=== PATIENT | male | born 1955 | race Hispanic/Latino ===

== ENCOUNTER 2016-10-14 23:32 | Inpatient (IN) | payer MEDICARE ==
[2016-10-15 00:11] LABS: Basophils % (Auto) 0.6 % (0.0-1.8); Eosinophils % (Auto) 2.8 % (0.0-4.3); Hematocrit 40.8 % (35.5-45.6); Hemoglobin 13.8 gm/dl (11.8-15.2); Mean Corpuscular HGB Conc 34 % (32-34); Mean Corpuscular Hemoglobin 29 pg (28-32); Mean Corpuscular Volume 87 fl (84-94); Platelet Count 173 K/mm3 (140-440); Red Cell Distribution Width 13.7 % (13.2-15.2); White Blood Count 6.8 K/mm3 (4.5-11.0)
[2016-10-15 00:23] LABS: Partial Thromboplastin Time 40.2 Sec. (24.2-36.6)
[2016-10-15 00:31] LABS: Anion Gap 19 mmol/L; Blood Urea Nitrogen 9 mg/dL (9-20); Calcium 8.4 mg/dL (8.4-10.2); Carbon Dioxide 22 mmol/L (22-30); Chloride 98.6 mmol/L (98-107); Glucose 308 mg/dL (75-100); Potassium 3.5 mmol/L (3.6-5.0); Sodium 136 mmol/L (137-145)
[2016-10-15] MEDS ORDERED: DILAUDID IV ONE (08:22)
[2016-10-15] MEDS ORDERED: ZOFRAN IV ONE (08:22)
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
[2016-10-15] MEDS ORDERED: NACL 0.9% 500 ML 500 ML IV ONE (08:38)
--- NOTE | 2016-10-15 08:50 | Admit Criteria Form ---
Admission Criteria Documentation: CARDIOLOGY GRG Clinical Indications for Admission to Inpatient Care ( Place 'X' for any and all applicable criteria): Hospital admission is needed for appropriate care of the patient because of ANY ONE of the following (1): [ ] I. Hemodynamic instability as indicated by ALL of the following (1)(2)(3) (4)(5) [ ]a) Vital signs or other findings not as expected for chronic patient condition or baseline [ ]b) Instability indicated by ANY ONE of the following: [ ]i) Hypotension [ ]ii) Symptomatic Tachycardia unresponsive to treatment ( e.g., analgesia, fluids, sedation as indicated) [ ]iii) Inadequate perfusion indicated by ANY ONE of the following: [ ] 1) Lactic acidosis (> 2 mmol/L) [ ] 2) New abnormal capillary refill (> 3 seconds) [ ] 3) Reduced urine output [ ] 4) New altered mental status [ ]iv) Orthostatic vital sign changes unresponsive to treatment (e.g., fluids) [ ]v) IV inotropic or vasopressor medication required to maintain adequate blood pressure or perfusion [ ] II. Severe heart failure as indicated by ANY ONE of the following(17)(18) [ ]a) Respiratory distress [ ]b) Hypotension [ ]c) Anasarca (refractory to outpatient therapy) [ ]d) Cardiac arrhythmias of immediate concern [ ]e) Myocardial ischemia [ ] III. Cardiac arrhythmias or findings of immediate concern indicated by ANY ONE of the following (19)(20): [ ] a) Heart rhythms that are inherently dangerous or unstable indicated by ANY ONE of the following (21)(22)(23): [ ] i) Resuscitated ventricular fibrillation or cardiac arrest [ ] ii) Ventricular escape rhythm [ ] iii) Sustained ventricular tachycardia (30 seconds or more of ventricular rhythm at greater than 100 beats per minute) [ ] iv) Nonsustained ventricular tachycardia and ANY ONE of the following: [ ] 1) Suspected cardiac ischemia as cause or consequence of ventricular tachycardia [ ] 2) In setting of acute myocarditis [ ] b) Unstable cardiac conduction defects indicated by ANY ONE of the following(23)(24)(25) [ ] i) Type II second-degree atrioventricular block [ ]ii) Third-degree atrioventricular block [ ]iii) New-onset left bundle branch block with suspected myocardial ischemia [ ]c) Any heart rhythm and ANY ONE of the following (21)(22)(26)(27) (28) [ ] i) Continuous long-term ECG monitoring needed (e.g., initiation of drug requiring monitoring for more than 24 hours) [ ] ii) Patient has automatic implanted cardioverter defibrillator that is repeatedly firing, malfunctioning, or in need of immediate adjustment of settings beyond the scope of ambulatory or observation care [ ]d) Heart rhythms of concern due to ANY ONE of the following: [ ] i) Hypotension [ ] ii) Respiratory distress [ ] iii) Association with other significant symptoms (e.g., bradycardia with syncope or ongoing dizziness, supraventricular tachycardia with chest pain (14)(15)(17) [ ] IV. Monitoring for cardiac contusion beyond the scope of observation care needed [A](30)(31)(32) [ ] V. Surgical or device complication (e.g., valve replacement complication , pacemaker dysfunction) (35)(41)(44)(45)(46) [ ] . Inpatient palliative care needed. [B](49) Also use Inpatient Palliative Care Criteria [ ] VII. Nonbacterial thrombotic (marantic) endocarditis (36)(43)(47)(48) [X ] VIII. Cardiology condition, symptom, or finding for which emergency and observation care has failed or are not considered appropriate. [ ] IX. Acute valvular disease requiring inpatient as indicated by ANY ONE of the following (41) [ ]a) Acute valvular regurgitation (42) [ ]b) Noninfectious valvulitis (43) [ ]c) Obstructive valve thrombosis [ ]d) Paravalvular leak [ ]e) Other significant valvular disorder remaining after emergency or observation level of care (as appropriate) [ ]X. Pericardial disease requiring inpatient treatment as indicated by ANY ONE of the following (33)(34)(35)(36)(37) [ ]a) Suspected tamponade (38)(39)(40) [ ]b) Hemopericardium [ ]c) Other significant pericardial disorder remaining after emergency or observation level of care (as appropriate) [ ] XI. Cardiac ischemia beyond scope of emergency and observation care. [ ] XII. Hypertension requiring inpatient treatment as indicated by ANY ONE of the following (6)(7)(8) [ ]a) SBP greater than 220 mm Hg or DBP greater than 120 mmHg despite treatment [ ]b) SBP greater than 140 mm Hg or DBP greater than 100 mm Hg with evidence of acute end organ damage as indicated by ANY ONE of the following [ ] i) Altered mental status [ ] ii) Acute renal failure as indicated by new onset of ANY ONE of the following (9)(10)(11)(12)(13) [ ]1) 3-fold rise in serum creatinine from baseline [ ]2) Serum creatinine greater than 4 mg/dL ( 354 micromoles/L) with acute rise greater than 0.5 mg/dL (44.2 micromoles/L) [ ]3) Reduction of more than 75% in estimated glomerular filtration rate from baseline [ ]4) Estimated glomerular filtration rate less than 35 mL/min/1.73m2 (0.59 mL/sec/1.73m2) in child up to 18 years of age [ ]5) Cessation of urine output indicated by ALL of the following [ ]A. Adequate volume status [ ]B. Inadequate urine output as indicated by ANY ONE of the following [ ]a. Urine output less than 0.3 mL/kg/hr for 24 hours [ ]b. Anuria (urine output less than 0.1 mL/kg/hr) for 12 hours [ ] iii) Aortic dissection [ ] iv) Myocardial Ischemia [ ] v) Left ventricular heart failure [ ]vi) Retinal Hemorrhage [ ]vii) Other significant finding [ ]c) Hypertension in child requiring inpatient treatment as indicated by ALL of the following(14)(15)(16) [ ] i) Outpatient treatment not effective, not available, or not appropriate [ ]ii) SBP or DBP greater than 95th percentile for age [ ]iii) Evidence of acute end organ damage as indicated by ANY ONE of the following [ ]1) Altered mental status [ ]2) Acute renal failure as indicated by new onset of ANY ONE of the following(9)(10)(11)(12)(13) [ ]A. 3-fold rise in serum creatinine from baseline [ ]B. Serum creatinine greater than 4 mg/dL (354 micromoles/L) with acute rise greater than 0.5 mg/dL (44.2 micromoles/L) [ ]C. Reduction of more than 75% in estimated glomerular filtration rate from baseline [ ]D. Estimated glomerular filtration rate less than 35 mL/min/1.73m2 (0.59 mL/sec/1.73m2) in child up to 18 years of age [ ]E. Cessation of urine output indicated by ALL of the following [ ]a. Adequate volume status [ ]b. Inadequate urine output as indicated by ANY ONE of the following [ ]i) Urine output less than 0.3 mL/kg/hr for 24 hours [ ]ii) Anuria ( urine output less than 0.1 mL/kg/hr) for 12 hours [ ]3) Severe headache [ ]4) Visual disturbance [ ]5) Retinal hemorrhage [ ]6) Other significant finding [ ]XIII. Complications of transplanted heart indicated by ANY ONE of the following(61): [ ]a) Acute graft rejection requiring inpatient management (eg, intravenous immunosuppression)(62)(63) [ ]b) Acute graft heart failure indicated by ANY ONE of the following(64): [ ]i) Hemodynamic instability [ ]ii) Cardiac arrhythmias of immediate concern [ ]iii) Pulmonary edema that is very severe (eg, mechanical ventilation needed, imminent or likely, need for 100% oxygen to keep oxygen saturation above 90%) [ ]iv) Pulmonary edema that is persistent as indicated by ALL of the following: [ ]1) New need for oxygen therapy to keep oxygen saturation above 90% (or increased FiO2 need from baseline) [ ]2) Has not improved sufficiently with emergency department or observation care IV diuretics or other heart failure treatments[E] [ ]v) Altered mental status that is severe or persistent [ ]vi) Increased creatinine (new on laboratory test) with reduction of more than 50% in estimated glomerular filtration rate from baseline [ ]vii) Progressively (ongoing) rising creatinine (known from past laboratory test) with reduction of more than 25% in estimated glomerular filtration rate from baseline [ ]viii) Acute renal failure [ ]ix) Acute peripheral ischemia (eg, examination shows pulseless, cool, mottled, or cyanotic extremity) [ ]x) Pulmonary artery catheter monitoring needed [ ]xi) Other sign or symptom of heart failure requiring inpatient treatment (ie, too severe or not responsive to outpatient and observation care treatment) [ ]c) Infection requiring inpatient management (eg, Hemodynamic instability, need for intravenous antimicrobial treatment)(66)(67)(68)(69)(70) [ ]d) Cardiac allograft vasculopathy requiring inpatient management ( eg evidence of cardiac ischemia)(71) [ ]e) Other complication of transplanted heart (eg, stroke, severe pulmonary hypertension, severe valvular dysfunction) requiring inpatient management(72) The original [facility] [employer] content created by [facility] [employer] has been revised. The portions of the content which have been revised are identified through the use of italic text or in bold, and [facility] has neither reviewed nor approved the modified material. All other unmodified content is copyright [facility] [employer]. Please see references footnoted in the original [facility] [employer] edition 2016
[2016-10-15] MEDS ORDERED: PROVENTIL IH PRN (09:02)
--- NOTE | 2016-10-15 09:06 | History and Physical Report ---
History of Present Illness Date of examination: 10/15/16 Date of admission: 10/15/16 Chief complaint: Chest pain Syncope History of present illness: 61-year-old male patient with significant past medical history of coronary artery disease status post CABG status post PCI congestive heart failure status post ICD was admitted through emergency room with chest pain and worsening shortness of breath and syncopal episode Patient also had left-sided chest pain associated with nausea vomiting and shortness of breath No improvement with sublingual nitroglycerin vomited 2-3 times and no diaphoresis Patient had negative In 2016 as well as fixed defects on stress test Patient calm compliance with medications and diet, follows with [facility] 2 sets of cardiac enzymes are negative Past History Past Medical History: CAD, diabetes, heart failure, hypertension Past Surgical History: CABG, PTCA, Other (ICD) Social history: lives with family, smoking, full code. denies: alcohol abuse, prescription drug abuse Family history: hypertension Medications and Allergies Allergies Allergy/AdvReac Type Severity Reaction Status Date / Time gabapentin [From Neurontin] Allergy Rash Verified 08/15/13 13:23 Home Medications Medication Instructions Recorded Confirmed Last Taken Type Atorvastatin [Lipitor] 80 mg PO QHS 11/17/15 10/15/16 10/14/16 History Carvedilol [Coreg] 6.25 mg PO DAILY 11/17/15 10/15/16 10/14/16 History Furosemide [Lasix TAB] 20 mg PO QDAY 11/17/15 10/15/16 10/14/16 History oxyCODONE /ACETAMINOPHEN [Percocet 1 tab PO BID PRN #10 tablet 04/06/1610/14/16 Rx 5/325 mg] ALBUTEROL NEB's [Proventil 0.083% 2.5 mg IH Q4HRT PRN #30 nebu 07/06/1610/14/16 Rx NEBS] ALPRAZolam [Xanax TAB] 0.5 mg PO BID #30 tablet 07/06/16 10/15/16 10/14/16 Rx Amiodarone [Cordarone 200 MG TAB] 200 mg PO BID #60 tablet 07/06/16 10/15/1610/26 Rx Aspirin [Aspirin BABY CHEW TAB] 81 mg PO QDAY #30 tab.chew 01/10/15/1610/26 Rx Dabigatran [Pradaxa] 150 mg PO DAILY #30 capsule 07/06/16 10/15/16 10/14/16 Rx ISOSORBIDE MONOnitrate [Imdur ER] 60 mg PO QHS #30 tablet 07/06/16 10/15/1610/26 Rx Insulin Aspart [NovoLOG Flexpen] 20 units SQ AC #7 insuln.pen 07/06/16 10/15/16 10/14/16 Rx Insulin Glargine,Hum.rec.anlog 20 units SQ QHS #30 insuln.pen 07/06/16 10/15/16 10/14/16 Rx [Lantus Solostar] Oxycodone HCl/Acetaminophen 1 each PO BID PRN #10 tablet 07/06/16 10/15/1610/14 Rx [Percocet 10/325 mg] Pantoprazole [Protonix TAB] 40 mg PO DAILY #30 tablet 07/06/16 10/15/16 Rx Active Meds: Active Medications Albuterol (Proventil) 2.5 mg IH Q4HRT PRN PRN Reason: Shortness Of Breath Alprazolam (Xanax) 0.5 mg PO BID MARY Amiodarone HCl (Cordarone) 200 mg PO BID [facility] Aspirin (Baby Aspirin) 81 mg PO QDAY MARY Carvedilol (Coreg) 6.25 mg PO DAILY [facility] Sodium Chloride (Nacl 0.9% 500 Ml) 500 mls @ 100 mls/hr IV ONCE ONE Stop: 10/15/16 13:37 Isosorbide Mononitrate (Imdur) 60 mg PO QHS [facility] Miscellaneous Medication (Atorvastatin [Lipitor]) 80 mg PO QHS [facility] Miscellaneous Medication (Insulin Glargine,Hum.Rec.Anlog [Lantus Solostar]) 20 units SQ QHS [facility] Oxycodone/Acetaminophen (Percocet 5/325) 1 tab PO BID PRN PRN Reason: Pain, Moderate (4-6) Pantoprazole Sodium (Protonix) 40 mg PO DAILY [facility] Review of Systems Constitutional: no weight loss, no weight gain, no fever, no chills Ears, nose, mouth and throat: no nasal congestion, no nasal discharge Cardiovascular: chest pain, lightheadedness, shortness of breath, no orthopnea, no palpitations Respiratory: shortness of breath, no cough with sputum Gastrointestinal: nausea, vomiting, no abdominal pain Genitourinary Male: no dysuria, no hematuria Musculoskeletal: no myalgias, no arthritis Integumentary: no rash, no lesions Neurological: syncope, no weakness, no parathesias, no seizures Psychiatric: no anxiety, no depression Endocrine: no cold intolerance, no heat intolerance, no polydipsia, no polyuria Hematologic/Lymphatic: no easy bruising, no easy bleeding Allergic/Immunologic: no urticaria, no allergic rhinitis Exam - Constitutional Vitals: Temp Pulse Resp BP Pulse Ox 97.8 F 60 11 L 143/88 97 10/15/16 03:13 10/15/16 08:00 10/15/16 08:00 10/15/16 08:30 10/15/16 08:30 General appearance: Present: no acute distress, well-nourished - EENT Eyes: Present: PERRL, EOM intact - Neck Neck: Present: supple, normal ROM - Respiratory Respiratory effort: normal Respiratory: bilateral: diminished, rales, negative: rhonchi, wheezing - Cardiovascular Rhythm: regular Heart Sounds: Present: S1 & S2 - Extremities Extremities: no ischemia, pulses intact, pulses symmetrical Peripheral Pulses: within normal limits - Abdominal General gastrointestinal: Present: soft, non-tender, non-distended, normal bowel sounds - Integumentary Integumentary: Present: clear, warm - Musculoskeletal Musculoskeletal: strength equal bilaterally - Psychiatric Psychiatric: appropriate mood/affect, cooperative - Neurologic Neurologic: CNII-XII intact, moves all extremities Results - Labs CBC & Chem 7: 10/14/16 23:57 10/14/16 23:57 Labs: Abnormal lab results 10/14/16 10/14/16 10/15/16 Range/Units 23:57 23:57 07:48 APTT 40.2 H (24.2-36.6) Sec. Sodium 136 L (137-145) mmol/L Potassium 3.5 L (3.6-5.0) mmol/L Glucose 308 H (75-100) mg/dL POC Glucose 252 H (70-105) Assessment and Plan --Angina Rule out acute coronary syndrome, serial cardiac enzymes EKG, resume home cardiac medications In view of extensive cardiac history, syncope, cardiology evaluation --Coronary artery disease status post CABG status post procedure Recent negative heart And negative stress test Optimize medications --Hypertension moderate control Resume home antihypertensives and when necessary medications --Ischemic cardiomyopathy with ejection fraction of 20-25% Continue anti-failure medications, low sodium diet, restricted fluid intake Daily weights --Type 2 diabetes mellitus; Moderate control, Accu-Chek sliding scale coverage and ADA diet and insulin Check hemoglobin A1c needed --Dyslipidemia Stable on lipid-lowering medications --History of atrial fibrillation, rate controlled Continue beta blockers and amiodarone Chronic anticoagulation Pradaxa --DVT prophylaxis, patient is already on paradox --Ongoing tobacco use; Patient strongly advised to quit tobacco use advised nicotine patch Counseling done DC planning to case management Follow cardiology evaluation, patient may not need any further cardiac workup We'll optimize medications Possible discharge in 1-2 days if stable Patient's condition treatment plan discussed in detail with the patient, ER physician and his nurse
[2016-10-15] MEDS ORDERED: K-DUR PO ONE ×2 (09:12→09:40)
[2016-10-15] MEDS: XANAX PO SCH ×2 (12:19→21:56)
[2016-10-15] MEDS: PRADAXA PO SCH (12:19)
[2016-10-15] MEDS: PROTONIX PO SCH (12:19)
[2016-10-15] MEDS: PERCOCET 5/325 PO PRN ×2 (12:19→21:56)
[2016-10-15] MEDS: BABY ASPIRIN PO SCH (12:19)
[2016-10-15] MEDS: COREG PO SCH (12:19)
--- NOTE | 2016-10-15 12:19 | XRay Report ---
AP CHEST : 10/15/16 CLINICAL: Chest pain. COMPARISON:07/03/16 FINDINGS: Stable cardiomegaly with pacer leads in heart. Normal pulmonary vessels. The lungs are normally expanded and clear. The bones and soft tissues are unremarkable. IMPRESSION: Cardiomegaly but no CHF. No change.
[2016-10-15] MEDS: RANEXA ER PO SCH ×2 (12:20→21:55)
[2016-10-15] MEDS: CORDARONE PO SCH ×2 (12:20→21:55)
[2016-10-15] MEDS: NOVOLOG SUB-Q SCH ×2 (12:20→16:05)
--- NOTE | 2016-10-15 12:24 | Consultation ---
History of Present Illness Consult date: 10/15/16 Consult reason: chest pain History of present illness: Patient is a 61-year-old man with a history of coronary artery disease, status post previous 4 way coronary artery bypass. A year and a half ago, cardiac catheterization revealed all 4 bypass grafts to be patent, but he has diffuse small branch vessel disease and chronic stable angina on medical therapy. In addition, he has a severe ischemic cardiomyopathy, ejection fraction 20-25%, with an indwelling cardiac defibrillator for primary prevention. He also has paroxysmal atrial fibrillation, on Pradaxa for oral anticoagulation. His last thallium stress test was 3 months ago, showed a fixed lateral wall defect of prior infarct with no significant ischemia. He is admitted to the hospital at this time with atypical nonexertional chest pain. Initial ECG and cardiac enzymes are unremarkable. Past History Past Medical History: acute NH, atrial fib, CAD Past Surgical History: CABG Medications and Allergies Allergies Allergy/AdvReac Type Severity Reaction Status Date / Time gabapentin [From Neurontin] Allergy Rash Verified 08/15/13 13:23 Home Medications Medication Instructions Recorded Confirmed Last Taken Type Atorvastatin [Lipitor] 80 mg PO QHS 11/17/15 10/15/16 10/14/16 History Carvedilol [Coreg] 6.25 mg PO DAILY 11/17/15 10/15/16 10/14/16 History Furosemide [Lasix TAB] 20 mg PO QDAY 11/17/15 10/15/16 10/14/16 History oxyCODONE /ACETAMINOPHEN [Percocet 1 tab PO BID PRN #10 tablet 04/06/1610/14/16 Rx 5/325 mg] ALBUTEROL NEB's [Proventil 0.083% 2.5 mg IH Q4HRT PRN #30 nebu 07/06/1610/14/16 Rx NEBS] ALPRAZolam [Xanax TAB] 0.5 mg PO BID #30 tablet 07/06/16 10/15/16 10/14/16 Rx Amiodarone [Cordarone 200 MG TAB] 200 mg PO BID #60 tablet 07/06/16 10/15/1610/26 Rx Aspirin [Aspirin BABY CHEW TAB] 81 mg PO QDAY #30 tab.chew 07/06/16 10/15/1610/26 Rx Dabigatran [Pradaxa] 150 mg PO DAILY #30 capsule 07/06/16 10/15/16 10/14/16 Rx ISOSORBIDE MONOnitrate [Imdur ER] 60 mg PO QHS #30 tablet 07/06/16 10/15/1610/26 Rx Insulin Aspart [NovoLOG Flexpen] 20 units SQ AC #7 insuln.pen 07/06/16 10/15/16 10/14/16 Rx Insulin Glargine,Hum.rec.anlog 20 units SQ QHS #30 insuln.pen 07/06/16 10/15/16 10/14/16 Rx [Lantus Solostar] Oxycodone HCl/Acetaminophen 1 each PO BID PRN #10 tablet 07/06/16 10/15/1610/14 Rx [Percocet 10/325 mg] Pantoprazole [Protonix TAB] 40 mg PO DAILY #30 tablet 07/06/16 10/15/16 Rx Active Meds: Active Medications Albuterol (Proventil) 2.5 mg IH Q4HRT PRN PRN Reason: Shortness Of Breath Alprazolam (Xanax) 0.5 mg PO BID MARY Amiodarone HCl (Cordarone) 200 mg PO BID [facility] Aspirin (Baby Aspirin) 81 mg PO QDAY [facility] Atorvastatin Calcium (Lipitor) 40 mg PO QHS [facility] Carvedilol (Coreg) 6.25 mg PO DAILY [facility] Dabigatran (Pradaxa) 150 mg PO DAILY MARY PRN Reason: Protocol Furosemide (Lasix) 40 mg IV 0600,1800 [facility] Sodium Chloride (Nacl 0.9% 500 Ml) 500 mls @ 100 mls/hr IV ONCE ONE Stop: 10/15/16 13:37 Last Admin: 10/15/16 09:08 Dose: 100 mls/hr Insulin Aspart (Novolog) 15 units SUB-Q AC [facility] Insulin Detemir (Levemir) 20 units SUB-Q QHS [facility] Isosorbide Mononitrate (Imdur) 60 mg PO QHS [facility] Oxycodone/Acetaminophen (Percocet 5/325) 1 tab PO BID PRN PRN Reason: Pain, Moderate (4-6) Pantoprazole Sodium (Protonix) 40 mg PO DAILY [facility] Ranolazine (Ranexa Er) 500 mg PO BID [facility] Review of Systems Cardiovascular: chest pain, shortness of breath, no orthopnea, no palpitations, no rapid/irregular heart beat, no edema, no syncope, no lightheadedness Physical Examination Vital Signs Temp Pulse Resp BP Pulse Ox 98.4 F 70 18 148/83 99 10/14/16 23:46 10/14/16 23:46 10/14/16 23:46 10/14/16 23:46 10/14/16 23:46 General appearance: no acute distress HEENT: Positive: PERRL Neck: Positive: neck supple Cardiac: Positive: Reg Rate and Rhythm Lungs: Positive: Decreased Breath Sounds Neuro: Positive: Grossly Intact Abdomen: Positive: Soft Male genitourinary: Positive: deferred Skin: Positive: Clear Extremities: Absent: edema Results 10/14/16 23:57 10/14/16 23:57 EKG interpretations - Telemetry EKG Rhythm: Sinus Rhythm Assessment and Plan - Patient Problems (1) Chest pain Current Visit: Yes Status: Acute Qualifiers: Chest pain type: C Ischemic chest pain type: I Plan to address problem: Chest pain is atypical, we will continue medical therapy for his coronary artery disease, ischemic cardiomyopathy, chronic systolic heart failure and chronic stable angina of small vessel disease. No further ischemic cardiac workup is indicated at the current time.
--- NOTE | 2016-10-15 12:41 | Admit Criteria Form ---
Admission Criteria Documentation: TELEMETRY CARE Telemetry Admission Guidelines (Place 'X' for any and all applicable criteria): Admission to telemetry [A] may be indicated for ANY ONE of the following(1)(2)(3 )(4)(5): [X ]I. Cardiac disease, including ANY ONE of the following (9)(10)(11)(12)( 13): [ ]a) Postacute ME [ ]b) Low-risk patients with ST-segment elevation ME who have undergone successful percutaneous coronary intervention [X ]c) Unstable angina [ ]d) Suspected ME (until it is ruled out) [ ]e) Post cardiac surgery (first 48 to 72 hours unless complications occur) [ ]f) Acute arrhythmias (including significant tachycardia or bradycardia) [B] [ ]g) Firing of an implantable cardioverter defibrillator [C] [ ]h) Suspected pacemaker or implantable cardioverter defibrillator malfunction (10) [ ]i) New administration or adjustment of an antiarrhythmic drug [D ] [ ]j) Child admitted for acute congestive heart failure [ ]j) Long QT syndrome [ ]k) Advanced heart block (eg, second-degree Mobitz type II, third- degree heart block) [ ]l) Acute myocarditis or pericarditis [ ]m) Short-term (ambulatory or inpatient) monitoring after a cardiac procedure as indicated by ANY ONE of the following [E]: [ ]i) Electrophysiologic studies [ ]ii) Percutaneous coronary intervention with stent placement [ ]iii) Pacemaker placement with cardiac conduction defect [ ]iv) Implantable cardiac defibrillator placement [ ]II. Drug overdose or poisoning with substance that causes arrhythmias or QT prolongation (eg, phenothiazines, sympathomimetic agents, cyclic antidepressants, digitalis, antiarrhythmic drugs)(15) [ ]III. Short-term (ambulatory or inpatient) monitoring after therapeutic or diagnostic procedure requiring conscious sedation or anesthesia (eg, endoscopy, elective cardioversion) [ ]IV. Acute cerebrovascular even[F](18) [ ]V. Massive blood transfusion (eg, at least 10 units of packed red blood cells in 24 hours) [ ]. Variceal bleeding after endoscopy, sclerotherapy, or IV vasopressin [ ]VII. Uncorrected electrolyte abnormalities associated with an increased risk of dangerous arrhythmia [G]; examples include [ ]a) Hyperkalemia with attributable ECG changes [ ]b) Potassium greater than 6.5 mmol/L (mEq/L) in a patient without history of chronic renal disease [ ]c) Prolonged QT attributed to hypokalemia, hypomagnesemia, or hypocalcemia [ ]VIII.Unexplained syncope or other neurologic event suspected of being due to arrhythmia due to a finding that increases risk; examples include(19)(20)(21): [ ]a) High-risk ECG findings (eg, bifascicular block, bradycardia, abnormal QT interval, ventricular pre- excitation) [ ]b) History of previous syncope due to arrhythmia [ ]c) Abnormal ventricular function (eg, reduced ejection fraction ) [ ]d) Exertional or supine syncope [ ]e) Concerning syncope characteristics (eg, sudden loss of consciousness without prodrome) [ ]f) Family history of sudden [ ]g) Use of arrhythmogenic medication [ ]h) Suspected cardiac ischemia [ ]i) Known channelopathy (eg, long QT syndrome, Brugada syndrome, or catecholaminergic paroxysmal ventricular tachycardia) [ ]j) Known structural heart disease (eg, hypertrophic cardiomyopathy , severe valvular disease) [ ]k) Palpitations preceding syncope The original [employer] content created by [employer] has been revised. The portions of the content which have been revised are identified through the use of italic text or in bold, and [employer] [facility] [facility] has neither reviewed nor approved the modified material. All other unmodified content is copyright [employer]. Please see references footnoted in the original [employer] edition 2016 Admission Criteria Met: Yes
[2016-10-15] MEDS: DILAUDID IV PRN ×2 (15:57→23:38)
[2016-10-15] MEDS: LASIX IV SCH (17:50)
[2016-10-15] MEDS ORDERED: IMDUR PO SCH (22:00)
[2016-10-15] MEDS ORDERED: NON-FORMULARY (Insulin Glargine,Hum.Rec.Anlog [Lantus Solostar] 20 UNITS) SQ SCH (22:00)
[2016-10-15] MEDS ORDERED: LEVEMIR SUB-Q SCH (22:00)
[2016-10-15] MEDS ORDERED: NON-FORMULARY (Atorvastatin [Lipitor] 80 MG) PO SCH (22:00)
[2016-10-16] MEDS: LASIX IV SCH (06:35)
[2016-10-16 06:36] LABS: Basophils % (Auto) 0.5 % (0.0-1.8); Eosinophils % (Auto) 3.6 % (0.0-4.3); Hematocrit 36.4 % (35.5-45.6); Hemoglobin 12.1 gm/dl (11.8-15.2); Mean Corpuscular HGB Conc 33 % (32-34); Mean Corpuscular Hemoglobin 29 pg (28-32); Mean Corpuscular Volume 87 fl (84-94); Platelet Count 136 K/mm3 (140-440); Red Blood Count 4.18 M/mm3 (3.65-5.03); Red Cell Distribution Width 13.6 % (13.2-15.2); White Blood Count 4.6 K/mm3 (4.5-11.0)
[2016-10-16] MEDS: DILAUDID IV PRN ×2 (06:36→13:40)
[2016-10-16 06:44] LABS: BUN/Creatinine Ratio 14.44; Blood Urea Nitrogen 13 mg/dL (9-20); Calcium 8.7 mg/dL (8.4-10.2); Carbon Dioxide 20 mmol/L (22-30); Chloride 102.6 mmol/L (98-107); Glucose 395 mg/dL (75-100); Sodium 139 mmol/L (137-145)
[2016-10-16 08:07] LABS: Anion Gap 22 mmol/L; Potassium 5.2 mmol/L (3.6-5.0)
[2016-10-16] MEDS: NOVOLOG SUB-Q SCH ×2 (11:14→13:39)
[2016-10-16] MEDS: CORDARONE PO SCH (11:16)
[2016-10-16] MEDS: COREG PO SCH (11:17)
[2016-10-16] MEDS: PRADAXA PO SCH (11:17)
[2016-10-16] MEDS: XANAX PO SCH (11:18)
[2016-10-16] MEDS: RANEXA ER PO SCH (11:18)
[2016-10-16] MEDS: PERCOCET 5/325 PO PRN (11:19)
[2016-10-16] MEDS: PROTONIX PO SCH (11:19)
[2016-10-16] MEDS: BABY ASPIRIN PO SCH (11:19)
--- NOTE | 2016-10-16 11:34 | Progress Note ---
Hospitalist Physical - Constitutional Vitals: Temp Pulse Resp BP Pulse Ox 97.3 F L 72 18 149/66 98 10/16/16 09:37 10/16/16 11:17 10/16/16 09:37 10/16/16 11:17 10/16/16 09:37 General appearance: Present: no acute distress, well-nourished Results - Labs CBC & Chem 7: 10/16/16 05:56 10/16/16 05:07 Labs: Laboratory Last Values WBC 4.6 K/mm3 (4.5-11.0) 10/16/16 05:56 RBC 4.18 M/mm3 (3.65-5.03) 10/16/16 05:56 Hgb 12.1 gm/dl (11.8-15.2) 10/16/16 05:56 Hct 36.4 % (35.5-45.6) 10/16/16 05:56 MCV 87 fl (84-94) 10/16/16 05:56 MCH 29 pg (28-32) 10/16/16 05:56 MCHC 33 % (32-34) 10/16/16 05:56 RDW 13.6 % (13.2-15.2) 10/16/16 05:56 Plt Count 136 K/mm3 (140-440) L 10/16/16 05:56 Lymph % (Auto) 31.7 % (13.4-35.0) 10/16/16 05:56 [place] % (Auto) 8.0 % (0.0-7.3) H 10/16/16 05:56 Eos % (Auto) 3.6 % (0.0-4.3) 10/16/16 05:56 Baso % (Auto) 0.5 % (0.0-1.8) 10/16/16 05:56 Lymph # 1.4 K/mm3 (1.2-5.4) 10/16/16 05:56 [place] # 0.4 K/mm3 (0.0-0.8) 10/16/16 05:56 Eos # 0.2 K/mm3 (0.0-0.4) 10/16/16 05:56 Baso # 0.0 K/mm3 (0.0-0.1) 10/16/16 05:56 Seg Neutrophils % 56.2 % (40.0-70.0) 10/16/16 05:56 Seg Neutrophils # 2.6 K/mm3 (1.8-7.7) 10/16/16 05:56 PT 13.1 Sec. (12.2-14.9) 10/14/16 23:57 INR 1.00 (0.87-1.13) 10/14/16 23:57 APTT 40.2 Sec. (24.2-36.6) H 10/14/16 23:57 Sodium 139 mmol/L (137-145) 10/16/16 05:07 Potassium 5.2 mmol/L (3.6-5.0) H D 10/16/16 05:07 Chloride 102.6 mmol/L (98-107) 10/16/16 05:07 Carbon Dioxide 20 mmol/L (22-30) L 10/16/16 05:07 Anion Gap 22 mmol/L 10/16/16 05:07 BUN 13 mg/dL (9-20) 10/16/16 05:07 Creatinine 0.9 mg/dL (0.8-1.5) 10/16/16 05:07 Estimated GFR > 60 ml/min 10/16/16 05:07 BUN/Creatinine Ratio 14.44 % 10/16/16 05:07 Glucose 395 mg/dL (75-100) H 10/16/16 05:07 POC Glucose 307 (70-105) H 10/15/16 21:48 Calcium 8.7 mg/dL (8.4-10.2) 10/16/16 05:07 Troponin T < 0.010 ng/mL (0.00-0.029) 10/15/16 06:12
--- NOTE | 2016-10-16 13:17 | Progress Note ---
Assessment and Plan - Patient Problems (1) Chest pain Current Visit: Yes Status: Acute Qualifiers: Chest pain type: C Ischemic chest pain type: I Plan to address problem: Chest pain is atypical, we will continue medical therapy for his coronary artery disease, ischemic cardiomyopathy, chronic systolic heart failure and chronic stable angina of small vessel disease. No further ischemic cardiac workup is indicated at the current time. Subjective Date of service: 10/16/16 Interval history: Patient is comfortable, no chest pain and no shortness of breath. He is ambulating in his room looks and feels well. Objective Vital Signs Temp Pulse Pulse Resp BP BP Pulse Ox 10/16/16 11:17 72 149/66 10/16/16 10:00 98 10/16/16 09:37 97.3 F L 72 18 146/80 98 10/16/16 06:36 20 10/16/16 04:05 97.6 F 65 20 149/66 95 10/16/16 01:09 97.9 F 64 20 111/62 95 10/15/16 21:56 20 10/15/16 21:55 66 138/77 10/15/16 21:52 69 10/15/16 20:48 98.0 F 66 20 138/77 96 10/15/16 20:33 99 10/15/16 16:25 97.3 F L 59 L 18 125/67 97 - Physical Examination General: Appears Well, No Apparent Distress HEENT: Positive: PERRL Neck: Positive: neck supple Cardiac: Positive: Reg Rate and Rhythm Lungs: Positive: Decreased Breath Sounds Neuro: Positive: Grossly Intact Abdomen: Positive: Soft Skin: Positive: Clear Extremities: Absent: edema - Labs and Meds CBC 10/16/16 Range/Units 05:56 WBC 4.6 (4.5-11.0) K/mm3 RBC 4.18 (3.65-5.03) M/mm3 Hgb 12.1 (11.8-15.2) gm/dl Hct 36.4 (35.5-45.6) % Plt Count 136 L (140-440) K/mm3 Lymph # 1.4 (1.2-5.4) K/mm3 [place] # 0.4 (0.0-0.8) K/mm3 Eos # 0.2 (0.0-0.4) K/mm3 Baso # 0.0 (0.0-0.1) K/mm3 Comprehensive Metabolic Panel 10/16/16 Range/Units 05:07 Sodium 139 (137-145) mmol/L Potassium 5.2 H D (3.6-5.0) mmol/L Chloride 102.6 (98-107) mmol/L Carbon Dioxide 20 L (22-30) mmol/L BUN 13 (9-20) mg/dL Creatinine 0.9 (0.8-1.5) mg/dL Glucose 395 H (75-100) mg/dL Calcium 8.7 (8.4-10.2) mg/dL
--- NOTE | 2016-10-16 14:03 | Discharge Summary ---
Providers - Providers Date of Admission: 10/15/16 09:01 Date of discharge: 10/16/16 Attending physician: MADHAVI PERALTA 10/15/16 09:06 Consult to Physician [CONS] Routine Consulting Provider: RENÉ RIVERA Reason For Exam: chest pain/syncope/coronary artery disease Place consult to:: environmental remediation specialist Notified:: Y Was contact made?: Yes If yes, spoke with:: Dr Long Time called:: 09:11 Comment:: Dr Long returned call at this time, will consult. (Alan Licea) Primary care physician: PRECIOUS LOCKHART Hospitalization Reason for admission: left sided chest pain, syncope Condition: Fair Pertinent studies: Chest x-ray; cardiomegaly but no congestive heart failure Hospital course: A pleasant 61-year-old male patient with significant past medical history of coronary artery disease status post CABG status post PCI congestive heart failure systolic dysfunction status post ICD placement follows with cardiology was admitted through emergency room to chest pain and syncopal episode Patient was initially evaluated and admitted to the hospital medications were optimized, evaluation by machine sole leveler, patient did not need any further workup, advised continue current management, Ranexa was added Insulin dose was adjusted Patient's symptoms significantly improved Threes comfortably in bed denies any chest pain shortness of breath, likely signs are stable [id number] evaluation and physical examination done by me prior to discharge is unremarkable Patient is hemodynamically and clinically stable for discharge and follow up with primary care physician and machine sole leveler per schedule Smoking cessation counseling done patient advised that his syncopal consequences of long-term tobacco use advised nicotine patch as spent 10 minutes counseling the patient Final diagnosis; Angina/coronary artery disease Syncope Coronary artery disease status post CABG status post PCI Ischemic cardiomyopathy status post ICD Hypertension Type 2 diabetes mellitus Dyslipidemia Ongoing tobacco use Disposition: DISCHARGED TO HOME OR SELFCARE Time spent for discharge: 33 min Core Measure Documentation - Palliative Care Palliative Care/ Comfort Measures: Not Applicable - Core Measures Any of the following diagnoses?: heart failure - Heart Failure Discharge Requirements WYATT/ARB for LVSD if EF <40%: Yes Beta thomas at discharge: Yes Exam - Constitutional Vitals: Temp Pulse Resp BP Pulse Ox 97.3 F L 72 18 149/66 98 10/16/16 09:37 10/16/16 11:17 10/16/16 09:37 10/16/16 11:17 10/16/16 10:00 General appearance: Present: no acute distress, well-nourished - EENT Eyes: Present: PERRL, EOM intact - Neck Neck: Present: supple, normal ROM - Respiratory Respiratory effort: normal Respiratory: bilateral: diminished, negative: rales, rhonchi, wheezing - Cardiovascular Rhythm: regular Heart Sounds: Present: S1 & S2 - Extremities Extremities: no ischemia, pulses intact, pulses symmetrical Peripheral Pulses: within normal limits - Abdominal General gastrointestinal: Present: soft, non-tender, non-distended, normal bowel sounds - Integumentary Integumentary: Present: clear, warm - Musculoskeletal Musculoskeletal: strength equal bilaterally - Psychiatric Psychiatric: appropriate mood/affect, cooperative - Neurologic Neurologic: CNII-XII intact, moves all extremities Plan Activity: no restrictions Diet: diabetic, other (cardiac diet) Special Instructions: smoking cessation Additional Instructions: Strongly advised to comply with medications and diet doctor's visits. If you have chest pain or shortness of breath go to emergency room or contact M.D. Follow up with: PRECIOUS LOCKHART MD [Primary Care Provider] - 3-5 Days SALMA AWAD MD [Staff Physician] - 7 Days Prescriptions: Lisinopril [Zestril TAB] 5 mg PO QDAY #30 tablet Oxycodone HCl/Acetaminophen [Percocet 10/325 mg] 1 each PO BID PRN #10 tablet PRN Reason: Pain Ranolazine ER [Ranexa ER] 500 mg PO BID #60 tablet
[2016-10-16 14:24] VITALS: BP 160/81
[2016-10-16] MEDS ORDERED: LEVEMIR SUB-Q SCH (22:00)
[2016-10-17] MEDS ORDERED: ZESTRIL PO SCH (10:00)
== END 2016-10-16 15:01 | disposition home or self-care (01) | DRG 303 ==
LOC: ED 23:32 → 4A 10-15 09:01
PROVIDERS: ADMIT Internal Medicine; ATTEND Internal Medicine
DX: I25.110 Atherosclerotic heart disease of native coronary artery with unstable angina pectoris (principal); I50.22 Chronic systolic (congestive) heart failure; R55 Syncope and collapse; I25.5 Ischemic cardiomyopathy; I11.0 Hypertensive heart disease with heart failure; E11.9 Type 2 diabetes mellitus without complications; E78.5 Hyperlipidemia, unspecified; J44.9 Chronic obstructive pulmonary disease, unspecified; G43.909 Migraine, unspecified, not intractable, without status migrainosus; E87.6 Hypokalemia; Z95.1 Presence of aortocoronary bypass graft; Z71.6 Tobacco abuse counseling; Z72.0 Tobacco use; Z86.718 Personal history of other venous thrombosis and embolism; Z95.0 Presence of cardiac pacemaker; Z87.442 Personal history of urinary calculi; Z90.49 Acquired absence of other specified parts of digestive tract; Z89.022 Acquired absence of left finger(s)
CPT/HCPCS: 36415; 71010; 80048; 82962; 84484; 85025; 85610; 85730; 93005; 93010; 96361; 96374; 96375; A9270-GY; J1170; J1815; J1818; J1940; J2405; J7040

== ENCOUNTER 2016-11-16 13:45 | Emergency (ER) | payer MEDICARE ==
--- NOTE | 2016-11-16 14:41 | Emergency Department Report ---
Chief Complaint: Dyspnea/Respdistress Stated Complaint: CHF Time Seen by Provider: 11/16/16 14:36 - HPI History of Present Illness: PT c/o cp x 4 hours. PT also reports feeling like something is hitting him in his left chest. PT states it does not feel like his defibrillator. Pt states he has a hx of CHF. 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 PT is hard of hearing. lung sounds diminished chayo + wheezing ant MSE screening note: Focused history and physical exam performed. Due to findings the following was ordered: labs, xr, ekg ED Disposition for MSE Condition: Stable
[2016-11-16 15:13] LABS: Basophils % (Auto) 0.7 % (0.0-1.8); Eosinophils % (Auto) 2.8 % (0.0-4.3); Hematocrit 40.2 % (35.5-45.6); Hemoglobin 13.4 gm/dl (11.8-15.2); Mean Corpuscular HGB Conc 33 % (32-34); Mean Corpuscular Hemoglobin 29 pg (28-32); Mean Corpuscular Volume 87 fl (84-94); Platelet Count 163 K/mm3 (140-440); Red Blood Count 4.65 M/mm3 (3.65-5.03); Red Cell Distribution Width 14.1 % (13.2-15.2); White Blood Count 6.3 K/mm3 (4.5-11.0)
[2016-11-16 15:25] LABS: INR 1.06 (0.87-1.13)
[2016-11-16 15:26] LABS: Partial Thromboplastin Time 32.9 Sec. (24.2-36.6)
[2016-11-16 15:38] LABS: Alanine Aminotransferase 21 units/L (7-56); Albumin/Globulin Ratio 1.3 %; Alkaline Phosphatase 78 units/L (35-129); Anion Gap 19 mmol/L; BUN/Creatinine Ratio 12.85; Blood Urea Nitrogen 9 mg/dL (9-20); Calcium 8.9 mg/dL (8.4-10.2); Carbon Dioxide 25 mmol/L (22-30); Glucose 231 mg/dL (75-100); Lipase 25 units/L (13-60); Potassium 3.9 mmol/L (3.6-5.0); Sodium 142 mmol/L (137-145)
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
[2016-11-16] MEDS ORDERED: DILAUDID IV ONE (21:17)
[2016-11-16] MEDS ORDERED: BENADRYL PO ONE (21:17)
[2016-11-16] MEDS ORDERED: ZOFRAN IV ONE (21:17)
[2016-11-16 23:45] VITALS: BP 131/67
--- NOTE | 2016-11-17 07:24 | XRay Report ---
CHEST XRAY, 2 VIEWS: History: Chest pain. Findings: There is mild cardiomegaly. A 2-lead pacemaker devices unchanged since 10/15. Pulmonary vessels are within normal limits. The lungs are clear and fully expanded. No infiltrate, pleural effusion or pneumothorax. Normal thoracic cage. IMPRESSION: Cardiomegaly. Lungs clear.
== END 2016-11-16 23:55 | disposition admitted as inpatient to this hospital (09) ==
LOC: ED 13:45
DX: R07.2 Precordial pain (principal); I10 Essential (primary) hypertension; E11.9 Type 2 diabetes mellitus without complications; I50.9 Heart failure, unspecified; J44.9 Chronic obstructive pulmonary disease, unspecified; Z95.1 Presence of aortocoronary bypass graft; Z95.818 Presence of other cardiac implants and grafts; Z79.82 Long term (current) use of aspirin; Z88.8 Allergy status to other drugs, medicaments and biological substances
CPT/HCPCS: 36415; 71020; 80053; 83690; 83880; 84484; 85025; 85610; 85730; 93005; 93010; 96374; 96375; 99285; J1170; J2405

== ENCOUNTER 2017-02-25 14:37 | Inpatient (IN) | payer MEDICARE ==
[2017-02-25] MEDS ORDERED: CALCIUM GLUCONATE 1,000 MG in NACL 0.9% 100 ML IV ONE (14:55)
[2017-02-25] MEDS ORDERED: NACL 0.9% 500 ML 500 ML ONE (14:57)
[2017-02-25] MEDS ORDERED: SUBLIMAZE ONE (14:57)
[2017-02-25] MEDS ORDERED: NACL 0.9% 500 ML 500 ML IV ONE ×2 (14:57→15:52)
[2017-02-25] MEDS ORDERED: CARDIZEM/D5W 100MG/100ML 100 MG/100 ML BAG IV ONE ×2 (14:58→14:59)
[2017-02-25] MEDS ORDERED: SUBLIMAZE IV ONE (14:59)
[2017-02-25] MEDS: SUBLIMAZE IV ONE ×2 (15:00→17:15)
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
[2017-02-25 15:17] LABS: Basophils % (Auto) 0.6 % (0.0-1.8); Eosinophils % (Auto) 3.7 % (0.0-4.3); Hematocrit 36.3 % (35.5-45.6); Hemoglobin 11.9 gm/dl (11.8-15.2); Mean Corpuscular HGB Conc 33 % (32-34); Mean Corpuscular Hemoglobin 29 pg (28-32); Mean Corpuscular Volume 87 fl (84-94); Platelet Count 147 K/mm3 (140-440); Red Blood Count 4.17 M/mm3 (3.65-5.03); Red Cell Distribution Width 14.5 % (13.2-15.2); White Blood Count 5.2 K/mm3 (4.5-11.0)
[2017-02-25 15:30] LABS: INR 1.08 (0.87-1.13)
[2017-02-25 15:32] LABS: Partial Thromboplastin Time 42.3 Sec. (24.2-36.6)
[2017-02-25 15:41] LABS: Alanine Aminotransferase 32 units/L (7-56); Albumin 3.5 g/dL (3.9-5); Albumin/Globulin Ratio 1.3 %; Alkaline Phosphatase 84 units/L (35-129); Anion Gap 16 mmol/L; BUN/Creatinine Ratio 16.25; Blood Urea Nitrogen 13 mg/dL (9-20); Calcium 8.4 mg/dL (8.4-10.2); Carbon Dioxide 24 mmol/L (22-30); Glucose 324 mg/dL (75-100); Potassium 3.6 mmol/L (3.6-5.0); Sodium 138 mmol/L (137-145); Total Protein 6.2 g/dL (6.3-8.2)
[2017-02-25 16:03] LABS: Lipase 18 units/L (13-60)
[2017-02-25] MEDS ORDERED: SODIUM CHLORIDE FLUSH SYRINGE 10 ML IV PRN (16:48)
[2017-02-25] MEDS ORDERED: PROVENTIL IH PRN (16:48)
[2017-02-25] MEDS ORDERED: TYLENOL PO PRN (16:48)
[2017-02-25] MEDS ORDERED: DULCOLAX PR PRN (16:48)
[2017-02-25] MEDS ORDERED: MILK OF MAGNESIA PO PRN (16:48)
[2017-02-25] MEDS ORDERED: ZOFRAN IV PRN (16:48)
[2017-02-25 16:55] LABS: Bilirubin,Urine NEG (Negative); Blood,Urine NEG (Negative); Ketones,Urine NEG (Negative); Leukocyte Esterase,Urine NEG (Negative); Nitrite,Urine NEG (Negative); Protein,Urine <15 mg/dL mg/dL (Negative); RBC,Urine < 1.0 /HPF (0.0-6.0); Urobilinogen,Urine < 2.0 mg/dL (<2.0)
[2017-02-25] MEDS ORDERED: PERCOCET 5/325 PO ONE ×2 (17:39→21:21)
[2017-02-25] MEDS: CARDIZEM PO SCH ×2 (18:11→23:52)
[2017-02-25 19:34] LABS: Hematocrit 36.6 % (35.5-45.6); Hemoglobin 12.1 gm/dl (11.8-15.2); Mean Corpuscular HGB Conc 33 % (32-34); Mean Corpuscular Hemoglobin 29 pg (28-32); Mean Corpuscular Volume 87 fl (84-94); Platelet Count 142 K/mm3 (140-440); Red Cell Distribution Width 14.6 % (13.2-15.2); White Blood Count 4.1 K/mm3 (4.5-11.0)
[2017-02-25 19:35] LABS: Anion Gap 21 mmol/L; BUN/Creatinine Ratio 16.25; Blood Urea Nitrogen 13 mg/dL (9-20); Calcium 8.1 mg/dL (8.4-10.2); Carbon Dioxide 20 mmol/L (22-30); Chloride 99.5 mmol/L (98-107); Glucose 301 mg/dL (75-100); Potassium 3.6 mmol/L (3.6-5.0); Sodium 137 mmol/L (137-145)
[2017-02-25 19:52] LABS: Basophils % (Auto) 1.1 % (0.0-1.8); Eosinophils % (Auto) 3.6 % (0.0-4.3)
--- NOTE | 2017-02-25 20:15 | History and Physical Report ---
History of Present Illness History of present illness: ^) YO male with A fib, CAD S/P CABG and Stent placement, Systolic CHF EF 25%, COPD, HTN, HLD, PTSD, Noncompliance, DM, COPD, DVT, Migraine presents to ED for evaluation. Pt states that he experienced an episode of chest pain just prior to arrival. Pain is 6/10, substernal, feels like pressure and heaviness in his chest wall, pain radiates to his back and left shoulder, not worsened with exertion, or relieved with rest. Pain is associated with shortness of breath and diaphoresis . Pt denies fever, chills, palpitations, leg swelling, prolonged car/air travel, prolonged immobility, productive cough, unintentional weight loss, night sweats, or productive cough. Past History Past Medical History: atrial fib, CAD, COPD, diabetes, heart failure, hypertension Past Surgical History: cholecystectomy, CABG, Other (AICD, Stent) Social history: single. denies: smoking, alcohol abuse, prescription drug abuse , IV drug use Family history: CAD, hypertension Medications and Allergies Allergies Allergy/AdvReac Type Severity Reaction Status Date / Time gabapentin [From Neurontin] Allergy Rash Verified 11/16/16 14:41 morphine Allergy Swelling Verified 11/16/16 14:41 Home Medications Medication Instructions Recorded Confirmed Last Taken Type Carvedilol [Coreg] 6.25 mg PO BID 01/17/17 01/17/17 01/17/17 History Dabigatran [Pradaxa] 75 mg PO BID 01/17/17 01/17/17 01/17/17 History ISOSORBIDE MONOnitrate [Imdur ER] 60 mg PO QDAY 01/17/17 01/17/17 01/17/17 History Pantoprazole Sodium 20 mg PO QDAY 01/17/17 01/17/17 01/17/17 History Pravastatin Sodium [Pravastatin] 40 mg PO QDAY 01/17/17 01/17/17 01/17/17 History oxyCODONE /ACETAMINOPHEN [Percocet 1 tab PO Q4HR #10 tab 01/20/17 Unknown Rx 5/325] Active Meds: Active Medications Acetaminophen (Tylenol) 650 mg PO Q4H PRN PRN Reason: Pain MILD(1-3)/Fever >100.5/ARNETT Albuterol (Proventil) 2.5 mg IH Q4HRT PRN PRN Reason: Shortness Of Breath Bisacodyl (Dulcolax) 10 mg [place] QDAY PRN PRN Reason: Constipation unrelieved by MOM Diltiazem HCl (Cardizem) 30 mg PO Q6HR [facility] Last Admin: 02/25/17 18:11 Dose: 30 mg Magnesium Hydroxide (Milk Of Magnesia) 30 ml PO Q4H PRN PRN Reason: Constipation Ondansetron HCl (Zofran) 4 mg IV Q8H PRN PRN Reason: N/V unrelieved by Reglan Sodium Chloride (Sodium Chloride Flush Syringe 10 Ml) 10 ml IV PRN PRN PRN Reason: LINE FLUSH Review of Systems Constitutional: no weight loss, no weight gain, no fever, no chills Ears, nose, mouth and throat: no ear pain, no ear discharge, no tinnitis, no decreased hearing Cardiovascular: chest pain, shortness of breath Respiratory: shortness of breath, no cough, no cough with sputum, no excessive sputum, no hemoptysis Gastrointestinal: no abdominal pain, no nausea, no vomiting, no diarrhea Genitourinary Male: no dysuria, no hematuria, no flank pain, no discharge, no urinary frequency Rectal: no pain, no incontinence, no bleeding Musculoskeletal: no neck stiffness, no neck pain, no shooting arm pain Integumentary: no rash, no pruritis, no redness, no sores Neurological: no head injury, no transient paralysis, no paralysis, no weakness , no parathesias Psychiatric: no anxiety, no memory loss, no change in sleep habits, no sleep disturbances, no insomnia Endocrine: no cold intolerance, no heat intolerance, no polyphagia, no excessive thirst, no polydipsia Hematologic/Lymphatic: no easy bruising, no easy bleeding Allergic/Immunologic: no urticaria, no allergic rhinitis, no wheezing Exam - Constitutional Vitals: Temp Pulse Resp BP Pulse Ox 98.6 F 101 H 13 129/64 99 02/25/17 14:42 02/25/17 20:00 02/25/17 20:00 02/25/17 20:00 02/25/17 20:00 General appearance: Present: mild distress - EENT Eyes: Present: PERRL ENT: hearing intact, clear oral mucosa - Neck Neck: Present: supple, normal ROM - Respiratory Respiratory effort: normal Respiratory: bilateral: CTA - Cardiovascular Heart Sounds: Present: S1 & S2. Absent: rub, click - Extremities Extremities: pulses symmetrical, No edema Peripheral Pulses: within normal limits - Abdominal General gastrointestinal: Present: soft, non-tender, non-distended, normal bowel sounds Male genitourinary: Present: normal - Integumentary Integumentary: Present: clear, warm, dry - Musculoskeletal Musculoskeletal: gait normal, strength equal bilaterally - Psychiatric Psychiatric: appropriate mood/affect, intact judgment & insight - Neurologic Neurologic: CNII-XII intact, moves all extremities Results - Labs CBC & Chem 7: 02/25/17 19:08 02/25/17 19:08 Labs: Abnormal lab results 02/25/17 02/25/17 02/25/17 Range/Units 15:07 15:07 15:07 WBC (4.5-11.0) K/mm3 Lymph % (Auto) (13.4-35.0) % [place] % (Auto) 7.6 H (0.0-7.3) % APTT 42.3 H (24.2-36.6) Sec. Carbon Dioxide (22-30) mmol/L Glucose 324 H (75-100) mg/dL POC Glucose (70-105) Calcium (8.4-10.2) mg/dL NT-Pro-B Natriuret Pep (0-900) pg/mL Total Protein 6.2 L (6.3-8.2) g/dL Albumin 3.5 L (3.9-5) g/dL 02/25/17 02/25/17 02/25/17 Range/Units 15:07 17:15 19:08 WBC 4.1 L (4.5-11.0) K/mm3 Lymph % (Auto) 39.6 H (13.4-35.0) % [place] % (Auto) (0.0-7.3) % APTT (24.2-36.6) Sec. Carbon Dioxide (22-30) mmol/L Glucose (75-100) mg/dL POC Glucose 277 H (70-105) Calcium (8.4-10.2) mg/dL NT-Pro-B Natriuret Pep 1449 H (0-900) pg/mL Total Protein (6.3-8.2) g/dL Albumin (3.9-5) g/dL 02/25/17 Range/Units 19:08 WBC (4.5-11.0) K/mm3 Lymph % (Auto) (13.4-35.0) % [place] % (Auto) (0.0-7.3) % APTT (24.2-36.6) Sec. Carbon Dioxide 20 L (22-30) mmol/L Glucose 301 H (75-100) mg/dL POC Glucose (70-105) Calcium 8.1 L (8.4-10.2) mg/dL NT-Pro-B Natriuret Pep (0-900) pg/mL Total Protein (6.3-8.2) g/dL Albumin (3.9-5) g/dL Assessment and Plan - Patient Problems (1) ACS (acute coronary syndrome) Current Visit: Yes Status: Acute Plan to address problem: Cardiology consulted, serial cardiac enzymes, ekg, telemetry, supportive care, cardiology consulted. resume home medication (2) CHF (congestive heart failure) Current Visit: Yes Status: Acute Qualifiers: Congestive heart failure type: systolic Congestive heart failure chronicity : acute on chronic Qualified Code(s): I50.23 - Acute on chronic systolic ( congestive) heart failure Plan to address problem: Admit to telemetry, fluid restriction, monitor uop q shift to ensure negative fluid balance, afterload reduction, cardiology consulted, resume home medication. (3) Diabetes Current Visit: Yes Status: Acute Qualifiers: Diabetes mellitus type: D Diabetes mellitus complication status: D Diabetes mellitus complication detail: D Diabetic retinopathy severity: D Proliferative retinopathy type: P Diabetes mellitus macular edema: D Diabetes mellitus halfway insulin use: D Laterality: L Chronic kidney disease stage: C Plan to address problem: ADA diet, insulin, accu check (4) DVT (deep venous thrombosis) Current Visit: Yes Status: Chronic Qualifiers: DVT location: D Affected thrombotic vein of extremity: A Chronicity: C Laterality: L Plan to address problem: resume therapeutic anticoagulation, (5) CAD (coronary artery disease) Current Visit: Yes Status: Acute Qualifiers: Coronary Disease-Associated Artery/Lesion type: C [place] vs. transplanted heart: N Associated angina: A Plan to address problem: Risk factor reduction, continue medical management, low cholesterol diet (6) Atrial fibrillation with rapid ventricular response Onset Date: 07/03/16 Current Visit: Yes Status: Acute Plan to address problem: Telemetry monitoring, Cardizem for rate control, resume therapeutic anticoagulation (7) DVT prophylaxis Current Visit: Yes Status: Acute
[2017-02-25] MEDS ORDERED: PERCOCET 5/325 ONE (21:26)
[2017-02-25] MEDS ORDERED: ZOFRAN ONE (21:28)
[2017-02-25] MEDS: NOVOLOG SUB-Q SCH (23:16)
[2017-02-26] MEDS: NOVOLOG SUB-Q SCH ×3 (05:50→17:47)
[2017-02-26] MEDS: CARDIZEM PO SCH (05:50)
--- NOTE | 2017-02-26 09:52 | XRay Report ---
AP CHEST: HISTORY: chest pain There is poor inspiration. Mild cardiomegaly and pulmonary venous congestion appear stable since 01/17/17. The lungs are generally clear. No evidence for pneumonia, CHF or pneumothorax. Pacemaker device and CABG changes are unchanged. IMPRESSION: No change in mild cardiomegaly and central pulmonary venous congestion since 01/17/17.
[2017-02-26] MEDS ORDERED: PRADAXA PO SCH (10:00)
[2017-02-26] MEDS ORDERED: PERCOCET 5/325 PO SCH (10:00)
[2017-02-26] MEDS ORDERED: NON-FORMULARY (Pravastatin Sodium [Pravastatin] 40 MG) PO SCH (10:00)
[2017-02-26] MEDS ORDERED: COREG PO SCH (10:00)
--- NOTE | 2017-02-26 10:27 | Consultation ---
History of Present Illness Consult date: 02/26/17 Consult reason: chest pain History of present illness: 61-year-old man with a history of coronary artery disease s/p 4 way coronary artery bypass. A year and a half ago, cardiac catheterization revealed all 4 bypass grafts to be patent, but he has diffuse small branch vessel disease and chronic stable angina on medical therapy. In addition, he has a severe ischemic cardiomyopathy, ejection fraction 20-25%, with an indwelling cardiac defibrillator for primary prevention. He also has paroxysmal atrial fibrillation , on Pradaxa for oral anticoagulation. His last thallium stress test, 6 months ago, showed a fixed lateral wall defect of prior infarct with no significant ischemia. He is admitted to the hospital at this time with intermittent dull mid chest pain similar to previous episodes of angina. He has also noted intermittent palpitations. He has not had any recent ICD therapies, syncope or pre-syncope. He reports he has been fully compliant with all medications. Initial troponin level was unremarkable. ECG reveals atrial fibrillation with ventricular rate of 117 bpm, nonspecific T wave abnormality. Past History Past Medical History: atrial fib, CAD, COPD, diabetes, heart failure, hypertension Past Surgical History: cholecystectomy, CABG, Other (AICD, Stent) Social history: single. denies: smoking, alcohol abuse, prescription drug abuse , IV drug use Family history: CAD, hypertension Medications and Allergies Allergies Allergy/AdvReac Type Severity Reaction Status Date / Time gabapentin [From Neurontin] Allergy Rash Verified 11/16/16 14:41 morphine Allergy Swelling Verified 11/16/16 14:41 Home Medications Medication Instructions Recorded Confirmed Last Taken Type Carvedilol [Coreg] 6.25 mg PO BID 01/17/17 01/17/17 01/17/17 History Dabigatran [Pradaxa] 75 mg PO BID 01/17/17 01/17/17 01/17/17 History ISOSORBIDE MONOnitrate [Imdur ER] 60 mg PO QDAY 01/17/17 01/17/17 01/17/17 History Pantoprazole Sodium 20 mg PO QDAY 01/17/17 01/17/17 01/17/17 History Pravastatin Sodium [Pravastatin] 40 mg PO QDAY 01/17/17 01/17/17 01/17/17 History oxyCODONE /ACETAMINOPHEN [Percocet 1 tab PO Q4HR #10 tab 01/20/17 Unknown Rx 5/325] Active Meds: Active Medications Acetaminophen (Tylenol) 650 mg PO Q4H PRN PRN Reason: Pain MILD(1-3)/Fever >100.5/ARNETT Albuterol (Proventil) 2.5 mg IH Q4HRT PRN PRN Reason: Shortness Of Breath Bisacodyl (Dulcolax) 10 mg [place] QDAY PRN PRN Reason: Constipation unrelieved by MOM Carvedilol (Coreg) 6.25 mg PO BID MARY Dabigatran (Pradaxa) 75 mg PO BID MARY PRN Reason: Protocol Diltiazem HCl (Cardizem) 30 mg PO Q6HR [facility] Last Admin: 02/26/17 05:50 Dose: Not Given Insulin Aspart (Novolog) 0 units SUB-Q Q6HR MARY PRN Reason: Protocol Last Admin: 02/26/17 05:50 Dose: Not Given Isosorbide Mononitrate (Imdur) 60 mg PO QDAY MARY Magnesium Hydroxide (Milk Of Magnesia) 30 ml PO Q4H PRN PRN Reason: Constipation Ondansetron HCl (Zofran) 4 mg IV Q8H PRN PRN Reason: N/V unrelieved by Reglan Last Admin: 02/25/17 21:27 Dose: 4 mg Oxycodone/Acetaminophen (Percocet 5/325) 1 tab PO Q4HR MARY Pantoprazole Sodium (Protonix) 20 mg PO QDAY MARY Simvastatin (Zocor) 20 mg PO QHS [facility] Sodium Chloride (Sodium Chloride Flush Syringe 10 Ml) 10 ml IV PRN PRN PRN Reason: LINE FLUSH Review of Systems All systems: negative (per hpi) Physical Examination Vital Signs Pulse Resp 120 H 15 02/25/17 14:38 02/25/17 14:38 General appearance: no acute distress HEENT: Positive: PERRL, EOMI Neck: Positive: neck supple. Negative: JVD/HJR Cardiac: Positive: irregularly irregular, Systolic Murmur (II/ HSM ) Lungs: Positive: clear to auscultation Abdomen: Positive: Soft, Active Bowel Sounds Extremities: Absent: edema Results 02/25/17 19:08 02/25/17 19:08 CBC 02/25/17 Range/Units 19:08 WBC 4.1 L (4.5-11.0) K/mm3 RBC 4.20 (3.65-5.03) M/mm3 Hgb 12.1 (11.8-15.2) gm/dl Hct 36.6 (35.5-45.6) % Plt Count 142 (140-440) K/mm3 Lymph # 1.6 (1.2-5.4) K/mm3 [place] # 0.2 (0.0-0.8) K/mm3 Eos # 0.1 (0.0-0.4) K/mm3 Baso # 0.0 (0.0-0.1) K/mm3 Comprehensive Metabolic Panel 02/25/17 Range/Units 19:08 Sodium 137 (137-145) mmol/L Potassium 3.6 (3.6-5.0) mmol/L Chloride 99.5 (98-107) mmol/L Carbon Dioxide 20 L (22-30) mmol/L BUN 13 (9-20) mg/dL Creatinine 0.8 (0.8-1.5) mg/dL Glucose 301 H (75-100) mg/dL Calcium 8.1 L (8.4-10.2) mg/dL Assessment and Plan Recurrent chest pain suggestive of angina in patient with known CAD CAD s/p CABG and residual small vessel disease Ischemic cardiomyopathy s/p ICD Paroxysmal atrial fibrillation: Currently back in atrial fibrillation. Anticoagulated with pradaxa. Htn HL Recommend: Repeat cardiac enzymes to rule out MT Add Ranexa Stop Cardizem and change coreg to metoprolol. Will add additional AAD if AF does not self-terminate. Leland Loaiza MD
[2017-02-26] MEDS: IMDUR PO SCH (10:52)
[2017-02-26] MEDS: PROTONIX PO SCH (10:52)
[2017-02-26] MEDS: RANEXA ER PO SCH ×2 (11:03→22:03)
--- NOTE | 2017-02-26 13:36 | Progress Note ---
Assessment and Plan Assessment and plan: Chest pain CAD Atrial fibrillation Cardiomyopathy with ejection fraction of 20-25% HLD DM with hyperglycemia - Continue conservative medical management, Ranexa, repeat troponin - IV Lasix, metoprolol - Sliding scale insulin and basal insulin - Pain control - Continue pradaxa - Cardiology consult appreciated Disposition - Continue patient History Interval history: Patient was seen and evaluated this morning, he is complaining chest pain and dyspnea on exertion. Hospitalist Physical - Physical exam Narrative exam: Not in cardiopulmonary distress. The patient appeared well nourished and normally developed. Vital signs as documented. Head exam is unremarkable. No scleral icterus . Neck is without jugular venous distension, thyromegaly, or carotid bruits. Lungs are clear to auscultation. Cardiac exam reveals regular rate and Rhythm. First and second heart sounds normal. No murmurs, rubs or gallops. Abdominal exam reveals normal bowel sounds, no masses, no organomegaly and no aortic enlargement. Extremities trace pedal and pretibial edema. 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 No focal weakness. - Constitutional Vitals: Temp Pulse Resp BP Pulse Ox 98.1 F 75 18 134/84 98 02/25/17 21:28 02/26/17 10:52 02/26/17 00:49 02/25/17 21:30 02/26/17 11:06 General appearance: Present: no acute distress Results - Labs CBC & Chem 7: 02/25/17 19:08 02/25/17 19:08 Labs: Laboratory Last Values WBC 4.1 K/mm3 (4.5-11.0) L 02/25/17 19:08 RBC 4.20 M/mm3 (3.65-5.03) 02/25/17 19:08 Hgb 12.1 gm/dl (11.8-15.2) 02/25/17 19:08 Hct 36.6 % (35.5-45.6) 02/25/17 19:08 MCV 87 fl (84-94) 02/25/17 19:08 MCH 29 pg (28-32) 02/25/17 19:08 MCHC 33 % (32-34) 02/25/17 19:08 RDW 14.6 % (13.2-15.2) 02/25/17 19:08 Plt Count 142 K/mm3 (140-440) 02/25/17 19:08 Lymph % (Auto) 39.6 % (13.4-35.0) H 02/25/17 19:08 [place] % (Auto) 5.0 % (0.0-7.3) 02/25/17 19:08 Eos % (Auto) 3.6 % (0.0-4.3) 02/25/17 19:08 Baso % (Auto) 1.1 % (0.0-1.8) 02/25/17 19:08 Lymph # 1.6 K/mm3 (1.2-5.4) 02/25/17 19:08 [place] # 0.2 K/mm3 (0.0-0.8) 02/25/17 19:08 Eos # 0.1 K/mm3 (0.0-0.4) 02/25/17 19:08 Baso # 0.0 K/mm3 (0.0-0.1) 02/25/17 19:08 Seg Neutrophils % 50.7 % (40.0-70.0) 02/25/17 19:08 Seg Neutrophils # 2.1 K/mm3 (1.8-7.7) 02/25/17 19:08 PT 14.6 Sec. (12.2-14.9) 02/25/17 15:07 INR 1.08 (0.87-1.13) 02/25/17 15:07 APTT 42.3 Sec. (24.2-36.6) H 02/25/17 15:07 Sodium 137 mmol/L (137-145) 02/25/17 19:08 Potassium 3.6 mmol/L (3.6-5.0) 02/25/17 19:08 Chloride 99.5 mmol/L (98-107) 02/25/17 19:08 Carbon Dioxide 20 mmol/L (22-30) L 02/25/17 19:08 Anion Gap 21 mmol/L 02/25/17 19:08 BUN 13 mg/dL (9-20) 02/25/17 19:08 Creatinine 0.8 mg/dL (0.8-1.5) 02/25/17 19:08 Estimated GFR > 60 ml/min 02/25/17 19:08 BUN/Creatinine Ratio 16.25 % 02/25/17 19:08 Glucose 301 mg/dL (75-100) H 02/25/17 19:08 POC Glucose 277 (70-105) H 02/26/17 11:47 Calcium 8.1 mg/dL (8.4-10.2) L 02/25/17 19:08 Total Bilirubin 0.50 mg/dL (0.1-1.2) 02/25/17 15:07 AST 25 units/L (5-40) 02/25/17 15:07 ALT 32 units/L (7-56) 02/25/17 15:07 Alkaline Phosphatase 84 units/L (35-129) 02/25/17 15:07 Troponin T < 0.010 ng/mL (0.00-0.029) 02/25/17 15:07 NT-Pro-B Natriuret Pep 1449 pg/mL (0-900) H 02/25/17 15:07 Total Protein 6.2 g/dL (6.3-8.2) L 02/25/17 15:07 Albumin 3.5 g/dL (3.9-5) L 02/25/17 15:07 Albumin/Globulin Ratio 1.3 % 02/25/17 15:07 Lipase 18 units/L (13-60) 02/25/17 15:07 Urine Color Straw (Yellow) 02/25/17 16:40 Urine Turbidity Clear (Clear) 02/25/17 16:40 Urine pH 5.0 (5.0-7.0) 02/25/17 16:40 Ur Specific [place] 1.006 (1.003-1.030) 02/25/17 16:40 Urine Protein <15 mg/dl mg/dL (Negative) 02/25/17 16:40 Urine Glucose (UA) 150 mg/dL (Negative) 02/25/17 16:40 Urine Ketones Neg mg/dL (Negative) 02/25/17 16:40 Urine Blood Neg (Negative) 02/25/17 16:40 Urine Nitrite Neg (Negative) 02/25/17 16:40 Urine Bilirubin Neg (Negative) 02/25/17 16:40 Urine Urobilinogen < 2.0 mg/dL (<2.0) 02/25/17 16:40 Ur Leukocyte Esterase Neg (Negative) 02/25/17 16:40 Urine WBC (Auto) 1.0 /HPF (0.0-6.0) 02/25/17 16:40 Urine RBC (Auto) < 1.0 /HPF (0.0-6.0) 02/25/17 16:40
[2017-02-26] MEDS: MORPHINE IV PRN ×2 (15:05→20:11)
[2017-02-26] MEDS: LASIX IV SCH (15:05)
[2017-02-26] MEDS: LOPRESSOR PO SCH ×2 (15:19→20:50)
[2017-02-26 19:04] LABS: Creatine Kinase MB 1.9 ng/mL (0.0-4.0)
[2017-02-26] MEDS ORDERED: ZOCOR PO SCH (22:00)
[2017-02-26] MEDS ORDERED: LEVEMIR SUB-Q SCH (22:00)
[2017-02-26] MEDS: PRADAXA PO SCH (22:03)
[2017-02-27] MEDS: NOVOLOG SUB-Q SCH ×2 (00:38→06:30)
[2017-02-27] MEDS: MORPHINE IV PRN ×3 (00:39→09:02)
[2017-02-27 06:41] LABS: Anion Gap 19 mmol/L; Blood Urea Nitrogen 14 mg/dL (9-20); Carbon Dioxide 25 mmol/L (22-30); Chloride 99.2 mmol/L (98-107); Glucose 286 mg/dL (75-100); Potassium 3.8 mmol/L (3.6-5.0); Sodium 139 mmol/L (137-145)
[2017-02-27 07:58] VITALS: BP 94/64
[2017-02-27] MEDS: LOPRESSOR PO SCH (07:58)
--- NOTE | 2017-02-27 10:40 | Admit Criteria Form ---
Admission Criteria Documentation: ATRIAL FIBRILLATION Clinical Indications for Admission to Inpatient Care (jamul/check or initial the applicable condition/criteria) Admission is indicated for ANY ONE of the following(1)(2)(3)(4)(5)(6)(7)(8): [ ]I. Myocardial ischemia that persists despite outpatient and observation care treatment (13) [ ]II. Myocardial infarction [ ]III. Hemodynamic instability [ ]IV. Heart failure (e.g., pulmonary edema) (14) [ ]V. Altered mental status that is severe or persistent complications secondary to comorbidities (eg, symptomatic heart failure) [ ]. Syncope [ ]VII. Patient has implantable cardioverter defibrillator that has fired more than once within past 24hror needs immediate adjustment of settings that cannot be done other than in inpatient setting. (15) [ ]VIII. Suspected accessory pathway (e.g., [id number]-[id number] syndrome) on ECG [ ]IX. Medication toxicity (e.g., digitalis) causing arrhythmia(16) [ ]X. Underlying medical condition that necessitates inpatient care(e.g., thyrotoxicosis, pneumonia)(17) [ ]XI. Continuous ECG monitoring is required for condition causing arrhythmia (e.g., severe hyperkalemia, hypokalemia, acid-base disturbance)(18)(19)(20) [ ]XII. Initiation of antiarrhythmic drug therapy is needed in patient at high risk of adverse effects as indicated by ANY ONE of the following: [ ]a) Significant structural heart disease (e.g., reduced ejection fraction, congenital heart disease, valvular heart disease) [ ]b) Prolonged QT interval [ ]c) Underlying sinus node or atrioventricular conduction disturbances [ ]d) Need for treatment with antiarrhythmic drugs that have significant proarrhythmic potential (e.g., dofetilide, sotalol, procainamide) [ ]e) Patient whose sinus rhythm has never been observed on ECG [X ]XIII. Persistent symptomatic tachycardia (rate > 100 bpm) despite outpatient and observation level of care (eg, rate cannot be sufficiently controlled [ ]XIV. Elective or urgent cardioversion that cannot be performed on outpatient basis or during observation care. [A] (Use also A Fib: Observation Care ) as appropriate.(21)(22)(23) Extended stay beyond goal length of stay may be needed for (1)(43)(44): [ ]a) Unstable comorbidities (eg, heart failure, COPD, renal insuffciency) [ ]b) Persistently uncontrolled atrial fibrillation or other arrhythmias (45) [ ]c) Acute thromboembolic event (e.g., stroke, limb ischemia) [ ]d) Need for inpatient attainment of full anticoagulation(28)(46)(47) The original [employer] content created by [employer] has been revised. The portions of the content which have been revised are identified through the use of italic text or in bold, and [facility] has neither reviewed nor approved the modified material. All other unmodified content is copyright [email or web address]. Please see references footnoted in the original [email or web address] edition 2017 Admission Criteria Met: Yes
[2017-02-27] MEDS: PRADAXA PO SCH (11:10)
[2017-02-27] MEDS: LASIX IV SCH (11:11)
[2017-02-27] MEDS: PROTONIX PO SCH (11:11)
[2017-02-27] MEDS: RANEXA ER PO SCH (11:11)
[2017-02-27] MEDS: IMDUR PO SCH (11:11)
--- NOTE | 2017-02-27 11:35 | Discharge Summary ---
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 Pt states that he experienced an episode of chest pain just prior to arrival. Pain is 6/10, substernal, feels like pressure and heaviness in his chest wall, pain radiates to his back and left shoulder, not worsened with exertion, or relieved with rest. Pain is associated with shortness of breath and diaphoresis . Pt denies fever, chills, palpitations, leg swelling, prolonged car/air travel, prolonged immobility, productive cough, unintentional weight loss, night sweats, or productive cough. Patient was admitted to the floor and was managed for cheat pain and other comorbid conditions. Cardiology was consulted, patient has recent extensive cardiac work up as stated in cardiology note and doesn't need further cardica work up at this admission. He was advised to continue his current medications with the addition of renexa. Patient was scheduled to see his windshield repair technician in 1 week. patient's pain was controlled at the time of discharge. Patient was hemodynamically stable at the time of dicharge. His medications were updated at the time of discharge. Disposition: TO HOME OR SELFCARE Time spent for discharge: 31 minutes - Discharge Diagnoses (1) Atrial fibrillation with rapid ventricular response Status: Acute Comment: Rate controlled and anticoagulated. (2) CAD (coronary artery disease) Status: Acute Qualifiers: Coronary Disease-Associated Artery/Lesion type: C [place] vs. transplanted heart: N Associated angina: A (3) CHF (congestive heart failure) Status: Acute Qualifiers: Congestive heart failure type: systolic Congestive heart failure chronicity : acute on chronic Qualified Code(s): I50.23 - Acute on chronic systolic ( congestive) heart failure (4) Acute chest pain Status: Acute Core Measure Documentation - Palliative Care Palliative Care/ Comfort Measures: Not Applicable - Core Measures Any of the following diagnoses?: none Exam - Physical Exam Narrative exam: Not in cardiopulmonary distress. The patient appeared well nourished and normally developed. Vital signs as documented. Head exam is unremarkable. No scleral icterus . Neck is without jugular venous distension, thyromegaly, or carotid bruits. Lungs are clear to auscultation. Cardiac exam reveals regular rate and Rhythm. First and second heart sounds normal. No murmurs, rubs or gallops. Abdominal exam reveals normal bowel sounds, no masses, no organomegaly and no aortic enlargement. Extremities trace pedal and pretibial edema. HIDE GRADER: Alert and oriented 3. No focal weakness. - Constitutional Vitals: Temp Pulse Resp BP Pulse Ox 98.3 F 108 H 20 94/64 94 02/27/17 04:20 02/27/17 04:20 02/27/17 09:02 02/27/17 07:58 02/27/17 04:20 Plan Activity: no restrictions Weight Bearing Status: Full Weight Bearing Diet: low cholesterol, low salt, diabetic Follow up with: PRIMARY CARE, [Primary Care Provider] - 3-5 Days Prescriptions: Metoprolol [Lopressor TAB] 50 mg PO TID #90 tablet Ranolazine ER [Ranexa ER] 500 mg PO BID #60 tablet
--- NOTE | 2017-02-27 13:08 | Progress Note ---
Assessment and Plan Chronic stable angina likely from small vessel disease MPI 06/2016: No ischemia, large fixed inferior and inferolateral wall defect consistent with old [place]. [facility] 07/2015: 4 patent bypass grafts. Small vessel disease recommended for medical therapy. CAD s/p CABG and residual small vessel disease Ischemic cardiomyopathy s/p ICD ([employer]) Paroxysmal atrial fibrillation: Currently back in atrial fibrillation. Anticoagulated with pradaxa. HTN HLP Recommend: Continue medical therapy for CAD including the addition of ranexa. Stable, cardiac gilbert. F/U with Dr Garcia in our office within 1wk of discharge. Subjective Date of service: 02/27/17 Interval history: Patient reports he is feeling better. Not currently, on telemetry monitoring. Objective Vital Signs Temp Pulse Pulse Resp Resp BP BP 02/27/17 10:00 02/27/17 09:02 20 02/27/17 07:58 94/64 02/27/17 05:15 19 02/27/17 04:45 19 02/27/17 04:20 98.3 F 108 H 20 119/54 02/27/17 01:09 19 02/27/17 00:55 98.8 F 118 H 20 123/89 02/27/17 00:53 98.9 F 114 H 20 123/89 02/27/17 00:39 18 02/26/17 22:00 100 H 19 02/26/17 20:50 101 H 98/71 02/26/17 20:44 105 H 02/26/17 20:41 19 02/26/17 20:36 19 02/26/17 20:26 98.6 F 107 H 22 98/71 02/26/17 20:24 98.6 F 101 H 22 98/71 02/26/17 20:11 19 02/26/17 15:19 79 100/62 Pulse Ox 02/27/17 10:00 98 02/27/17 09:02 02/27/17 07:58 02/27/17 05:15 02/27/17 04:45 02/27/17 04:20 94 02/27/17 01:09 02/27/17 00:55 98 02/27/17 00:53 98 02/27/17 00:39 02/26/17 22:00 02/26/17 20:50 02/26/17 20:44 02/26/17 20:41 02/26/17 20:36 02/26/17 20:26 93 02/26/17 20:24 93 02/26/17 20:11 02/26/17 15:19 - Physical Examination General: No Apparent Distress HEENT: Positive: PERRL Lungs: Positive: Decreased Breath Sounds Neuro: Positive: Grossly Intact Extremities: Absent: edema - Labs and Meds Cardiac Enzymes 02/26/17 Range/Units 10:03 CK-MB (CK-2) 1.9 (0.0-4.0) ng/mL Comprehensive Metabolic Panel 02/27/17 Range/Units 05:10 Sodium 139 (137-145) mmol/L Potassium 3.8 (3.6-5.0) mmol/L Chloride 99.2 (98-107) mmol/L Carbon Dioxide 25 (22-30) mmol/L BUN 14 (9-20) mg/dL Creatinine 0.8 (0.8-1.5) mg/dL Glucose 286 H (75-100) mg/dL Calcium 9.0 (8.4-10.2) mg/dL
== END 2017-02-27 12:16 | disposition home or self-care (01) | DRG 308 ==
LOC: ED 14:37 → 4A 16:48
PROVIDERS: ADMIT Internal Medicine; ATTEND Internal Medicine
DX: I48.91 Unspecified atrial fibrillation (principal); I50.23 Acute on chronic systolic (congestive) heart failure; I24.9 Acute ischemic heart disease, unspecified; I11.0 Hypertensive heart disease with heart failure; I25.5 Ischemic cardiomyopathy; E78.5 Hyperlipidemia, unspecified; E11.65 Type 2 diabetes mellitus with hyperglycemia; I25.118 Atherosclerotic heart disease of native coronary artery with other forms of angina pectoris; J44.9 Chronic obstructive pulmonary disease, unspecified; G43.909 Migraine, unspecified, not intractable, without status migrainosus; Z79.899 Other long term (current) drug therapy; Z91.19 Patient's noncompliance with other medical treatment and regimen; Z88.5 Allergy status to narcotic agent; Z95.1 Presence of aortocoronary bypass graft; Z95.810 Presence of automatic (implantable) cardiac defibrillator; Z86.718 Personal history of other venous thrombosis and embolism; Z87.442 Personal history of urinary calculi; Z95.5 Presence of coronary angioplasty implant and graft; Z89.022 Acquired absence of left finger(s); Z90.49 Acquired absence of other specified parts of digestive tract; Z82.49 Family history of ischemic heart disease and other diseases of the circulatory system
CPT/HCPCS: 36415; 71010; 80048; 80053; 81001; 82550; 82553; 82962; 83690; 83880; 84484; 85025; 85610; 85730; 93005; 93010; 96365; 96367; 96372; 96375; 96376; J0610; J1815; J1818; J1940; J2270; J2405; J3010; J7040

== ENCOUNTER 2017-10-22 16:20 | Emergency (ER) | payer MEDICARE ==
[2017-10-22] MEDS ORDERED: ASPIRIN PO ONE (16:59)
[2017-10-22 19:03] LABS: Hematocrit 39.1 % (35.5-45.6); Hemoglobin 12.7 gm/dl (11.8-15.2); Lymphocytes % (Auto) 17.8 % (13.4-35.0); Mean Corpuscular HGB Conc 32 % (32-34); Mean Corpuscular Hemoglobin 28 pg (28-32); Mean Corpuscular Volume 86 fl (84-94); Monocytes % (Auto) 8.4 % (0.0-7.3); Platelet Count 148 K/mm3 (140-440); Red Blood Count 4.57 M/mm3 (3.65-5.03); Red Cell Distribution Width 16.6 % (13.2-15.2)
[2017-10-22 19:04] LABS: Basophils % (Auto) 0.4 % (0.0-1.8); Eosinophils # (Auto) 0.1 K/mm3 (0.0-0.4); Eosinophils % (Auto) 1.2 % (0.0-4.3); Lymphocytes # (Auto) 1.4 K/mm3 (1.2-5.4); Monocytes # (Auto) 0.6 K/mm3 (0.0-0.8)
[2017-10-22 19:08] LABS: Partial Thromboplastin Time 44.5 Sec. (24.2-36.6)
[2017-10-22 19:11] LABS: BUN/Creatinine Ratio 14; Blood Urea Nitrogen 10 mg/dL (9-20); Calcium 8.9 mg/dL (8.4-10.2); Hemolysis Index 6
[2017-10-22 19:28] LABS: Chol/HDL Ratio 3.18 %; HDL Cholesterol 44 mg/dL (40-59); LDL Cholesterol,Direct 69 mg/dL (50-130)
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
[2017-10-22] MEDS ORDERED: ASPIRIN ONE (20:15)
[2017-10-22] MEDS ORDERED: PERCOCET 5/325 PO ONE (20:49)
[2017-10-22 21:16] VITALS: BP 109/67
== END 2017-10-22 21:45 | disposition home or self-care (01) ==
LOC: ED 16:20
DX: R60.0 Localized edema (principal); R07.89 Other chest pain; E11.9 Type 2 diabetes mellitus without complications; I11.0 Hypertensive heart disease with heart failure; I50.9 Heart failure, unspecified; I25.2 Old myocardial infarction; G43.909 Migraine, unspecified, not intractable, without status migrainosus; J44.9 Chronic obstructive pulmonary disease, unspecified; Z79.899 Other long term (current) drug therapy; Z86.718 Personal history of other venous thrombosis and embolism; Z90.49 Acquired absence of other specified parts of digestive tract; Z95.1 Presence of aortocoronary bypass graft; Z95.810 Presence of automatic (implantable) cardiac defibrillator; Z89.022 Acquired absence of left finger(s)
CPT/HCPCS: 36415; 80048; 80061; 84484; 85025; 85610; 85730; 93005; 93010; 99284

== ENCOUNTER 2017-12-03 14:05 | Emergency (ER) | payer MEDICARE ==
[2017-12-03 14:33] VITALS: BP 110/68
[2017-12-03] MEDS ORDERED: NORCO 5/325 PO ONE (15:50)
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
[2017-12-03] MEDS ORDERED: TRIPLE ANTIBIOTIC TP ONE (18:47)
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
== END 2017-12-03 19:15 | disposition home or self-care (01) ==
LOC: ED 14:05
DX: S50.312A Abrasion of left elbow, initial encounter (principal); R07.89 Other chest pain; M25.522 Pain in left elbow; I10 Essential (primary) hypertension; I50.9 Heart failure, unspecified; E11.9 Type 2 diabetes mellitus without complications; G43.909 Migraine, unspecified, not intractable, without status migrainosus; Z95.1 Presence of aortocoronary bypass graft; Z95.0 Presence of cardiac pacemaker; Z90.49 Acquired absence of other specified parts of digestive tract; Z72.0 Tobacco use; Z88.1 Allergy status to other antibiotic agents; Y04.2XXA Assault by strike against or bumped into by another person, initial encounter; Y93.89 Activity, other specified; Y99.8 Other external cause status; Y92.488 Other paved roadways as the place of occurrence of the external cause
CPT/HCPCS: 71111; 93005; 93010; A6250

== ENCOUNTER 2018-01-25 05:53 | Inpatient (IN) | payer MEDICARE ==
[2018-01-25] MEDS ORDERED: NACL 0.9% 500 ML 500 ML IV ONE ×2 (06:12→07:19)
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
[2018-01-25 06:49] LABS: Basophils # (Auto) 0.1 K/mm3 (0.0-0.1); Basophils % (Auto) 2.3 % (0.0-1.8); Eosinophils # (Auto) 0.1 K/mm3 (0.0-0.4); Eosinophils % (Auto) 1.5 % (0.0-4.3); Hematocrit 31.4 % (35.5-45.6); Hemoglobin 10.2 gm/dl (11.8-15.2); Lymphocytes # (Auto) 1.2 K/mm3 (1.2-5.4); Lymphocytes % (Auto) 23.2 % (13.4-35.0); Mean Corpuscular HGB Conc 33 % (32-34); Mean Corpuscular Hemoglobin 29 pg (28-32); Mean Corpuscular Volume 89 fl (84-94); Monocytes # (Auto) 0.4 K/mm3 (0.0-0.8); Monocytes % (Auto) 8.1 % (0.0-7.3); Platelet Count 194 K/mm3 (140-440); Red Blood Count 3.54 M/mm3 (3.65-5.03); Red Cell Distribution Width 18.2 % (13.2-15.2)
[2018-01-25 07:00] LABS: INR 1.12 (0.87-1.13)
--- NOTE | 2018-01-25 07:04 | XRay Report ---
FINAL REPORT EXAM: XR CHEST 1V AP HISTORY: possible Sepsis TECHNIQUE: A portable upright the chest was obtained and compared to the study of 12/20/2017. FINDINGS: There are sternotomy sutures from previous bypass surgery. Heart is mildly enlarged. The lungs appear mildly congested. There are no localized infiltrates. There is mild atelectatic changes in left lung base. Pleural fluid is not seen. There is a bipolar pacemaker overlying the left chest wall with the leads in the right atrium and right ventricle. The skeletal structures reveal generalized osteoporosis. IMPRESSION: Previous bypass surgery. Cardiomegaly with mild congestion. Mild atelectatic changes in left lung base.
[2018-01-25] MEDS ORDERED: LEVOPHED DRIP 4 MG/NS 250 ML 4 MG/250 ML BAG IV ONE (07:05)
[2018-01-25 07:07] LABS: Creatine Kinase MB 3.8 ng/mL (0.0-4.0)
[2018-01-25 07:08] LABS: Alanine Aminotransferase 18 units/L (7-56); Albumin 3.2 g/dL (3.9-5); BUN/Creatinine Ratio 15; Blood Urea Nitrogen 12 mg/dL (9-20); Calcium 8.3 mg/dL (8.4-10.2); Hemolysis Index 13
[2018-01-25] MEDS ORDERED: NARCAN 2 MG/2 ML ONE (07:16)
[2018-01-25] MEDS ORDERED: ARTIFICIAL TEARS OPHTH OINT OU PRN (07:54)
[2018-01-25] MEDS ORDERED: VASELINE LIP THERAPY TP PRN (07:54)
[2018-01-25] MEDS ORDERED: SUBLIMAZE ONE (08:03)
--- NOTE | 2018-01-25 08:16 | XRay Report ---
AP CHEST: HISTORY: Endotracheal tube placement Compared to 01/25/18 at 632 hours. An endotracheal tube has been inserted which terminates 4.9 cm superior to the topher. The remainder of the examination is unchanged. IMPRESSION: Adequate placement of the endotracheal tube.
[2018-01-25] MEDS: fentaNYL DRIP Premix 2,000 MCG/100 ML BAG IV SCH ×3 (08:20→20:03)
[2018-01-25] MEDS ORDERED: SUBLIMAZE IV ONE ×2 (08:58→08:59)
[2018-01-25] MEDS ORDERED: QUELICIN IV ONE (08:59)
[2018-01-25] MEDS ORDERED: AMIDATE IV ONE ×2 (09:00→11:37)
[2018-01-25] MEDS ORDERED: NARCAN 2 MG/2 ML IV ONE (09:00)
[2018-01-25] MEDS: LEVOPHED DRIP 4 MG/NS 250 ML 4 MG/250 ML BAG IV SCH (09:04)
[2018-01-25] MEDS: MIDAZOLAM 100 MG in NACL 0.9% 80 ML IV SCH (09:04)
--- NOTE | 2018-01-25 11:23 | History and Physical Report ---
History of Present Illness Date of examination: 01/25/18 Chief complaint: Altered mental status History of present illness: 62-year-old male with past medical history significant for CAD status post CABG, CHF status post AICD, A. fib brought to the emergency department via EMS for altered mental status. Patient was found lying in the floor by EMS. patient was hypotensive, hypothermic was not able to take care of his airways. Patient was intubated , on mechanical ventilation. Patient was given IV fluids , pressors and admitted to ICU. Chest x-ray shows pulmonary venous congestion, CTA showed small nonocclusive right lower lobe PE. History obtained from chart review and ER medical staff. Review of system couldn't be obtained because of altered mental status and mechanical ventilation. Past History Past Medical History: atrial fib, CAD, diabetes, heart failure, hypertension, stroke Past Surgical History: cholecystectomy, CABG Social history: full code. denies: smoking, alcohol abuse, prescription drug abuse, IV drug use Family history: no significant family history Medications and Allergies Allergies Allergy/AdvReac Type Severity Reaction Status Date / Time gabapentin [From Neurontin] Allergy Rash Verified 01/25/18 06:12 Home Medications Medication Instructions Recorded Confirmed Last Taken Type Acetaminophen/Codeine [Tylenol 1 tab PO Q6H PRN #12 tab 12/03/17 12/22/17 Unknown Rx /Codeine # 3 tab] ALPRAZolam [Xanax TAB] 2 mg PO Q8H PRN #30 tablet 12/27/17 Unknown Rx Arformoterol Nebu [Brovana Nebu] 15 mcg IH Q12HRT #60 ml 12/27/17 Unknown Rx AtorvaSTATin [Lipitor] 40 mg PO QHS #30 tablet 12/27/17 Unknown Rx Budesonide [Pulmicort Respules] 0.5 mg IH Q12HRT #60 nebu 12/27/17 Unknown Rx Dabigatran [Pradaxa] 75 mg PO BID #60 capsule 12/27/17 Unknown Rx Furosemide [Lasix TAB] 60 mg PO QDAY 30 Days tablet 12/27/17 Unknown Rx ISOSORBIDE MONOnitrate [Imdur ER] 60 mg PO QDAY #30 tablet 12/27/17 Unknown Rx Insulin Glargine [Lantus VIAL] 30 units SUB-Q QHS #300 units 12/27/17 Unknown Rx Ipratropium/Albuterol Sulfate 1 ampul IH TIDRT #100 ampul.neb 12/27/17 Unknown Rx [DUONEB *Not for PRN Use*] Lisinopril [Zestril TAB] 2.5 mg PO QDAY #30 tablet 12/27/17 Unknown Rx Lisinopril [Zestril TAB] 20 mg PO QDAY #30 tablet 12/27/17 Unknown Rx Lispro Insulin [Humalog] 0 unit SUB-Q ACHS #5 units 12/27/17 Unknown Rx Metoprolol Xl [Metoprolol 50 mg PO BID #60 tablet 12/27/17 Unknown Rx SUCCINATE ER TAB] Pantoprazole Sodium 20 mg PO QDAY #30 tablet. 12/27/17 Unknown Rx Potassium Chloride [K-Dur] 30 meq PO QDAY tablet 12/27/17 Unknown Rx QUEtiapine [SEROquel] 200 mg PO BID #60 tablet 12/27/17 Unknown Rx Ranolazine ER [Ranexa ER] 500 mg PO BID #60 tablet 12/27/17 Unknown Rx predniSONE [Deltasone] 5 mg PO QDAY tablet 12/27/17 Unknown Rx Active Meds: Active Medications Hydrophilic Ointment (Vaseline Lip Therapy) 1 applic TP Q2HR PRN PRN Reason: Dry Lips Norepinephrine (Levophed Drip 4 Mg/Ns 250 Ml) 4 mg in 250 mls @ 7.5 mls/hr IV TITR MARY; Protocol Last Admin: 01/25/18 09:04 Dose: 2 mcg/min, 7.5 mls/hr Fentanyl Citrate (Fentanyl Drip Premix) 2,000 mcg in 100 mls @ 5.443 mls/hr IV TITR MARY; Protocol Last Admin: 01/25/18 08:20 Dose: 3 mcg/kg/hr, 16.329 mls/hr Midazolam HCl 100 mg/ Sodium (Chloride) 100 mls @ 2 mls/hr IV TITR MARY; Protocol Last Admin: 01/25/18 09:04 Dose: 2 mg/hr, 2 mls/hr Piperacillin Sod/Tazobactam Sod (Zosyn/Ns 4.5gm/100ml) 4.5 gm in 100 mls @ 200 mls/hr IV Q6HR MARY Multi-Ingred Cream/Lotion/Oil/Oint (Artificial Tears Ophth Oint) 1 applic OU Q4HR PRN PRN Reason: Dry Eye(s) Review of Systems ROS unobtainable: due to endotracheal tube, due to mental status Exam - Physical Exam Narrative exam: Patient is intubated and on mechanical ventilation. The patient appeared well nourished and normally developed. Vital signs as documented. Head exam is unremarkable. No scleral icterus . Neck is without jugular venous distension, thyromegaly, or carotid bruits. Lungs are clear to auscultation. Cardiac exam reveals irregular rate and Rhythm. Abdominal exam reveals normal bowel sounds, no masses, no organomegaly and no aortic enlargement. Extremities are nonedematous and both femoral and pedal pulses are normal. [employer]: Sedated. - Constitutional Vitals: Temp Pulse Resp BP Pulse Ox 94.5 F L 109 H 18 110/78 96 01/25/18 06:01 01/25/18 10:15 01/25/18 10:15 01/25/18 10:15 01/25/18 10:00 Results - Labs CBC & Chem 7: 01/25/18 13:12 01/25/18 06:15 Labs: Laboratory Last Values WBC 5.0 K/mm3 (4.5-11.0) 01/25/18 06:15 RBC 3.54 M/mm3 (3.65-5.03) L 01/25/18 06:15 Hgb 10.2 gm/dl (11.8-15.2) L 01/25/18 06:15 Hct 31.4 % (35.5-45.6) L 01/25/18 06:15 MCV 89 fl (84-94) 01/25/18 06:15 MCH 29 pg (28-32) 01/25/18 06:15 MCHC 33 % (32-34) 01/25/18 06:15 RDW 18.2 % (13.2-15.2) H 01/25/18 06:15 Plt Count 194 K/mm3 (140-440) 01/25/18 06:15 Lymph % (Auto) 23.2 % (13.4-35.0) 01/25/18 06:15 [place] % (Auto) 8.1 % (0.0-7.3) H 01/25/18 06:15 Eos % (Auto) 1.5 % (0.0-4.3) 01/25/18 06:15 Baso % (Auto) 2.3 % (0.0-1.8) H 01/25/18 06:15 Lymph # 1.2 K/mm3 (1.2-5.4) 01/25/18 06:15 [place] # 0.4 K/mm3 (0.0-0.8) 01/25/18 06:15 Eos # 0.1 K/mm3 (0.0-0.4) 01/25/18 06:15 Baso # 0.1 K/mm3 (0.0-0.1) 01/25/18 06:15 Seg Neutrophils % 64.9 % (40.0-70.0) 01/25/18 06:15 Seg Neutrophils # 3.2 K/mm3 (1.8-7.7) 01/25/18 06:15 PT 15.0 Sec. (12.2-14.9) H 01/25/18 06:15 INR 1.12 (0.87-1.13) 01/25/18 06:15 POC ABG pH 7.353 (7.35-7.45) 01/25/18 08:43 POC ABG pCO2 49.8 (35-45) H 01/25/18 08:43 POC ABG pO2 594 (80-105) H 01/25/18 08:43 POC ABG HCO3 27.6 01/25/18 08:43 POC ABG Total CO2 29 01/25/18 08:43 POC ABG O2 Sat 100 01/25/18 08:43 POC ABG Base Excess 2 01/25/18 08:43 VBG pH 7.275 (7.320-7.420) L 01/25/18 06:33 FiO2 100 % 01/25/18 08:43 Sodium 138 mmol/L (137-145) 01/25/18 06:15 Potassium 4.0 mmol/L (3.6-5.0) 01/25/18 06:15 Chloride 103.2 mmol/L (98-107) 01/25/18 06:15 Carbon Dioxide 24 mmol/L (22-30) 01/25/18 06:15 Anion Gap 15 mmol/L 01/25/18 06:15 BUN 12 mg/dL (9-20) 01/25/18 06:15 Creatinine 0.8 mg/dL (0.8-1.5) 01/25/18 06:15 Estimated GFR > 60 ml/min 01/25/18 06:15 BUN/Creatinine Ratio 15 % 01/25/18 06:15 Glucose 148 mg/dL (75-100) H 01/25/18 06:15 Lactic Acid 2.50 mmol/L (0.7-2.0) H* 01/25/18 07:35 Calcium 8.3 mg/dL (8.4-10.2) L 01/25/18 06:15 Total Bilirubin 0.60 mg/dL (0.1-1.2) 01/25/18 06:15 AST 24 units/L (5-40) 01/25/18 06:15 ALT 18 units/L (7-56) 01/25/18 06:15 Alkaline Phosphatase 102 units/L (35-129) 01/25/18 06:15 Total Creatine Kinase 137 units/L (55-170) 01/25/18 06:32 CK-MB (CK-2) 3.8 ng/mL (0.0-4.0) 01/25/18 06:32 CK-MB (CK-2) Rel Index 2.7 (0-4) 01/25/18 06:32 Troponin T < 0.010 ng/mL (0.00-0.029) 01/25/18 06:32 NT-Pro-B Natriuret Pep 1979 pg/mL (0-900) H 01/25/18 07:35 Total Protein 6.6 g/dL (6.3-8.2) 01/25/18 06:15 Albumin 3.2 g/dL (3.9-5) L 01/25/18 06:15 Albumin/Globulin Ratio 0.9 % 01/25/18 06:15 Assessment and Plan Assessment and plan: 62-year-old -[place] woman with past medical history significant for CAD , diabetes mellitus, CHF with ejection fraction of 25%, hypertension brought to the emergency department after he was found lying at home by EMS. Patient was altered, hypotensive and hypothermic. He was intubated, on pressors, emperic IV antibiotics and admitted to ICU. Acute respiratory failure - Patient is intubated and on mechanical ventilation SIRS, with SHOCK and lactic acidosis - Patient with empirically on IV antibiotics, pressers Altered mental status - CT head is negative - Likely due to hemodynamic derangement PE - Patient is on heparin drip A. fib with RVR, Systolic CHF - Cardiology consulted The high probability of a clinically significant, sudden or life threatening deterioration of the [Neurology, CVS] system(s) required my full and direct attention, intervention and personal management. The aggregate critical care time was [32] minutes. This time is in addition to time spent performing reported procedures but includes the following: [x] Data Review and interpretation [x] Patient assessment and monitoring of vital signs [x] Documentation [x] Medication orders and management
--- NOTE | 2018-01-25 11:34 | Cat Scan Report ---
CT HEAD WITHOUT CONTRAST: HISTORY: Altered mental status. TECHNIQUE: Sequential CT images without contrast. FINDINGS: Images obtained show bilateral prominence of the sulci and ventricles. There are no abnormal intra- or extra-axial blood or fluid collections. There are no focal masses or evidence of mass effect. The rouse white matter differentiation appears within normal limits. Regions of periventricular decreased attenuation are consistent with microangiopathic ischemic disease. The posterior fossa structures including the fourth ventricle, cerebellum, and brainstem appear normal. IMPRESSION: Evidence of atrophy and microangiopathic ischemic disease. No acute intracranial process noted. No significant change since 12/15/17.
[2018-01-25] MEDS ORDERED: QUELICIN ONE (11:37)
--- NOTE | 2018-01-25 11:40 | Cat Scan Report ---
CTA CHEST: HISTORY: Hypoxia. COMPARISON: 12/19/17. TECHNIQUE: Helical CT in 1.25mm intervals following IV contrast. Pulmonary embolus protocol. Sagittal and coronal reformatted images. Rotational MIP images. FINDINGS: Contrast bolus is satisfactory. A solitary nonocclusive pulmonary arterial filling defect is identified in a third order pulmonary artery leading to the medial right lower lobe on image 65, series 2. No additional emboli are confidently identified. Thyroid gland: Normal. Tracheobronchial tree: Normal. Esophagus: Normal. Heart: Mild cardiomegaly. A 2-lead pacemaker device is in position. Pericardium: Normal. Mediastinum: Normal. Lung [place]: Mild congestive changes identified in both lungs. Minor linear atelectasis is present in the lower lobes. No consolidation or mass. Pleural Spaces: Small pleural effusions have resolved since 12/19/17. No pneumothorax. Musculoskeletal: Intact. IMPRESSION: A solitary, small, nonocclusive embolus is identified in the right lower lobe as described above. Mild cardiomegaly and pulmonary venous congestion. Mild atelectatic changes.
[2018-01-25] MEDS: ZOSYN/NS 4.5GM/100ML 4.5 GM/100 ML VIAL IV SCH ×3 (11:59→23:27)
[2018-01-25] MEDS ORDERED: ZOSYN/NS 3.375GM/50ML 3.375 GM/50 ML BAG IV SCH (12:00)
[2018-01-25 13:23] LABS: Hemoglobin 9.7 gm/dl (11.8-15.2)
--- NOTE | 2018-01-25 13:25 | Consultation ---
History of Present Illness Consult date: 01/25/18 Requesting physician: TAMANNA BARRERA III Reason for consult: hypoxemia History of present illness: 62 y/o male with acute respiratory failure on vent, sedated and not able to give history. Past History Past Medical History: COPD, other (CHF and anxiety) Past Surgical History: Other (unable to obtain) Social history: other (unable to obtain) Family history: other (unable to obtain) Medications and Allergies Allergies Allergy/AdvReac Type Severity Reaction Status Date / Time gabapentin [From Neurontin] Allergy Rash Verified 01/25/18 06:12 Home Medications Medication Instructions Recorded Confirmed Last Taken Type Acetaminophen/Codeine [Tylenol 1 tab PO Q6H PRN #12 tab 12/03/17 12/22/17 Unknown Rx /Codeine # 3 tab] ALPRAZolam [Xanax TAB] 2 mg PO Q8H PRN #30 tablet 12/27/17 Unknown Rx Arformoterol Nebu [Brovana Nebu] 15 mcg IH Q12HRT #60 ml 12/27/17 Unknown Rx AtorvaSTATin [Lipitor] 40 mg PO QHS #30 tablet 12/27/17 Unknown Rx Budesonide [Pulmicort Respules] 0.5 mg IH Q12HRT #60 nebu 12/27/17 Unknown Rx Dabigatran [Pradaxa] 75 mg PO BID #60 capsule 12/27/17 Unknown Rx Furosemide [Lasix TAB] 60 mg PO QDAY 30 Days tablet 12/27/17 Unknown Rx ISOSORBIDE MONOnitrate [Imdur ER] 60 mg PO QDAY #30 tablet 12/27/17 Unknown Rx Insulin Glargine [Lantus VIAL] 30 units SUB-Q QHS #300 units 12/27/17 Unknown Rx Ipratropium/Albuterol Sulfate 1 ampul IH TIDRT #100 ampul.neb 12/27/17 Unknown Rx [DUONEB *Not for PRN Use*] Lisinopril [Zestril TAB] 2.5 mg PO QDAY #30 tablet 12/27/17 Unknown Rx Lisinopril [Zestril TAB] 20 mg PO QDAY #30 tablet 12/27/17 Unknown Rx Lispro Insulin [Humalog] 0 unit SUB-Q ACHS #5 units 12/27/17 Unknown Rx Metoprolol Xl [Metoprolol 50 mg PO BID #60 tablet 12/27/17 Unknown Rx SUCCINATE ER TAB] Pantoprazole Sodium 20 mg PO QDAY #30 tablet.dr 12/27/17 Unknown Rx Potassium Chloride [K-Dur] 30 meq PO QDAY tablet 12/27/17 Unknown Rx QUEtiapine [SEROquel] 200 mg PO BID #60 tablet 12/27/17 Unknown Rx Ranolazine ER [Ranexa ER] 500 mg PO BID #60 tablet 12/27/17 Unknown Rx predniSONE [Deltasone] 5 mg PO QDAY tablet 12/27/17 Unknown Rx Active Meds: Active Medications Famotidine (Pepcid) 20 mg IV BID MARY Hydrophilic Ointment (Vaseline Lip Therapy) 1 applic TP Q2HR PRN PRN Reason: Dry Lips Norepinephrine (Levophed Drip 4 Mg/Ns 250 Ml) 4 mg in 250 mls @ 7.5 mls/hr IV TITR MARY; Protocol Last Titration: 01/25/18 12:30 Dose: 2 mcg/min, 7.5 mls/hr Fentanyl Citrate (Fentanyl Drip Premix) 2,000 mcg in 100 mls @ 5.443 mls/hr IV TITR MARY; Protocol Last Admin: 01/25/18 13:15 Dose: 3 mcg/kg/hr, 16.329 mls/hr Midazolam HCl 100 mg/ Sodium (Chloride) 100 mls @ 2 mls/hr IV TITR MARY; Protocol Last Admin: 01/25/18 09:04 Dose: 2 mg/hr, 2 mls/hr Piperacillin Sod/Tazobactam Sod (Zosyn/Ns 4.5gm/100ml) 4.5 gm in 100 mls @ 200 mls/hr IV Q6HR MARY Last Admin: 01/25/18 11:59 Dose: 200 mls/hr Heparin Sodium/Sodium Chloride (Heparin/ 0.45% Nacl-25,000 Unit/500 Ml) 25,000 unit in 500 mls @ 30 mls/hr IV TITR MARY; Protocol Multi-Ingred Cream/Lotion/Oil/Oint (Artificial Tears Ophth Oint) 1 applic OU Q4HR PRN PRN Reason: Dry Eye(s) Review of Systems ROS unobtainable: due to endotracheal tube, due to mental status Physical Examination Vital signs: Vital Signs Temp Pulse Resp BP Pulse Ox 94.5 F L 115 H 12 106/81 100 01/25/18 06:01 01/25/18 06:01 01/25/18 06:01 01/25/18 06:01 01/25/18 06:01 General appearance: no acute distress, comatose (secondary to sedation medication) Eyes: non-icteric ENT: other (orally intubated and sedated, critically ill on vent) Neck: supple Effort: normal Ascultation: Bilateral: clear Percussion: Bilateral: not dull Cardiovascular: regular rate and rhythm Gastrointestinal: soft, non-tender Integumentary: other (multiple Tattoos) Extremities: no cyanosis Musculoskeletal: no deformities unable to assess Results - Laboratory Findings CBC and BMP: 01/25/18 13:12 01/25/18 06:15 ABG POC ABG pH 7.353 (7.35-7.45) 01/25/18 08:43 POC ABG pCO2 49.8 (35-45) H 01/25/18 08:43 POC ABG pO2 594 (80-105) H 01/25/18 08:43 POC ABG HCO3 27.6 01/25/18 08:43 POC ABG Total CO2 29 01/25/18 08:43 POC ABG O2 Sat 100 01/25/18 08:43 PT/INR, D-dimer PT 15.0 Sec. (12.2-14.9) H 01/25/18 06:15 INR 1.12 (0.87-1.13) 01/25/18 06:15 Abnormal lab findings: Abnormal Labs 01/25/18 01/25/18 01/25/18 06:15 06:15 06:15 RBC 3.54 L Hgb 10.2 L Hct 31.4 L RDW 18.2 H [place] % (Auto) 8.1 H Baso % (Auto) 2.3 H PT 15.0 H POC ABG pCO2 POC ABG pO2 VBG pH Glucose 148 H Lactic Acid Calcium 8.3 L NT-Pro-B Natriuret Pep Albumin 3.2 L 01/25/18 01/25/18 01/25/18 06:33 07:35 07:35 RBC Hgb Hct RDW [place] % (Auto) Baso % (Auto) PT POC ABG pCO2 POC ABG pO2 VBG pH 7.275 L Glucose Lactic Acid 2.50 H* Calcium NT-Pro-B Natriuret Pep 1979 H Albumin 01/25/18 08:43 RBC Hgb Hct RDW [place] % (Auto) Baso % (Auto) PT POC ABG pCO2 49.8 H POC ABG pO2 594 H VBG pH Glucose Lactic Acid Calcium NT-Pro-B Natriuret Pep Albumin - Diagnostic Findings Chest x-ray: image reviewed (Right IJ placed, stable. ) Assessment and Plan 62 y/o with altered mental status, intubated secondary to hypoxic respiratory failure, found to have segmental PE 1. Agree with anticoagulation for PE but doubt cause of respiratory failure. Patient is known to the other group so will consult them. For now will manage 2. Ok with current abx regimen, but would consider tapering very soon 3. Hypotension with etiology unknown. Placed emergent central line. Suggest volume resuscitation despite elevated BNP. Patient has not made any urine since admission to unit 4. BID pulmicort and brovana, hold on steroids as of now, not wheezing. 5. Will transfer service to other group, starting tomorrow.
--- NOTE | 2018-01-25 14:49 | Procedure Note ---
Date of procedure: 01/25/18 Pre-op diagnosis: Hypotension Post-op diagnosis: same Procedure: Right IJ placement Emergent procedure as patient is sedated and intubated, hypotensive and requires pressors. Using ultrasound guidance and Seldinger technique, Right IJ cannulated and threaded with catheter. Good blood return from all ports. Biopatch applied and sutured in. Awaiting CXR confirming placement. Anesthesia: local Surgeon: CADEN BOATENG Estimated blood loss: none Pathology: none Condition: critical Disposition: ICU
[2018-01-25] MEDS ORDERED: NACL 0.9% 1000 ML 1,000 ML IV ONE (14:56)
[2018-01-25] MEDS: HEPARIN/ 0.45% NACL-25,000 UNIT/500 ML 25,000 UNIT/500 ML BAG IV SCH (15:10)
--- NOTE | 2018-01-25 15:27 | Consultation ---
History of Present Illness Consult date: 01/25/18 Consult reason: hypotension, known to you History of present illness: Mr Hernandez is a 62yr old male with a history of coronary artery disease, status post previous 4 way coronary artery bypass. A cardiac catheterization 2 years ago revealed all 4 bypass grafts to be patent, but he has diffuse small branch vessel disease and chronic stable angina on medical therapy. His last thallium stress test documents no ischemia. He has a history of ischemic cardiomyopathy and has an indwelling cardiac defibrillator for primary prevention. Left ventricular ejection fraction 20-25% by an echocardiogram a month ago. He also has paroxysmal atrial fibrillation and is on Pradaxa for oral anticoagulation. He was brought with altered mental status, hypotension and hypoxia found to have an acute PE. He was admitted to ICU and is currently intubated and on pressors for support. Head CT reports no acute intracranial abnormalities. His ECG is rapid atrial fibrillation, rate 126. Cardiology consultation requested. Medications and Allergies Allergies Allergy/AdvReac Type Severity Reaction Status Date / Time gabapentin [From Neurontin] Allergy Rash Verified 01/25/18 06:12 Home Medications Medication Instructions Recorded Confirmed Last Taken Type Acetaminophen/Codeine [Tylenol 1 tab PO Q6H PRN #12 tab 12/03/17 12/22/17 Unknown Rx /Codeine # 3 tab] ALPRAZolam [Xanax TAB] 2 mg PO Q8H PRN #30 tablet 12/27/17 Unknown Rx Arformoterol Nebu [Brovana Nebu] 15 mcg IH Q12HRT #60 ml 12/27/17 Unknown Rx AtorvaSTATin [Lipitor] 40 mg PO QHS #30 tablet 12/27/17 Unknown Rx Budesonide [Pulmicort Respules] 0.5 mg IH Q12HRT #60 nebu 12/27/17 Unknown Rx Dabigatran [Pradaxa] 75 mg PO BID #60 capsule 12/27/17 Unknown Rx Furosemide [Lasix TAB] 60 mg PO QDAY 30 Days tablet 12/27/17 Unknown Rx ISOSORBIDE MONOnitrate [Imdur ER] 60 mg PO QDAY #30 tablet 12/27/17 Unknown Rx Insulin Glargine [Lantus VIAL] 30 units SUB-Q QHS #300 units 12/27/17 Unknown Rx Ipratropium/Albuterol Sulfate 1 ampul IH TIDRT #100 ampul.neb 12/27/17 Unknown Rx [DUONEB *Not for PRN Use*] Lisinopril [Zestril TAB] 2.5 mg PO QDAY #30 tablet 12/27/17 Unknown Rx Lisinopril [Zestril TAB] 20 mg PO QDAY #30 tablet 12/27/17 Unknown Rx Lispro Insulin [Humalog] 0 unit SUB-Q ACHS #5 units 12/27/17 Unknown Rx Metoprolol Xl [Metoprolol 50 mg PO BID #60 tablet 12/27/17 Unknown Rx SUCCINATE ER TAB] Pantoprazole Sodium 20 mg PO QDAY #30 tablet. 12/27/17 Unknown Rx Potassium Chloride [K-Dur] 30 meq PO QDAY tablet 12/27/17 Unknown Rx QUEtiapine [SEROquel] 200 mg PO BID #60 tablet 12/27/17 Unknown Rx Ranolazine ER [Ranexa ER] 500 mg PO BID #60 tablet 12/27/17 Unknown Rx predniSONE [Deltasone] 5 mg PO QDAY tablet 12/27/17 Unknown Rx Active Meds: Active Medications Famotidine (Pepcid) 20 mg IV BID MARY Hydrophilic Ointment (Vaseline Lip Therapy) 1 applic TP Q2HR PRN PRN Reason: Dry Lips Norepinephrine (Levophed Drip 4 Mg/Ns 250 Ml) 4 mg in 250 mls @ 7.5 mls/hr IV TITR MARY; Protocol Last Titration: 01/25/18 15:09 Dose: 2 mcg/min, 7.5 mls/hr Fentanyl Citrate (Fentanyl Drip Premix) 2,000 mcg in 100 mls @ 5.443 mls/hr IV TITR MARY; Protocol Last Titration: 01/25/18 14:13 Dose: 2 mcg/kg/hr, 10.886 mls/hr Midazolam HCl 100 mg/ Sodium (Chloride) 100 mls @ 2 mls/hr IV TITR MARY; Protocol Last Titration: 01/25/18 14:12 Dose: 2 mg/hr, 2 mls/hr Piperacillin Sod/Tazobactam Sod (Zosyn/Ns 4.5gm/100ml) 4.5 gm in 100 mls @ 200 mls/hr IV Q6HR MARY Last Admin: 01/25/18 11:59 Dose: 200 mls/hr Heparin Sodium/Sodium Chloride (Heparin/ 0.45% Nacl-25,000 Unit/500 Ml) 25,000 unit in 500 mls @ 30 mls/hr IV TITR MARY; Protocol Last Admin: 01/25/18 15:10 Dose: 1,500 units/hr, 30 mls/hr Sodium Chloride (Nacl 0.9% 1000 Ml) 1,000 mls @ 999 mls/hr IV BOLUS ONE Stop: 01/25/18 15:56 Multi-Ingred Cream/Lotion/Oil/Oint (Artificial Tears Ophth Oint) 1 applic OU Q4HR PRN PRN Reason: Dry Eye(s) Physical Examination Vital Signs Temp Pulse Resp BP Pulse Ox 94.5 F L 115 H 12 106/81 100 01/25/18 06:01 01/25/18 06:01 01/25/18 06:01 01/25/18 06:01 01/25/18 06:01 General appearance: other (intubated on the vent) Cardiac: Positive: irregularly irregular Results 01/25/18 13:12 01/25/18 06:15 Cardiac Enzymes 01/25/18 01/25/18 Range/Units 06:15 06:32 AST 24 (5-40) units/L CK-MB (CK-2) 3.8 (0.0-4.0) ng/mL Coagulation 01/25/18 Range/Units 06:15 PT 15.0 H (12.2-14.9) Sec. INR 1.12 (0.87-1.13) CBC 01/25/18 01/25/18 Range/Units 06:15 13:12 WBC 5.0 (4.5-11.0) K/mm3 RBC 3.54 L (3.65-5.03) M/mm3 Hgb 10.2 L 9.7 L (11.8-15.2) gm/dl Hct 31.4 L 30.0 L (35.5-45.6) % Plt Count 194 198 (140-440) K/mm3 Lymph # 1.2 (1.2-5.4) K/mm3 [place] # 0.4 (0.0-0.8) K/mm3 Eos # 0.1 (0.0-0.4) K/mm3 Baso # 0.1 (0.0-0.1) K/mm3 Comprehensive Metabolic Panel 01/25/18 Range/Units 06:15 Sodium 138 (137-145) mmol/L Potassium 4.0 (3.6-5.0) mmol/L Chloride 103.2 (98-107) mmol/L Carbon Dioxide 24 (22-30) mmol/L BUN 12 (9-20) mg/dL Creatinine 0.8 (0.8-1.5) mg/dL Glucose 148 H (75-100) mg/dL Calcium 8.3 L (8.4-10.2) mg/dL AST 24 (5-40) units/L ALT 18 (7-56) units/L Alkaline Phosphatase 102 (35-129) units/L Total Protein 6.6 (6.3-8.2) g/dL Albumin 3.2 L (3.9-5) g/dL Assessment and Plan Altered mental status Acute Respiratory failure Acute PE Hx of CAD s/p CABG MPI 06/2016: No ischemia, large fixed inferior and inferolateral wall defect consistent with old [place]. [facility] 07/2015: 4 patent bypass grafts. Small vessel disease recommended for medical therapy. Hx of Ischemic cardiomyopathy EF 20-25% by echo 12/2017 AICD ([employer]) Paroxysmal atrial fibrillation anticoagulated with pradaxa as an outpatient. HTN HLP
--- NOTE | 2018-01-25 15:35 | XRay Report ---
AP CHEST: HISTORY: Central line placement A right IJ central line has been inserted which terminates in the superior right atrium. No pneumothorax. The remainder of the examination is unchanged since earlier today at 0754 hours. IMPRESSION: Right IJ central line placement as described. No pneumothorax.
[2018-01-25 19:59] LABS: Bilirubin,Urine NEG (Negative); Blood,Urine NEG (Negative); Color,Urine Yellow (Yellow); Mucus,Urine FEW /HPF; Protein,Urine <15 mg/dL mg/dL (Negative); RBC,Urine < 1.0 /HPF (0.0-6.0); Urobilinogen,Urine < 2.0 mg/dL (<2.0); WBC,Urine < 1.0 /HPF (0.0-6.0)
[2018-01-25 20:07] LABS: Partial Thromboplastin Time 37.7 Sec. (24.2-36.6)
[2018-01-25 20:33] LABS: INR 1.05 (0.87-1.13)
[2018-01-25] MEDS: PEPCID IV SCH (22:00)
[2018-01-26] MEDS: MIDAZOLAM 100 MG in NACL 0.9% 80 ML IV SCH (02:45)
[2018-01-26] MEDS: LEVOPHED DRIP 4 MG/NS 250 ML 4 MG/250 ML BAG IV SCH ×2 (02:47→22:06)
--- NOTE | 2018-01-26 03:00 | XRay Report ---
FINAL REPORT EXAM: XR CHEST 1V AP HISTORY: follow up respiratory failure TECHNIQUE: A portable upright view the chest was obtained and compared to the study of 01/25/2018. FINDINGS: Since the previous study the patient is now intubated. The tip of the ET tube is 1.5 cm above the topher. There is a left-sided bipolar pacemaker with leads in the right atrium and right ventricle. There are sternotomy sutures. The heart is mildly enlarged. The lungs are congested an unchanged from the previous study. There is a small left-sided effusion. There is a right-sided central venous line with tip in the distal superior vena cava. The skeletal structures otherwise are unchanged. IMPRESSION: Cardiomegaly with stable pulmonary congestion. Small left-sided effusion. Satisfactory position of tubes and lines.
[2018-01-26] MEDS: ZOSYN/NS 4.5GM/100ML 4.5 GM/100 ML VIAL IV SCH ×4 (05:40→23:05)
[2018-01-26 08:57] LABS: Basophils % (Auto) 0.3 % (0.0-1.8); Eosinophils # (Auto) 0.1 K/mm3 (0.0-0.4); Eosinophils % (Auto) 1.8 % (0.0-4.3); Hematocrit 29.3 % (35.5-45.6); Hemoglobin 9.7 gm/dl (11.8-15.2); Lymphocytes # (Auto) 1.2 K/mm3 (1.2-5.4); Lymphocytes % (Auto) 20.2 % (13.4-35.0); Mean Corpuscular HGB Conc 33 % (32-34); Mean Corpuscular Hemoglobin 29 pg (28-32); Mean Corpuscular Volume 88 fl (84-94); Monocytes # (Auto) 0.6 K/mm3 (0.0-0.8); Monocytes % (Auto) 10.4 % (0.0-7.3); Platelet Count 218 K/mm3 (140-440); Red Blood Count 3.31 M/mm3 (3.65-5.03); Red Cell Distribution Width 18.2 % (13.2-15.2)
[2018-01-26 09:05] LABS: Alanine Aminotransferase 12 units/L (7-56); Albumin 2.9 g/dL (3.9-5); BUN/Creatinine Ratio 9; Blood Urea Nitrogen 6 mg/dL (9-20); Calcium 7.7 mg/dL (8.4-10.2); Hemolysis Index 8
[2018-01-26] MEDS: HEPARIN/ 0.45% NACL-25,000 UNIT/500 ML 25,000 UNIT/500 ML BAG IV SCH ×2 (09:13→22:15)
[2018-01-26] MEDS: fentaNYL DRIP Premix 2,000 MCG/100 ML BAG IV SCH ×3 (09:24→22:08)
--- NOTE | 2018-01-26 09:39 | Progress Note ---
Assessment and Plan Altered mental status Acute Respiratory failure Acute PE Hx of CAD s/p CABG MPI 06/2016: No ischemia, large fixed inferior and inferolateral wall defect consistent with old ND. LHC 07/2015: 4 patent bypass grafts. Small vessel disease recommended for medical therapy. Hx of Ischemic cardiomyopathy EF 20-25% by echo 12/2017 AICD (Audinate) Paroxysmal atrial fibrillation anticoagulated with pradaxa as an outpatient. HTN HLP Subjective Date of service: 01/26/18 Interval history: Patient remains intubated on the vent. Rapid atrial fibrillation on telemetry. Objective Vital Signs Temp Pulse Resp BP Pulse Ox 01/26/18 08:00 99.8 F H 01/26/18 07:31 129 H 111/67 100 01/26/18 06:00 18 01/26/18 04:27 124 H 107/63 99 01/26/18 04:00 16 01/26/18 02:00 15 01/26/18 00:08 152 H 98/63 95 01/26/18 00:00 23 01/25/18 22:00 135 H 24 01/25/18 21:04 143 H 105/56 100 01/25/18 20:16 127 H 115/70 99 01/25/18 20:00 21 01/25/18 15:41 105 H 18 94/61 99 01/25/18 15:40 105 H 94/61 99 01/25/18 15:30 122 H 17 94/61 98 01/25/18 15:21 115 H 18 122/74 100 01/25/18 15:11 123 H 18 115/73 99 01/25/18 15:00 107 H 18 115/73 100 01/25/18 14:51 112 H 17 83/53 01/25/18 14:41 123 H 15 83/53 01/25/18 14:31 107 H 19 83/53 99 01/25/18 14:21 100 H 18 106/66 100 01/25/18 14:11 126 H 17 108/70 01/25/18 14:00 110 H 22 108/70 100 01/25/18 13:51 110 H 17 106/66 99 01/25/18 13:41 107 H 18 101/66 99 01/25/18 13:35 128 H 101/56 100 01/25/18 13:31 125 H 17 101/66 99 01/25/18 13:21 124 H 18 108/72 01/25/18 13:11 117 H 18 90/59 99 01/25/18 13:01 121 H 17 111/52 01/25/18 12:51 124 H 16 108/72 99 01/25/18 12:40 124 H 18 123/66 01/25/18 12:30 97 F L 118 H 16 130/86 01/25/18 12:20 126 H 11 L 01/25/18 12:16 124 H 13 01/25/18 12:00 121 H 19 110/80 01/25/18 11:45 132 H 20 99/57 01/25/18 11:30 137 H 18 99/57 01/25/18 11:23 126 H 17 117/77 01/25/18 10:45 122 H 17 117/77 01/25/18 10:31 114 H 17 105/84 01/25/18 10:15 109 H 18 110/78 01/25/18 10:00 117 H 19 110/78 96 01/25/18 09:45 111 H 17 100/74 100 - Physical Examination General: No Apparent Distress HEENT: Positive: PERRL Cardiac: Positive: irregularly irregular - Labs and Meds Cardiac Enzymes 01/26/18 Range/Units 08:23 AST 17 (5-40) units/L Coagulation 01/25/18 Range/Units 19:27 PT 14.2 (12.2-14.9) Sec. INR 1.05 (0.87-1.13) APTT 37.7 H (24.2-36.6) Sec. CBC 01/25/18 01/26/18 Range/Units 13:12 08:23 WBC 5.7 (4.5-11.0) K/mm3 RBC 3.31 L (3.65-5.03) M/mm3 Hgb 9.7 L 9.7 L (11.8-15.2) gm/dl Hct 30.0 L 29.3 L (35.5-45.6) % Plt Count 198 218 (140-440) K/mm3 Lymph # 1.2 (1.2-5.4) K/mm3 [place] # 0.6 (0.0-0.8) K/mm3 Eos # 0.1 (0.0-0.4) K/mm3 Baso # 0.0 (0.0-0.1) K/mm3 Comprehensive Metabolic Panel 01/26/18 Range/Units 08:23 Sodium 142 (137-145) mmol/L Potassium 3.6 (3.6-5.0) mmol/L Chloride 107.2 H (98-107) mmol/L Carbon Dioxide 25 (22-30) mmol/L BUN 6 L (9-20) mg/dL Creatinine 0.7 L (0.8-1.5) mg/dL Glucose 113 H (75-100) mg/dL Calcium 7.7 L (8.4-10.2) mg/dL AST 17 (5-40) units/L ALT 12 (7-56) units/L Alkaline Phosphatase 95 (35-129) units/L Total Protein 5.7 L (6.3-8.2) g/dL Albumin 2.9 L (3.9-5) g/dL
--- NOTE | 2018-01-26 11:17 | Progress Note ---
Assessment and Plan Acute hypoxemic respiratory failure on MVS SIRS, with SHOCK and lactic acidosis Altered mental status, acute encephalopathy Non occlusive right lower lobe PE A. fib with RVR Systolic CHF (EF 20-25% in august 2017) Sleep apnea with OHS Obesity Atrial fibrillation with RVR h/o CABG with ischemic cardiomyopathy Type 2 Diabetes mellitus AE-COPD - begin enteral nutrition - continue empiric AB's and follow cultures - VAP bundle addressed - continue bronchodilators with pulmonary hygiene per RT - daily SBT's and SAT's - PT/OT/ROM as tolerated - cardiology consult -initiate amiodarone for rate control -accucheck with glycemic contro -stress ulcer prophylaxis, currently anticoagulated on heparin infusion -vasopresor support to keep MAP>65, fluid restrictive strategies once off vasopressor - mobility protocol for pressure ulcer prophylaxis - continue IV heparin per protocol - Critical care bundles -If he does not tolerate weaning trial and is not liberated from mechanical ventilatory support, place a feeding tubs and initiate enteric feeding FULL CODE The high probability of a clinically significant, sudden or life threatening deterioration of the [Neurology, CVS] system(s) required my full and direct attention, intervention and personal management. The aggregate critical care time was [35] minutes. This time is in addition to time spent performing reported procedures but includes the following: [x] Data Review and interpretation [x] Patient assessment and monitoring of vital signs [x] Documentation [x] Medication orders and management Subjective Date of service: 01/26/18 Interval history: HISTORY PER MEDICAL RECORDS 62-year-old male with past medical history significant for CAD status post CABG, CHF status post AICD, A. fib brought to the emergency department via EMS for altered mental status. Patient was found lying in the floor by EMS. patient was hypotensive, hypothermic was not able to take care of his airways. Patient was intubated , on mechanical ventilation. Patient was given IV fluids , pressors and admitted to ICU. Chest x-ray shows pulmonary venous congestion, CTA showed small non occlusive right lower lobe PE. History obtained from chart review and ER medical staff. Review of system couldn't be obtained because of altered mental status and mechanical ventilation. Seen and examined. Vitals, labs, medications, chart and imaging reviewed. No acute events overnight reported. Discussed in ICU-IDT rounds Objective - Exam Narrative Exam: . Vital Signs - 12hr 01/26/18 01/26/1818 00:00 00:08 02:00 Temperature Pulse Rate 152 H Respiratory 23 15 Rate Blood Pressure 98/63 O2 Sat by Pulse 95 Oximetry 01/26/18 01/26/18 01/26/18 04:00 04:27 06:00 Temperature Pulse Rate 124 H Respiratory 16 18 Rate Blood Pressure 107/63 O2 Sat by Pulse 99 Oximetry 01/26/18 01/26/18 07:31 08:00 Temperature 99.8 F H Pulse Rate 129 H Respiratory Rate Blood Pressure 111/67 O2 Sat by Pulse 100 Oximetry Constitutional: no acute distress, comatose (secondary to sedation medication) Eyes: non-icteric ENT: other (orally intubated and sedated, critically ill on vent) Neck: supple Effort: normal Ascultation: Bilateral: clear Percussion: Bilateral: not dull Cardiovascular: regular rate and rhythm Gastrointestinal: soft, non-tender Integumentary: normal, other (multiple Tattoos) Extremities: no cyanosis, no edema, pink and warm, pulses normal Neurologic: unable to assess Psychiatric: other (unable to assess) CBC and BMP: 01/27/18 06:00 01/27/18 06:00 ABG, PT/INR, D-dimer: ABG POC ABG pH 7.350 (7.35-7.45) 01/26/18 04:43 POC ABG pCO2 47.9 (35-45) H 01/26/18 04:43 POC ABG pO2 74 (80-105) L 01/26/18 04:43 POC ABG HCO3 26.5 01/26/18 04:43 POC ABG Total CO2 28 01/26/18 04:43 POC ABG O2 Sat 94 01/26/18 04:43 PT/INR, D-dimer PT 14.2 Sec. (12.2-14.9) 01/25/18 19:27 INR 1.05 (0.87-1.13) 01/25/18 19:27 Abnormal lab findings: Abnormal Labs 01/25/18 01/25/18 01/25/18 06:15 06:15 06:15 RBC 3.54 L Hgb 10.2 L Hct 31.4 L RDW 18.2 H [place] % (Auto) 8.1 H Baso % (Auto) 2.3 H PT 15.0 H APTT Heparin Anti-Xa Level POC ABG pCO2 POC ABG pO2 VBG pH Chloride BUN Creatinine Glucose 148 H POC Glucose Lactic Acid Calcium 8.3 L NT-Pro-B Natriuret Pep Total Protein Albumin 3.2 L 01/25/18 01/25/18 01/25/18 06:33 07:35 07:35 RBC Hgb Hct RDW [place] % (Auto) Baso % (Auto) PT APTT Heparin Anti-Xa Level POC ABG pCO2 POC ABG pO2 VBG pH 7.275 L Chloride BUN Creatinine Glucose POC Glucose Lactic Acid 2.50 H* Calcium NT-Pro-B Natriuret Pep 1979 H Total Protein Albumin 01/25/18 01/25/18 01/25/18 08:43 13:12 19:27 RBC Hgb 9.7 L Hct 30.0 L RDW [place] % (Auto) Baso % (Auto) PT APTT 37.7 H Heparin Anti-Xa Level POC ABG pCO2 49.8 H POC ABG pO2 594 H VBG pH Chloride BUN Creatinine Glucose POC Glucose Lactic Acid Calcium NT-Pro-B Natriuret Pep Total Protein Albumin 01/25/18 01/25/18 01/25/18 19:27 22:00 23:18 RBC Hgb Hct RDW [place] % (Auto) Baso % (Auto) PT APTT Heparin Anti-Xa Level 0.10 L 0.10 L POC ABG pCO2 POC ABG pO2 VBG pH Chloride BUN Creatinine Glucose POC Glucose 118 H Lactic Acid Calcium NT-Pro-B Natriuret Pep Total Protein Albumin 01/26/18 01/26/18 01/26/18 04:43 05:30 08:23 RBC 3.31 L Hgb 9.7 L Hct 29.3 L RDW 18.2 H [place] % (Auto) 10.4 H Baso % (Auto) PT APTT Heparin Anti-Xa Level 0.12 L POC ABG pCO2 47.9 H POC ABG pO2 74 L VBG pH Chloride BUN Creatinine Glucose POC Glucose Lactic Acid Calcium NT-Pro-B Natriuret Pep Total Protein Albumin 01/26/18 08:23 RBC Hgb Hct RDW [place] % (Auto) Baso % (Auto) PT APTT Heparin Anti-Xa Level POC ABG pCO2 POC ABG pO2 VBG pH Chloride 107.2 H BUN 6 L Creatinine 0.7 L Glucose 113 H POC Glucose Lactic Acid Calcium 7.7 L NT-Pro-B Natriuret Pep Total Protein 5.7 L Albumin 2.9 L Chest x-ray: image reviewed Allied health notes reviewed: RT
[2018-01-26] MEDS: PEPCID IV SCH ×2 (11:30→22:08)
[2018-01-26] MEDS: CORDARONE 900 MG in D5W 482 ML IV SCH (11:37)
[2018-01-26] MEDS ORDERED: LANOXIN IV ONE (13:00)
--- NOTE | 2018-01-26 17:40 | Progress Note ---
Assessment and Plan Assessment and plan: 62-year-old -[place] woman with past medical history significant for CAD , diabetes mellitus, CHF with ejection fraction of 25%, hypertension brought to the emergency department after he was found lying at home by EMS. Patient was altered, hypotensive and hypothermic. He was intubated, on pressors, emperic IV antibiotics and admitted to ICU. Acute respiratory failure - Patient is intubated and on mechanical ventilation SIRS, with SHOCK and lactic acidosis - Patient with empirically on IV antibiotics, pressers Altered mental status - CT head is negative - Likely due to hemodynamic derangement PE - Patient is on heparin drip A. fib with RVR, Systolic CHF - Cardiology consulted - Patient was given a dose of IV digoxin The high probability of a clinically significant, sudden or life threatening deterioration of the [Neurology, CVS] system(s) required my full and direct attention, intervention and personal management. The aggregate critical care time was [32] minutes. This time is in addition to time spent performing reported procedures but includes the following: [x] Data Review and interpretation [x] Patient assessment and monitoring of vital signs [x] Documentation [x] Medication orders and management History Interval history: Patient was seen and evaluated this morning, patient was still intubated and on mechanical ventilation. Hospitalist Physical - Physical exam Narrative exam: Patient is intubated and on mechanical ventilation. The patient appeared well nourished and normally developed. Vital signs as documented. Head exam is unremarkable. No scleral icterus . Neck is without jugular venous distension, thyromegaly, or carotid bruits. Lungs are clear to auscultation. Cardiac exam reveals irregular rate and Rhythm. Tachycardic. Abdominal exam reveals normal bowel sounds, no masses, no organomegaly and no aortic enlargement. Extremities are nonedematous and both femoral and pedal pulses are normal. METROLOGY TECHNICIAN: Sedated. - Constitutional Vitals: Temp Pulse Resp BP Pulse Ox 99.8 F H 105 H 18 84/55 95 01/26/18 08:00 01/26/18 16:30 01/26/18 16:30 01/26/18 16:30 01/26/18 16:30 General appearance: Present: other (intubated on the vent) Results - Labs CBC & Chem 7: 01/26/18 08:23 01/26/18 08:23 Labs: Laboratory Last Values WBC 5.7 K/mm3 (4.5-11.0) 01/26/18 08:23 RBC 3.31 M/mm3 (3.65-5.03) L 01/26/18 08:23 Hgb 9.7 gm/dl (11.8-15.2) L 01/26/18 08:23 Hct 29.3 % (35.5-45.6) L 01/26/18 08:23 MCV 88 fl (84-94) 01/26/18 08:23 MCH 29 pg (28-32) 01/26/18 08:23 MCHC 33 % (32-34) 01/26/18 08:23 RDW 18.2 % (13.2-15.2) H 01/26/18 08:23 Plt Count 218 K/mm3 (140-440) 01/26/18 08:23 Lymph % (Auto) 20.2 % (13.4-35.0) 01/26/18 08:23 [place] % (Auto) 10.4 % (0.0-7.3) H 01/26/18 08:23 Eos % (Auto) 1.8 % (0.0-4.3) 01/26/18 08:23 Baso % (Auto) 0.3 % (0.0-1.8) 01/26/18 08:23 Lymph # 1.2 K/mm3 (1.2-5.4) 01/26/18 08:23 [place] # 0.6 K/mm3 (0.0-0.8) 01/26/18 08:23 Eos # 0.1 K/mm3 (0.0-0.4) 01/26/18 08:23 Baso # 0.0 K/mm3 (0.0-0.1) 01/26/18 08:23 Seg Neutrophils % 67.3 % (40.0-70.0) 01/26/18 08:23 Seg Neutrophils # 3.8 K/mm3 (1.8-7.7) 01/26/18 08:23 PT 14.2 Sec. (12.2-14.9) 01/25/18 19:27 INR 1.05 (0.87-1.13) 01/25/18 19:27 APTT 37.7 Sec. (24.2-36.6) H 01/25/18 19:27 Heparin Anti-Xa Level 0.72 U.I./ml (0.3-0.7) H 01/26/18 16:33 POC ABG pH 7.350 (7.35-7.45) 01/26/18 04:43 POC ABG pCO2 47.9 (35-45) H 01/26/18 04:43 POC ABG pO2 74 (80-105) L 01/26/18 04:43 POC ABG HCO3 26.5 01/26/18 04:43 POC ABG Total CO2 28 01/26/18 04:43 POC ABG O2 Sat 94 01/26/18 04:43 POC ABG Base Excess 1 01/26/18 04:43 VBG pH 7.275 (7.320-7.420) L 01/25/18 06:33 FiO2 30 % 01/26/18 04:43 Sodium 142 mmol/L (137-145) 01/26/18 08:23 Potassium 3.6 mmol/L (3.6-5.0) 01/26/18 08:23 Chloride 107.2 mmol/L (98-107) H 01/26/18 08:23 Carbon Dioxide 25 mmol/L (22-30) 01/26/18 08:23 Anion Gap 13 mmol/L 01/26/18 08:23 BUN 6 mg/dL (9-20) L 01/26/18 08:23 Creatinine 0.7 mg/dL (0.8-1.5) L 01/26/18 08:23 Estimated GFR > 60 ml/min 01/26/18 08:23 BUN/Creatinine Ratio 9 % 01/26/18 08:23 Glucose 113 mg/dL (75-100) H 01/26/18 08:23 POC Glucose 142 (70-105) H 01/26/18 13:19 Lactic Acid 1.80 mmol/L (0.7-2.0) 01/25/18 13:12 Calcium 7.7 mg/dL (8.4-10.2) L 01/26/18 08:23 Total Bilirubin 0.90 mg/dL (0.1-1.2) 01/26/18 08:23 AST 17 units/L (5-40) 01/26/18 08:23 ALT 12 units/L (7-56) 01/26/18 08:23 Alkaline Phosphatase 95 units/L (35-129) 01/26/18 08:23 Total Creatine Kinase 137 units/L (55-170) 01/25/18 06:32 CK-MB (CK-2) 3.8 ng/mL (0.0-4.0) 01/25/18 06:32 CK-MB (CK-2) Rel Index 2.7 (0-4) 01/25/18 06:32 Troponin T < 0.010 ng/mL (0.00-0.029) 01/25/18 06:32 NT-Pro-B Natriuret Pep 1979 pg/mL (0-900) H 01/25/18 07:35 Total Protein 5.7 g/dL (6.3-8.2) L 01/26/18 08:23 Albumin 2.9 g/dL (3.9-5) L 01/26/18 08:23 Albumin/Globulin Ratio 1.0 % 01/26/18 08:23 Urine Color Yellow (Yellow) 01/25/18 19:27 Urine Turbidity Clear (Clear) 01/25/18 19:27 Urine pH 5.0 (5.0-7.0) 01/25/18 19:27 Ur Specific [place] 1.017 (1.003-1.030) 01/25/18 19:27 Urine Protein <15 mg/dl mg/dL (Negative) 01/25/18 19:27 Urine Glucose (UA) Neg mg/dL (Negative) 01/25/18 19:27 Urine Ketones Neg mg/dL (Negative) 01/25/18 19:27 Urine Blood Neg (Negative) 01/25/18 19:27 Urine Nitrite Neg (Negative) 01/25/18 19:27 Urine Bilirubin Neg (Negative) 01/25/18 19:27 Urine Urobilinogen < 2.0 mg/dL (<2.0) 01/25/18 19:27 Ur Leukocyte Esterase Neg (Negative) 01/25/18 19:27 Urine WBC (Auto) < 1.0 /HPF (0.0-6.0) 01/25/18 19:27 Urine RBC (Auto) < 1.0 /HPF (0.0-6.0) 01/25/18 19:27 Urine Mucus Few /HPF 01/25/18 19:27
--- NOTE | 2018-01-26 18:22 | XRay Report ---
FINAL REPORT PROCEDURE: XR ABDOMEN 1V AP TECHNIQUE: Single portable AP view of the abdomen was obtained HISTORY: confirm OGT COMPARISON: No prior studies are available for comparison. FINDINGS: Patient is rotated towards the right. There is an oral gastric tube in place. The end of the tube projects in the expected location of the antrum of the stomach and appears to be in good position. Surgical clips seen in the right upper quadrant. Bowel gas pattern is nonspecific. Sternotomy wires are partially visualized overlying the lower chest. Pacemaker leads seen in the right side of the heart. The heart appears enlarged. IMPRESSION: Orogastric tube in good position. The tip appears to be in the location of the antrum of the stomach.
[2018-01-27] MEDS: fentaNYL DRIP Premix 2,000 MCG/100 ML BAG IV SCH ×3 (04:27→23:15)
[2018-01-27] MEDS: MIDAZOLAM 100 MG in NACL 0.9% 80 ML IV SCH (04:27)
--- NOTE | 2018-01-27 04:52 | XRay Report ---
FINAL REPORT PROCEDURE: XR CHEST 1V AP TECHNIQUE: Chest radiograph anteroposterior view. CPT 76764 HISTORY: follow up respiratory failure COMPARISON: 01/26/2018 FINDINGS: Heart is enlarged There is a right perihilar lower lobe infiltrate. There are no effusions or pneumothoraces. Endotracheal tube is the mid trachea. NG tube is in the stomach. Pacemaker leads are in proper position. There is a right-sided central venous catheter. The tip is in the superior vena cava. Bony and soft tissue structures are unremarkable. There is a linear density in the left axilla which could be a foreign body such as a needle. IMPRESSION: Heart is enlarged There is a right perihilar lower lobe infiltrate. There are no effusions or pneumothoraces. Endotracheal tube is the mid trachea. NG tube is in the stomach. Pacemaker leads are in proper position. There is a right-sided central venous catheter. The tip is in the superior vena cava.
[2018-01-27] MEDS: ZOSYN/NS 4.5GM/100ML 4.5 GM/100 ML VIAL IV SCH ×3 (05:05→18:24)
[2018-01-27 06:56] LABS: Hematocrit 28.7 % (35.5-45.6); Hemoglobin 9.6 gm/dl (11.8-15.2)
[2018-01-27 07:18] LABS: BUN/Creatinine Ratio 7; Blood Urea Nitrogen 5 mg/dL (9-20); Calcium 7.7 mg/dL (8.4-10.2); Hemolysis Index 1
[2018-01-27] MEDS: CORDARONE 900 MG in D5W 482 ML IV SCH (08:34)
[2018-01-27] MEDS ORDERED: POTASSIUM CHLORIDE FEEDTUBE ONE (09:28)
[2018-01-27] MEDS: PEPCID IV SCH ×2 (10:25→21:59)
--- NOTE | 2018-01-27 12:16 | Progress Note ---
Assessment and Plan - Patient Problems (1) Acute respiratory failure Current Visit: No Status: Acute Qualifiers: Respiratory failure complication: hypoxia Qualified Code(s): J96.01 - Acute respiratory failure with hypoxia Plan to address problem: Patient is on the vent, continue supportive care. (2) Atrial fibrillation Current Visit: Yes Status: Chronic Qualifiers: Atrial fibrillation type: chronic Qualified Code(s): I48.2 - Chronic atrial fibrillation Plan to address problem: Atrial fibrillation with currently controlled ventricular rate. We will ultimately transition amiodarone to oral. Subjective Date of service: 01/27/18 Interval history: Patient is under event, sedated, atrial fibrillation with a well-controlled ventricular response in the 90s, cardiac pacemaker complexes on demand. He remains on amiodarone at 0.5mg per minute. Objective Vital Signs Temp Pulse Resp Resp Resp BP Pulse Ox 01/27/18 11:15 93 H 19 107/63 98 01/27/18 11:00 77 18 107/59 98 01/27/18 10:46 77 19 97/56 97 01/27/18 10:30 78 15 105/66 97 01/27/18 10:16 84 16 117/44 99 01/27/18 10:15 84 121/64 100 01/27/18 10:00 74 18 16 16 121/64 100 01/27/18 09:45 87 17 118/64 100 01/27/18 09:30 77 19 122/64 100 01/27/18 09:15 78 18 123/63 100 01/27/18 09:00 75 17 115/65 100 01/27/18 08:45 72 16 122/64 99 01/27/18 08:30 81 19 116/54 98 01/27/18 08:15 86 18 113/55 97 01/27/18 08:00 98.1 F 97 H 18 126/69 98 01/27/18 07:45 90 18 125/77 98 01/27/18 07:30 89 18 120/67 99 01/27/18 07:15 82 17 115/75 99 01/27/18 07:00 83 18 98/59 98 01/27/18 06:45 78 22 114/47 98 01/27/18 06:30 101 H 18 95/53 96 01/27/18 06:15 87 18 108/42 95 08/18/18 06:00 103 H 19 110/52 96 0818/18 05:45 108 H 17 101/65 96 18/18 05:30 95 H 14 109/65 96 18/18 05:15 108 H 18 102/65 95 0818/18 05:00 100 H 18 118/67 94 18/18 04:46 87 17 108/63 97 1818 04:32 90 105/69 100 1818 04:30 87 18 94/70 98 1818 04:15 82 18 105/69 97 18 04:00 80 18 104/66 98 1818 03:45 96 H 18 93/56 97 18 03:30 98.5 F 87 15 93/55 97 18 03:15 85 18 102/62 97 18 03:00 85 18 108/47 96 18 02:45 81 18 108/47 97 18 02:30 90 17 102/50 98 18 02:15 85 18 99/49 97 1818 02:00 99 H 18 85/47 95 18/18 01:46 85 18 94/45 95 1818 01:30 101 H 18 109/54 97 1818 01:15 93 H 18 110/67 97 18/18 01:00 88 15 104/61 97 1818 00:45 94 H 16 107/58 97 18/18 00:30 93 H 18 96/40 95 18/18 00:15 95 H 16 92/43 94 18/18 00:00 109 H 19 108/70 96 17/18 23:53 100 H 108/54 95 17/18 23:45 104 H 15 108/54 96 17/18 23:30 87 18 101/56 96 17/18 23:24 100 H 17 100/49 95 0817/18 23:15 110 H 14 100/49 95 17/18 23:06 98.9 F 08/18 23:00 92 H 18 115/57 95 17/18 22:45 94 H 18 101/57 95 17/18 22:30 102 H 17 108/54 95 1718 22:16 119 H 16 98/58 94 17/18 22:00 129 H 19 132/60 97 17/18 21:46 106 H 18 128/72 97 17/18 21:30 113 H 19 129/84 97 17/18 21:16 99 H 18 126/75 97 17/18 21:00 104 H 17 126/78 97 1718 20:45 122 H 18 124/75 97 1718 20:30 102 H 18 122/71 97 17/18 20:16 123 H 20 123/65 97 17/18 20:11 117 H 125/80 100 1718 20:00 99.3 F 103 H 19 125/80 97 18 19:46 104 H 18 120/71 97 1718 19:30 102 H 20 128/74 97 1718 19:16 121 H 19 124/65 97 1718 19:00 119 H 13 100/64 97 1718 18:46 126 H 18 100/64 98 1718 18:30 110 H 21 117/75 95 17/18 18:16 123 H 18 117/75 94 17/18 18:14 126 H 117/87 96 1718 18:00 107 H 18 117/87 97 1718 17:46 107 H 23 120/76 96 17/18 17:30 132 H 17 128/79 96 1718 17:16 104 H 15 123/59 94 1718 17:00 117 H 16 127/76 96 17/18 16:46 104 H 18 127/76 96 17/18 16:30 105 H 18 84/55 95 17/18 16:16 102 H 17 98/50 95 17/18 16:00 111 H 18 134/78 97 17/18 15:45 119 H 18 133/75 97 17/18 15:30 131 H 18 123/78 97 17/18 15:16 136 H 17 130/68 97 17/18 15:00 120 H 17 129/66 97 17/18 14:45 129 H 18 128/66 97 01/26/18 14:30 133 H 17 122/76 97 01/26/18 14:15 130 H 17 129/72 97 01/26/18 14:00 127 H 17 123/77 97 01/26/18 13:46 113 H 20 119/68 97 01/26/18 13:30 133 H 18 117/75 97 01/26/18 13:15 136 H 17 114/81 96 01/26/18 13:00 146 H 17 103/81 96 01/26/18 12:59 157 H 114/85 01/26/18 12:45 159 H 18 114/85 95 01/26/18 12:30 159 H 18 152/104 94 01/26/18 12:15 122 H 19 152/104 95 - Physical Examination General: Other (patient is sedated, on the vent.) HEENT: Positive: PERRL Neck: Positive: neck supple Cardiac: Positive: irregularly irregular Lungs: Positive: Decreased Breath Sounds Neuro: Positive: Other (sedate, on the vent) Abdomen: Positive: Soft Skin: Positive: Clear Extremities: Absent: edema - Labs and Meds CBC 01/27/18 Range/Units 06:00 Hgb 9.6 L (11.8-15.2) gm/dl Hct 28.7 L (35.5-45.6) % Plt Count 210 (140-440) K/mm3 Comprehensive Metabolic Panel 01/27/18 Range/Units 06:00 Sodium 142 (137-145) mmol/L Potassium 3.1 L (3.6-5.0) mmol/L Chloride 106.2 (98-107) mmol/L Carbon Dioxide 24 (22-30) mmol/L BUN 5 L (9-20) mg/dL Creatinine 0.7 L (0.8-1.5) mg/dL Glucose 108 H (75-100) mg/dL Calcium 7.7 L (8.4-10.2) mg/dL
[2018-01-27] MEDS: HEPARIN/ 0.45% NACL-25,000 UNIT/500 ML 25,000 UNIT/500 ML BAG IV SCH (12:59)
[2018-01-27] MEDS: LANOXIN IV SCH (13:02)
[2018-01-27] MEDS: CORDARONE PO SCH ×2 (13:04→21:59)
--- NOTE | 2018-01-27 13:24 | Progress Note ---
Assessment and Plan Acute on chronic hypoxemic respiratory failure SIRS, with SHOCK and lactic acidosis Acute Encephalopathy Non occlusive right lower lobe PE AE-COPD CHF (EF 20-25% in august 2017) Sleep apnea with OHS Obesity Atrial fibrillation with RVR h/o CABG with ischemic cardiomyopathy Type 2 Diabetes mellitus Epistaxis - resume gentle diuresis (lasix 20mg IV daily) re: CHF / pulm edema - begin enteral nutrition - stop versed and use propofol; as needed - continue empiric AB's and follow cultures - VAP bundle addressed - continue bronchodilators with pulmonary hygiene per RT - reduce set rate to 12/min - daily SBT's and SAT's to begin - PT/OT/ROM as tolerated - cardiology evaluation ongoing - mobility protocol for pressure ulcer prophylaxis - continue GI prophylaxis - continue IV heparin per protocol - hematology consult - flu & pneumovax addressed per protocol The high probability of a clinically significant, sudden or life threatening deterioration of the [Neurology, CVS] system(s) required my full and direct attention, intervention and personal management. The aggregate critical care time was [35] minutes. This time is in addition to time spent performing reported procedures but includes the following: [x] Data Review and interpretation [x] Patient assessment and monitoring of vital signs [x] Documentation [x] Medication orders and management Subjective Date of service: 01/27/18 Principal diagnosis: Acute Hypoxemic Resp Failure on MVS; Sepsis with Shock; A- fib with RVR; P.E Interval history: Patient is seen today for: Acute Hypoxemic Resp Failure on MVS; Sepsis with Shock; Acute P.E.; AE COPD; Acute Encephalopathy; CHF; PATTI; Obesity Seen and examined at bedside; 24hour events reviewed; nursing and respiratory care staff consulted; no adverse overnight events reported to me; resting peacefully in bed; remains on MVS; sedated on versed and fentanyl; not following prompts but easily aroused; off levophed; remains on full AC support Objective Vital Signs - 12hr 01/27/18 01/27/18 01/27/18 01:30 01:46 02:00 Temperature Pulse Rate 101 H 85 99 H Respiratory 18 18 Rate Respiratory Rate [Back] Respiratory Rate [Chest] Blood Pressure 109/54 94/45 85/47 O2 Sat by Pulse 97 95 95 Oximetry 01/27/18 01/27/18 01/27/18 02:15 02:30 02:45 Temperature Pulse Rate 85 90 81 Respiratory 18 17 18 Rate Respiratory Rate [Back] Respiratory Rate [Chest] Blood Pressure 99/49 102/50 108/47 O2 Sat by Pulse 97 98 97 Oximetry 01/27/18 01/27/18 01/27/18 03:00 03:15 03:30 Temperature 98.5 F Pulse Rate 85 85 87 Respiratory 18 18 15 Rate Respiratory Rate [Back] Respiratory Rate [Chest] Blood Pressure 108/47 102/62 93/55 O2 Sat by Pulse 96 97 97 Oximetry 01/27/18 01/27/18 01/27/18 03:45 04:00 04:15 Temperature Pulse Rate 96 H 80 82 Respiratory 18 18 18 Rate Respiratory Rate [Back] Respiratory Rate [Chest] Blood Pressure 93/56 104/66 105/69 O2 Sat by Pulse 97 98 97 Oximetry 01/27/18 01/27/18 01/27/18 04:30 04:32 04:46 Temperature Pulse Rate 87 90 87 Respiratory 18 17 Rate Respiratory Rate [Back] Respiratory Rate [Chest] Blood Pressure 94/70 105/69 108/63 O2 Sat by Pulse 98 100 97 Oximetry 01/27/18 01/27/18 01/27/18 05:00 05:15 05:30 Temperature Pulse Rate 100 H 108 H 95 H Respiratory 18 18 14 Rate Respiratory Rate [Back] Respiratory Rate [Chest] Blood Pressure 118/67 102/65 109/65 O2 Sat by Pulse 94 95 96 Oximetry 01/27/18 01/27/18 01/27/18 05:45 06:00 06:15 Temperature Pulse Rate 108 H 103 H 87 Respiratory 17 19 18 Rate Respiratory Rate [Back] Respiratory Rate [Chest] Blood Pressure 101/65 110/52 108/42 O2 Sat by Pulse 96 96 95 Oximetry 01/27/18 01/27/18 01/27/18 06:30 06:45 07:00 Temperature Pulse Rate 101 H 78 83 Respiratory 18 22 18 Rate Respiratory Rate [Back] Respiratory Rate [Chest] Blood Pressure 95/53 114/47 98/59 O2 Sat by Pulse 96 98 98 Oximetry 01/27/18 01/27/18 01/27/18 07:15 07:30 07:45 Temperature Pulse Rate 82 89 90 Respiratory 17 18 18 Rate Respiratory Rate [Back] Respiratory Rate [Chest] Blood Pressure 115/75 120/67 125/77 O2 Sat by Pulse 99 99 98 Oximetry 01/27/18 01/27/18 01/27/18 08:00 08:15 08:30 Temperature 98.1 F Pulse Rate 97 H 86 81 Respiratory 18 18 19 Rate Respiratory Rate [Back] Respiratory Rate [Chest] Blood Pressure 126/69 113/55 116/54 O2 Sat by Pulse 98 97 98 Oximetry 01/27/18 01/27/18 01/27/18 08:45 09:00 09:15 Temperature Pulse Rate 72 75 78 Respiratory 16 17 18 Rate Respiratory Rate [Back] Respiratory Rate [Chest] Blood Pressure 122/64 115/65 123/63 O2 Sat by Pulse 99 100 100 Oximetry 01/27/18 01/27/18 01/27/18 09:30 09:45 10:00 Temperature Pulse Rate 77 87 74 Respiratory 19 17 18 Rate Respiratory 16 Rate [Back] Respiratory 16 Rate [Chest] Blood Pressure 122/64 118/64 121/64 O2 Sat by Pulse 100 100 100 Oximetry 01/27/18 01/27/18 01/27/18 10:15 10:16 10:30 Temperature Pulse Rate 84 84 78 Respiratory 16 15 Rate Respiratory Rate [Back] Respiratory Rate [Chest] Blood Pressure 121/64 117/44 105/66 O2 Sat by Pulse 100 99 97 Oximetry 01/27/18 01/27/18 01/27/18 10:46 11:00 11:15 Temperature Pulse Rate 77 77 93 H Respiratory 19 18 19 Rate Respiratory Rate [Back] Respiratory Rate [Chest] Blood Pressure 97/56 107/59 107/63 O2 Sat by Pulse 97 98 98 Oximetry 01/27/18 01/27/18 01/27/18 12:00 12:50 13:02 Temperature 98.3 F Pulse Rate 88 79 Respiratory 18 Rate Respiratory Rate [Back] Respiratory Rate [Chest] Blood Pressure 111/61 111/61 O2 Sat by Pulse 98 98 Oximetry Constitutional: no acute distress, other (Eldely obeses CM; normocephalic and atraumatic with mildly increased respiratory effort) Eyes: non-icteric ENT: oropharynx moist, other (orally intubated and sedated, critically ill on vent) Neck: supple, no JVD, other (No thyromegaly) Effort: normal Ascultation: Bilateral: diminished breath sounds, rhonchi Percussion: Bilateral: not dull Cardiovascular: regular rate and rhythm, other (No R/M) Gastrointestinal: hypoactive bowel sounds, soft, non-tender, non-distended, other (No palpable HSM) Integumentary: other (multiple Tattoos) Extremities: no cyanosis, no edema, pulses normal, no ischemia or petechiae Neurologic: unable to assess Psychiatric: other (sedated) CBC and BMP: 01/27/18 06:00 01/27/18 06:00 ABG, PT/INR, D-dimer: ABG POC ABG pH 7.408 (7.35-7.45) 01/27/18 04:31 POC ABG pCO2 40.8 (35-45) 01/27/18 04:31 POC ABG pO2 91 (80-105) 01/27/18 04:31 POC ABG HCO3 25.7 01/27/18 04:31 POC ABG Total CO2 27 01/27/18 04:31 POC ABG O2 Sat 97 01/27/18 04:31 PT/INR, D-dimer PT 14.2 Sec. (12.2-14.9) 01/25/18 19:27 INR 1.05 (0.87-1.13) 01/25/18 19:27 Abnormal lab findings: Abnormal Labs 01/25/18 01/25/18 01/25/18 06:15 06:15 06:15 RBC 3.54 L Hgb 10.2 L Hct 31.4 L RDW 18.2 H [place] % (Auto) 8.1 H Baso % (Auto) 2.3 H PT 15.0 H APTT Heparin Anti-Xa Level POC ABG pCO2 POC ABG pO2 VBG pH Potassium Chloride BUN Creatinine Glucose 148 H POC Glucose Lactic Acid Calcium 8.3 L Magnesium NT-Pro-B Natriuret Pep Total Protein Albumin 3.2 L 01/25/18 01/25/18 01/25/18 06:33 07:35 07:35 RBC Hgb Hct RDW [place] % (Auto) Baso % (Auto) PT APTT Heparin Anti-Xa Level POC ABG pCO2 POC ABG pO2 VBG pH 7.275 L Potassium Chloride BUN Creatinine Glucose POC Glucose Lactic Acid 2.50 H* Calcium Magnesium NT-Pro-B Natriuret Pep 1979 H Total Protein Albumin 01/25/18 01/25/1801/25/18 08:43 13:12 19:27 RBC Hgb 9.7 L Hct 30.0 L RDW [place] % (Auto) Baso % (Auto) PT APTT 37.7 H Heparin Anti-Xa Level POC ABG pCO2 49.8 H POC ABG pO2 594 H VBG pH Potassium Chloride BUN Creatinine Glucose POC Glucose Lactic Acid Calcium Magnesium NT-Pro-B Natriuret Pep Total Protein Albumin 01/25/18 01/25/18 01/25/18 19:27 22:00 23:18 RBC Hgb Hct RDW [place] % (Auto) Baso % (Auto) PT APTT Heparin Anti-Xa Level 0.10 L 0.10 L POC ABG pCO2 POC ABG pO2 VBG pH Potassium Chloride BUN Creatinine Glucose POC Glucose 118 H Lactic Acid Calcium Magnesium NT-Pro-B Natriuret Pep Total Protein Albumin 01/26/18 01/26/18 01/26/18 04:43 05:30 08:23 RBC 3.31 L Hgb 9.7 L Hct 29.3 L RDW 18.2 H [place] % (Auto) 10.4 H Baso % (Auto) PT APTT Heparin Anti-Xa Level 0.12 L POC ABG pCO2 47.9 H POC ABG pO2 74 L VBG pH Potassium Chloride BUN Creatinine Glucose POC Glucose Lactic Acid Calcium Magnesium NT-Pro-B Natriuret Pep Total Protein Albumin 01/26/18 01/26/18 01/26/18 08:23 13:19 16:33 RBC Hgb Hct RDW [place] % (Auto) Baso % (Auto) PT APTT Heparin Anti-Xa Level 0.72 H POC ABG pCO2 POC ABG pO2 VBG pH Potassium Chloride 107.2 H BUN 6 L Creatinine 0.7 L Glucose 113 H POC Glucose 142 H Lactic Acid Calcium 7.7 L Magnesium NT-Pro-B Natriuret Pep Total Protein 5.7 L Albumin 2.9 L 01/26/18 01/26/18 01/26/18 17:15 17:28 23:34 RBC Hgb Hct RDW [place] % (Auto) Baso % (Auto) PT APTT Heparin Anti-Xa Level 0.73 H POC ABG pCO2 POC ABG pO2 VBG pH Potassium Chloride BUN Creatinine Glucose POC Glucose 118 H 108 H Lactic Acid Calcium Magnesium NT-Pro-B Natriuret Pep Total Protein Albumin 01/27/18 01/27/18 01/27/18 06:00 06:00 06:00 RBC Hgb 9.6 L Hct 28.7 L RDW [place] % (Auto) Baso % (Auto) PT APTT Heparin Anti-Xa Level POC ABG pCO2 POC ABG pO2 VBG pH Potassium 3.1 L Chloride BUN 5 L Creatinine 0.7 L Glucose 108 H POC Glucose Lactic Acid Calcium 7.7 L Magnesium 1.40 L NT-Pro-B Natriuret Pep Total Protein Albumin 01/27/18 06:02 RBC Hgb Hct RDW [place] % (Auto) Baso % (Auto) PT APTT Heparin Anti-Xa Level POC ABG pCO2 POC ABG pO2 VBG pH Potassium Chloride BUN Creatinine Glucose POC Glucose 125 H Lactic Acid Calcium Magnesium NT-Pro-B Natriuret Pep Total Protein Albumin Chest x-ray: image reviewed (mild interstitial; edema; RIJ line; AICD) Allied health notes reviewed: nursing
--- NOTE | 2018-01-27 14:33 | Progress Note ---
Assessment and Plan Assessment and plan: 62-year-old -Chinese woman with past medical history significant for CAD , diabetes mellitus, CHF with ejection fraction of 25%, hypertension brought to the emergency department after he was found lying at home by EMS. Patient was altered, hypotensive and hypothermic. He was intubated, on pressors, emperic IV antibiotics and admitted to ICU. Acute respiratory failure - Patient is intubated and on mechanical ventilation SIRS, with SHOCK and lactic acidosis - Patient with empirically on IV antibiotics - BP is stable without pressors Altered mental status - CT head is negative PE - Patient is on heparin drip A. fib with RVR, Systolic CHF - Cardiology consulted - Patient is on amiodarone The high probability of a clinically significant, sudden or life threatening deterioration of the [Neurology, CVS] system(s) required my full and direct attention, intervention and personal management. The aggregate critical care time was [32] minutes. This time is in addition to time spent performing reported procedures but includes the following: [x] Data Review and interpretation [x] Patient assessment and monitoring of vital signs [x] Documentation [x] Medication orders and management History Interval history: Patient was seen and evaluated this morning, patient was still intubated and on mechanical ventilation. Hospitalist Physical - Physical exam Narrative exam: Patient is intubated and on mechanical ventilation. The patient appeared well nourished and normally developed. Vital signs as documented. Head exam is unremarkable. No scleral icterus . Neck is without jugular venous distension, thyromegaly, or carotid bruits. Lungs are clear to auscultation. Cardiac exam reveals irregular rate and Rhythm. Tachycardic. Abdominal exam reveals normal bowel sounds, no masses, no organomegaly and no aortic enlargement. Extremities are nonedematous and both femoral and pedal pulses are normal. 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 - Constitutional Vitals: Temp Pulse Resp BP Pulse Ox 98.3 F 79 18 111/61 98 01/27/18 12:00 01/27/18 13:02 01/27/18 12:00 01/27/18 13:02 01/27/18 12:50 General appearance: Present: other (intubated on the vent) Results - Labs CBC & Chem 7: 01/27/18 06:00 01/27/18 06:00 Labs: Laboratory Last Values WBC 5.7 K/mm3 (4.5-11.0) 01/26/18 08:23 RBC 3.31 M/mm3 (3.65-5.03) L 01/26/18 08:23 Hgb 9.6 gm/dl (11.8-15.2) L 01/27/18 06:00 Hct 28.7 % (35.5-45.6) L 01/27/18 06:00 MCV 88 fl (84-94) 01/26/18 08:23 MCH 29 pg (28-32) 01/26/18 08:23 MCHC 33 % (32-34) 01/26/18 08:23 RDW 18.2 % (13.2-15.2) H 01/26/18 08:23 Plt Count 210 K/mm3 (140-440) 01/27/18 06:00 Lymph % (Auto) 20.2 % (13.4-35.0) 01/26/18 08:23 [place] % (Auto) 10.4 % (0.0-7.3) H 01/26/18 08:23 Eos % (Auto) 1.8 % (0.0-4.3) 01/26/18 08:23 Baso % (Auto) 0.3 % (0.0-1.8) 01/26/18 08:23 Lymph # 1.2 K/mm3 (1.2-5.4) 01/26/18 08:23 [place] # 0.6 K/mm3 (0.0-0.8) 01/26/18 08:23 Eos # 0.1 K/mm3 (0.0-0.4) 01/26/18 08:23 Baso # 0.0 K/mm3 (0.0-0.1) 01/26/18 08:23 Seg Neutrophils % 67.3 % (40.0-70.0) 01/26/18 08:23 Seg Neutrophils # 3.8 K/mm3 (1.8-7.7) 01/26/18 08:23 PT 14.2 Sec. (12.2-14.9) 01/25/18 19:27 INR 1.05 (0.87-1.13) 01/25/18 19:27 APTT 37.7 Sec. (24.2-36.6) H 01/25/18 19:27 Heparin Anti-Xa Level 0.62 U.I./ml (0.3-0.7) 01/27/18 05:59 POC ABG pH 7.408 (7.35-7.45) 01/27/18 04:31 POC ABG pCO2 40.8 (35-45) 01/27/18 04:31 POC ABG pO2 91 (80-105) 01/27/18 04:31 POC ABG HCO3 25.7 01/27/18 04:31 POC ABG Total CO2 27 01/27/18 04:31 POC ABG O2 Sat 97 01/27/18 04:31 POC ABG Base Excess 1 01/27/18 04:31 VBG pH 7.275 (7.320-7.420) L 01/25/18 06:33 FiO2 30 % 01/27/18 04:31 Sodium 142 mmol/L (137-145) 01/27/18 06:00 Potassium 3.1 mmol/L (3.6-5.0) L 01/27/18 06:00 Chloride 106.2 mmol/L (98-107) 01/27/18 06:00 Carbon Dioxide 24 mmol/L (22-30) 01/27/18 06:00 Anion Gap 15 mmol/L 01/27/18 06:00 BUN 5 mg/dL (9-20) L 01/27/18 06:00 Creatinine 0.7 mg/dL (0.8-1.5) L 01/27/18 06:00 Estimated GFR > 60 ml/min 01/27/18 06:00 BUN/Creatinine Ratio 7 % 01/27/18 06:00 Glucose 108 mg/dL (75-100) H 01/27/18 06:00 POC Glucose 125 (70-105) H 01/27/18 06:02 Lactic Acid 1.80 mmol/L (0.7-2.0) 01/25/18 13:12 Calcium 7.7 mg/dL (8.4-10.2) L 01/27/18 06:00 Magnesium 1.40 mg/dL (1.7-2.3) L 01/27/18 06:00 Total Bilirubin 0.90 mg/dL (0.1-1.2) 01/26/18 08:23 AST 17 units/L (5-40) 01/26/18 08:23 ALT 12 units/L (7-56) 01/26/18 08:23 Alkaline Phosphatase 95 units/L (35-129) 01/26/18 08:23 Total Creatine Kinase 137 units/L (55-170) 01/25/18 06:32 CK-MB (CK-2) 3.8 ng/mL (0.0-4.0) 01/25/18 06:32 CK-MB (CK-2) Rel Index 2.7 (0-4) 01/25/18 06:32 Troponin T < 0.010 ng/mL (0.00-0.029) 01/25/18 06:32 NT-Pro-B Natriuret Pep 1979 pg/mL (0-900) H 01/25/18 07:35 Total Protein 5.7 g/dL (6.3-8.2) L 01/26/18 08:23 Albumin 2.9 g/dL (3.9-5) L 01/26/18 08:23 Albumin/Globulin Ratio 1.0 % 01/26/18 08:23 Urine Color Yellow (Yellow) 01/25/18 19:27 Urine Turbidity Clear (Clear) 01/25/18 19:27 Urine pH 5.0 (5.0-7.0) 01/25/18 19:27 Ur Specific [place] 1.017 (1.003-1.030) 01/25/18 19:27 Urine Protein <15 mg/dl mg/dL (Negative) 01/25/18 19:27 Urine Glucose (UA) Neg mg/dL (Negative) 01/25/18 19:27 Urine Ketones Neg mg/dL (Negative) 01/25/18 19:27 Urine Blood Neg (Negative) 01/25/18 19:27 Urine Nitrite Neg (Negative) 01/25/18 19:27 Urine Bilirubin Neg (Negative) 01/25/18 19: Urine Urobilinogen < 2.0 mg/dL (<2.0) 01/25/18 19:27 Ur Leukocyte Esterase Neg (Negative) 01/25/18 19:27 Urine WBC (Auto) < 1.0 /HPF (0.0-6.0) 01/25/18 19:27 Urine RBC (Auto) < 1.0 /HPF (0.0-6.0) 01/25/18 19:27 Urine Mucus Few /HPF 01/25/18 19:27
[2018-01-27] MEDS ORDERED: DIPRIVAN 10 MG/ML 1,000 MG/100 ML BOTTLE IV SCH (15:00)
[2018-01-27] MEDS: LASIX IV SCH (16:16)
[2018-01-27] MEDS ORDERED: LANOXIN IV SCH (17:00)
[2018-01-28] MEDS: HEPARIN/ 0.45% NACL-25,000 UNIT/500 ML 25,000 UNIT/500 ML BAG IV SCH ×2 (02:54→17:39)
[2018-01-28] MEDS: ZOSYN/NS 4.5GM/100ML 4.5 GM/100 ML VIAL IV SCH ×4 (02:57→19:05)
--- NOTE | 2018-01-28 03:18 | XRay Report ---
FINAL REPORT PROCEDURE: XR CHEST 1V AP TECHNIQUE: Chest radiograph anteroposterior view. CPT 93791 HISTORY: follow up respiratory failure COMPARISON: 01/27/2018 FINDINGS: The heart is enlarged. There has been open heart surgery. There is suboptimal inspiration with bilateral pulmonary vascular congestion. There are no acute infiltrates. There is no pleural effusion or pneumothorax. There is an endotracheal tube in the mid trachea. There is an NG tube in the stomach. Pacemaker leads are in proper position. There is a right-sided central venous catheter. The tip is the superior vena cava. The bony and soft tissue structures are normal. IMPRESSION: The heart is enlarged. There has been open heart surgery. There are no acute infiltrates. There is no pleural effusion or pneumothorax. There is an endotracheal tube in the mid trachea. There is an NG tube in the stomach. Pacemaker leads are in proper position. There is a right-sided central venous catheter. The tip is the superior vena cava. .
[2018-01-28] MEDS ORDERED: SODIUM BICARBONATE FEEDTUBE PRN (08:04)
[2018-01-28] MEDS ORDERED: SIMPLE SYRUP FEEDTUBE PRN ×2 (08:04)
[2018-01-28] MEDS ORDERED: PANCREAZE DR 10,500 UNIT FEEDTUBE PRN (08:04)
[2018-01-28] MEDS: PEPCID IV SCH ×2 (10:41→21:18)
[2018-01-28] MEDS: LASIX IV SCH (10:41)
[2018-01-28] MEDS: LANOXIN IV SCH (10:41)
[2018-01-28] MEDS: CORDARONE PO SCH ×2 (10:41→21:16)
[2018-01-28] MEDS: fentaNYL DRIP Premix 2,000 MCG/100 ML BAG IV SCH (10:51)
--- NOTE | 2018-01-28 13:31 | Progress Note ---
Assessment and Plan Assessment and plan: 62-year-old -[place] woman with past medical history significant for CAD , diabetes mellitus, CHF with ejection fraction of 25%, hypertension brought to the emergency department after he was found lying at home by EMS. Patient was altered, hypotensive and hypothermic. He was intubated, on pressors, emperic IV antibiotics and admitted to ICU. Acute respiratory failure - Patient is intubated and on mechanical ventilation SIRS, with SHOCK and lactic acidosis - Patient with empirically on IV antibiotics - BP is stable without pressors Altered mental status - CT head is negative PE - Patient is on heparin drip A. fib with RVR, Systolic CHF - controlled - Cardiology consulted - Patient is on amiodarone The high probability of a clinically significant, sudden or life threatening deterioration of the [Neurology, CVS] system(s) required my full and direct attention, intervention and personal management. The aggregate critical care time was [32] minutes. This time is in addition to time spent performing reported procedures but includes the following: [x] Data Review and interpretation [x] Patient assessment and monitoring of vital signs [x] Documentation [x] Medication orders and management History Interval history: Patient was seen and evaluated this morning, patient was still intubated and on mechanical ventilation. Hospitalist Physical - Physical exam Narrative exam: Patient is intubated and on mechanical ventilation. The patient appeared well nourished and normally developed. Vital signs as documented. Head exam is unremarkable. No scleral icterus . Neck is without jugular venous distension, thyromegaly, or carotid bruits. Lungs are clear to auscultation. Cardiac exam reveals irregular rate and Rhythm. Tachycardic. Abdominal exam reveals normal bowel sounds, no masses, no organomegaly and no aortic enlargement. Extremities are nonedematous and both femoral and pedal pulses are normal. 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 - Constitutional Vitals: Temp Pulse Resp BP Pulse Ox 98.4 F 96 H 12 127/70 96 01/28/18 08:00 01/28/18 11:00 01/28/18 11:00 01/28/18 11:00 01/28/18 11:00 General appearance: Present: other (intubated on the vent) Results - Labs CBC & Chem 7: 01/27/18 06:00 01/27/18 06:00 Labs: Laboratory Last Values WBC 5.7 K/mm3 (4.5-11.0) 01/26/18 08:23 RBC 3.31 M/mm3 (3.65-5.03) L 01/26/18 08:23 Hgb 9.6 gm/dl (11.8-15.2) L 01/27/18 06:00 Hct 28.7 % (35.5-45.6) L 01/27/18 06:00 MCV 88 fl (84-94) 01/26/18 08:23 MCH 29 pg (28-32) 01/26/18 08:23 MCHC 33 % (32-34) 01/26/18 08:23 RDW 18.2 % (13.2-15.2) H 01/26/18 08:23 Plt Count 210 K/mm3 (140-440) 01/27/18 06:00 Lymph % (Auto) 20.2 % (13.4-35.0) 01/26/18 08:23 [place] % (Auto) 10.4 % (0.0-7.3) H 01/26/18 08:23 Eos % (Auto) 1.8 % (0.0-4.3) 01/26/18 08:23 Baso % (Auto) 0.3 % (0.0-1.8) 01/26/18 08:23 Lymph # 1.2 K/mm3 (1.2-5.4) 01/26/18 08:23 [place] # 0.6 K/mm3 (0.0-0.8) 01/26/18 08:23 Eos # 0.1 K/mm3 (0.0-0.4) 01/26/18 08:23 Baso # 0.0 K/mm3 (0.0-0.1) 01/26/18 08:23 Seg Neutrophils % 67.3 % (40.0-70.0) 01/26/18 08:23 Seg Neutrophils # 3.8 K/mm3 (1.8-7.7) 01/26/18 08:23 PT 14.2 Sec. (12.2-14.9) 01/25/18 19:27 INR 1.05 (0.87-1.13) 01/25/18 19:27 APTT 37.7 Sec. (24.2-36.6) H 01/25/18 19:27 Heparin Anti-Xa Level 0.58 U.I./ml (0.3-0.7) 01/28/18 09:00 POC ABG pH 7.315 (7.35-7.45) L 01/28/18 04:40 POC ABG pCO2 49.9 (35-45) H 01/28/18 04:40 POC ABG pO2 79 (80-105) L 01/28/18 04:40 POC ABG HCO3 25.4 01/28/18 04:40 POC ABG Total CO2 27 01/28/18 04:40 POC ABG O2 Sat 94 01/28/18 04:40 POC ABG Base Excess -1 01/28/18 04:40 VBG pH 7.275 (7.320-7.420) L 01/25/18 06:33 FiO2 30 % 01/28/18 04:40 Sodium 142 mmol/L (137-145) 01/27/18 06:00 Potassium 3.1 mmol/L (3.6-5.0) L 01/27/18 06:00 Chloride 106.2 mmol/L (98-107) 01/27/18 06:00 Carbon Dioxide 24 mmol/L (22-30) 01/27/18 06:00 Anion Gap 15 mmol/L 01/27/18 06:00 BUN 5 mg/dL (9-20) L 01/27/18 06:00 Creatinine 0.7 mg/dL (0.8-1.5) L 01/27/18 06:00 Estimated GFR > 60 ml/min 01/27/18 06:00 BUN/Creatinine Ratio 7 % 01/27/18 06:00 Glucose 108 mg/dL (75-100) H 01/27/18 06:00 POC Glucose 97 (70-105) 01/28/18 12:18 Lactic Acid 1.80 mmol/L (0.7-2.0) 01/25/18 13:12 Calcium 7.7 mg/dL (8.4-10.2) L 01/27/18 06:00 Magnesium 1.40 mg/dL (1.7-2.3) L 01/27/18 06:00 Total Bilirubin 0.90 mg/dL (0.1-1.2) 01/26/18 08:23 AST 17 units/L (5-40) 01/26/18 08:23 ALT 12 units/L (7-56) 01/26/18 08:23 Alkaline Phosphatase 95 units/L (35-129) 01/26/18 08:23 Total Creatine Kinase 137 units/L (55-170) 01/25/18 06:32 CK-MB (CK-2) 3.8 ng/mL (0.0-4.0) 01/25/18 06:32 CK-MB (CK-2) Rel Index 2.7 (0-4) 01/25/18 06:32 Troponin T < 0.010 ng/mL (0.00-0.029) 01/25/18 06:32 NT-Pro-B Natriuret Pep 1979 pg/mL (0-900) H 01/25/18 07:35 Total Protein 5.7 g/dL (6.3-8.2) L 01/26/18 08:23 Albumin 2.9 g/dL (3.9-5) L 01/26/18 08:23 Albumin/Globulin Ratio 1.0 % 01/26/18 08:23 Urine Color Yellow (Yellow) 01/25/18 19:27 Urine Turbidity Clear (Clear) 01/25/18 19:27 Urine pH 5.0 (5.0-7.0) 01/25/18 19:27 Ur Specific [place] 1.017 (1.003-1.030) 01/25/18 19:27 Urine Protein <15 mg/dl mg/dL (Negative) 01/25/18 19:27 Urine Glucose (UA) Neg mg/dL (Negative) 01/25/18 19:27 Urine Ketones Neg mg/dL (Negative) 01/25/18 19:27 Urine Blood Neg (Negative) 01/25/18 19:27 Urine Nitrite Neg (Negative) 01/25/18 19:27 Urine Bilirubin Neg (Negative) 01/25/18 19:27 Urine Urobilinogen < 2.0 mg/dL (<2.0) 01/25/18 19:27 Ur Leukocyte Esterase Neg (Negative) 01/25/18 19:27 Urine WBC (Auto) < 1.0 /HPF (0.0-6.0) 01/25/18 19:27 Urine RBC (Auto) < 1.0 /HPF (0.0-6.0) 01/25/18 19:27 Urine Mucus Few /HPF 01/25/18 19:27
--- NOTE | 2018-01-28 13:55 | Progress Note ---
Assessment and Plan - Patient Problems (1) Acute respiratory failure Current Visit: No Status: Acute Qualifiers: Respiratory failure complication: hypoxia Qualified Code(s): J96.01 - Acute respiratory failure with hypoxia Plan to address problem: Patient is on the vent, continue supportive care. (2) Atrial fibrillation Current Visit: Yes Status: Chronic Qualifiers: Atrial fibrillation type: chronic Qualified Code(s): I48.2 - Chronic atrial fibrillation Plan to address problem: Atrial fibrillation with currently controlled ventricular rate. Continue oral amiodarone and intravenous digoxin. Subjective Date of service: 01/28/18 Principal diagnosis: Acute Hypoxemic Resp Failure on MVS; Sepsis with Shock; A- fib with RVR; P.E Interval history: Patient is sedated on the vent. Heart rate is 92, atrial fibrillation, blood pressure 117 systolic. Objective Vital Signs Temp Pulse Resp Resp Resp BP Pulse Ox 01/28/18 13:45 96 H 127/70 96 01/28/18 11:00 96 H 12 127/70 96 01/28/18 10:45 85 11 L 110/43 96 01/28/18 10:41 88 110/43 01/28/18 10:35 89 116/55 94 01/28/18 10:31 95 H 12 110/43 95 01/28/18 10:15 81 13 113/62 95 01/28/18 10:00 75 13 15 15 104/51 96 01/28/18 09:45 84 12 115/58 96 01/28/18 09:30 93 H 11 L 107/54 95 01/28/18 09:15 114/57 96 01/28/18 09:00 81 12 114/57 96 01/28/18 08:45 95 H 14 98/53 94 01/28/18 08:31 88 12 112/52 94 01/28/18 08:15 84 12 112/54 94 01/28/18 08:00 98.4 F 81 11 L 114/55 95 01/28/18 07:45 85 14 106/64 95 01/28/18 07:30 79 13 108/54 96 01/28/18 07:15 102 H 13 114/68 94 01/28/18 07:00 85 11 L 105/66 96 01/28/18 06:45 82 11 L 106/60 95 01/28/18 06:30 88 12 102/65 96 08/19/18 06:15 84 12 106/55 94 18 06:00 105 H 17 98/66 95 18 05:45 96 H 11 L 87/60 95 18 05:30 87 11 L 97/52 97 18 05:15 82 12 99/57 95 18 05:05 97 H 13 96 01/28/18 05:00 87 13 112/53 95 18 04:45 93 H 12 111/58 95 18 04:30 93 H 12 105/60 95 18 04:18 80 99/60 97 01/28/18 04:15 83 15 107/56 100 01/28/18 04:00 99.2 F 97 H 11 L 99/60 97 01/28/18 03:45 92 H 11 L 102/51 98 01/28/18 03:30 86 11 L 106/60 97 01/28/18 03:15 84 13 97/56 95 01/28/18 03:00 79 11 L 103/51 95 18 02:45 97 H 12 102/60 96 18 02:30 85 12 102/52 96 18 02:15 95 H 15 111/55 96 01/28/18 02:00 92 H 20 96/60 95 18 01:58 91 H 12 96 01/28/18 01:45 92 H 12 102/66 96 18 01:30 89 16 98/55 96 01/28/18 01:15 91 H 13 98/59 94 01/28/18 01:00 86 17 102/69 96 1918 00:45 87 11 L 96/59 96 18 00:30 84 11 L 110/49 97 18 00:15 93 H 11 L 102/53 96 18 00:00 84 18 97/59 97 18 23:45 79 14 100/52 96 18 23:35 89 103/59 98 18 23:30 89 11 L 103/59 96 18 23:21 99.2 F 01/27/18 23:15 93 H 14 98/54 95 08/18/18 23:09 74 15 100/51 96 08/18/18 23:00 89 12 100/51 96 08/18/18 22:45 83 15 102/43 96 08/18/18 22:30 86 14 95/56 97 08/18/18 22:15 78 13 93/55 96 08/18/18 22:00 100 H 13 85/58 97 08/18/18 21:45 90 11 L 16 16 83/56 97 08/18/18 21:30 82 12 94/48 96 08/18/18 21:15 87 20 95/52 97 08/18/18 21:00 93 H 13 93/64 96 08/18/18 20:45 92 H 12 97/62 96 08/18/18 20:30 93 H 14 97/65 96 08/18/18 20:15 90 17 101/60 95 08/18/18 20:10 88 93/57 96 08/18/18 20:00 98.1 F 85 12 16 16 93/57 95 08/18/18 19:45 96 H 18 93/54 94 08/18/18 19:30 97 H 12 103/58 95 08/18/18 19:15 84 13 93/64 93 08/18/18 19:00 106 H 10 L 83/60 94 08/18/18 18:45 93 H 12 90/61 94 08/18/18 18:30 96 H 20 94/61 94 08/18/18 18:15 91 H 12 111/66 95 08/18/18 18:00 89 12 105/61 94 08/18/18 17:45 81 11 L 105/61 94 08/18/18 17:35 93 H 94/61 94 08/18/18 17:30 109 H 14 96/61 94 08/18/18 17:15 99 H 12 104/62 95 08/18/18 17:00 92 H 12 108/61 92 08/18/18 16:45 110 H 15 103/59 93 08/18/18 16:30 105 H 11 L 101/63 93 08/18/18 16:16 95 H 11 L 97/76 96 08/18/18 16:00 90 12 100/71 93 08/18/18 15:45 96 H 11 L 105/74 94 08/18/18 15:30 82 12 107/66 92 08/18/18 15:15 72 12 96/58 92 01/27/18 15:00 73 14 96/48 97 01/27/18 14:45 71 19 110/53 97 01/27/18 14:30 69 18 109/50 98 01/27/18 14:15 84 18 119/47 97 01/27/18 14:00 83 18 123/68 99 - Physical Examination General: Other (patient is sedated, on the vent.) HEENT: Positive: PERRL Neck: Positive: neck supple Cardiac: Positive: irregularly irregular Lungs: Positive: Decreased Breath Sounds Neuro: Positive: Other (sedate, on the vent) Abdomen: Positive: Soft Skin: Positive: Clear Extremities: Absent: edema - Allied health notes Allied health notes reviewed: nursing
--- NOTE | 2018-01-28 16:12 | Progress Note ---
Assessment and Plan Acute hypoxemic respiratory failure on MVS SIRS, with SHOCK and lactic acidosis Altered mental status, acute encephalopathy Non occlusive right lower lobe PE A. fib with RVR Systolic CHF (EF 20-25% in august 2017) Sleep apnea with OHS Obesity Atrial fibrillation with RVR h/o CABG with ischemic cardiomyopathy Type 2 Diabetes mellitus AE-COPD - continue enteral nutrition - continue empiric AB's and follow cultures - VAP bundle addressed - continue bronchodilators with pulmonary hygiene per RT - daily SBT's and SAT's, at bedside with RT placed on PSV. Fentanyl infusion off - PT/OT/ROM as tolerated - cardiology consult -initiate amiodarone for rate control -accucheck with glycemic contro -stress ulcer prophylaxis, currently anticoagulated on heparin infusion - fluid restrictive strategies as tolerated by renal function and hemodynamics - mobility protocol for pressure ulcer prophylaxis - continue IV heparin per protocol - Critical care bundles -If he does not tolerate weaning trial and is not liberated from mechanical ventilatory support, place a feeding tubs and initiate enteric feeding FULL CODE The high probability of a clinically significant, sudden or life threatening deterioration of the [Neurology, CVS] system(s) required my full and direct attention, intervention and personal management. The aggregate critical care time was [35] minutes. This time is in addition to time spent performing reported procedures but includes the following: [x] Data Review and interpretation [x] Patient assessment and monitoring of vital signs [x] Documentation [x] Medication orders and management Subjective Date of service: 01/28/18 Principal diagnosis: Acute Hypoxemic Resp Failure on MVS; Sepsis with Shock; A- fib with RVR; P.E Interval history: HISTORY PER MEDICAL RECORDS 62-year-old male with past medical history significant for CAD status post CABG, CHF status post AICD, A. fib brought to the emergency department via EMS for altered mental status. Patient was found lying in the floor by EMS. patient was hypotensive, hypothermic was not able to take care of his airways. Patient was intubated , on mechanical ventilation. Patient was given IV fluids , pressors and admitted to ICU. Chest x-ray shows pulmonary venous congestion, CTA showed small non occlusive right lower lobe PE. History obtained from chart review and ER medical staff. Review of system couldn't be obtained because of altered mental status and mechanical ventilation. Seen and examined. Vitals, labs, medications, chart and imaging reviewed. No acute events overnight reported. Currently on fentanyl infusion, RIJ CVC in place. Off all vasopressor support, tolerating enteric feeding. Discussed with RT and RN. Objective Vital Signs - 12hr 01/28/18 01/28/18 01/28/18 04:15 04:18 04:30 Temperature Pulse Rate 83 80 93 H Respiratory 15 12 Rate Respiratory Rate [Back] Respiratory Rate [Chest] Blood Pressure 107/56 99/60 105/60 O2 Sat by Pulse 100 97 95 Oximetry 01/28/18 01/28/18 01/28/18 04:45 05:00 05:05 Temperature Pulse Rate 93 H 87 97 H Respiratory 12 13 13 Rate Respiratory Rate [Back] Respiratory Rate [Chest] Blood Pressure 111/58 112/53 O2 Sat by Pulse 95 95 96 Oximetry 01/28/18 01/28/18 01/28/18 05:15 05:30 05:45 Temperature Pulse Rate 82 87 96 H Respiratory 12 11 L 11 L Rate Respiratory Rate [Back] Respiratory Rate [Chest] Blood Pressure 99/57 97/52 87/60 O2 Sat by Pulse 95 97 95 Oximetry 01/28/18 01/28/18 01/28/18 06:00 06:15 06:30 Temperature Pulse Rate 105 H 84 88 Respiratory 17 12 12 Rate Respiratory Rate [Back] Respiratory Rate [Chest] Blood Pressure 98/66 106/55 102/65 O2 Sat by Pulse 95 94 96 Oximetry 01/28/18 01/28/18 01/28/18 06:45 07:00 07:15 Temperature Pulse Rate 82 85 102 H Respiratory 11 L 11 L 13 Rate Respiratory Rate [Back] Respiratory Rate [Chest] Blood Pressure 106/60 105/66 114/68 O2 Sat by Pulse 95 96 94 Oximetry 01/28/18 01/28/18 01/28/18 07:30 07:45 08:00 Temperature 98.4 F Pulse Rate 79 85 81 Respiratory 13 14 11 L Rate Respiratory Rate [Back] Respiratory Rate [Chest] Blood Pressure 108/54 106/64 114/55 O2 Sat by Pulse 96 95 95 Oximetry 01/28/18 01/28/18 01/28/18 08:15 08:31 08:45 Temperature Pulse Rate 84 88 95 H Respiratory 12 12 14 Rate Respiratory Rate [Back] Respiratory Rate [Chest] Blood Pressure 112/54 112/52 98/53 O2 Sat by Pulse 94 94 94 Oximetry 01/28/18 01/28/18 01/28/18 09:00 09:15 09:30 Temperature Pulse Rate 81 93 H Respiratory 12 11 L Rate Respiratory Rate [Back] Respiratory Rate [Chest] Blood Pressure 114/57 114/57 107/54 O2 Sat by Pulse 96 96 95 Oximetry 01/28/18 01/28/18 01/28/18 09:45 10:00 10:15 Temperature Pulse Rate 84 75 81 Respiratory 12 13 13 Rate Respiratory 15 Rate [Back] Respiratory 15 Rate [Chest] Blood Pressure 115/58 104/51 113/62 O2 Sat by Pulse 96 96 95 Oximetry 01/28/18 01/28/18 01/28/18 10:31 10:35 10:41 Temperature Pulse Rate 95 H 89 88 Respiratory 12 Rate Respiratory Rate [Back] Respiratory Rate [Chest] Blood Pressure 110/43 116/55 110/43 O2 Sat by Pulse 95 94 Oximetry 01/28/18 01/28/18 01/28/18 10:45 11:00 13:45 Temperature Pulse Rate 85 96 H 96 H Respiratory 11 L 12 Rate Respiratory Rate [Back] Respiratory Rate [Chest] Blood Pressure 110/43 127/70 127/70 O2 Sat by Pulse 96 96 96 Oximetry Constitutional: no acute distress, comatose (secondary to sedation medication) Eyes: non-icteric ENT: other (orally intubated and sedated, critically ill on vent) Neck: supple Effort: normal Ascultation: Bilateral: clear, diminished breath sounds, rhonchi Percussion: Bilateral: not dull Cardiovascular: regular rate and rhythm Gastrointestinal: soft, non-tender Integumentary: normal, other (multiple Tattoos) Extremities: no cyanosis, no edema, pink and warm, pulses normal Neurologic: unable to assess Psychiatric: other (unable to assess) CBC and BMP: 01/27/18 06:00 01/27/18 06:00 ABG, PT/INR, D-dimer: ABG POC ABG pH 7.315 (7.35-7.45) L 01/28/18 04:40 POC ABG pCO2 49.9 (35-45) H 01/28/18 04:40 POC ABG pO2 79 (80-105) L 01/28/18 04:40 POC ABG HCO3 25.4 01/28/18 04:40 POC ABG Total CO2 27 01/28/18 04:40 POC ABG O2 Sat 94 01/28/18 04:40 PT/INR, D-dimer PT 14.2 Sec. (12.2-14.9) 01/25/18 19:27 INR 1.05 (0.87-1.13) 01/25/18 19:27 Abnormal lab findings: Abnormal Labs 01/25/18 01/25/18 01/25/18 06:15 06:15 06:15 RBC 3.54 L Hgb 10.2 L Hct 31.4 L RDW 18.2 H Greer % (Auto) 8.1 H Baso % (Auto) 2.3 H PT 15.0 H APTT Heparin Anti-Xa Level POC ABG pH POC ABG pCO2 POC ABG pO2 VBG pH Potassium Chloride BUN Creatinine Glucose 148 H POC Glucose Lactic Acid Calcium 8.3 L Magnesium NT-Pro-B Natriuret Pep Total Protein Albumin 3.2 L 01/25/18 01/25/18 01/25/18 06:33 07:35 07:35 RBC Hgb Hct RDW Greer % (Auto) Baso % (Auto) PT APTT Heparin Anti-Xa Level POC ABG pH POC ABG pCO2 POC ABG pO2 VBG pH 7.275 L Potassium Chloride BUN Creatinine Glucose POC Glucose Lactic Acid 2.50 H* Calcium Magnesium NT-Pro-B Natriuret Pep 1979 H Total Protein Albumin 01/25/18 01/25/18 01/25/18 08:43 13:12 19:27 RBC Hgb 9.7 L Hct 30.0 L RDW Greer % (Auto) Baso % (Auto) PT APTT 37.7 H Heparin Anti-Xa Level POC ABG pH POC ABG pCO2 49.8 H POC ABG pO2 594 H VBG pH Potassium Chloride BUN Creatinine Glucose POC Glucose Lactic Acid Calcium Magnesium NT-Pro-B Natriuret Pep Total Protein Albumin 01/25/18 01/25/18 01/25/18 19:27 22:00 23:18 RBC Hgb Hct RDW Greer % (Auto) Baso % (Auto) PT APTT Heparin Anti-Xa Level 0.10 L 0.10 L POC ABG pH POC ABG pCO2 POC ABG pO2 VBG pH Potassium Chloride BUN Creatinine Glucose POC Glucose 118 H Lactic Acid Calcium Magnesium NT-Pro-B Natriuret Pep Total Protein Albumin 01/26/18 01/26/18 01/26/18 04:43 05:30 08:23 RBC 3.31 L Hgb 9.7 L Hct 29.3 L RDW 18.2 H Greer % (Auto) 10.4 H Baso % (Auto) PT APTT Heparin Anti-Xa Level 0.12 L POC ABG pH POC ABG pCO2 47.9 H POC ABG pO2 74 L VBG pH Potassium Chloride BUN Creatinine Glucose POC Glucose Lactic Acid Calcium Magnesium NT-Pro-B Natriuret Pep Total Protein Albumin 01/26/18 01/26/18 01/26/18 08:23 13:19 16:33 RBC Hgb Hct RDW Greer % (Auto) Baso % (Auto) PT APTT Heparin Anti-Xa Level 0.72 H POC ABG pH POC ABG pCO2 POC ABG pO2 VBG pH Potassium Chloride 107.2 H BUN 6 L Creatinine 0.7 L Glucose 113 H POC Glucose 142 H Lactic Acid Calcium 7.7 L Magnesium NT-Pro-B Natriuret Pep Total Protein 5.7 L Albumin 2.9 L 01/26/18 01/26/18 01/26/18 17:15 17:28 23:34 RBC Hgb Hct RDW Greer % (Auto) Baso % (Auto) PT APTT Heparin Anti-Xa Level 0.73 H POC ABG pH POC ABG pCO2 POC ABG pO2 VBG pH Potassium Chloride BUN Creatinine Glucose POC Glucose 118 H 108 H Lactic Acid Calcium Magnesium NT-Pro-B Natriuret Pep Total Protein Albumin 01/27/18 01/27/18 01/27/18 06:00 06:00 06:00 RBC Hgb 9.6 L Hct 28.7 L RDW Greer % (Auto) Baso % (Auto) PT APTT Heparin Anti-Xa Level POC ABG pH POC ABG pCO2 POC ABG pO2 VBG pH Potassium 3.1 L Chloride BUN 5 L Creatinine 0.7 L Glucose 108 H POC Glucose Lactic Acid Calcium 7.7 L Magnesium 1.40 L NT-Pro-B Natriuret Pep Total Protein Albumin 01/27/18 01/28/18 01/28/18 06:02 04:24 04:40 RBC Hgb Hct RDW Greer % (Auto) Baso % (Auto) PT APTT Heparin Anti-Xa Level POC ABG pH 7.328 L 7.315 L POC ABG pCO2 51.8 H 49.9 H POC ABG pO2 57 L 79 L VBG pH Potassium Chloride BUN Creatinine Glucose POC Glucose 125 H Lactic Acid Calcium Magnesium NT-Pro-B Natriuret Pep Total Protein Albumin Allied health notes reviewed: RT
[2018-01-28 16:50] LABS: Hematocrit 30.1 % (35.5-45.6); Hemoglobin 9.6 gm/dl (11.8-15.2)
[2018-01-29] MEDS: ZOSYN/NS 4.5GM/100ML 4.5 GM/100 ML VIAL IV SCH ×2 (00:04→06:04)
[2018-01-29] MEDS: fentaNYL DRIP Premix 2,000 MCG/100 ML BAG IV SCH (01:09)
--- NOTE | 2018-01-29 02:31 | XRay Report ---
FINAL REPORT EXAM: XR CHEST 1V AP HISTORY: follow up respiratory failure TECHNIQUE: A portable upright view the chest was obtained and compared to the study of 01/28/2018. FINDINGS: The heart is mildly enlarged. There are sternotomy sutures. There is a bipolar pacemaker overlying the left chest wall with leads in the right atrium and right ventricle. The tip of the ET tube is 4 cm above the topher. There is a right-sided central venous line with tip in the distal superior vena cava. The tip of the NG tube is in the stomach. The lungs remain mildly congested. There are no localized infiltrates. The skeletal structures otherwise are unchanged. IMPRESSION: Cardiomegaly with mild vascular congestion. No localized infiltrates. Positions of tubes and lines as described.
[2018-01-29 04:52] LABS: Hematocrit 27.6 % (35.5-45.6)
[2018-01-29] MEDS: HEPARIN/ 0.45% NACL-25,000 UNIT/500 ML 25,000 UNIT/500 ML BAG IV SCH ×2 (08:19→22:45)
--- NOTE | 2018-01-29 11:25 | Progress Note ---
Assessment and Plan Acute on chronic hypoxemic respiratory failure SIRS, with SHOCK and lactic acidosis Acute Encephalopathy Non occlusive right lower lobe PE AE-COPD CHF (EF 20-25% in august 2017) Sleep apnea with OHS Obesity Atrial fibrillation with RVR h/o CABG with ischemic cardiomyopathy Type 2 Diabetes mellitus Epistaxis - resume seroquel at home dose of 200mg bid - prn xanax - begin SBT now and get ABG in 2 hours - extubate if meets criteria otherwise - get CBC, BMP and Mg re: PVC's / arrhythmia - continue lasix - continue enteral nutrition - stop versed and use propofol; as needed - stop Zosyn (All cultures NGTD) - VAP bundle addressed - continue bronchodilators with pulmonary hygiene per RT - PT/OT/ROM as tolerated - cardiology evaluation ongoing - continue mobility protocol for pressure ulcer prophylaxis - continue GI prophylaxis - continue IV heparin per protocol - hematology consult placed - flu & pneumovax addressed per protocol The high probability of a clinically significant, sudden or life threatening deterioration of the [Neurology, CVS] system(s) required my full and direct attention, intervention and personal management. The aggregate critical care time was [35] minutes. This time is in addition to time spent performing reported procedures but includes the following: [x] Data Review and interpretation [x] Patient assessment and monitoring of vital signs [x] Documentation [x] Medication orders and management Subjective Date of service: 01/29/18 Principal diagnosis: Acute Hypoxemic Resp Failure on MVS; Sepsis with Shock; A- fib with RVR; P.E Interval history: Patient is seen today for: Acute Hypoxemic Resp Failure on MVS; Sepsis with Shock; Acute P.E.; AE COPD; Acute Encephalopathy; CHF; PATTI; Obesity Seen and examined at bedside; 24hour events reviewed; nursing and respiratory care staff consulted; no adverse overnight events reported to me; remains on MVS ; agitated during SAT; denies any pain; no N/V/F/C and tolerating tube feeds well Objective Vital Signs - 12hr 01/28/18 01/28/18 01/28/18 23:30 23:45 23:54 Temperature 98.2 F Pulse Rate 88 95 H Respiratory 15 13 Rate Blood Pressure 118/49 116/51 O2 Sat by Pulse 96 98 Oximetry 01/29/18 01/29/18 01/29/18 00:00 00:01 00:15 Temperature Pulse Rate 83 105 H Respiratory 12 13 18 Rate Blood Pressure 119/59 119/59 O2 Sat by Pulse 97 98 98 Oximetry 01/29/18 01/29/18 01/29/18 00:31 00:45 01:00 Temperature Pulse Rate 110 H 80 91 H Respiratory 11 L 12 11 L Rate Blood Pressure 112/62 113/52 113/52 O2 Sat by Pulse 96 96 97 Oximetry 01/29/18 01/29/18 01/29/18 01:15 01:30 01:45 Temperature Pulse Rate 81 75 69 Respiratory 12 12 11 L Rate Blood Pressure 112/49 103/57 107/47 O2 Sat by Pulse 97 97 97 Oximetry 01/29/18 01/29/18 01/29/18 02:00 02:15 02:30 Temperature Pulse Rate 75 70 66 Respiratory 12 12 11 L Rate Blood Pressure 110/61 106/53 105/47 O2 Sat by Pulse 97 98 97 Oximetry 01/29/18 01/29/18 01/29/18 02:45 03:00 03:15 Temperature Pulse Rate 72 76 73 Respiratory 10 L 12 12 Rate Blood Pressure 106/53 104/59 108/59 O2 Sat by Pulse 98 98 98 Oximetry 01/29/18 01/29/18 01/29/18 03:20 03:30 03:45 Temperature 98.9 F Pulse Rate 73 78 Respiratory 12 11 L Rate Blood Pressure 110/53 103/51 O2 Sat by Pulse 99 98 Oximetry 01/29/18 01/29/18 01/29/18 04:00 04:15 04:23 Temperature Pulse Rate 76 75 64 Respiratory 12 11 L Rate Blood Pressure 101/58 110/62 110/62 O2 Sat by Pulse 98 99 99 Oximetry 01/29/18 01/29/18 01/29/18 04:30 04:45 05:00 Temperature Pulse Rate 70 78 71 Respiratory 12 16 12 Rate Blood Pressure 105/49 101/51 106/51 O2 Sat by Pulse 98 98 98 Oximetry 01/29/18 01/29/18 01/29/18 05:15 05:30 05:45 Temperature Pulse Rate 73 73 68 Respiratory 13 15 11 L Rate Blood Pressure 101/57 102/48 101/49 O2 Sat by Pulse 97 97 97 Oximetry 01/29/18 01/29/18 01/29/18 06:00 06:15 06:30 Temperature Pulse Rate 76 71 72 Respiratory 14 12 12 Rate Blood Pressure 109/48 106/58 107/47 O2 Sat by Pulse 97 99 97 Oximetry 01/29/18 01/29/18 01/29/18 06:45 07:00 07:15 Temperature Pulse Rate 65 64 73 Respiratory 13 12 12 Rate Blood Pressure 95/48 102/49 99/58 O2 Sat by Pulse 97 97 97 Oximetry 01/29/18 01/29/18 01/29/18 07:31 07:45 08:00 Temperature 98.1 F Pulse Rate 91 H 65 Respiratory 12 12 13 Rate Blood Pressure 107/41 99/58 O2 Sat by Pulse 98 97 96 Oximetry 01/29/18 01/29/18 01/29/18 08:01 08:15 08:19 Temperature Pulse Rate 91 H 80 96 H Respiratory 14 18 Rate Blood Pressure 99/58 113/51 108/44 O2 Sat by Pulse 98 97 97 Oximetry 01/29/18 11:22 Temperature Pulse Rate 111 H Respiratory Rate Blood Pressure 123/72 O2 Sat by Pulse 98 Oximetry Constitutional: no acute distress, other (Eldely obeses CM; normocephalic and atraumatic with mildly increased respiratory effort) Eyes: non-icteric ENT: oropharynx moist, other (orally intubated and sedated, critically ill on vent) Neck: supple, no JVD, other (No thyromegaly) Effort: mildly labored Ascultation: Bilateral: diminished breath sounds, rhonchi (scant in bases) Percussion: Bilateral: not dull Cardiovascular: regular rate and rhythm, PVC's noted, other (No R/M) Gastrointestinal: normoactive bowel sounds, soft, non-tender, non-distended, other (No palpable HSM) Integumentary: other (multiple Tattoos) Extremities: no cyanosis, no edema, pulses normal, no ischemia or petechiae Neurologic: normal mental status, non-focal exam, pupils equal and round, motor strength normal and Psychiatric: anxious CBC and BMP: 01/29/18 04:25 01/27/18 06:00 ABG, PT/INR, D-dimer: ABG POC ABG pH 7.406 (7.35-7.45) 01/29/18 04:45 POC ABG pCO2 44.2 (35-45) 01/29/18 04:45 POC ABG pO2 76 (80-105) L 01/29/18 04:45 POC ABG HCO3 27.8 01/29/18 04:45 POC ABG Total CO2 29 01/29/18 04:45 POC ABG O2 Sat 95 01/29/18 04:45 PT/INR, D-dimer PT 14.2 Sec. (12.2-14.9) 01/25/18 19:27 INR 1.05 (0.87-1.13) 01/25/18 19:27 Abnormal lab findings: Abnormal Labs 01/25/18 01/25/18 01/25/18 06:15 06:15 06:15 RBC 3.54 L Hgb 10.2 L Hct 31.4 L RDW 18.2 H Tripp % (Auto) 8.1 H Baso % (Auto) 2.3 H PT 15.0 H APTT Heparin Anti-Xa Level POC ABG pH POC ABG pCO2 POC ABG pO2 VBG pH Potassium Chloride BUN Creatinine Glucose 148 H POC Glucose Lactic Acid Calcium 8.3 L Magnesium NT-Pro-B Natriuret Pep Total Protein Albumin 3.2 L 01/25/18 01/25/18 01/25/18 06:33 07:35 07:35 RBC Hgb Hct RDW Tripp % (Auto) Baso % (Auto) PT APTT Heparin Anti-Xa Level POC ABG pH POC ABG pCO2 POC ABG pO2 VBG pH 7.275 L Potassium Chloride BUN Creatinine Glucose POC Glucose Lactic Acid 2.50 H* Calcium Magnesium NT-Pro-B Natriuret Pep 1979 H Total Protein Albumin 01/25/18 01/25/18 01/25/18 08:43 13:12 19:27 RBC Hgb 9.7 L Hct 30.0 L RDW Tripp % (Auto) Baso % (Auto) PT APTT 37.7 H Heparin Anti-Xa Level POC ABG pH POC ABG pCO2 49.8 H POC ABG pO2 594 H VBG pH Potassium Chloride BUN Creatinine Glucose POC Glucose Lactic Acid Calcium Magnesium NT-Pro-B Natriuret Pep Total Protein Albumin 01/25/18 01/25/18 01/25/18 19:27 22:00 23:18 RBC Hgb Hct RDW Tripp % (Auto) Baso % (Auto) PT APTT Heparin Anti-Xa Level 0.10 L 0.10 L POC ABG pH POC ABG pCO2 POC ABG pO2 VBG pH Potassium Chloride BUN Creatinine Glucose POC Glucose 118 H Lactic Acid Calcium Magnesium NT-Pro-B Natriuret Pep Total Protein Albumin 01/26/18 01/26/18 01/26/18 04:43 05:30 08:23 RBC 3.31 L Hgb 9.7 L Hct 29.3 L RDW 18.2 H Tripp % (Auto) 10.4 H Baso % (Auto) PT APTT Heparin Anti-Xa Level 0.12 L POC ABG pH POC ABG pCO2 47.9 H POC ABG pO2 74 L VBG pH Potassium Chloride BUN Creatinine Glucose POC Glucose Lactic Acid Calcium Magnesium NT-Pro-B Natriuret Pep Total Protein Albumin 01/26/18 01/26/18 01/26/18 08:23 13:19 16:33 RBC Hgb Hct RDW Tripp % (Auto) Baso % (Auto) PT APTT Heparin Anti-Xa Level 0.72 H POC ABG pH POC ABG pCO2 POC ABG pO2 VBG pH Potassium Chloride 107.2 H BUN 6 L Creatinine 0.7 L Glucose 113 H POC Glucose 142 H Lactic Acid Calcium 7.7 L Magnesium NT-Pro-B Natriuret Pep Total Protein 5.7 L Albumin 2.9 L 01/26/18 01/26/18 01/26/18 17:15 17:28 23:34 RBC Hgb Hct RDW Tripp % (Auto) Baso % (Auto) PT APTT Heparin Anti-Xa Level 0.73 H POC ABG pH POC ABG pCO2 POC ABG pO2 VBG pH Potassium Chloride BUN Creatinine Glucose POC Glucose 118 H 108 H Lactic Acid Calcium Magnesium NT-Pro-B Natriuret Pep Total Protein Albumin 01/27/18 01/27/18 01/27/18 06:00 06:00 06:00 RBC Hgb 9.6 L Hct 28.7 L RDW Tripp % (Auto) Baso % (Auto) PT APTT Heparin Anti-Xa Level POC ABG pH POC ABG pCO2 POC ABG pO2 VBG pH Potassium 3.1 L Chloride BUN 5 L Creatinine 0.7 L Glucose 108 H POC Glucose Lactic Acid Calcium 7.7 L Magnesium 1.40 L NT-Pro-B Natriuret Pep Total Protein Albumin 08/01/28/18 01/28/18 06:02 04:24 04:40 RBC Hgb Hct RDW Tripp % (Auto) Baso % (Auto) PT APTT Heparin Anti-Xa Level POC ABG pH 7.328 L 7.315 L POC ABG pCO2 51.8 H 49.9 H POC ABG pO2 57 L 79 L VBG pH Potassium Chloride BUN Creatinine Glucose POC Glucose 125 H Lactic Acid Calcium Magnesium NT-Pro-B Natriuret Pep Total Protein Albumin 01/28/18 01/28/18 01/29/18 16:30 18:18 00:14 RBC Hgb 9.6 L Hct 30.1 L RDW Tripp % (Auto) Baso % (Auto) PT APTT Heparin Anti-Xa Level POC ABG pH POC ABG pCO2 POC ABG pO2 VBG pH Potassium Chloride BUN Creatinine Glucose POC Glucose 107 H 109 H Lactic Acid Calcium Magnesium NT-Pro-B Natriuret Pep Total Protein Albumin 01/29/18 01/29/18 04:25 04:45 RBC Hgb 9.0 L Hct 27.6 L RDW Tripp % (Auto) Baso % (Auto) PT APTT Heparin Anti-Xa Level POC ABG pH POC ABG pCO2 POC ABG pO2 76 L VBG pH Potassium Chloride BUN Creatinine Glucose POC Glucose Lactic Acid Calcium Magnesium NT-Pro-B Natriuret Pep Total Protein Albumin Chest x-ray: image reviewed (improved edema pattern) Allied health notes reviewed: nursing
[2018-01-29] MEDS: CORDARONE PO SCH ×2 (12:35→21:40)
[2018-01-29] MEDS: LANOXIN IV SCH (12:36)
[2018-01-29] MEDS: LASIX IV SCH (12:36)
[2018-01-29] MEDS: PEPCID IV SCH ×2 (12:36→21:40)
[2018-01-29 12:39] LABS: Basophils % (Auto) 0.3 % (0.0-1.8); Eosinophils # (Auto) 0.1 K/mm3 (0.0-0.4); Eosinophils % (Auto) 1.5 % (0.0-4.3); Hematocrit 30.9 % (35.5-45.6); Lymphocytes # (Auto) 0.7 K/mm3 (1.2-5.4); Lymphocytes % (Auto) 8.7 % (13.4-35.0); Mean Corpuscular HGB Conc 32 % (32-34); Mean Corpuscular Hemoglobin 29 pg (28-32); Mean Corpuscular Volume 89 fl (84-94); Monocytes # (Auto) 0.6 K/mm3 (0.0-0.8); Monocytes % (Auto) 7.1 % (0.0-7.3); Platelet Count 230 K/mm3 (140-440); Red Blood Count 3.48 M/mm3 (3.65-5.03); Red Cell Distribution Width 18.5 % (13.2-15.2)
[2018-01-29 12:53] LABS: BUN/Creatinine Ratio 14; Blood Urea Nitrogen 7 mg/dL (9-20); Calcium 8.3 mg/dL (8.4-10.2); Hemolysis Index 18
--- NOTE | 2018-01-29 17:56 | Progress Note ---
Assessment and Plan - Patient Problems (1) Acute respiratory failure Current Visit: No Status: Acute Qualifiers: Respiratory failure complication: hypoxia Qualified Code(s): J96.01 - Acute respiratory failure with hypoxia Plan to address problem: Patient is on the vent, continue supportive care. (2) Atrial fibrillation Current Visit: Yes Status: Chronic Qualifiers: Atrial fibrillation type: chronic Qualified Code(s): I48.2 - Chronic atrial fibrillation Plan to address problem: Atrial fibrillation with currently controlled ventricular rate. Continue oral amiodarone and intravenous digoxin. Subjective Date of service: 01/29/18 Principal diagnosis: Acute Hypoxemic Resp Failure on MVS; Sepsis with Shock; A- fib with RVR; P.E Interval history: Patient is sedated on the vent. No new cardiac issues. Objective Vital Signs Temp Pulse Resp Resp Resp BP Pulse Ox 01/29/18 16:15 84/34 67 L 01/29/18 16:01 91 H 19 84/34 98 01/29/18 16:00 98.4 F 16 98 01/29/18 15:45 91 H 13 131/75 88 01/29/18 15:41 98 01/29/18 15:31 106 H 20 100 01/29/18 15:15 94 H 17 120/57 98 01/29/18 15:00 94 H 15 120/57 96 01/29/18 14:45 103 H 16 98 01/29/18 14:30 101 H 14 116/58 96 01/29/18 14:21 116 H 14 126/49 97 01/29/18 14:15 136 H 17 126/49 97 01/29/18 14:00 136 H 15 121/49 97 01/29/18 13:45 117 H 12 124/49 97 18 13:31 115 H 12 124/49 97 01/29/18 13:15 138 H 17 112/63 97 01/29/18 13:00 121 H 14 112/63 96 01/29/18 12:45 95 H 15 114/67 98 01/29/18 12:36 103 H 108/61 01/29/18 12:31 87 12 110/69 99 01/29/18 12:15 110 H 12 108/61 97 01/29/18 12:04 97 H 14 115/65 97 01/29/18 12:00 98.1 F 104 H 15 114/64 96 08/20/18 11:45 99 H 14 115/65 97 /20/18 11:31 101 H 13 120/66 94 20/18 11:22 111 H 123/72 98 0820/18 11:15 98 H 19 110/67 98 20/18 11:00 123 H 13 110/67 99 20/18 10:45 111 H 19 103/37 99 08/18 10:31 97 H 13 103/37 97 01/29/18 10:15 122 H 13 132/78 98 18 10:00 131 H 15 16 16 133/75 98 18 09:45 116 H 13 139/84 97 01/29/18 09:31 140 H 15 164/105 97 01/29/18 09:15 112 H 19 164/105 98 18 09:01 103 H 15 125/70 100 2018 08:45 98 H 11 L 125/70 97 18 08:30 78 11 L 117/55 97 18 08:19 96 H 108/44 97 20/18 08:15 80 18 113/51 97 20/18 08:01 91 H 14 99/58 98 20/18 08:00 98.1 F 13 96 01/29/18 07:45 65 12 99/58 97 20/18 07:31 91 H 12 107/41 98 20/18 07:15 73 12 99/58 97 20/18 07:00 64 12 102/49 97 20/18 06:45 65 13 95/48 97 0820/18 06:30 72 12 107/47 97 20/18 06:15 71 12 106/58 99 0820/18 06:00 76 14 109/48 97 20/18 05:45 68 11 L 101/49 97 20/18 05:30 73 15 102/48 97 0820/18 05:15 73 13 101/57 97 20/18 05:00 71 12 106/51 98 08/20/18 04:45 78 16 101/51 98 20/18 04:30 70 12 105/49 98 20/18 04:23 64 110/62 99 08/20/18 04:15 75 11 L 110/62 99 2018 04:00 76 12 101/58 98 01/29/18 03:45 78 11 L 103/51 98 01/29/18 03:30 73 12 110/53 99 20/18 03:20 98.9 F 01/29/18 03:15 73 12 108/59 98 01/29/18 03:00 76 12 104/59 98 01/29/18 02:45 72 10 L 106/53 98 01/29/18 02:30 66 11 L 105/47 97 01/29/18 02:15 70 12 106/53 98 01/29/18 02:00 75 12 110/61 97 01/29/18 01:45 69 11 L 107/47 97 01/29/18 01:30 75 12 103/57 97 01/29/18 01:15 81 12 112/49 97 01/29/18 01:00 91 H 11 L 113/52 97 01/29/18 00:45 80 12 113/52 96 01/29/18 00:31 110 H 11 L 112/62 96 01/29/18 00:15 105 H 18 119/59 98 20/18 00:01 83 13 119/59 98 01/29/18 00:00 12 97 01/28/18 23:54 98.2 F 01/28/18 23:45 95 H 13 116/51 98 18 23:30 88 15 118/49 96 18 23:15 92 H 17 115/57 95 18 23:01 124 H 14 121/68 99 18 22:45 103 H 17 121/52 98 19/18 22:33 103 H 17 121/52 97 19/18 22:31 98 H 14 121/52 97 19/18 22:23 92 H 115/60 98 19/18 22:15 100 H 14 118/45 95 19/18 22:01 104 H 14 127/50 97 1918 22:00 96 H 1918 21:45 84 12 118/45 97 1918 21:30 103 H 12 124/69 96 1918 21:15 79 11 L 116/69 98 01/28/18 21:00 81 14 106/55 97 01/28/18 20:45 80 12 111/65 98 01/28/18 20:30 76 10 L 105/57 97 01/28/18 20:15 81 10 L 110/57 97 01/28/18 20:00 98.6 F 70 12 105/62 97 01/28/18 19:50 82 14 109/48 97 01/28/18 19:45 77 9 L 109/48 97 01/28/18 19:30 92 H 11 L 112/51 97 01/28/18 19:15 90 11 L 117/58 97 01/28/18 19:00 87 12 117/58 97 01/28/18 18:45 74 11 L 112/50 96 01/28/18 18:30 84 16 111/52 97 01/28/18 18:15 87 14 112/61 96 01/28/18 18:01 86 11 L 118/68 96 - Physical Examination General: Other (patient is sedated, on the vent.) HEENT: Positive: PERRL Neck: Positive: neck supple Cardiac: Positive: Reg Rate and Rhythm Lungs: Positive: Decreased Breath Sounds Neuro: Positive: Other (sedate, on the vent) Abdomen: Positive: Soft Skin: Positive: Clear Extremities: Absent: edema - Labs and Meds CBC 01/29/18 01/29/18 Range/Units 04:25 12:15 WBC 7.9 (4.5-11.0) K/mm3 RBC 3.48 L (3.65-5.03) M/mm3 Hgb 9.0 L 10.0 L (11.8-15.2) gm/dl Hct 27.6 L 30.9 L (35.5-45.6) % Plt Count 219 230 (140-440) K/mm3 Lymph # 0.7 L (1.2-5.4) K/mm3 [place] # 0.6 (0.0-0.8) K/mm3 Eos # 0.1 (0.0-0.4) K/mm3 Baso # 0.0 (0.0-0.1) K/mm3 Comprehensive Metabolic Panel 01/29/18 Range/Units 12:15 Sodium 140 (137-145) mmol/L Potassium 3.5 L (3.6-5.0) mmol/L Chloride 104.5 (98-107) mmol/L Carbon Dioxide 25 (22-30) mmol/L BUN 7 L (9-20) mg/dL Creatinine 0.5 L (0.8-1.5) mg/dL Glucose 135 H (75-100) mg/dL Calcium 8.3 L (8.4-10.2) mg/dL - Allied health notes Allied health notes reviewed: nursing
--- NOTE | 2018-01-29 19:15 | Progress Note ---
Assessment and Plan Assessment and plan: 62-year-old -[place] woman with past medical history significant for CAD , diabetes mellitus, CHF with ejection fraction of 25%, hypertension brought to the emergency department after he was found lying at home by EMS. Patient was altered, hypotensive and hypothermic. He was intubated, on pressors, emperic IV antibiotics and admitted to ICU. Acute respiratory failure - Patient is intubated and on mechanical ventilation SIRS, with SHOCK and lactic acidosis - Patient with empirically on IV antibiotics - BP is stable without pressors Altered mental status - CT head is negative PE - Patient is on heparin drip A. fib with RVR, Systolic CHF - controlled - Cardiology consulted - Patient is on amiodarone The high probability of a clinically significant, sudden or life threatening deterioration of the [Neurology, CVS] system(s) required my full and direct attention, intervention and personal management. The aggregate critical care time was [32] minutes. This time is in addition to time spent performing reported procedures but includes the following: [x] Data Review and interpretation [x] Patient assessment and monitoring of vital signs [x] Documentation [x] Medication orders and management History Interval history: Patient was seen and evaluated this morning, patient was still intubated and on mechanical ventilation. Hospitalist Physical - Physical exam Narrative exam: Patient is intubated and on mechanical ventilation. The patient appeared well nourished and normally developed. Vital signs as documented. Head exam is unremarkable. No scleral icterus . Neck is without jugular venous distension, thyromegaly, or carotid bruits. Lungs are clear to auscultation. Cardiac exam reveals irregular rate and Rhythm. Tachycardic. Abdominal exam reveals normal bowel sounds, no masses, no organomegaly and no aortic enlargement. Extremities are nonedematous and both femoral and pedal pulses are normal. [employer]: Sedated. - Constitutional Vitals: Temp Pulse Resp BP Pulse Ox 98.4 F 90 18 111/55 97 01/29/18 16:00 01/29/18 18:30 01/29/18 18:30 01/29/18 18:30 01/29/18 18:59 General appearance: Present: other (intubated on the vent) Results - Labs CBC & Chem 7: 01/29/18 12:15 01/29/18 12:15 Labs: Laboratory Last Values WBC 7.9 K/mm3 (4.5-11.0) 01/29/18 12:15 RBC 3.48 M/mm3 (3.65-5.03) L 01/29/18 12:15 Hgb 10.0 gm/dl (11.8-15.2) L 01/29/18 12:15 Hct 30.9 % (35.5-45.6) L 01/29/18 12:15 MCV 89 fl (84-94) 01/29/18 12:15 MCH 29 pg (28-32) 01/29/18 12:15 MCHC 32 % (32-34) 01/29/18 12:15 RDW 18.5 % (13.2-15.2) H 01/29/18 12:15 Plt Count 230 K/mm3 (140-440) 01/29/18 12:15 Lymph % (Auto) 8.7 % (13.4-35.0) L 01/29/18 12:15 [place] % (Auto) 7.1 % (0.0-7.3) 01/29/18 12:15 Eos % (Auto) 1.5 % (0.0-4.3) 01/29/18 12:15 Baso % (Auto) 0.3 % (0.0-1.8) 01/29/18 12:15 Lymph # 0.7 K/mm3 (1.2-5.4) L 01/29/18 12:15 [place] # 0.6 K/mm3 (0.0-0.8) 01/29/18 12:15 Eos # 0.1 K/mm3 (0.0-0.4) 01/29/18 12:15 Baso # 0.0 K/mm3 (0.0-0.1) 01/29/18 12:15 Seg Neutrophils % 82.4 % (40.0-70.0) H 01/29/18 12:15 Seg Neutrophils # 6.5 K/mm3 (1.8-7.7) 01/29/18 12:15 PT 14.2 Sec. (12.2-14.9) 01/25/18 19:27 INR 1.05 (0.87-1.13) 01/25/18 19:27 APTT 37.7 Sec. (24.2-36.6) H 01/25/18 19:27 Heparin Anti-Xa Level 0.55 U.I./ml (0.3-0.7) 01/29/18 04:25 POC ABG pH 7.424 (7.35-7.45) 01/29/18 14:25 POC ABG pCO2 37.7 (35-45) 01/29/18 14:25 POC ABG pO2 106 (80-105) H 01/29/18 14:25 POC ABG HCO3 24.7 01/29/18 14:25 POC ABG Total CO2 26 01/29/18 14:25 POC ABG O2 Sat 98 01/29/18 14:25 POC ABG Base Excess 0 01/29/18 14:25 VBG pH 7.275 (7.320-7.420) L 01/25/18 06:33 FiO2 30 % 01/29/18 14:25 Sodium 140 mmol/L (137-145) 01/29/18 12:15 Potassium 3.5 mmol/L (3.6-5.0) L 01/29/18 12:15 Chloride 104.5 mmol/L (98-107) 01/29/18 12:15 Carbon Dioxide 25 mmol/L (22-30) 01/29/18 12:15 Anion Gap 14 mmol/L 01/29/18 12:15 BUN 7 mg/dL (9-20) L 01/29/18 12:15 Creatinine 0.5 mg/dL (0.8-1.5) L 01/29/18 12:15 Estimated GFR > 60 ml/min 01/29/18 12:15 BUN/Creatinine Ratio 14 % 01/29/18 12:15 Glucose 135 mg/dL (75-100) H 01/29/18 12:15 POC Glucose 102 (70-105) 01/29/18 18:37 Lactic Acid 1.80 mmol/L (0.7-2.0) 01/25/18 13:12 Calcium 8.3 mg/dL (8.4-10.2) L 01/29/18 12:15 Magnesium 1.70 mg/dL (1.7-2.3) 01/29/18 12:15 Total Bilirubin 0.90 mg/dL (0.1-1.2) 01/26/18 08:23 AST 17 units/L (5-40) 01/26/18 08:23 ALT 12 units/L (7-56) 01/26/18 08:23 Alkaline Phosphatase 95 units/L (35-129) 01/26/18 08:23 Total Creatine Kinase 137 units/L (55-170) 01/25/18 06:32 CK-MB (CK-2) 3.8 ng/mL (0.0-4.0) 01/25/18 06:32 CK-MB (CK-2) Rel Index 2.7 (0-4) 01/25/18 06:32 Troponin T < 0.010 ng/mL (0.00-0.029) 01/25/18 06:32 NT-Pro-B Natriuret Pep 1979 pg/mL (0-900) H 01/25/18 07:35 Total Protein 5.7 g/dL (6.3-8.2) L 01/26/18 08:23 Albumin 2.9 g/dL (3.9-5) L 01/26/18 08:23 Albumin/Globulin Ratio 1.0 % 01/26/18 08:23 Urine Color Yellow (Yellow) 01/25/18 19:27 Urine Turbidity Clear (Clear) 01/25/18 19:27 Urine pH 5.0 (5.0-7.0) 01/25/18 19:27 Ur Specific [place] 1.017 (1.003-1.030) 01/25/18 19:27 Urine Protein <15 mg/dl mg/dL (Negative) 01/25/18 19:27 Urine Glucose (UA) Neg mg/dL (Negative) 01/25/18 19:27 Urine Ketones Neg mg/dL (Negative) 01/25/18 19:27 Urine Blood Neg (Negative) 01/25/18 19:27 Urine Nitrite Neg (Negative) 01/25/18 19:27 Urine Bilirubin Neg (Negative) 01/25/18 19:27 Urine Urobilinogen < 2.0 mg/dL (<2.0) 01/25/18 19:27 Ur Leukocyte Esterase Neg (Negative) 01/25/18 19:27 Urine WBC (Auto) < 1.0 /HPF (0.0-6.0) 01/25/18 19:27 Urine RBC (Auto) < 1.0 /HPF (0.0-6.0) 01/25/18 19:27 Urine Mucus Few /HPF 01/25/18 19:27
--- NOTE | 2018-01-30 02:35 | XRay Report ---
FINAL REPORT EXAM: XR CHEST 1V AP HISTORY: follow up respiratory failure COMPARISON: January 29, 2018 FINDINGS: Frontal view(s) of the chest obtained. Stable mild cardiac enlargement. ETT and NG tube have been removed. Right IJ line left-sided cardiac pacer remain in place. Stable mild central congestion. There may be trace effusions. No pneumothorax. IMPRESSION: Removal of ET tube and NG tube. Mild central congestion similar prior study.
--- NOTE | 2018-01-30 09:07 | Progress Note ---
Assessment and Plan Acute hypoxemic respiratory failure on MVS SIRS, with SHOCK and lactic acidosis Altered mental status, acute encephalopathy Non occlusive right lower lobe PE A. fib with RVR Systolic CHF (EF 20-25% in august 2017) Sleep apnea with OHS Obesity Atrial fibrillation with RVR h/o CABG with ischemic cardiomyopathy Type 2 Diabetes mellitus AE-COPD - continue enteral nutrition - continue bronchodilators with pulmonary hygiene per RT - PT/OT/ROM as tolerated -disconitnue heparin infusion and resume NOAC at a higher dose -accucheck with glycemic control -stress ulcer prophylaxis - mobility protocol for pressure ulcer prophylaxis - Transfer to [facility] FULL CODE Subjective Date of service: 01/30/18 Principal diagnosis: Acute Hypoxemic Resp Failure on MVS; Sepsis with Shock; A- fib with RVR; P.E Interval history: HISTORY PER MEDICAL RECORDS 62-year-old male with past medical history significant for CAD status post CABG, CHF status post AICD, A. fib brought to the emergency department via EMS for altered mental status. Patient was found lying in the floor by EMS. patient was hypotensive, hypothermic was not able to take care of his airways. Patient was intubated , on mechanical ventilation. Patient was given IV fluids , pressors and admitted to ICU. Chest x-ray shows pulmonary venous congestion, CTA showed small non occlusive right lower lobe PE. History obtained from chart review and ER medical staff. Review of system couldn't be obtained because of altered mental status and mechanical ventilation. Seen and examined. Vitals, labs, medications, chart and imaging reviewed. No acute events overnight reported. Off all vasopressor support, tolerating enteric feeding. Extubated and doing well from a respiratory perspective. On going intermittent confusion Discussed with RT and RN. Objective Vital Signs - 12hr 01/29/18 01/29/18 01/29/18 22:01 23:00 23:36 Temperature Pulse Rate 90 90 119 H Respiratory 12 8 L 16 Rate Blood Pressure 125/52 122/65 119/68 O2 Sat by Pulse 98 96 99 Oximetry 01/30/18 01/30/18 01/30/18 00:00 01:00 02:01 Temperature 98.3 F Pulse Rate 109 H 96 H 94 H Respiratory 15 15 18 Rate Blood Pressure 130/53 95/55 116/49 O2 Sat by Pulse 98 99 98 Oximetry 01/30/18 01/30/18 01/30/18 03:01 04:01 05:01 Temperature Pulse Rate 91 H 113 H 132 H Respiratory 21 16 16 Rate Blood Pressure 120/58 124/77 115/73 O2 Sat by Pulse 95 95 97 Oximetry 01/30/18 01/30/18 01/30/18 05:04 06:01 07:00 Temperature 98 F Pulse Rate 102 H 81 Respiratory 17 21 Rate Blood Pressure 131/59 119/63 O2 Sat by Pulse 97 98 Oximetry 01/30/18 01/30/18 07:48 08:00 Temperature 97.5 F L Pulse Rate 80 Respiratory 23 Rate Blood Pressure 162/133 O2 Sat by Pulse 97 Oximetry Constitutional: no acute distress, other ( CM; normocephalic and atraumatic with mildly increased respiratory effort) Eyes: non-icteric ENT: oropharynx moist, other (on NC at 2L/min) Neck: supple, no JVD, other (No thyromegaly) Effort: mildly labored Ascultation: Bilateral: clear, diminished breath sounds, rhonchi (scant in bases ) Percussion: Bilateral: not dull Cardiovascular: regular rate and rhythm, PVC's noted, other (No R/M) Gastrointestinal: normoactive bowel sounds, soft, non-tender, non-distended, other (No palpable HSM) Integumentary: other (multiple Tattoos) Extremities: no cyanosis, no edema, pulses normal, no ischemia or petechiae Neurologic: non-focal exam, pupils equal and round, motor strength normal and, other (episodes of confusion) Psychiatric: anxious CBC and BMP: 01/31/18 05:55 01/29/18 12:15 ABG, PT/INR, D-dimer: ABG POC ABG pH 7.424 (7.35-7.45) 01/29/18 14:25 POC ABG pCO2 37.7 (35-45) 01/29/18 14:25 POC ABG pO2 106 (80-105) H 01/29/18 14:25 POC ABG HCO3 24.7 01/29/18 14:25 POC ABG Total CO2 26 01/29/18 14:25 POC ABG O2 Sat 98 01/29/18 14:25 PT/INR, D-dimer PT 14.2 Sec. (12.2-14.9) 01/25/18 19:27 INR 1.05 (0.87-1.13) 01/25/18 19:27 Abnormal lab findings: Abnormal Labs 01/25/18 01/25/18 01/25/18 06:15 06:15 06:15 RBC 3.54 L Hgb 10.2 L Hct 31.4 L RDW 18.2 H Lymph % (Auto) [place] % (Auto) 8.1 H Baso % (Auto) 2.3 H Lymph # Seg Neutrophils % PT 15.0 H APTT Heparin Anti-Xa Level POC ABG pH POC ABG pCO2 POC ABG pO2 VBG pH Potassium Chloride BUN Creatinine Glucose 148 H POC Glucose Lactic Acid Calcium 8.3 L Magnesium NT-Pro-B Natriuret Pep Total Protein Albumin 3.2 L 01/25/18 01/25/18 01/25/18 06:33 07:35 07:35 RBC Hgb Hct RDW Lymph % (Auto) [place] % (Auto) Baso % (Auto) Lymph # Seg Neutrophils % PT APTT Heparin Anti-Xa Level POC ABG pH POC ABG pCO2 POC ABG pO2 VBG pH 7.275 L Potassium Chloride BUN Creatinine Glucose POC Glucose Lactic Acid 2.50 H* Calcium Magnesium NT-Pro-B Natriuret Pep 1979 H Total Protein Albumin 01/25/18 01/25/18 01/25/18 08:43 13:12 19:27 RBC Hgb 9.7 L Hct 30.0 L RDW Lymph % (Auto) [place] % (Auto) Baso % (Auto) Lymph # Seg Neutrophils % PT APTT 37.7 H Heparin Anti-Xa Level POC ABG pH POC ABG pCO2 49.8 H POC ABG pO2 594 H VBG pH Potassium Chloride BUN Creatinine Glucose POC Glucose Lactic Acid Calcium Magnesium NT-Pro-B Natriuret Pep Total Protein Albumin 01/25/18 01/25/18 01/25/18 19:27 22:00 23:18 RBC Hgb Hct RDW Lymph % (Auto) [place] % (Auto) Baso % (Auto) Lymph # Seg Neutrophils % PT APTT Heparin Anti-Xa Level 0.10 L 0.10 L POC ABG pH POC ABG pCO2 POC ABG pO2 VBG pH Potassium Chloride BUN Creatinine Glucose POC Glucose 118 H Lactic Acid Calcium Magnesium NT-Pro-B Natriuret Pep Total Protein Albumin 0801/26/18 01/26/18 04:43 05:30 08:23 RBC 3.31 L Hgb 9.7 L Hct 29.3 L RDW 18.2 H Lymph % (Auto) [place] % (Auto) 10.4 H Baso % (Auto) Lymph # Seg Neutrophils % PT APTT Heparin Anti-Xa Level 0.12 L POC ABG pH POC ABG pCO2 47.9 H POC ABG pO2 74 L VBG pH Potassium Chloride BUN Creatinine Glucose POC Glucose Lactic Acid Calcium Magnesium NT-Pro-B Natriuret Pep Total Protein Albumin 01/26/18 01/26/18 01/26/18 08:23 13:19 16:33 RBC Hgb Hct RDW Lymph % (Auto) [place] % (Auto) Baso % (Auto) Lymph # Seg Neutrophils % PT APTT Heparin Anti-Xa Level 0.72 H POC ABG pH POC ABG pCO2 POC ABG pO2 VBG pH Potassium Chloride 107.2 H BUN 6 L Creatinine 0.7 L Glucose 113 H POC Glucose 142 H Lactic Acid Calcium 7.7 L Magnesium NT-Pro-B Natriuret Pep Total Protein 5.7 L Albumin 2.9 L 01/26/18 01/26/18 01/26/18 17:15 17:28 23:34 RBC Hgb Hct RDW Lymph % (Auto) [place] % (Auto) Baso % (Auto) Lymph # Seg Neutrophils % PT APTT Heparin Anti-Xa Level 0.73 H POC ABG pH POC ABG pCO2 POC ABG pO2 VBG pH Potassium Chloride BUN Creatinine Glucose POC Glucose 118 H 108 H Lactic Acid Calcium Magnesium NT-Pro-B Natriuret Pep Total Protein Albumin 01/27/18 01/27/18 01/27/18 06:00 06:00 06:00 RBC Hgb 9.6 L Hct 28.7 L RDW Lymph % (Auto) [place] % (Auto) Baso % (Auto) Lymph # Seg Neutrophils % PT APTT Heparin Anti-Xa Level POC ABG pH POC ABG pCO2 POC ABG pO2 VBG pH Potassium 3.1 L Chloride BUN 5 L Creatinine 0.7 L Glucose 108 H POC Glucose Lactic Acid Calcium 7.7 L Magnesium 1.40 L NT-Pro-B Natriuret Pep Total Protein Albumin 01/27/18 01/28/18 01/28/18 06:02 04:24 04:40 RBC Hgb Hct RDW Lymph % (Auto) [place] % (Auto) Baso % (Auto) Lymph # Seg Neutrophils % PT APTT Heparin Anti-Xa Level POC ABG pH 7.328 L 7.315 L POC ABG pCO2 51.8 H 49.9 H POC ABG pO2 57 L 79 L VBG pH Potassium Chloride BUN Creatinine Glucose POC Glucose 125 H Lactic Acid Calcium Magnesium NT-Pro-B Natriuret Pep Total Protein Albumin 01/28/18 01/28/18 01/29/18 16:30 18:18 00:14 RBC Hgb 9.6 L Hct 30.1 L RDW Lymph % (Auto) [place] % (Auto) Baso % (Auto) Lymph # Seg Neutrophils % PT APTT Heparin Anti-Xa Level POC ABG pH POC ABG pCO2 POC ABG pO2 VBG pH Potassium Chloride BUN Creatinine Glucose POC Glucose 107 H 109 H Lactic Acid Calcium Magnesium NT-Pro-B Natriuret Pep Total Protein Albumin 01/29/18 01/29/18 01/29/18 04:25 04:45 12:15 RBC 3.48 L Hgb 9.0 L 10.0 L Hct 27.6 L 30.9 L RDW 18.5 H Lymph % (Auto) 8.7 L [place] % (Auto) Baso % (Auto) Lymph # 0.7 L Seg Neutrophils % 82.4 H PT APTT Heparin Anti-Xa Level POC ABG pH POC ABG pCO2 POC ABG pO2 76 L VBG pH Potassium Chloride BUN Creatinine Glucose POC Glucose Lactic Acid Calcium Magnesium NT-Pro-B Natriuret Pep Total Protein Albumin 01/29/18 01/29/18 01/29/18 12:15 12:35 14:25 RBC Hgb Hct RDW Lymph % (Auto) [place] % (Auto) Baso % (Auto) Lymph # Seg Neutrophils % PT APTT Heparin Anti-Xa Level POC ABG pH POC ABG pCO2 POC ABG pO2 106 H VBG pH Potassium 3.5 L Chloride BUN 7 L Creatinine 0.5 L Glucose 135 H POC Glucose 136 H Lactic Acid Calcium 8.3 L Magnesium NT-Pro-B Natriuret Pep Total Protein Albumin 01/29/18 01/30/18 18:32 07:59 RBC Hgb Hct RDW Lymph % (Auto) [place] % (Auto) Baso % (Auto) Lymph # Seg Neutrophils % PT APTT Heparin Anti-Xa Level POC ABG pH POC ABG pCO2 POC ABG pO2 VBG pH Potassium Chloride BUN Creatinine Glucose POC Glucose 106 H 119 H Lactic Acid Calcium Magnesium NT-Pro-B Natriuret Pep Total Protein Albumin Allied health notes reviewed: nursing
--- NOTE | 2018-01-30 09:12 | Hem/Onc Consultation ---
History of Present Illness - Reason for Consult Consult date: 01/30/18 - History of Present Illness Dictated Once patient is able to take by mouth, Pradaxa 150 mg twice a day Will order Doppler of the lower extremity Anemia workup Past History Past Medical History: atrial fib, CAD, diabetes, heart failure, hypertension, stroke Past Surgical History: cholecystectomy, CABG Social history: full code. denies: smoking, alcohol abuse, prescription drug abuse, IV drug use Family history: no significant family history Medications and Allergies Allergies Allergy/AdvReac Type Severity Reaction Status Date / Time gabapentin [From Neurontin] Allergy Rash Verified 01/25/18 06:12 Home Medications Medication Instructions Recorded Confirmed Last Taken Type Acetaminophen/Codeine [Tylenol 1 tab PO Q6H PRN #12 tab 12/03/17 12/22/17 Unknown Rx /Codeine # 3 tab] ALPRAZolam [Xanax TAB] 2 mg PO Q8H PRN #30 tablet 12/27/17 Unknown Rx Arformoterol Nebu [Brovana Nebu] 15 mcg IH Q12HRT #60 ml 12/27/17 Unknown Rx AtorvaSTATin [Lipitor] 40 mg PO QHS #30 tablet 12/27/17 Unknown Rx Budesonide [Pulmicort Respules] 0.5 mg IH Q12HRT #60 nebu 12/27/17 Unknown Rx Dabigatran [Pradaxa] 75 mg PO BID #60 capsule 12/27/17 Unknown Rx Furosemide [Lasix TAB] 60 mg PO QDAY 30 Days tablet 12/27/17 Unknown Rx ISOSORBIDE MONOnitrate [Imdur ER] 60 mg PO QDAY #30 tablet 12/27/17 Unknown Rx Insulin Glargine [Lantus VIAL] 30 units SUB-Q QHS #300 units 12/27/17 Unknown Rx Ipratropium/Albuterol Sulfate 1 ampul IH TIDRT #100 ampul.neb 12/27/17 Unknown Rx [DUONEB *Not for PRN Use*] Lisinopril [Zestril TAB] 2.5 mg PO QDAY #30 tablet 12/27/17 Unknown Rx Lisinopril [Zestril TAB] 20 mg PO QDAY #30 tablet 12/27/17 Unknown Rx Lispro Insulin [Humalog] 0 unit SUB-Q ACHS #5 units 12/27/17 Unknown Rx Metoprolol Xl [Metoprolol 50 mg PO BID #60 tablet 12/27/17 Unknown Rx SUCCINATE ER TAB] Pantoprazole Sodium 20 mg PO QDAY #30 tablet.dr 12/27/17 Unknown Rx Potassium Chloride [K-Dur] 30 meq PO QDAY tablet 12/27/17 Unknown Rx QUEtiapine [SEROquel] 200 mg PO BID #60 tablet 12/27/17 Unknown Rx Ranolazine ER [Ranexa ER] 500 mg PO BID #60 tablet 12/27/17 Unknown Rx predniSONE [Deltasone] 5 mg PO QDAY tablet 12/27/17 Unknown Rx Active Meds: Active Medications Amiodarone HCl (Cordarone) 200 mg PO BID [facility] Last Admin: 01/29/18 21:40 Dose: 200 mg Lipase/Protease/Amylase (Pancreaze Dr 10,500 Unit) 1 each FEEDTUBE PRN PRN PRN Reason: For Clogged Feeding Tube Digoxin (Lanoxin) 0.125 mg IV QDAY [facility] Last Admin: 01/29/18 12:36 Dose: 0.125 mg Famotidine (Pepcid) 20 mg IV BID [facility] Last Admin: 01/29/18 21:40 Dose: 20 mg Furosemide (Lasix) 20 mg IV QDAY [facility] Last Admin: 01/29/18 12:36 Dose: 20 mg Hydrophilic Ointment (Vaseline Lip Therapy) 1 applic TP Q2HR PRN PRN Reason: Dry Lips Norepinephrine (Levophed Drip 4 Mg/Ns 250 Ml) 4 mg in 250 mls @ 7.5 mls/hr IV TITR MARY; Protocol Last Titration: 01/27/18 14:30 Dose: 0 mcg/min, 0 mls/hr Fentanyl Citrate (Fentanyl Drip Premix) 2,000 mcg in 100 mls @ 5.443 mls/hr IV TITR MARY; Protocol Last Titration: 01/29/18 12:00 Dose: Infused Heparin Sodium/Sodium Chloride (Heparin/ 0.45% Nacl-25,000 Unit/500 Ml) 25,000 unit in 500 mls @ 30 mls/hr IV TITR MARY; Protocol Last Admin: 01/29/18 22:45 Dose: 1,800 units/hr, 36 mls/hr Propofol (Diprivan 10 Mg/Ml) 1,000 mg in 100 mls @ 3.266 mls/hr IV TITR MARY; Protocol Multi-Ingred Cream/Lotion/Oil/Oint (Artificial Tears Ophth Oint) 1 applic OU Q4HR PRN PRN Reason: Dry Eye(s) Quetiapine Fumarate (Seroquel) 200 mg PO BID [facility] Last Admin: 01/29/18 21:39 Dose: 200 mg Simple Syrup (Simple Syrup) 15 ml FEEDTUBE PRN PRN PRN Reason: Hypoglycemia Simple Syrup (Simple Syrup) 30 ml FEEDTUBE PRN PRN PRN Reason: Hypoglycemia Sodium Bicarbonate (Sodium Bicarbonate) 325 mg FEEDTUBE PRN PRN PRN Reason: For Clogged Feeding Tube Exam - Constitutional Vitals: Last Vital Signs Temp 97.5 F L 01/30/18 08:00 Pulse 80 01/30/18 08:00 Resp 23 01/30/18 08:00 BP 162/133 01/30/18 08:00 Pulse Ox 97 01/30/18 07:48 Results - Labs lab Results: Laboratory Results - last 24 hr 01/29/18 01/29/18 01/29/18 12:15 12:15 12:35 WBC 7.9 RBC 3.48 L Hgb 10.0 L Hct 30.9 L MCV 89 MCH 29 MCHC 32 RDW 18.5 H Plt Count 230 Lymph % (Auto) 8.7 L [place] % (Auto) 7.1 Eos % (Auto) 1.5 Baso % (Auto) 0.3 Lymph # 0.7 L [place] # 0.6 Eos # 0.1 Baso # 0.0 Seg Neutrophils % 82.4 H Seg Neutrophils # 6.5 Heparin Anti-Xa Level POC ABG pH POC ABG pCO2 POC ABG pO2 POC ABG HCO3 POC ABG Total CO2 POC ABG O2 Sat POC ABG Base Excess FiO2 Sodium 140 Potassium 3.5 L Chloride 104.5 Carbon Dioxide 25 Anion Gap 14 BUN 7 L Creatinine 0.5 L Estimated GFR > 60 BUN/Creatinine Ratio 14 Glucose 135 H POC Glucose 136 H Calcium 8.3 L Magnesium 1.70 01/29/18 01/29/18 01/29/18 14:25 18:32 18:37 WBC RBC Hgb Hct MCV MCH MCHC RDW Plt Count Lymph % (Auto) [place] % (Auto) Eos % (Auto) Baso % (Auto) Lymph # [place] # Eos # Baso # Seg Neutrophils % Seg Neutrophils # Heparin Anti-Xa Level POC ABG pH 7.424 POC ABG pCO2 37.7 POC ABG pO2 106 H POC ABG HCO3 24.7 POC ABG Total CO2 26 POC ABG O2 Sat 98 POC ABG Base Excess 0 FiO2 30 Sodium Potassium Chloride Carbon Dioxide Anion Gap BUN Creatinine Estimated GFR BUN/Creatinine Ratio Glucose POC Glucose 106 H 102 Calcium Magnesium 01/30/18 01/30/18 01/30/18 01:16 05:30 07:59 WBC RBC Hgb Hct MCV MCH MCHC RDW Plt Count Lymph % (Auto) [place] % (Auto) Eos % (Auto) Baso % (Auto) Lymph # [place] # Eos # Baso # Seg Neutrophils % Seg Neutrophils # Heparin Anti-Xa Level 0.50 POC ABG pH POC ABG pCO2 POC ABG pO2 POC ABG HCO3 POC ABG Total CO2 POC ABG O2 Sat POC ABG Base Excess FiO2 Sodium Potassium Chloride Carbon Dioxide Anion Gap BUN Creatinine Estimated GFR BUN/Creatinine Ratio Glucose POC Glucose 103 119 H Calcium Magnesium
--- NOTE | 2018-01-30 09:35 | Progress Note ---
Assessment and Plan Assessment and plan: 62-year-old -[place] woman with past medical history significant for CAD , diabetes mellitus, CHF with ejection fraction of 25%, hypertension brought to the emergency department after he was found lying at home by EMS. Patient was altered, hypotensive and hypothermic. He was intubated, on pressors, emperic IV antibiotics and admitted to ICU. Acute respiratory failure - Patient extubated on 01/29 SIRS, with SHOCK and lactic acidosis - Patient with empirically on IV antibiotics - BP is stable without pressors - Resolved Altered mental status - CT head is negative PE - Patient is on heparin drip - Patient was evaluated by hematology oncology and recommended xarelto when stable A. fib with RVR, Systolic CHF - controlled - Cardiology consulted - Patient is on amiodarone Disposition - We will transfer to intermediate care unit. History Interval history: Patient was seen and evaluated this morning, patient was extubated yesterday. Hospitalist Physical - Physical exam Narrative exam: Patient was on 2 L of [place] oxygen The patient appeared well nourished and normally developed. Vital signs as documented. Head exam is unremarkable. No scleral icterus . Neck is without jugular venous distension, thyromegaly, or carotid bruits. Lungs are clear to auscultation. Cardiac exam reveals irregular rate and Rhythm. Tachycardic. Abdominal exam reveals normal bowel sounds, no masses, no organomegaly and no aortic enlargement. Extremities are nonedematous and both femoral and pedal pulses are normal. TAX COMPLIANCE AGENT: Sedated. - Constitutional Vitals: Temp Pulse Resp BP Pulse Ox 97.5 F L 80 23 162/133 97 01/30/18 08:00 01/30/18 08:00 01/30/18 08:00 01/30/18 08:00 01/30/18 07:48 General appearance: Present: other (intubated on the vent) Results - Labs CBC & Chem 7: 01/29/18 12:15 01/29/18 12:15 Labs: Laboratory Last Values WBC 7.9 K/mm3 (4.5-11.0) 01/29/18 12:15 RBC 3.48 M/mm3 (3.65-5.03) L 01/29/18 12:15 Hgb 10.0 gm/dl (11.8-15.2) L 01/29/18 12:15 Hct 30.9 % (35.5-45.6) L 01/29/18 12:15 MCV 89 fl (84-94) 01/29/18 12:15 MCH 29 pg (28-32) 01/29/18 12:15 MCHC 32 % (32-34) 01/29/18 12:15 RDW 18.5 % (13.2-15.2) H 01/29/18 12:15 Plt Count 230 K/mm3 (140-440) 01/29/18 12:15 Lymph % (Auto) 8.7 % (13.4-35.0) L 01/29/18 12:15 [place] % (Auto) 7.1 % (0.0-7.3) 01/29/18 12:15 Eos % (Auto) 1.5 % (0.0-4.3) 01/29/18 12:15 Baso % (Auto) 0.3 % (0.0-1.8) 01/29/18 12:15 Lymph # 0.7 K/mm3 (1.2-5.4) L 01/29/18 12:15 [place] # 0.6 K/mm3 (0.0-0.8) 01/29/18 12:15 Eos # 0.1 K/mm3 (0.0-0.4) 01/29/18 12:15 Baso # 0.0 K/mm3 (0.0-0.1) 01/29/18 12:15 Seg Neutrophils % 82.4 % (40.0-70.0) H 01/29/18 12:15 Seg Neutrophils # 6.5 K/mm3 (1.8-7.7) 01/29/18 12:15 PT 14.2 Sec. (12.2-14.9) 01/25/18 19:27 INR 1.05 (0.87-1.13) 01/25/18 19:27 APTT 37.7 Sec. (24.2-36.6) H 01/25/18 19:27 Heparin Anti-Xa Level 0.50 U.I./ml (0.3-0.7) 01/30/18 05:30 POC ABG pH 7.424 (7.35-7.45) 01/29/18 14:25 POC ABG pCO2 37.7 (35-45) 01/29/18 14:25 POC ABG pO2 106 (80-105) H 01/29/18 14:25 POC ABG HCO3 24.7 01/29/18 14:25 POC ABG Total CO2 26 01/29/18 14:25 POC ABG O2 Sat 98 01/29/18 14:25 POC ABG Base Excess 0 01/29/18 14:25 VBG pH 7.275 (7.320-7.420) L 01/25/18 06:33 FiO2 30 % 01/29/18 14:25 Sodium 140 mmol/L (137-145) 01/29/18 12:15 Potassium 3.5 mmol/L (3.6-5.0) L 01/29/18 12:15 Chloride 104.5 mmol/L (98-107) 01/29/18 12:15 Carbon Dioxide 25 mmol/L (22-30) 01/29/18 12:15 Anion Gap 14 mmol/L 01/29/18 12:15 BUN 7 mg/dL (9-20) L 01/29/18 12:15 Creatinine 0.5 mg/dL (0.8-1.5) L 01/29/18 12:15 Estimated GFR > 60 ml/min 01/29/18 12:15 BUN/Creatinine Ratio 14 % 01/29/18 12:15 Glucose 135 mg/dL (75-100) H 01/29/18 12:15 POC Glucose 119 (70-105) H 01/30/18 07:59 Lactic Acid 1.80 mmol/L (0.7-2.0) 01/25/18 13:12 Calcium 8.3 mg/dL (8.4-10.2) L 01/29/18 12:15 Magnesium 1.70 mg/dL (1.7-2.3) 01/29/18 12:15 Total Bilirubin 0.90 mg/dL (0.1-1.2) 01/26/18 08:23 AST 17 units/L (5-40) 01/26/18 08:23 ALT 12 units/L (7-56) 01/26/18 08:23 Alkaline Phosphatase 95 units/L (35-129) 01/26/18 08:23 Total Creatine Kinase 137 units/L (55-170) 01/25/18 06:32 CK-MB (CK-2) 3.8 ng/mL (0.0-4.0) 01/25/18 06:32 CK-MB (CK-2) Rel Index 2.7 (0-4) 01/25/18 06:32 Troponin T < 0.010 ng/mL (0.00-0.029) 01/25/18 06:32 NT-Pro-B Natriuret Pep 1979 pg/mL (0-900) H 01/25/18 07:35 Total Protein 5.7 g/dL (6.3-8.2) L 01/26/18 08:23 Albumin 2.9 g/dL (3.9-5) L 01/26/18 08:23 Albumin/Globulin Ratio 1.0 % 01/26/18 08:23 Urine Color Yellow (Yellow) 01/25/18 19:27 Urine Turbidity Clear (Clear) 01/25/18 19: Urine pH 5.0 (5.0-7.0) 01/25/18 19: Ur Specific [place] 1.017 (1.003-1.030) 01/25/18 19: Urine Protein <15 mg/dl mg/dL (Negative) 01/25/18 19: Urine Glucose (UA) Neg mg/dL (Negative) 01/25/18 19: Urine Ketones Neg mg/dL (Negative) 01/25/18 19: Urine Blood Neg (Negative) 01/25/18 19: Urine Nitrite Neg (Negative) 01/25/18 19: Urine Bilirubin Neg (Negative) 01/25/18 19: Urine Urobilinogen < 2.0 mg/dL (<2.0) 01/25/18 19: Ur Leukocyte Esterase Neg (Negative) 01/25/18 19: Urine WBC (Auto) < 1.0 /HPF (0.0-6.0) 01/25/18 19: Urine RBC (Auto) < 1.0 /HPF (0.0-6.0) 01/25/18 19: Urine Mucus Few /HPF 01/25/18 19:
[2018-01-30] MEDS: LASIX IV SCH (10:00)
[2018-01-30] MEDS: LANOXIN IV SCH (10:00)
[2018-01-30 10:13] LABS: % Iron Saturation 13.54 %
[2018-01-30] MEDS: PEPCID PO SCH ×2 (11:15→21:45)
[2018-01-30] MEDS: CORDARONE PO SCH ×2 (11:23→21:45)
--- NOTE | 2018-01-30 12:14 | Progress Note ---
Assessment and Plan Altered mental status Acute Respiratory failure Acute PE Hx of CAD s/p CABG MPI 06/2016: No ischemia, large fixed inferior and inferolateral wall defect consistent with old [facility]. LHC 07/2015: 4 patent bypass grafts. Small vessel disease recommended for medical therapy. Hx of Ischemic cardiomyopathy EF 20-25% by echo 12/2017 AICD ([employer]) Paroxysmal atrial fibrillation currently in afib with a well controlled ventricular rate. anticoagulated with pradaxa as an outpatient. HTN HLP Continue optimal rate controlling agents with amiodarone and digoxin for atrial fibrillation that persists. Medical therapy for small vessel coronary artery disease when able to tolerate. Subjective Date of service: 01/30/18 Principal diagnosis: Acute Hypoxemic Resp Failure on MVS; Sepsis with Shock; A- fib with RVR; P.E Interval history: Patient has been extubated. No distress noted. Afib with a well controlled ventricular rate on telemetry monitoring. Objective Vital Signs Temp Pulse Resp BP Pulse Ox 01/30/18 11:01 112 H 20 125/71 98 01/30/18 10:04 97 01/30/18 10:01 93 H 25 H 128/68 100 01/30/18 09:01 102 H 15 116/58 01/30/18 08:00 97.5 F L 80 23 162/133 01/30/18 07:48 97 01/30/18 07:00 81 21 119/63 98 01/30/18 06:01 102 H 17 131/59 97 01/30/18 05:04 98 F 01/30/18 05:01 132 H 16 115/73 97 01/30/18 04:01 113 H 16 124/77 95 01/30/18 03:01 91 H 21 120/58 95 01/30/18 02:01 94 H 18 116/49 98 01/30/18 01:00 98.3 F 96 H 15 95/55 99 01/30/18 00:00 109 H 15 130/53 98 01/29/18 23:36 119 H 16 119/68 99 01/29/18 23:00 90 8 L 122/65 96 01/29/18 22:01 90 12 125/52 98 01/29/18 21:01 97 H 10 L 114/54 97 01/29/18 21:00 98.1 F 01/29/18 20:00 82 16 114/59 98 01/29/18 19:15 107 H 15 103/44 18 19:01 100 H 13 103/44 99 18 18:59 97 18 18:45 82 14 116/52 99 18 18:30 90 18 111/55 99 18 18:15 74 15 116/52 99 18 18:01 80 10 L 116/52 99 18 17:45 90 12 116/59 98 18 17:30 84 17 116/59 100 01/29/18 17:15 77 15 102/51 99 01/29/18 17:00 83 16 102/51 98 01/29/18 16:45 88 13 84/34 98 01/29/18 16:30 85 17 98/50 97 01/29/18 16:15 84/34 67 L 01/29/18 16:01 91 H 19 84/34 98 01/29/18 16:00 98.4 F 16 98 01/29/18 15:45 91 H 13 131/75 88 01/29/18 15:41 98 01/29/18 15:31 106 H 20 100 01/29/18 15:15 94 H 17 120/57 98 01/29/18 15:00 94 H 15 120/57 96 01/29/18 14:45 103 H 16 98 01/29/18 14:30 101 H 14 116/58 96 01/29/18 14:21 116 H 14 126/49 97 01/29/18 14:15 136 H 17 126/49 97 01/29/18 14:00 136 H 15 121/49 97 18 13:45 117 H 12 124/49 97 18 13:31 115 H 12 124/49 97 18 13:15 138 H 17 112/63 97 01/29/18 13:00 121 H 14 112/63 96 01/29/18 12:45 95 H 15 114/67 98 18 12:36 103 H 108/61 01/29/18 12:31 87 12 110/69 99 18 12:15 110 H 12 108/61 97 - Physical Examination General: No Apparent Distress HEENT: Positive: PERRL Cardiac: Positive: irregularly irregular Extremities: Absent: edema - Labs and Meds CBC 01/29/18 Range/Units 12:15 WBC 7.9 (4.5-11.0) K/mm3 RBC 3.48 L (3.65-5.03) M/mm3 Hgb 10.0 L (11.8-15.2) gm/dl Hct 30.9 L (35.5-45.6) % Plt Count 230 (140-440) K/mm3 Lymph # 0.7 L (1.2-5.4) K/mm3 [place] # 0.6 (0.0-0.8) K/mm3 Eos # 0.1 (0.0-0.4) K/mm3 Baso # 0.0 (0.0-0.1) K/mm3 Comprehensive Metabolic Panel 01/29/18 Range/Units 12:15 Sodium 140 (137-145) mmol/L Potassium 3.5 L (3.6-5.0) mmol/L Chloride 104.5 (98-107) mmol/L Carbon Dioxide 25 (22-30) mmol/L BUN 7 L (9-20) mg/dL Creatinine 0.5 L (0.8-1.5) mg/dL Glucose 135 H (75-100) mg/dL Calcium 8.3 L (8.4-10.2) mg/dL - Allied health notes Allied health notes reviewed: nursing
--- NOTE | 2018-01-30 13:29 | Consultation ---
REFERRING PHYSICIAN: . REASON FOR CONSULTATION: Pulmonary embolus. HISTORY OF PRESENT ILLNESS: The patient is a 62-year-old male with history of coronary artery disease, CHF, AFib for which he is on Pradaxa at home and which he states he does not take twice a day, but takes once a day and reason not known. He was found to be lying on the floor by EMS and was hypotensive, hypothermic. He was intubated and was on mechanical ventilation from which he has been weaned off. His admission chest x-ray showed pulmonary venous congestion and the CT angiogram showed evidence of small pleural effusions, mild congestive changes in both lungs, a small nonocclusive embolus in the right lower lobe. There was also mild cardiomegaly and atelectasis changes. Because of the pulmonary embolus, Hematology/Oncology consult was called. The patient states that he has had blood clot many years ago in the past in the leg. Denies any family history of thrombosis. Does not smoke. He has had history of atrial fibrillation for which he has been on Pradaxa. He was recently admitted to the hospital a month ago with pneumonia. On reviewing his records, he was continued on Pradaxa, although at one point, it was decreased from 150 b.i.d. to 75 b.i.d. and he was discharged home on Pradaxa 75 mg b.i.d., which he was given. He however took only 75 mg a day according to the patient. PHYSICAL EXAMINATION: GENERAL: The patient is awake. He is slightly confused wrist, has restraints on due to periodic confusion. HEENT: Unremarkable. Mild pallor noted in the conjunctivae. CHEST: Reveals bilateral wheezes. CARDIOVASCULAR: Irregular. ABDOMEN: Soft. EXTREMITIES: No clubbing, cyanosis, or edema. PERTINENT LABORATORY DATA: His hemoglobin is 10, white count 7.9, platelets 230,000. He is on a heparin drip with therapeutic heparin anti-Xa levels. ASSESSMENT: 1. Pulmonary embolus in this patient with multiple other issues including recent pneumonia, recent respiratory failure. 2. History of deep venous thrombosis in the past. 3. Noncompliance to doses of his anticoagulants for his atrial fibrillation. PLAN: At this time, the patient is extubated. Once he is able to take p.o., I would recommend to resume his Pradaxa, but at a dose of 150 mg b.i.d., which is the therapeutic dose. We will order a Doppler of the lower extremity also. Thank you. We will follow. JOB# [id number] GKS/NTS
[2018-01-30] MEDS: HEPARIN/ 0.45% NACL-25,000 UNIT/500 ML 25,000 UNIT/500 ML BAG IV SCH (15:44)
[2018-01-30] MEDS ORDERED: LANOXIN IV ONE (18:42)
[2018-01-30] MEDS ORDERED: MORPHINE IV ONE (22:28)
[2018-01-30 23:18] LABS: Creatine Kinase MB 2.4 ng/mL (0.0-4.0)
[2018-01-31 06:13] LABS: Hematocrit 27.8 % (35.5-45.6); Hemoglobin 9.4 gm/dl (11.8-15.2)
[2018-01-31] MEDS: HEPARIN/ 0.45% NACL-25,000 UNIT/500 ML 25,000 UNIT/500 ML BAG IV SCH ×2 (06:25→21:37)
--- NOTE | 2018-01-31 08:38 | Hem/Onc Progress Note ---
Assessment and Plan Patient can be switched to Pradaxa 150 milligrams twice a day once he is able to take by mouth safely. Doppler of the lower extremities did not show any DVT. Patient is already supposed to be on Pradaxa at home for cardiac purposes but was not taking it at the recommended dose. If patient has continued thrombosis on therapeutic Pradaxa dose, may need to switch agents at that time Subjective Date of service: 01/31/18 Interval history: Patient still on heparin drip.no Active bleeding. Objective - Constitutional Vitals: Last Vital Signs Temp 98.0 F 01/31/18 08:00 Pulse 89 01/30/18 22:00 Resp 21 01/31/18 04:00 BP 119/52 01/31/18 04:00 Pulse Ox 98 01/31/18 04:00 Performance status: 3-limited selfcare - Neck Neck: supple - Respiratory Respiratory: bilateral: diminished - Cardiovascular Rhythm: regular - Gastrointestinal General gastrointestinal: Present: soft - Labs Lab Results: Laboratory Results - last 24 hr 01/30/18 01/30/18 01/30/18 09:14 09:14 09:14 Hgb Hct Plt Count Heparin Anti-Xa Level POC Glucose Iron 26 L TIBC 192 L % Saturation 13.54 Transferrin 163 L Ferritin 186.7 Total Creatine Kinase CK-MB (CK-2) CK-MB (CK-2) Rel Index Troponin T Vitamin B12 1738 H Folate 01/30/18 01/30/18 01/30/18 09:14 12:21 17:32 Hgb Hct Plt Count Heparin Anti-Xa Level POC Glucose 113 H 110 H Iron TIBC % Saturation Transferrin Ferritin Total Creatine Kinase CK-MB (CK-2) CK-MB (CK-2) Rel Index Troponin T Vitamin B12 Folate 10.94 01/30/18 01/31/18 01/31/18 22:56 00:01 05:55 Hgb 9.4 L Hct 27.8 L Plt Count 204 Heparin Anti-Xa Level POC Glucose Iron TIBC % Saturation Transferrin Ferritin Total Creatine Kinase 117 CK-MB (CK-2) 2.4 CK-MB (CK-2) Rel Index 2.0 Troponin T < 0.010 Vitamin B12 Folate 01/31/18 01/31/18 05:55 05:57 Hgb Hct Plt Count Heparin Anti-Xa Level 0.46 POC Glucose 100 Iron TIBC % Saturation Transferrin Ferritin Total Creatine Kinase CK-MB (CK-2) CK-MB (CK-2) Rel Index Troponin T Vitamin B12 Folate
--- NOTE | 2018-01-31 09:09 | XRay Report ---
Portable chest: Comparison is made to prior exam of January 30. There is mild to moderate vascular congestion with enlarged heart and bypass changes. ICD present. These findings are unchanged from prior exam however there has been interval removal of the right IJ tube. Impression: Persistent congestive changes.
[2018-01-31] MEDS: CORDARONE PO SCH ×2 (09:18→21:37)
[2018-01-31] MEDS: LASIX IV SCH (09:18)
[2018-01-31] MEDS: PEPCID PO SCH ×2 (09:18→21:37)
[2018-01-31] MEDS ORDERED: TYLENOL PO PRN (10:30)
--- NOTE | 2018-01-31 10:41 | Progress Note ---
Assessment and Plan Assessment and plan: Acute respiratory failure - Patient extubated on 01/29 SIRS, with SHOCK and lactic acidosis - Patient with empirically on IV antibiotics - BP is stable without pressors - Resolved Acute encephalopathy. - Resolved - Etiology secondary to SIRS - CT head is negative PE - Patient is on heparin drip - Patient was evaluated by hematology oncology and recommended Pradaxa 150 milligrams twice a day once Paroxysmal A. fib with RVR, - controlled - Cardiology consulted - Patient is on amiodarone History of coronary artery disease status post CABG - MPI 06/2016: No ischemia, large fixed inferior and inferolateral wall defect consistent with old [place]. - LHC 07/2015: 4 patent bypass grafts. Small vessel disease recommended for medical therapy. AICD Hypertension. -Continue anti-hypertensive medication -Hyperlipidemia Acute on chronic Systolic CHF -Patient with history of ischemic cardiomyopathy, EF 20-25% by echo 12/2017 -Continue Lasix History Interval history: 62-year-old -[place] woman with past medical history significant for CAD , diabetes mellitus, CHF with ejection fraction of 25%, hypertension brought to the emergency department after he was found lying at home by EMS. Patient was altered, hypotensive and hypothermic. He was intubated, placed on pressors, empiric IV antibiotics and admitted to ICU. Hospitalist Physical - Constitutional Vitals: Temp Pulse Resp BP Pulse Ox 98.0 F 89 21 119/52 98 01/31/18 08:00 01/30/18 22:00 01/31/18 04:00 01/31/18 04:00 01/31/18 04:00 General appearance: Present: other (intubated on the vent) - EENT Eyes: Present: PERRL, EOM intact ENT: hearing intact, clear oral mucosa, dentition normal - Neck Neck: Present: supple, normal ROM - Respiratory Respiratory effort: normal Respiratory: bilateral: CTA - Cardiovascular Rhythm: regular Heart Sounds: Present: S1 & S2. Absent: gallop, rub - Extremities Extremities: no ischemia, No edema, Full ROM - Abdominal General gastrointestinal: soft, non-tender, non-distended, normal bowel sounds - Integumentary Integumentary: Present: clear, warm, dry - Neurologic Neurologic: CNII-XII intact, moves all extremities Results - Labs CBC & Chem 7: 01/31/18 05:55 01/29/18 12:15 Labs: Laboratory Last Values WBC 7.9 K/mm3 (4.5-11.0) 01/29/18 12:15 RBC 3.48 M/mm3 (3.65-5.03) L 01/29/18 12:15 Hgb 9.4 gm/dl (11.8-15.2) L 01/31/18 05:55 Hct 27.8 % (35.5-45.6) L 01/31/18 05:55 MCV 89 fl (84-94) 01/29/18 12:15 MCH 29 pg (28-32) 01/29/18 12:15 MCHC 32 % (32-34) 01/29/18 12:15 RDW 18.5 % (13.2-15.2) H 01/29/18 12:15 Plt Count 204 K/mm3 (140-440) 01/31/18 05:55 Lymph % (Auto) 8.7 % (13.4-35.0) L 01/29/18 12:15 [place] % (Auto) 7.1 % (0.0-7.3) 01/29/18 12:15 Eos % (Auto) 1.5 % (0.0-4.3) 01/29/18 12:15 Baso % (Auto) 0.3 % (0.0-1.8) 01/29/18 12:15 Lymph # 0.7 K/mm3 (1.2-5.4) L 01/29/18 12:15 [place]at # 0.6 K/mm3 (0.0-0.8) 01/29/18 12:15 Eos # 0.1 K/mm3 (0.0-0.4) 01/29/18 12:15 Baso # 0.0 K/mm3 (0.0-0.1) 01/29/18 12:15 Seg Neutrophils % 82.4 % (40.0-70.0) H 01/29/18 12:15 Seg Neutrophils # 6.5 K/mm3 (1.8-7.7) 01/29/18 12:15 PT 14.2 Sec. (12.2-14.9) 01/25/18 19:27 INR 1.05 (0.87-1.13) 01/25/18 19:27 APTT 37.7 Sec. (24.2-36.6) H 01/25/18 19:27 Heparin Anti-Xa Level 0.46 U.I./ml (0.3-0.7) 01/31/18 05:55 POC ABG pH 7.424 (7.35-7.45) 01/29/18 14:25 POC ABG pCO2 37.7 (35-45) 01/29/18 14:25 POC ABG pO2 106 (80-105) H 01/29/18 14:25 POC ABG HCO3 24.7 01/29/18 14:25 POC ABG Total CO2 26 01/29/18 14:25 POC ABG O2 Sat 98 01/29/18 14:25 POC ABG Base Excess 0 01/29/18 14:25 VBG pH 7.275 (7.320-7.420) L 01/25/18 06:33 FiO2 30 % 01/29/18 14:25 Sodium 140 mmol/L (137-145) 01/29/18 12:15 Potassium 3.5 mmol/L (3.6-5.0) L 01/29/18 12:15 Chloride 104.5 mmol/L (98-107) 01/29/18 12:15 Carbon Dioxide 25 mmol/L (22-30) 01/29/18 12:15 Anion Gap 14 mmol/L 01/29/18 12:15 BUN 7 mg/dL (9-20) L 01/29/18 12:15 Creatinine 0.5 mg/dL (0.8-1.5) L 01/29/18 12:15 Estimated GFR > 60 ml/min 01/29/18 12:15 BUN/Creatinine Ratio 14 % 01/29/18 12:15 Glucose 135 mg/dL (75-100) H 01/29/18 12:15 POC Glucose 100 (70-105) 01/31/18 05:57 Lactic Acid 1.80 mmol/L (0.7-2.0) 01/25/18 13:12 Calcium 8.3 mg/dL (8.4-10.2) L 01/29/18 12:15 Magnesium 1.70 mg/dL (1.7-2.3) 01/29/18 12:15 Iron 26 ug/dL (49-181) L 01/30/18 09:14 TIBC 192 mcg/dL (250-450) L 01/30/18 09:14 % Saturation 13.54 % 01/30/18 09:14 Transferrin 163 mg/dl (180-329) L 01/30/18 09:14 Ferritin 186.7 ng/mL (13.0-400.0) 01/30/18 09:14 Total Bilirubin 0.90 mg/dL (0.1-1.2) 01/26/18 08:23 AST 17 units/L (5-40) 01/26/18 08:23 ALT 12 units/L (7-56) 01/26/18 08:23 Alkaline Phosphatase 95 units/L (35-129) 01/26/18 08:23 Total Creatine Kinase 117 units/L (55-170) 01/30/18 22:56 CK-MB (CK-2) 2.4 ng/mL (0.0-4.0) 01/30/18 22:56 CK-MB (CK-2) Rel Index 2.0 (0-4) 01/30/18 22:56 Troponin T < 0.010 ng/mL (0.00-0.029) 01/31/18 00:01 NT-Pro-B Natriuret Pep 1979 pg/mL (0-900) H 01/25/18 07:35 Total Protein 5.7 g/dL (6.3-8.2) L 01/26/18 08:23 Albumin 2.9 g/dL (3.9-5) L 01/26/18 08:23 Albumin/Globulin Ratio 1.0 % 01/26/18 08:23 Vitamin B12 1738 pg/mL (211-911) H 01/30/18 09:14 Folate 10.94 ng/mL (7.3-26.0) 01/30/18 09:14 Urine Color Yellow (Yellow) 01/25/18 19:27 Urine Turbidity Clear (Clear) 01/25/18 19:27 Urine pH 5.0 (5.0-7.0) 01/25/18 19:27 Ur Specific [place] 1.017 (1.003-1.030) 01/25/18 19:27 Urine Protein <15 mg/dl mg/dL (Negative) 01/25/18 19:27 Urine Glucose (UA) Neg mg/dL (Negative) 01/25/18 19:27 Urine Ketones Neg mg/dL (Negative) 01/25/18 19:27 Urine Blood Neg (Negative) 01/25/18 19:27 Urine Nitrite Neg (Negative) 01/25/18 19:27 Urine Bilirubin Neg (Negative) 01/25/18 19:27 Urine Urobilinogen < 2.0 mg/dL (<2.0) 01/25/18 19:27 Ur Leukocyte Esterase Neg (Negative) 01/25/18 19:27 Urine WBC (Auto) < 1.0 /HPF (0.0-6.0) 01/25/18 19:27 Urine RBC (Auto) < 1.0 /HPF (0.0-6.0) 01/25/18 19:27 Urine Mucus Few /HPF 01/25/18 19:27
--- NOTE | 2018-01-31 10:43 | Progress Note ---
Assessment and Plan Altered mental status Acute Respiratory failure Acute PE Hx of CAD s/p CABG MPI 06/2016: No ischemia, large fixed inferior and inferolateral wall defect consistent with old [place]. LHC 07/2015: 4 patent bypass grafts. Small vessel disease recommended for medical therapy. Hx of Ischemic cardiomyopathy EF 20-25% by echo 12/2017 AICD ([employer]) Persistent atrial fibrillation rate control anticoagulated with pradaxa as an outpatient. HTN HLP Continue optimal rate controlling agents with amiodarone and digoxin for atrial fibrillation that persists. Medical therapy for small vessel coronary artery disease when able to tolerate. Subjective Date of service: 01/31/18 Principal diagnosis: Acute Hypoxemic Resp Failure on MVS; Sepsis with Shock; A- fib with RVR; P.E Interval history: No distress noted. Afib with a well controlled ventricular rate on telemetry monitoring. Objective Vital Signs Temp Pulse Resp BP Pulse Ox 01/31/18 08:00 98.0 F 01/31/18 04:00 98.6 F 21 119/52 98 01/31/18 00:00 98.5 F 20 107/61 98 01/30/18 22:00 89 01/30/18 20:58 81 27 H 87 01/30/18 20:00 98.5 F 101 H 139/62 95 01/30/18 18:01 91 H 26 H 131/74 01/30/18 17:01 97 H 24 120/74 99 01/30/18 16:00 98.3 F 85 26 H 119/41 98 01/30/18 15:01 100 H 20 94/52 01/30/18 14:00 79 26 H 105/64 89 01/30/18 13:01 103 H 14 120/69 99 01/30/18 12:00 98.7 F 71 23 107/38 98 01/30/18 11:01 112 H 20 125/71 98 - Physical Examination General: No Apparent Distress HEENT: Positive: PERRL Cardiac: Positive: irregularly irregular Neuro: Positive: Grossly Intact Extremities: Absent: edema - Labs and Meds Cardiac Enzymes 01/30/18 Range/Units 22:56 CK-MB (CK-2) 2.4 (0.0-4.0) ng/mL CBC 01/31/18 Range/Units 05:55 Hgb 9.4 L (11.8-15.2) gm/dl Hct 27.8 L (35.5-45.6) % Plt Count 204 (140-440) K/mm3 - Allied health notes Allied health notes reviewed: nursing
[2018-01-31] MEDS ORDERED: ATIVAN IV NR (11:15)
[2018-01-31] MEDS: LOPRESSOR IV SCH ×3 (11:40→23:47)
--- NOTE | 2018-01-31 15:38 | Progress Note ---
Assessment and Plan Acute hypoxemic respiratory failure on MVS SIRS, with SHOCK and lactic acidosis Altered mental status, acute encephalopathy Non occlusive right lower lobe PE A. fib with RVR Systolic CHF (EF 20-25% in august 2017) Sleep apnea with OHS Obesity Atrial fibrillation with RVR h/o CABG with ischemic cardiomyopathy Type 2 Diabetes mellitus AE-COPD - continue enteric nutrition - continue bronchodilators with pulmonary hygiene per RT - PT/OT/ROM as tolerated -discontinue heparin infusion and resume NOAC at a higher dose -accucheck with glycemic control -stress ulcer prophylaxis - chronic medications -wean supplemental oxygen for O2 sats>90% -discharge planning FULL CODE Subjective Date of service: 01/31/18 Principal diagnosis: Acute Hypoxemic Resp Failure on MVS; Sepsis with Shock; A- fib with RVR; P.E Interval history: HISTORY PER MEDICAL RECORDS 62-year-old male with past medical history significant for CAD status post CABG, CHF status post AICD, A. fib brought to the emergency department via EMS for altered mental status. Patient was found lying in the floor by EMS. patient was hypotensive, hypothermic was not able to take care of his airways. Patient was intubated , on mechanical ventilation. Patient was given IV fluids , pressors and admitted to ICU. Chest x-ray shows pulmonary venous congestion, CTA showed small non occlusive right lower lobe PE. History obtained from chart review and ER medical staff. Review of system couldn't be obtained because of altered mental status and mechanical ventilation. Today Seen and examined. Vitals, labs, medications, chart and imaging reviewed. No acute events overnight reported. Denies any chest pain, no shortness of breath. resting comfortably on NC3l/min oxygen. States he had episodes of palpitations this morning Discussed with RT and RN. Objective Vital Signs - 12hr 01/31/18 01/31/18 01/31/18 04:00 08:00 11:40 Temperature 98.6 F 98.0 F Pulse Rate 123 H Respiratory 21 Rate Blood Pressure 119/52 167/73 O2 Sat by Pulse 98 Oximetry 01/31/18 11:41 Temperature 97.9 F Pulse Rate Respiratory Rate Blood Pressure O2 Sat by Pulse Oximetry Constitutional: no acute distress, other ( CM; normocephalic and atraumatic without increased respiratory effort) Eyes: non-icteric ENT: oropharynx moist, other (on NC at 3L/min) Neck: supple, no JVD, other (No thyromegaly) Effort: normal Ascultation: Bilateral: clear, diminished breath sounds, rhonchi (scant in bases ) Percussion: Bilateral: not dull Cardiovascular: regular rate and rhythm, PVC's noted, other (No R/M) Gastrointestinal: normoactive bowel sounds, soft, non-tender, non-distended, other (No palpable HSM) Integumentary: other (multiple Tattoos) Extremities: no cyanosis, no edema, pulses normal, no ischemia or petechiae Neurologic: non-focal exam, pupils equal and round, motor strength normal and Psychiatric: mood appropriate, affect normal CBC and BMP: 01/31/18 05:55 01/29/18 12:15 ABG, PT/INR, D-dimer: ABG POC ABG pH 7.424 (7.35-7.45) 01/29/18 14:25 POC ABG pCO2 37.7 (35-45) 01/29/18 14:25 POC ABG pO2 106 (80-105) H 01/29/18 14:25 POC ABG HCO3 24.7 01/29/18 14:25 POC ABG Total CO2 26 01/29/18 14:25 POC ABG O2 Sat 98 01/29/18 14:25 PT/INR, D-dimer PT 14.2 Sec. (12.2-14.9) 01/25/18 19:27 INR 1.05 (0.87-1.13) 01/25/18 19:27 Abnormal lab findings: Abnormal Labs 01/25/18 01/25/18 01/25/18 06:15 06:15 06:15 RBC 3.54 L Hgb 10.2 L Hct 31.4 L RDW 18.2 H Lymph % (Auto) Placer % (Auto) 8.1 H Baso % (Auto) 2.3 H Lymph # Seg Neutrophils % PT 15.0 H APTT Heparin Anti-Xa Level POC ABG pH POC ABG pCO2 POC ABG pO2 VBG pH Potassium Chloride BUN Creatinine Glucose 148 H POC Glucose Lactic Acid Calcium 8.3 L Magnesium Iron TIBC Transferrin NT-Pro-B Natriuret Pep Total Protein Albumin 3.2 L Vitamin B12 01/25/18 01/25/18 01/25/18 06:33 07:35 07:35 RBC Hgb Hct RDW Lymph % (Auto) Placer % (Auto) Baso % (Auto) Lymph # Seg Neutrophils % PT APTT Heparin Anti-Xa Level POC ABG pH POC ABG pCO2 POC ABG pO2 VBG pH 7.275 L Potassium Chloride BUN Creatinine Glucose POC Glucose Lactic Acid 2.50 H* Calcium Magnesium Iron TIBC Transferrin NT-Pro-B Natriuret Pep 1979 H Total Protein Albumin Vitamin B12 01/25/18 01/25/18 01/25/18 08:43 13:12 19:27 RBC Hgb 9.7 L Hct 30.0 L RDW Lymph % (Auto) Placer % (Auto) Baso % (Auto) Lymph # Seg Neutrophils % PT APTT 37.7 H Heparin Anti-Xa Level POC ABG pH POC ABG pCO2 49.8 H POC ABG pO2 594 H VBG pH Potassium Chloride BUN Creatinine Glucose POC Glucose Lactic Acid Calcium Magnesium Iron TIBC Transferrin NT-Pro-B Natriuret Pep Total Protein Albumin Vitamin B12 01/25/18 01/25/18 01/25/18 19:27 22:00 23:18 RBC Hgb Hct RDW Lymph % (Auto) Placer % (Auto) Baso % (Auto) Lymph # Seg Neutrophils % PT APTT Heparin Anti-Xa Level 0.10 L 0.10 L POC ABG pH POC ABG pCO2 POC ABG pO2 VBG pH Potassium Chloride BUN Creatinine Glucose POC Glucose 118 H Lactic Acid Calcium Magnesium Iron TIBC Transferrin NT-Pro-B Natriuret Pep Total Protein Albumin Vitamin B12 01/26/18 01/26/18 01/26/18 04:43 05:30 08:23 RBC 3.31 L Hgb 9.7 L Hct 29.3 L RDW 18.2 H Lymph % (Auto) Placer % (Auto) 10.4 H Baso % (Auto) Lymph # Seg Neutrophils % PT APTT Heparin Anti-Xa Level 0.12 L POC ABG pH POC ABG pCO2 47.9 H POC ABG pO2 74 L VBG pH Potassium Chloride BUN Creatinine Glucose POC Glucose Lactic Acid Calcium Magnesium Iron TIBC Transferrin NT-Pro-B Natriuret Pep Total Protein Albumin Vitamin B12 01/26/18 01/26/18 01/26/18 08:23 13:19 16:33 RBC Hgb Hct RDW Lymph % (Auto) Placer % (Auto) Baso % (Auto) Lymph # Seg Neutrophils % PT APTT Heparin Anti-Xa Level 0.72 H POC ABG pH POC ABG pCO2 POC ABG pO2 VBG pH Potassium Chloride 107.2 H BUN 6 L Creatinine 0.7 L Glucose 113 H POC Glucose 142 H Lactic Acid Calcium 7.7 L Magnesium Iron TIBC Transferrin NT-Pro-B Natriuret Pep Total Protein 5.7 L Albumin 2.9 L Vitamin B12 01/26/18 01/26/18 01/26/18 17:15 17:28 23:34 RBC Hgb Hct RDW Lymph % (Auto) Placer % (Auto) Baso % (Auto) Lymph # Seg Neutrophils % PT APTT Heparin Anti-Xa Level 0.73 H POC ABG pH POC ABG pCO2 POC ABG pO2 VBG pH Potassium Chloride BUN Creatinine Glucose POC Glucose 118 H 108 H Lactic Acid Calcium Magnesium Iron TIBC Transferrin NT-Pro-B Natriuret Pep Total Protein Albumin Vitamin B12 01/27/18 01/27/18 01/27/18 06:00 06:00 06:00 RBC Hgb 9.6 L Hct 28.7 L RDW Lymph % (Auto) Placer % (Auto) Baso % (Auto) Lymph # Seg Neutrophils % PT APTT Heparin Anti-Xa Level POC ABG pH POC ABG pCO2 POC ABG pO2 VBG pH Potassium 3.1 L Chloride BUN 5 L Creatinine 0.7 L Glucose 108 H POC Glucose Lactic Acid Calcium 7.7 L Magnesium 1.40 L Iron TIBC Transferrin NT-Pro-B Natriuret Pep Total Protein Albumin Vitamin B12 01/27/18 01/28/18 01/28/18 06:02 04:24 04:40 RBC Hgb Hct RDW Lymph % (Auto) Placer % (Auto) Baso % (Auto) Lymph # Seg Neutrophils % PT APTT Heparin Anti-Xa Level POC ABG pH 7.328 L 7.315 L POC ABG pCO2 51.8 H 49.9 H POC ABG pO2 57 L 79 L VBG pH Potassium Chloride BUN Creatinine Glucose POC Glucose 125 H Lactic Acid Calcium Magnesium Iron TIBC Transferrin NT-Pro-B Natriuret Pep Total Protein Albumin Vitamin B12 01/28/18 01/28/18 01/29/18 16:30 18:18 00:14 RBC Hgb 9.6 L Hct 30.1 L RDW Lymph % (Auto) Placer % (Auto) Baso % (Auto) Lymph # Seg Neutrophils % PT APTT Heparin Anti-Xa Level POC ABG pH POC ABG pCO2 POC ABG pO2 VBG pH Potassium Chloride BUN Creatinine Glucose POC Glucose 107 H 109 H Lactic Acid Calcium Magnesium Iron TIBC Transferrin NT-Pro-B Natriuret Pep Total Protein Albumin Vitamin B12 01/29/18 01/29/18 01/29/18 04:25 04:45 12:15 RBC 3.48 L Hgb 9.0 L 10.0 L Hct 27.6 L 30.9 L RDW 18.5 H Lymph % (Auto) 8.7 L Placer % (Auto) Baso % (Auto) Lymph # 0.7 L Seg Neutrophils % 82.4 H PT APTT Heparin Anti-Xa Level POC ABG pH POC ABG pCO2 POC ABG pO2 76 L VBG pH Potassium Chloride BUN Creatinine Glucose POC Glucose Lactic Acid Calcium Magnesium Iron TIBC Transferrin NT-Pro-B Natriuret Pep Total Protein Albumin Vitamin B12 01/29/18 01/29/18 01/29/18 12:15 12:35 14:25 RBC Hgb Hct RDW Lymph % (Auto) Placer % (Auto) Baso % (Auto) Lymph # Seg Neutrophils % PT APTT Heparin Anti-Xa Level POC ABG pH POC ABG pCO2 POC ABG pO2 106 H VBG pH Potassium 3.5 L Chloride BUN 7 L Creatinine 0.5 L Glucose 135 H POC Glucose 136 H Lactic Acid Calcium 8.3 L Magnesium Iron TIBC Transferrin NT-Pro-B Natriuret Pep Total Protein Albumin Vitamin B12 01/29/18 01/30/18 01/30/18 18:32 07:59 09:14 RBC Hgb Hct RDW Lymph % (Auto) Placer % (Auto) Baso % (Auto) Lymph # Seg Neutrophils % PT APTT Heparin Anti-Xa Level POC ABG pH POC ABG pCO2 POC ABG pO2 VBG pH Potassium Chloride BUN Creatinine Glucose POC Glucose 106 H 119 H Lactic Acid Calcium Magnesium Iron 26 L TIBC 192 L Transferrin 163 L NT-Pro-B Natriuret Pep Total Protein Albumin Vitamin B12 01/30/18 01/30/18 01/30/18 09:14 12:21 17:32 RBC Hgb Hct RDW Lymph % (Auto) Placer % (Auto) Baso % (Auto) Lymph # Seg Neutrophils % PT APTT Heparin Anti-Xa Level POC ABG pH POC ABG pCO2 POC ABG pO2 VBG pH Potassium Chloride BUN Creatinine Glucose POC Glucose 113 H 110 H Lactic Acid Calcium Magnesium Iron TIBC Transferrin NT-Pro-B Natriuret Pep Total Protein Albumin Vitamin B12 1738 H 01/31/18 01/31/18 05:55 11:35 RBC Hgb 9.4 L Hct 27.8 L RDW Lymph % (Auto) Placer % (Auto) Baso % (Auto) Lymph # Seg Neutrophils % PT APTT Heparin Anti-Xa Level POC ABG pH POC ABG pCO2 POC ABG pO2 VBG pH Potassium Chloride BUN Creatinine Glucose POC Glucose 119 H Lactic Acid Calcium Magnesium Iron TIBC Transferrin NT-Pro-B Natriuret Pep Total Protein Albumin Vitamin B12 Allied health notes reviewed: nursing (increase activity as tolerated, discharge planning)
[2018-01-31] MEDS: LANOXIN PO SCH (17:44)
[2018-02-01] MEDS: LOPRESSOR IV SCH ×2 (06:46→11:11)
--- NOTE | 2018-02-01 08:41 | XRay Report ---
AP CHEST: HISTORY: Followup respiratory failure Mild increase in pulmonary venous congestion is suspected since yesterday's examination. The lungs are clear otherwise. Moderate cardiomegaly is stable. The pacemaker device remains in the same position. IMPRESSION: Cardiomegaly and pulmonary venous congestion. Slightly increased since yesterday's exam.
--- NOTE | 2018-02-01 08:43 | Progress Note ---
Assessment and Plan Altered mental status Acute Respiratory failure Acute PE Hx of CAD s/p CABG MPI 06/2016: No ischemia, large fixed inferior and inferolateral wall defect consistent with old [place]. LHC 07/2015: 4 patent bypass grafts. Small vessel disease recommended for medical therapy. Hx of Ischemic cardiomyopathy EF 20-25% by echo 12/2017 AICD ([employer]) Persistent atrial fibrillation rate control anticoagulated with pradaxa as an outpatient. HTN HLP Continue optimal rate controlling agents for atrial fibrillation that persists. Medical therapy for small vessel coronary artery disease when able to tolerate. Subjective Date of service: 02/01/18 Principal diagnosis: Acute Hypoxemic Resp Failure on MVS; Sepsis with Shock; A- fib with RVR; P.E Interval history: Patient has no cardiac complaints. Wants to get out of bed. Afib with a well controlled ventricular rate on telemetry. Objective Vital Signs Temp Pulse Pulse Resp BP BP Pulse Ox 02/01/18 08:00 99.1 F 78 20 135/54 99 02/01/18 06:46 92 H 135/60 02/01/18 06:42 101 H 135/60 97 02/01/18 04:00 97.9 F 67 26 H 118/57 02/01/18 00:00 99 F 71 22 122/73 98 01/31/18 23:47 78 122/73 01/31/18 22:00 75 100 01/31/18 20:00 98.9 F 75 26 H 134/53 01/31/18 17:44 103 H 125/71 01/31/18 17:43 96 H 125/71 01/31/18 16:00 98.3 F 96 H 20 103/65 103/65 96 01/31/18 12:00 97.9 F 104 H 15 123/104 96 01/31/18 11:41 97.9 F 01/31/18 11:40 123 H 167/73 - Physical Examination General: No Apparent Distress HEENT: Positive: PERRL Cardiac: Positive: irregularly irregular Lungs: Positive: Decreased Breath Sounds Neuro: Positive: Grossly Intact Extremities: Absent: edema - Allied health notes Allied health notes reviewed: nursing
[2018-02-01] MEDS: PEPCID PO SCH ×2 (09:37→21:35)
[2018-02-01] MEDS: CORDARONE PO SCH ×2 (09:37→21:35)
[2018-02-01] MEDS: LASIX IV SCH (09:37)
[2018-02-01] MEDS: HEPARIN/ 0.45% NACL-25,000 UNIT/500 ML 25,000 UNIT/500 ML BAG IV SCH (11:37)
[2018-02-01] MEDS: LOPRESSOR PO SCH ×2 (13:07→21:36)
--- NOTE | 2018-02-01 13:50 | Progress Note ---
Assessment and Plan Assessment and plan: Acute respiratory failure - Patient extubated on 01/29 SIRS, with SHOCK and lactic acidosis - Patient empirically on IV antibiotics - BP is stable without pressors - Resolved Acute encephalopathy. - Resolved - Etiology secondary to SIRS - CT head is negative PE - Patient is on heparin drip - Patient was evaluated by hematology oncology and recommended Pradaxa 150 milligrams twice a day Paroxysmal A. fib with RVR, - controlled - Cardiology consulted - Patient is on amiodarone History of coronary artery disease status post CABG - MPI 06/2016: No ischemia, large fixed inferior and inferolateral wall defect consistent with old [place]. - LHC 07/2015: 4 patent bypass grafts. Small vessel disease recommended for medical therapy. AICD Hypertension. -Continue anti-hypertensive medication -Hyperlipidemia Acute on chronic Systolic CHF -Patient with history of ischemic cardiomyopathy, EF 20-25% by echo 12/2017 -Continue Lasix Deconditioning -Await physical therapy evaluation. Patient may need placement. History Interval history: 62-year-old -[place] woman with past medical history significant for CAD , diabetes mellitus, CHF with ejection fraction of 25%, hypertension brought to the emergency department after he was found lying at home by EMS. Patient was altered, hypotensive and hypothermic. He was intubated, placed on pressors, empiric IV antibiotics and admitted to ICU. Patient is extubated, doing better and hemodynamically stable. Patient was seen and worked with PT this morning. Hospitalist Physical - Constitutional Vitals: Temp Pulse Resp BP Pulse Ox 98.7 F 81 19 141/42 95 02/01/18 12:00 02/01/18 13:07 02/01/18 12:00 02/01/18 13:07 02/01/18 12:00 General appearance: Present: other (intubated on the vent) - EENT Eyes: Present: PERRL, EOM intact ENT: hearing intact, clear oral mucosa, dentition normal - Neck Neck: Present: supple, normal ROM - Respiratory Respiratory effort: normal Respiratory: bilateral: CTA - Cardiovascular Rhythm: regular Heart Sounds: Present: S1 & S2. Absent: gallop, rub - Extremities Extremities: no ischemia, No edema, Full ROM - Abdominal General gastrointestinal: soft, non-tender, non-distended, normal bowel sounds - Integumentary Integumentary: Present: clear, warm, dry - Neurologic Neurologic: CNII-XII intact, moves all extremities Results - Labs CBC & Chem 7: 01/31/18 05:55 01/29/18 12:15 Labs: Laboratory Last Values WBC 7.9 K/mm3 (4.5-11.0) 01/29/18 12:15 RBC 3.48 M/mm3 (3.65-5.03) L 01/29/18 12:15 Hgb 9.4 gm/dl (11.8-15.2) L 01/31/18 05:55 Hct 27.8 % (35.5-45.6) L 01/31/18 05:55 MCV 89 fl (84-94) 01/29/18 12:15 MCH 29 pg (28-32) 01/29/18 12:15 MCHC 32 % (32-34) 01/29/18 12:15 RDW 18.5 % (13.2-15.2) H 01/29/18 12:15 Plt Count 204 K/mm3 (140-440) 01/31/18 05:55 Lymph % (Auto) 8.7 % (13.4-35.0) L 01/29/18 12:15 Garfield % (Auto) 7.1 % (0.0-7.3) 01/29/18 12:15 Eos % (Auto) 1.5 % (0.0-4.3) 01/29/18 12:15 Baso % (Auto) 0.3 % (0.0-1.8) 01/29/18 12:15 Lymph # 0.7 K/mm3 (1.2-5.4) L 01/29/18 12:15 Garfield # 0.6 K/mm3 (0.0-0.8) 01/29/18 12:15 Eos # 0.1 K/mm3 (0.0-0.4) 01/29/18 12:15 Baso # 0.0 K/mm3 (0.0-0.1) 01/29/18 12:15 Seg Neutrophils % 82.4 % (40.0-70.0) H 01/29/18 12:15 Seg Neutrophils # 6.5 K/mm3 (1.8-7.7) 01/29/18 12:15 PT 14.2 Sec. (12.2-14.9) 01/25/18 19:27 INR 1.05 (0.87-1.13) 01/25/18 19:27 APTT 37.7 Sec. (24.2-36.6) H 01/25/18 19:27 Heparin Anti-Xa Level 0.55 U.I./ml (0.3-0.7) 02/01/18 06:05 POC ABG pH 7.424 (7.35-7.45) 01/29/18 14:25 POC ABG pCO2 37.7 (35-45) 01/29/18 14:25 POC ABG pO2 106 (80-105) H 01/29/18 14:25 POC ABG HCO3 24.7 01/29/18 14:25 POC ABG Total CO2 26 01/29/18 14:25 POC ABG O2 Sat 98 01/29/18 14:25 POC ABG Base Excess 0 01/29/18 14:25 VBG pH 7.275 (7.320-7.420) L 01/25/18 06:33 FiO2 30 % 01/29/18 14:25 Sodium 140 mmol/L (137-145) 01/29/18 12:15 Potassium 3.5 mmol/L (3.6-5.0) L 01/29/18 12:15 Chloride 104.5 mmol/L (98-107) 01/29/18 12:15 Carbon Dioxide 25 mmol/L (22-30) 01/29/18 12:15 Anion Gap 14 mmol/L 01/29/18 12:15 BUN 7 mg/dL (9-20) L 01/29/18 12:15 Creatinine 0.5 mg/dL (0.8-1.5) L 01/29/18 12:15 Estimated GFR > 60 ml/min 01/29/18 12:15 BUN/Creatinine Ratio 14 % 01/29/18 12:15 Glucose 135 mg/dL (75-100) H 01/29/18 12:15 POC Glucose 133 (70-105) H 02/01/18 12:17 Lactic Acid 1.80 mmol/L (0.7-2.0) 01/25/18 13:12 Calcium 8.3 mg/dL (8.4-10.2) L 01/29/18 12:15 Magnesium 1.70 mg/dL (1.7-2.3) 01/29/18 12:15 Iron 26 ug/dL (49-181) L 01/30/18 09:14 TIBC 192 mcg/dL (250-450) L 01/30/18 09:14 % Saturation 13.54 % 01/30/18 09:14 Transferrin 163 mg/dl (180-329) L 01/30/18 09:14 Ferritin 186.7 ng/mL (13.0-400.0) 01/30/18 09:14 Total Bilirubin 0.90 mg/dL (0.1-1.2) 01/26/18 08:23 AST 17 units/L (5-40) 01/26/18 08:23 ALT 12 units/L (7-56) 01/26/18 08:23 Alkaline Phosphatase 95 units/L (35-129) 01/26/18 08:23 Total Creatine Kinase 117 units/L (55-170) 01/30/18 22:56 CK-MB (CK-2) 2.4 ng/mL (0.0-4.0) 01/30/18 22:56 CK-MB (CK-2) Rel Index 2.0 (0-4) 01/30/18 22:56 Troponin T < 0.010 ng/mL (0.00-0.029) 01/31/18 00:01 NT-Pro-B Natriuret Pep 1979 pg/mL (0-900) H 01/25/18 07:35 Total Protein 5.7 g/dL (6.3-8.2) L 01/26/18 08:23 Albumin 2.9 g/dL (3.9-5) L 01/26/18 08:23 Albumin/Globulin Ratio 1.0 % 01/26/18 08:23 Vitamin B12 1738 pg/mL (211-911) H 01/30/18 09:14 Folate 10.94 ng/mL (7.3-26.0) 01/30/18 09:14 Urine Color Yellow (Yellow) 01/25/18 19:27 Urine Turbidity Clear (Clear) 01/25/18 19:27 Urine pH 5.0 (5.0-7.0) 01/25/18 19:27 Ur Specific Dixon 1.017 (1.003-1.030) 01/25/18 19:27 Urine Protein <15 mg/dl mg/dL (Negative) 01/25/18 19:27 Urine Glucose (UA) Neg mg/dL (Negative) 01/25/18 19:27 Urine Ketones Neg mg/dL (Negative) 01/25/18 19:27 Urine Blood Neg (Negative) 01/25/18 19:27 Urine Nitrite Neg (Negative) 01/25/18 19:27 Urine Bilirubin Neg (Negative) 01/25/18 19:27 Urine Urobilinogen < 2.0 mg/dL (<2.0) 01/25/18 19:27 Ur Leukocyte Esterase Neg (Negative) 01/25/18 19:27 Urine WBC (Auto) < 1.0 /HPF (0.0-6.0) 01/25/18 19:27 Urine RBC (Auto) < 1.0 /HPF (0.0-6.0) 01/25/18 19:27 Urine Mucus Few /HPF 01/25/18 19:27
[2018-02-01] MEDS: LANOXIN PO SCH (17:10)
--- NOTE | 2018-02-01 18:32 | Progress Note ---
Assessment and Plan Patient alert, awake. Resting on room air. No complaint of shortness of breath.Complaining non specific chest pains.Patients O2 saturation 95% on room air. No acute respiratory distress. - Patient Problems (1) Hypoxia Current Visit: Yes Status: Acute Plan to address problem: Improved. O2 saturation 95% on room air. (2) Pulmonary embolism Current Visit: Yes Status: Acute Qualifiers: Pulmonary embolism type: other Chronicity: acute Acute cor pulmonale presence: without acute cor pulmonale Qualified Code(s): I26.99 - Other pulmonary embolism without acute cor pulmonale Plan to address problem: Patient is on I/V heparin. (3) Hypotension Current Visit: Yes Status: Acute Qualifiers: Hypotension type: unspecified hypotension type Qualified Code(s): I95.9 - Hypotension, unspecified Plan to address problem: Improved . Recent blood pressure 106/73. (4) Altered mental status, unspecified Current Visit: Yes Status: Acute Qualifiers: Altered mental status type: unspecified Qualified Code(s): R41.82 - Altered mental status, unspecified Plan to address problem: Patient more alert and oriented. Management as per primary care. (5) CHF (congestive heart failure) Current Visit: Yes Status: Acute Qualifiers: Heart failure type: unspecified Heart failure chronicity: acute on chronic Qualified Code(s): I50.9 - Heart failure, unspecified Plan to address problem: Management as per primary care and Cardiology. (6) Atrial fibrillation Current Visit: Yes Status: Chronic Qualifiers: Atrial fibrillation type: chronic Qualified Code(s): I48.2 - Chronic atrial fibrillation Plan to address problem: Management as per primary care and cardiology. (7) ACS (acute coronary syndrome) Current Visit: No Status: Acute Plan to address problem: Management as per primary care and cardiology. Subjective Date of service: 02/01/18 Principal diagnosis: Acute Hypoxemic Resp Failure on MVS; Sepsis with Shock; A- fib with RVR; P.E Interval history: Patient alert, awake. Resting on room air. No complaint of shortness of breath.Complaining non specific chest pains.Patients O2 saturation 95% on room air. No acute respiratory distress. Objective Vital Signs - 12hr 02/01/18 02/01/18 02/01/18 06:42 06:46 08:00 Temperature 99.1 F Pulse Rate 101 H 92 H Pulse Rate [ 78 Radial] Respiratory 20 Rate Blood Pressure 135/60 135/54 Blood Pressure 135/60 [Left] O2 Sat by Pulse 97 99 Oximetry 02/01/18 02/01/18 02/01/18 10:00 11:11 12:00 Temperature 98.7 F Pulse Rate 76 85 Pulse Rate [ 88 Radial] Respiratory 19 Rate Blood Pressure 142/78 142/78 Blood Pressure [Left] O2 Sat by Pulse 97 95 Oximetry 02/01/18 02/01/18 02/01/18 13:07 16:00 17:10 Temperature 99.2 F Pulse Rate 81 96 H Pulse Rate [ 73 Radial] Respiratory 18 Rate Blood Pressure 141/42 138/62 106/73 Blood Pressure [Left] O2 Sat by Pulse 95 Oximetry Constitutional: no acute distress, alert, other ( CM; normocephalic and atraumatic without increased respiratory effort) Eyes: non-icteric ENT: oropharynx moist, other (on NC at 3L/min) Neck: supple, no JVD, other (No thyromegaly) Effort: normal Ascultation: Bilateral: diminished breath sounds, rhonchi (scant in bases) Percussion: Bilateral: not dull Cardiovascular: regular rate and rhythm, PVC's noted, other (No R/M) Gastrointestinal: normoactive bowel sounds, soft, non-tender, non-distended, other (No palpable HSM) Integumentary: other (multiple Tattoos) Extremities: no cyanosis, no edema, pulses normal, no ischemia or petechiae Neurologic: non-focal exam, pupils equal and round, motor strength normal and Psychiatric: mood appropriate, affect normal CBC and BMP: 01/31/18 05:55 01/29/18 12:15 ABG, PT/INR, D-dimer: ABG POC ABG pH 7.424 (7.35-7.45) 01/29/18 14:25 POC ABG pCO2 37.7 (35-45) 01/29/18 14:25 POC ABG pO2 106 (80-105) H 01/29/18 14:25 POC ABG HCO3 24.7 01/29/18 14:25 POC ABG Total CO2 26 01/29/18 14:25 POC ABG O2 Sat 98 01/29/18 14:25 PT/INR, D-dimer PT 14.2 Sec. (12.2-14.9) 01/25/18 19:27 INR 1.05 (0.87-1.13) 01/25/18 19:27 Abnormal lab findings: Abnormal Labs 01/25/18 01/25/18 01/25/18 06:15 06:15 06:15 RBC 3.54 L Hgb 10.2 L Hct 31.4 L RDW 18.2 H Lymph % (Auto) Wilkes % (Auto) 8.1 H Baso % (Auto) 2.3 H Lymph # Seg Neutrophils % PT 15.0 H APTT Heparin Anti-Xa Level POC ABG pH POC ABG pCO2 POC ABG pO2 VBG pH Potassium Chloride BUN Creatinine Glucose 148 H POC Glucose Lactic Acid Calcium 8.3 L Magnesium Iron TIBC Transferrin NT-Pro-B Natriuret Pep Total Protein Albumin 3.2 L Vitamin B12 01/25/18 01/25/18 01/25/18 06:33 07:35 07:35 RBC Hgb Hct RDW Lymph % (Auto) Wilkes % (Auto) Baso % (Auto) Lymph # Seg Neutrophils % PT APTT Heparin Anti-Xa Level POC ABG pH POC ABG pCO2 POC ABG pO2 VBG pH 7.275 L Potassium Chloride BUN Creatinine Glucose POC Glucose Lactic Acid 2.50 H* Calcium Magnesium Iron TIBC Transferrin NT-Pro-B Natriuret Pep 1979 H Total Protein Albumin Vitamin B12 01/25/18 01/25/18 01/25/18 08:43 13:12 19:27 RBC Hgb 9.7 L Hct 30.0 L RDW Lymph % (Auto) Wilkes % (Auto) Baso % (Auto) Lymph # Seg Neutrophils % PT APTT 37.7 H Heparin Anti-Xa Level POC ABG pH POC ABG pCO2 49.8 H POC ABG pO2 594 H VBG pH Potassium Chloride BUN Creatinine Glucose POC Glucose Lactic Acid Calcium Magnesium Iron TIBC Transferrin NT-Pro-B Natriuret Pep Total Protein Albumin Vitamin B12 01/25/18 01/25/18 01/25/18 19:27 22:00 23:18 RBC Hgb Hct RDW Lymph % (Auto) Wilkes % (Auto) Baso % (Auto) Lymph # Seg Neutrophils % PT APTT Heparin Anti-Xa Level 0.10 L 0.10 L POC ABG pH POC ABG pCO2 POC ABG pO2 VBG pH Potassium Chloride BUN Creatinine Glucose POC Glucose 118 H Lactic Acid Calcium Magnesium Iron TIBC Transferrin NT-Pro-B Natriuret Pep Total Protein Albumin Vitamin B12 01/26/18 01/26/18 01/26/18 04:43 05:30 08:23 RBC 3.31 L Hgb 9.7 L Hct 29.3 L RDW 18.2 H Lymph % (Auto) Wilkes % (Auto) 10.4 H Baso % (Auto) Lymph # Seg Neutrophils % PT APTT Heparin Anti-Xa Level 0.12 L POC ABG pH POC ABG pCO2 47.9 H POC ABG pO2 74 L VBG pH Potassium Chloride BUN Creatinine Glucose POC Glucose Lactic Acid Calcium Magnesium Iron TIBC Transferrin NT-Pro-B Natriuret Pep Total Protein Albumin Vitamin B12 01/26/18 01/26/18 01/26/18 08:23 13:19 16:33 RBC Hgb Hct RDW Lymph % (Auto) Wilkes % (Auto) Baso % (Auto) Lymph # Seg Neutrophils % PT APTT Heparin Anti-Xa Level 0.72 H POC ABG pH POC ABG pCO2 POC ABG pO2 VBG pH Potassium Chloride 107.2 H BUN 6 L Creatinine 0.7 L Glucose 113 H POC Glucose 142 H Lactic Acid Calcium 7.7 L Magnesium Iron TIBC Transferrin NT-Pro-B Natriuret Pep Total Protein 5.7 L Albumin 2.9 L Vitamin B12 01/26/18 01/26/18 01/26/18 17:15 17:28 23:34 RBC Hgb Hct RDW Lymph % (Auto) Wilkes % (Auto) Baso % (Auto) Lymph # Seg Neutrophils % PT APTT Heparin Anti-Xa Level 0.73 H POC ABG pH POC ABG pCO2 POC ABG pO2 VBG pH Potassium Chloride BUN Creatinine Glucose POC Glucose 118 H 108 H Lactic Acid Calcium Magnesium Iron TIBC Transferrin NT-Pro-B Natriuret Pep Total Protein Albumin Vitamin B12 01/27/18 01/27/18 01/27/18 06:00 06:00 06:00 RBC Hgb 9.6 L Hct 28.7 L RDW Lymph % (Auto) Wilkes % (Auto) Baso % (Auto) Lymph # Seg Neutrophils % PT APTT Heparin Anti-Xa Level POC ABG pH POC ABG pCO2 POC ABG pO2 VBG pH Potassium 3.1 L Chloride BUN 5 L Creatinine 0.7 L Glucose 108 H POC Glucose Lactic Acid Calcium 7.7 L Magnesium 1.40 L Iron TIBC Transferrin NT-Pro-B Natriuret Pep Total Protein Albumin Vitamin B12 01/27/18 01/28/18 01/28/18 06:02 04:24 04:40 RBC Hgb Hct RDW Lymph % (Auto) Wilkes % (Auto) Baso % (Auto) Lymph # Seg Neutrophils % PT APTT Heparin Anti-Xa Level POC ABG pH 7.328 L 7.315 L POC ABG pCO2 51.8 H 49.9 H POC ABG pO2 57 L 79 L VBG pH Potassium Chloride BUN Creatinine Glucose POC Glucose 125 H Lactic Acid Calcium Magnesium Iron TIBC Transferrin NT-Pro-B Natriuret Pep Total Protein Albumin Vitamin B12 01/28/18 01/28/18 01/29/18 16:30 18:18 00:14 RBC Hgb 9.6 L Hct 30.1 L RDW Lymph % (Auto) Wilkes % (Auto) Baso % (Auto) Lymph # Seg Neutrophils % PT APTT Heparin Anti-Xa Level POC ABG pH POC ABG pCO2 POC ABG pO2 VBG pH Potassium Chloride BUN Creatinine Glucose POC Glucose 107 H 109 H Lactic Acid Calcium Magnesium Iron TIBC Transferrin NT-Pro-B Natriuret Pep Total Protein Albumin Vitamin B12 01/29/18 01/29/18 01/29/18 04:25 04:45 12:15 RBC 3.48 L Hgb 9.0 L 10.0 L Hct 27.6 L 30.9 L RDW 18.5 H Lymph % (Auto) 8.7 L Wilkes % (Auto) Baso % (Auto) Lymph # 0.7 L Seg Neutrophils % 82.4 H PT APTT Heparin Anti-Xa Level POC ABG pH POC ABG pCO2 POC ABG pO2 76 L VBG pH Potassium Chloride BUN Creatinine Glucose POC Glucose Lactic Acid Calcium Magnesium Iron TIBC Transferrin NT-Pro-B Natriuret Pep Total Protein Albumin Vitamin B12 01/29/18 01/29/18 01/29/18 12:15 12:35 14:25 RBC Hgb Hct RDW Lymph % (Auto) Wilkes % (Auto) Baso % (Auto) Lymph # Seg Neutrophils % PT APTT Heparin Anti-Xa Level POC ABG pH POC ABG pCO2 POC ABG pO2 106 H VBG pH Potassium 3.5 L Chloride BUN 7 L Creatinine 0.5 L Glucose 135 H POC Glucose 136 H Lactic Acid Calcium 8.3 L Magnesium Iron TIBC Transferrin NT-Pro-B Natriuret Pep Total Protein Albumin Vitamin B12 01/29/18 01/30/18 01/30/18 18:32 07:59 09:14 RBC Hgb Hct RDW Lymph % (Auto) Wilkes % (Auto) Baso % (Auto) Lymph # Seg Neutrophils % PT APTT Heparin Anti-Xa Level POC ABG pH POC ABG pCO2 POC ABG pO2 VBG pH Potassium Chloride BUN Creatinine Glucose POC Glucose 106 H 119 H Lactic Acid Calcium Magnesium Iron 26 L TIBC 192 L Transferrin 163 L NT-Pro-B Natriuret Pep Total Protein Albumin Vitamin B12 01/30/18 01/30/18 01/30/18 09:14 12:21 17:32 RBC Hgb Hct RDW Lymph % (Auto) Wilkes % (Auto) Baso % (Auto) Lymph # Seg Neutrophils % PT APTT Heparin Anti-Xa Level POC ABG pH POC ABG pCO2 POC ABG pO2 VBG pH Potassium Chloride BUN Creatinine Glucose POC Glucose 113 H 110 H Lactic Acid Calcium Magnesium Iron TIBC Transferrin NT-Pro-B Natriuret Pep Total Protein Albumin Vitamin B12 1738 H 01/31/18 01/31/18 02/01/18 05:55 11:35 06:48 RBC Hgb 9.4 L Hct 27.8 L RDW Lymph % (Auto) Wilkes % (Auto) Baso % (Auto) Lymph # Seg Neutrophils % PT APTT Heparin Anti-Xa Level POC ABG pH POC ABG pCO2 POC ABG pO2 VBG pH Potassium Chloride BUN Creatinine Glucose POC Glucose 119 H 124 H Lactic Acid Calcium Magnesium Iron TIBC Transferrin NT-Pro-B Natriuret Pep Total Protein Albumin Vitamin B12 02/01/18 02/01/18 02/01/18 08:13 12:17 16:52 RBC Hgb Hct RDW Lymph % (Auto) Wilkes % (Auto) Baso % (Auto) Lymph # Seg Neutrophils % PT APTT Heparin Anti-Xa Level POC ABG pH POC ABG pCO2 POC ABG pO2 VBG pH Potassium Chloride BUN Creatinine Glucose POC Glucose 126 H 133 H 114 H Lactic Acid Calcium Magnesium Iron TIBC Transferrin NT-Pro-B Natriuret Pep Total Protein Albumin Vitamin B12 Chest x-ray: report reviewed (Mild central pulmonary congestion.), image reviewed Allied health notes reviewed: nursing
[2018-02-02] MEDS: HEPARIN/ 0.45% NACL-25,000 UNIT/500 ML 25,000 UNIT/500 ML BAG IV SCH (00:58)
[2018-02-02] MEDS ORDERED: MORPHINE IV ONE ×2 (04:24→15:34)
[2018-02-02 06:02] LABS: Hematocrit 27.7 % (35.5-45.6); Hemoglobin 9.3 gm/dl (11.8-15.2)
[2018-02-02] MEDS: LOPRESSOR PO SCH ×3 (06:58→21:45)
--- NOTE | 2018-02-02 08:26 | Hem/Onc Progress Note ---
Assessment and Plan Patient can be switched to Pradaxa 150 milligrams twice a day once he is able to take by mouth safely. Doppler of the lower extremities did not show any DVT. Patient is already supposed to be on Pradaxa at home for cardiac purposes but was not taking it at the recommended dose. If patient has continued thrombosis on therapeutic Pradaxa dose, may need to switch agents at that time Since he is improved, possible discontinuation of heparin and starting Pradaxa. I have told the patient that he needs to be on 150 milligrams twice a day dose unless bleeding Subjective Date of service: 02/02/18 Interval history: Patient still on heparin drip.no Active bleeding. Objective - Constitutional Vitals: Last Vital Signs Temp 98.7 F 02/02/18 08:00 Pulse 94 H 02/02/18 08:00 Resp 21 02/02/18 08:00 BP 138/59 02/02/18 08:00 Pulse Ox 100 02/02/18 08:00 Pain Intensity (0-10): denies any pain General appearance: no acute distress Performance status: 3-limited selfcare - Neck Neck: supple Extremities: No edema - Gastrointestinal General gastrointestinal: Present: soft - Labs Lab Results: Laboratory Results - last 24 hr 02/01/18 02/01/18 02/01/18 08:13 12:17 16:52 Hgb Hct Plt Count Heparin Anti-Xa Level POC Glucose 126 H 133 H 114 H 02/01/18 02/02/18 02/02/18 23:14 04:59 04:59 Hgb 9.3 L Hct 27.7 L Plt Count 159 Heparin Anti-Xa Level 0.33 POC Glucose 136 H 02/02/18 05:38 Hgb Hct Plt Count Heparin Anti-Xa Level POC Glucose 139 H
--- NOTE | 2018-02-02 08:43 | Progress Note ---
Assessment and Plan Altered mental status Acute Respiratory failure Acute PE Hx of CAD s/p CABG MPI 06/2016: No ischemia, large fixed inferior and inferolateral wall defect consistent with old [place]. LHC 07/2015: 4 patent bypass grafts. Small vessel disease recommended for medical therapy. Hx of Ischemic cardiomyopathy EF 20-25% by echo 12/2017 AICD (Authentic [employer]) Persistent atrial fibrillation rate control anticoagulated with pradaxa as an outpatient. HTN HLP Continue optimal rate controlling agents for atrial fibrillation that persists. Medical therapy for small vessel coronary artery disease when able to tolerate. Subjective Date of service: 02/02/18 Principal diagnosis: Acute Hypoxemic Resp Failure on MVS; Sepsis with Shock; A- fib with RVR; P.E Interval history: Afib with a well controlled ventricular rate on telemetry. Objective Vital Signs Temp Pulse Pulse Resp BP BP Pulse Ox 02/02/18 08:00 98.7 F 94 H 21 138/59 100 02/02/18 07:57 98.7 F 64 23 138/59 100 02/02/18 06:58 77 146/83 02/02/18 03:58 98.7 F 73 22 107/69 99 02/02/18 03:53 100 02/02/18 00:00 98.7 F 72 21 122/60 100 02/01/18 22:00 76 02/01/18 21:41 98 02/01/18 21:36 82 137/76 02/01/18 20:00 99.0 F 76 22 138/73 100 02/01/18 17:10 96 H 106/73 02/01/18 16:00 99.2 F 73 18 138/62 95 02/01/18 13:07 81 141/42 02/01/18 12:00 98.7 F 88 19 142/78 95 02/01/18 11:11 85 142/78 02/01/18 10:00 76 97 - Physical Examination General: No Apparent Distress HEENT: Positive: PERRL Cardiac: Positive: irregularly irregular Lungs: Positive: Decreased Breath Sounds Neuro: Positive: Grossly Intact, Weakness Extremities: Absent: edema - Labs and Meds CBC 02/02/18 Range/Units 04:59 Hgb 9.3 L (11.8-15.2) gm/dl Hct 27.7 L (35.5-45.6) % Plt Count 159 (140-440) K/mm3 - Allied health notes Allied health notes reviewed: nursing
[2018-02-02] MEDS: LASIX IV SCH (09:15)
[2018-02-02] MEDS: PEPCID PO SCH ×2 (09:15→21:46)
[2018-02-02] MEDS: CORDARONE PO SCH ×2 (09:15→21:46)
--- NOTE | 2018-02-02 13:54 | Progress Note ---
Assessment and Plan Patient alert, awake. Resting on room air. No complaint of shortness of breath.Patient still complaining chest pain..Patients O2 saturation 97% on room air. No acute respiratory distress - Patient Problems (1) Hypoxia Current Visit: Yes Status: Acute Plan to address problem: Improved. O2 saturation 97% on room air. (2) Pulmonary embolism Current Visit: Yes Status: Acute Qualifiers: Pulmonary embolism type: other Chronicity: acute Acute cor pulmonale presence: without acute cor pulmonale Qualified Code(s): I26.99 - Other pulmonary embolism without acute cor pulmonale Plan to address problem: Patient is on I/V heparin. (3) Hypotension Current Visit: Yes Status: Acute Qualifiers: Hypotension type: unspecified hypotension type Qualified Code(s): I95.9 - Hypotension, unspecified Plan to address problem: Improved . Recent blood pressure 137/79. (4) Altered mental status, unspecified Current Visit: Yes Status: Acute Qualifiers: Altered mental status type: unspecified Qualified Code(s): R41.82 - Altered mental status, unspecified Plan to address problem: Patient more alert and oriented. Management as per primary care. (5) CHF (congestive heart failure) Current Visit: Yes Status: Acute Qualifiers: Heart failure type: unspecified Heart failure chronicity: acute on chronic Qualified Code(s): I50.9 - Heart failure, unspecified Plan to address problem: Management as per primary care and Cardiology. (6) Atrial fibrillation Current Visit: Yes Status: Chronic Qualifiers: Atrial fibrillation type: chronic Qualified Code(s): I48.2 - Chronic atrial fibrillation Plan to address problem: Management as per primary care and cardiology. (7) ACS (acute coronary syndrome) Current Visit: No Status: Acute Plan to address problem: Management as per primary care and cardiology. Subjective Date of service: 02/02/18 Principal diagnosis: Acute Hypoxemic Resp Failure on MVS; Sepsis with Shock; A- fib with RVR; P.E Interval history: Patient alert, awake. Resting on room air. No complaint of shortness of breath.Patient still complaining chest pain..Patients O2 saturation 97% on room air. No acute respiratory distress. Objective Vital Signs - 12hr 02/02/18 02/02/18 02/02/18 03:53 03:58 06:58 Temperature 98.7 F Pulse Rate 77 Pulse Rate [ 73 Radial] Respiratory 22 Rate Blood Pressure 107/69 146/83 Blood Pressure [Left] O2 Sat by Pulse 100 99 Oximetry 02/02/18 02/02/18 02/02/18 07:57 08:00 10:00 Temperature 98.7 F 98.7 F Pulse Rate 64 71 Pulse Rate [ 94 H Radial] Respiratory 23 21 Rate Blood Pressure 138/59 Blood Pressure 138/59 [Left] O2 Sat by Pulse 100 100 Oximetry 02/02/18 02/02/18 12:00 13:33 Temperature 99.3 F Pulse Rate 72 Pulse Rate [ 76 Radial] Respiratory 20 Rate Blood Pressure 113/71 137/79 Blood Pressure [Left] O2 Sat by Pulse 97 Oximetry Constitutional: no acute distress, alert, other ( CM; normocephalic and atraumatic without increased respiratory effort) Eyes: non-icteric ENT: oropharynx moist, other (on NC at 3L/min) Neck: supple, no JVD, other (No thyromegaly) Effort: normal Ascultation: Bilateral: diminished breath sounds, rhonchi (scant in bases) Percussion: Bilateral: not dull Cardiovascular: regular rate and rhythm, PVC's noted, other (No R/M) Gastrointestinal: normoactive bowel sounds, soft, non-tender, non-distended, other (No palpable HSM) Integumentary: other (multiple Tattoos) Extremities: no cyanosis, no edema, pulses normal, no ischemia or petechiae Neurologic: non-focal exam, pupils equal and round, motor strength normal and Psychiatric: mood appropriate, affect normal CBC and BMP: 02/02/18 04:59 01/29/18 12:15 ABG, PT/INR, D-dimer: ABG POC ABG pH 7.424 (7.35-7.45) 01/29/18 14:25 POC ABG pCO2 37.7 (35-45) 01/29/18 14:25 POC ABG pO2 106 (80-105) H 01/29/18 14:25 POC ABG HCO3 24.7 01/29/18 14:25 POC ABG Total CO2 26 01/29/18 14:25 POC ABG O2 Sat 98 01/29/18 14:25 PT/INR, D-dimer PT 14.2 Sec. (12.2-14.9) 01/25/18 19:27 INR 1.05 (0.87-1.13) 01/25/18 19:27 Abnormal lab findings: Abnormal Labs 01/25/18 01/25/18 01/25/18 06:15 06:15 06:15 RBC 3.54 L Hgb 10.2 L Hct 31.4 L RDW 18.2 H Lymph % (Auto) [place] % (Auto) 8.1 H Baso % (Auto) 2.3 H Lymph # Seg Neutrophils % PT 15.0 H APTT Heparin Anti-Xa Level POC ABG pH POC ABG pCO2 POC ABG pO2 VBG pH Potassium Chloride BUN Creatinine Glucose 148 H POC Glucose Lactic Acid Calcium 8.3 L Magnesium Iron TIBC Transferrin NT-Pro-B Natriuret Pep Total Protein Albumin 3.2 L Vitamin B12 01/25/18 01/25/18 01/25/18 06:33 07:35 07:35 RBC Hgb Hct RDW Lymph % (Auto) [place] % (Auto) Baso % (Auto) Lymph # Seg Neutrophils % PT APTT Heparin Anti-Xa Level POC ABG pH POC ABG pCO2 POC ABG pO2 VBG pH 7.275 L Potassium Chloride BUN Creatinine Glucose POC Glucose Lactic Acid 2.50 H* Calcium Magnesium Iron TIBC Transferrin NT-Pro-B Natriuret Pep 1979 H Total Protein Albumin Vitamin B12 01/25/18 01/25/18 01/25/18 08:43 13:12 19:27 RBC Hgb 9.7 L Hct 30.0 L RDW Lymph % (Auto) [place] % (Auto) Baso % (Auto) Lymph # Seg Neutrophils % PT APTT 37.7 H Heparin Anti-Xa Level POC ABG pH POC ABG pCO2 49.8 H POC ABG pO2 594 H VBG pH Potassium Chloride BUN Creatinine Glucose POC Glucose Lactic Acid Calcium Magnesium Iron TIBC Transferrin NT-Pro-B Natriuret Pep Total Protein Albumin Vitamin B12 01/25/18 01/25/18 01/25/18 19:27 22:00 23:18 RBC Hgb Hct RDW Lymph % (Auto) [place] % (Auto) Baso % (Auto) Lymph # Seg Neutrophils % PT APTT Heparin Anti-Xa Level 0.10 L 0.10 L POC ABG pH POC ABG pCO2 POC ABG pO2 VBG pH Potassium Chloride BUN Creatinine Glucose POC Glucose 118 H Lactic Acid Calcium Magnesium Iron TIBC Transferrin NT-Pro-B Natriuret Pep Total Protein Albumin Vitamin B12 01/26/18 01/26/18 01/26/18 04:43 05:30 08:23 RBC 3.31 L Hgb 9.7 L Hct 29.3 L RDW 18.2 H Lymph % (Auto) [place] % (Auto) 10.4 H Baso % (Auto) Lymph # Seg Neutrophils % PT APTT Heparin Anti-Xa Level 0.12 L POC ABG pH POC ABG pCO2 47.9 H POC ABG pO2 74 L VBG pH Potassium Chloride BUN Creatinine Glucose POC Glucose Lactic Acid Calcium Magnesium Iron TIBC Transferrin NT-Pro-B Natriuret Pep Total Protein Albumin Vitamin B12 01/26/18 01/26/18 01/26/18 08:23 13:19 16:33 RBC Hgb Hct RDW Lymph % (Auto) [place] % (Auto) Baso % (Auto) Lymph # Seg Neutrophils % PT APTT Heparin Anti-Xa Level 0.72 H POC ABG pH POC ABG pCO2 POC ABG pO2 VBG pH Potassium Chloride 107.2 H BUN 6 L Creatinine 0.7 L Glucose 113 H POC Glucose 142 H Lactic Acid Calcium 7.7 L Magnesium Iron TIBC Transferrin NT-Pro-B Natriuret Pep Total Protein 5.7 L Albumin 2.9 L Vitamin B12 01/26/18 01/26/18 01/26/18 17:15 17:28 23:34 RBC Hgb Hct RDW Lymph % (Auto) [place] % (Auto) Baso % (Auto) Lymph # Seg Neutrophils % PT APTT Heparin Anti-Xa Level 0.73 H POC ABG pH POC ABG pCO2 POC ABG pO2 VBG pH Potassium Chloride BUN Creatinine Glucose POC Glucose 118 H 108 H Lactic Acid Calcium Magnesium Iron TIBC Transferrin NT-Pro-B Natriuret Pep Total Protein Albumin Vitamin B12 01/27/18 01/27/18 01/27/18 06:00 06:00 06:00 RBC Hgb 9.6 L Hct 28.7 L RDW Lymph % (Auto) [place] % (Auto) Baso % (Auto) Lymph # Seg Neutrophils % PT APTT Heparin Anti-Xa Level POC ABG pH POC ABG pCO2 POC ABG pO2 VBG pH Potassium 3.1 L Chloride BUN 5 L Creatinine 0.7 L Glucose 108 H POC Glucose Lactic Acid Calcium 7.7 L Magnesium 1.40 L Iron TIBC Transferrin NT-Pro-B Natriuret Pep Total Protein Albumin Vitamin B12 01/27/18 01/28/18 01/28/18 06:02 04:24 04:40 RBC Hgb Hct RDW Lymph % (Auto) [place] % (Auto) Baso % (Auto) Lymph # Seg Neutrophils % PT APTT Heparin Anti-Xa Level POC ABG pH 7.328 L 7.315 L POC ABG pCO2 51.8 H 49.9 H POC ABG pO2 57 L 79 L VBG pH Potassium Chloride BUN Creatinine Glucose POC Glucose 125 H Lactic Acid Calcium Magnesium Iron TIBC Transferrin NT-Pro-B Natriuret Pep Total Protein Albumin Vitamin B12 01/28/18 01/28/18 01/29/18 16:30 18:18 00:14 RBC Hgb 9.6 L Hct 30.1 L RDW Lymph % (Auto) [place] % (Auto) Baso % (Auto) Lymph # Seg Neutrophils % PT APTT Heparin Anti-Xa Level POC ABG pH POC ABG pCO2 POC ABG pO2 VBG pH Potassium Chloride BUN Creatinine Glucose POC Glucose 107 H 109 H Lactic Acid Calcium Magnesium Iron TIBC Transferrin NT-Pro-B Natriuret Pep Total Protein Albumin Vitamin B12 01/29/18 01/29/18 01/29/18 04:25 04:45 12:15 RBC 3.48 L Hgb 9.0 L 10.0 L Hct 27.6 L 30.9 L RDW 18.5 H Lymph % (Auto) 8.7 L [place] % (Auto) Baso % (Auto) Lymph # 0.7 L Seg Neutrophils % 82.4 H PT APTT Heparin Anti-Xa Level POC ABG pH POC ABG pCO2 POC ABG pO2 76 L VBG pH Potassium Chloride BUN Creatinine Glucose POC Glucose Lactic Acid Calcium Magnesium Iron TIBC Transferrin NT-Pro-B Natriuret Pep Total Protein Albumin Vitamin B12 01/29/18 01/29/18 01/29/18 12:15 12:35 14:25 RBC Hgb Hct RDW Lymph % (Auto) [place] % (Auto) Baso % (Auto) Lymph # Seg Neutrophils % PT APTT Heparin Anti-Xa Level POC ABG pH POC ABG pCO2 POC ABG pO2 106 H VBG pH Potassium 3.5 L Chloride BUN 7 L Creatinine 0.5 L Glucose 135 H POC Glucose 136 H Lactic Acid Calcium 8.3 L Magnesium Iron TIBC Transferrin NT-Pro-B Natriuret Pep Total Protein Albumin Vitamin B12 01/29/18 01/30/18 01/30/18 18:32 07:59 09:14 RBC Hgb Hct RDW Lymph % (Auto) [place] % (Auto) Baso % (Auto) Lymph # Seg Neutrophils % PT APTT Heparin Anti-Xa Level POC ABG pH POC ABG pCO2 POC ABG pO2 VBG pH Potassium Chloride BUN Creatinine Glucose POC Glucose 106 H 119 H Lactic Acid Calcium Magnesium Iron 26 L TIBC 192 L Transferrin 163 L NT-Pro-B Natriuret Pep Total Protein Albumin Vitamin B12 01/30/18 01/30/18 01/30/18 09:14 12:21 17:32 RBC Hgb Hct RDW Lymph % (Auto) [place] % (Auto) Baso % (Auto) Lymph # Seg Neutrophils % PT APTT Heparin Anti-Xa Level POC ABG pH POC ABG pCO2 POC ABG pO2 VBG pH Potassium Chloride BUN Creatinine Glucose POC Glucose 113 H 110 H Lactic Acid Calcium Magnesium Iron TIBC Transferrin NT-Pro-B Natriuret Pep Total Protein Albumin Vitamin B12 1738 H 01/31/18 01/31/18 02/01/18 05:55 11:35 06:48 RBC Hgb 9.4 L Hct 27.8 L RDW Lymph % (Auto) [place] % (Auto) Baso % (Auto) Lymph # Seg Neutrophils % PT APTT Heparin Anti-Xa Level POC ABG pH POC ABG pCO2 POC ABG pO2 VBG pH Potassium Chloride BUN Creatinine Glucose POC Glucose 119 H 124 H Lactic Acid Calcium Magnesium Iron TIBC Transferrin NT-Pro-B Natriuret Pep Total Protein Albumin Vitamin B12 02/01/18 02/01/18 02/01/18 08:13 12:17 16:52 RBC Hgb Hct RDW Lymph % (Auto) [place] % (Auto) Baso % (Auto) Lymph # Seg Neutrophils % PT APTT Heparin Anti-Xa Level POC ABG pH POC ABG pCO2 POC ABG pO2 VBG pH Potassium Chloride BUN Creatinine Glucose POC Glucose 126 H 133 H 114 H Lactic Acid Calcium Magnesium Iron TIBC Transferrin NT-Pro-B Natriuret Pep Total Protein Albumin Vitamin B12 02/01/18 02/02/18 02/02/18 23:14 04:59 05:38 RBC Hgb 9.3 L Hct 27.7 L RDW Lymph % (Auto) [place] % (Auto) Baso % (Auto) Lymph # Seg Neutrophils % PT APTT Heparin Anti-Xa Level POC ABG pH POC ABG pCO2 POC ABG pO2 VBG pH Potassium Chloride BUN Creatinine Glucose POC Glucose 136 H 139 H Lactic Acid Calcium Magnesium Iron TIBC Transferrin NT-Pro-B Natriuret Pep Total Protein Albumin Vitamin B12 02/02/18 11:56 RBC Hgb Hct RDW Lymph % (Auto) [place] % (Auto) Baso % (Auto) Lymph # Seg Neutrophils % PT APTT Heparin Anti-Xa Level POC ABG pH POC ABG pCO2 POC ABG pO2 VBG pH Potassium Chloride BUN Creatinine Glucose POC Glucose 145 H Lactic Acid Calcium Magnesium Iron TIBC Transferrin NT-Pro-B Natriuret Pep Total Protein Albumin Vitamin B12 Allied health notes reviewed: nursing
--- NOTE | 2018-02-02 14:40 | Progress Note ---
Assessment and Plan Assessment and plan: Acute respiratory failure - Patient extubated on 01/29 Sepsis - Resolved Acute toxic encephalopathy. - Resolved - Etiology secondary to Sepsis - CT head is negative PE - Patient is on heparin drip - Patient was evaluated by hematology oncology and recommended Pradaxa 150 milligrams twice a day Paroxysmal A. fib with RVR, - controlled - Cardiology following - heparin drip d/cd. Start pradaxa - Patient is on amiodarone History of coronary artery disease status post CABG - MPI 06/2016: No ischemia, large fixed inferior and inferolateral wall defect consistent with old [place]. - LHC 07/2015: 4 patent bypass grafts. Small vessel disease recommended for medical therapy. AICD Hypertension. -Continue anti-hypertensive medication -Hyperlipidemia Acute on chronic Systolic CHF -Patient with history of ischemic cardiomyopathy, EF 20-25% by echo 12/2017 -Continue Lasix Agitation. -Xanax x 1 Deconditioning -Await physical therapy evaluation. Patient may need placement. History Interval history: 62-year-old -[place]ish woman with past medical history significant for CAD , diabetes mellitus, CHF with ejection fraction of 25%, hypertension brought to the emergency department after he was found lying at home by EMS. Patient was altered, hypotensive and hypothermic. He was intubated, placed on pressors, empiric IV antibiotics and admitted to ICU. Patient is extubated, doing better and hemodynamically stable. Patient states that he wants morphine to help him rest per Nurse Hospitalist Physical - Constitutional Vitals: Temp Pulse Resp BP Pulse Ox 99.3 F 72 20 137/79 97 02/02/18 12:00 02/02/18 13:33 02/02/18 12:00 02/02/18 13:33 02/02/18 12:00 General appearance: Present: other (intubated on the vent) - EENT Eyes: Present: PERRL, EOM intact ENT: hearing intact, clear oral mucosa, dentition normal - Neck Neck: Present: supple, normal ROM - Respiratory Respiratory effort: normal Respiratory: bilateral: CTA - Cardiovascular Rhythm: regular Heart Sounds: Present: S1 & S2. Absent: gallop, rub - Extremities Extremities: no ischemia, No edema, Full ROM - Abdominal General gastrointestinal: soft, non-tender, non-distended, normal bowel sounds - Integumentary Integumentary: Present: clear, warm, dry - Neurologic Neurologic: CNII-XII intact, moves all extremities Results - Labs CBC & Chem 7: 02/02/18 04:59 01/29/18 12:15 Labs: Laboratory Last Values WBC 7.9 K/mm3 (4.5-11.0) 01/29/18 12:15 RBC 3.48 M/mm3 (3.65-5.03) L 01/29/18 12:15 Hgb 9.3 gm/dl (11.8-15.2) L 02/02/18 04:59 Hct 27.7 % (35.5-45.6) L 02/02/18 04:59 MCV 89 fl (84-94) 01/29/18 12:15 MCH 29 pg (28-32) 01/29/18 12:15 MCHC 32 % (32-34) 01/29/18 12:15 RDW 18.5 % (13.2-15.2) H 01/29/18 12:15 Plt Count 159 K/mm3 (140-440) 02/02/18 04:59 Lymph % (Auto) 8.7 % (13.4-35.0) L 01/29/18 12:15 [place] % (Auto) 7.1 % (0.0-7.3) 01/29/18 12:15 Eos % (Auto) 1.5 % (0.0-4.3) 01/29/18 12:15 Baso % (Auto) 0.3 % (0.0-1.8) 01/29/18 12:15 Lymph # 0.7 K/mm3 (1.2-5.4) L 01/29/18 12:15 [place] # 0.6 K/mm3 (0.0-0.8) 01/29/18 12:15 Eos # 0.1 K/mm3 (0.0-0.4) 01/29/18 12:15 Baso # 0.0 K/mm3 (0.0-0.1) 01/29/18 12:15 Seg Neutrophils % 82.4 % (40.0-70.0) H 01/29/18 12:15 Seg Neutrophils # 6.5 K/mm3 (1.8-7.7) 01/29/18 12:15 PT 14.2 Sec. (12.2-14.9) 01/25/18 19: INR 1.05 (0.87-1.13) 01/25/18 19:27 APTT 37.7 Sec. (24.2-36.6) H 01/25/18 19:27 Heparin Anti-Xa Level 0.33 U.I./ml (0.3-0.7) 02/02/18 04:59 POC ABG pH 7.424 (7.35-7.45) 01/29/18 14:25 POC ABG pCO2 37.7 (35-45) 01/29/18 14:25 POC ABG pO2 106 (80-105) H 01/29/18 14:25 POC ABG HCO3 24.7 01/29/18 14:25 POC ABG Total CO2 26 01/29/18 14:25 POC ABG O2 Sat 98 01/29/18 14:25 POC ABG Base Excess 0 01/29/18 14:25 VBG pH 7.275 (7.320-7.420) L 01/25/18 06:33 FiO2 30 % 01/29/18 14:25 Sodium 140 mmol/L (137-145) 01/29/18 12:15 Potassium 3.5 mmol/L (3.6-5.0) L 01/29/18 12:15 Chloride 104.5 mmol/L (98-107) 01/29/18 12:15 Carbon Dioxide 25 mmol/L (22-30) 01/29/18 12:15 Anion Gap 14 mmol/L 01/29/18 12:15 BUN 7 mg/dL (9-20) L 01/29/18 12:15 Creatinine 0.5 mg/dL (0.8-1.5) L 01/29/18 12:15 Estimated GFR > 60 ml/min 01/29/18 12:15 BUN/Creatinine Ratio 14 % 01/29/18 12:15 Glucose 135 mg/dL (75-100) H 01/29/18 12:15 POC Glucose 145 (70-105) H 02/02/18 11:56 Lactic Acid 1.80 mmol/L (0.7-2.0) 01/25/18 13:12 Calcium 8.3 mg/dL (8.4-10.2) L 01/29/18 12:15 Magnesium 1.70 mg/dL (1.7-2.3) 01/29/18 12:15 Iron 26 ug/dL (49-181) L 01/30/18 09:14 TIBC 192 mcg/dL (250-450) L 01/30/18 09:14 % Saturation 13.54 % 01/30/18 09:14 Transferrin 163 mg/dl (180-329) L 01/30/18 09:14 Ferritin 186.7 ng/mL (13.0-400.0) 01/30/18 09:14 Total Bilirubin 0.90 mg/dL (0.1-1.2) 01/26/18 08:23 AST 17 units/L (5-40) 01/26/18 08:23 ALT 12 units/L (7-56) 01/26/18 08:23 Alkaline Phosphatase 95 units/L (35-129) 01/26/18 08:23 Total Creatine Kinase 117 units/L (55-170) 01/30/18 22:56 CK-MB (CK-2) 2.4 ng/mL (0.0-4.0) 01/30/18 22:56 CK-MB (CK-2) Rel Index 2.0 (0-4) 01/30/18 22:56 Troponin T < 0.010 ng/mL (0.00-0.029) 01/31/18 00:01 NT-Pro-B Natriuret Pep 1979 pg/mL (0-900) H 01/25/18 07:35 Total Protein 5.7 g/dL (6.3-8.2) L 01/26/18 08:23 Albumin 2.9 g/dL (3.9-5) L 01/26/18 08:23 Albumin/Globulin Ratio 1.0 % 01/26/18 08:23 Vitamin B12 1738 pg/mL (211-911) H 01/30/18 09:14 Folate 10.94 ng/mL (7.3-26.0) 01/30/18 09:14 Urine Color Yellow (Yellow) 01/25/18 19:27 Urine Turbidity Clear (Clear) 01/25/18 19:27 Urine pH 5.0 (5.0-7.0) 01/25/18 19:27 Ur Specific [place] 1.017 (1.003-1.030) 01/25/18 19:27 Urine Protein <15 mg/dl mg/dL (Negative) 01/25/18 19:27 Urine Glucose (UA) Neg mg/dL (Negative) 01/25/18 19:27 Urine Ketones Neg mg/dL (Negative) 01/25/18 19:27 Urine Blood Neg (Negative) 01/25/18 19: Urine Nitrite Neg (Negative) 01/25/18 19: Urine Bilirubin Neg (Negative) 01/25/18 19:27 Urine Urobilinogen < 2.0 mg/dL (<2.0) 01/25/18 19:27 Ur Leukocyte Esterase Neg (Negative) 01/25/18 19:27 Urine WBC (Auto) < 1.0 /HPF (0.0-6.0) 01/25/18 19:27 Urine RBC (Auto) < 1.0 /HPF (0.0-6.0) 01/25/18 19: Urine Mucus Few /HPF 01/25/18 19:27
[2018-02-02] MEDS ORDERED: XANAX PO PRN (14:56)
[2018-02-02] MEDS: LANOXIN PO SCH (17:10)
[2018-02-02] MEDS: PRADAXA PO SCH (21:45)
[2018-02-03] MEDS: LOPRESSOR PO SCH (05:52)
[2018-02-03 05:53] LABS: Basophils # (Auto) 0.1 K/mm3 (0.0-0.1); Basophils % (Auto) 1.2 % (0.0-1.8); Hematocrit 29.7 % (35.5-45.6); Hemoglobin 9.8 gm/dl (11.8-15.2); Lymphocytes # (Auto) 0.8 K/mm3 (1.2-5.4); Lymphocytes % (Auto) 18.5 % (13.4-35.0); Mean Corpuscular HGB Conc 33 % (32-34); Mean Corpuscular Hemoglobin 29 pg (28-32); Mean Corpuscular Volume 88 fl (84-94); Monocytes # (Auto) 0.5 K/mm3 (0.0-0.8); Monocytes % (Auto) 10.3 % (0.0-7.3); Platelet Count 197 K/mm3 (140-440); Red Blood Count 3.38 M/mm3 (3.65-5.03); Red Cell Distribution Width 18.8 % (13.2-15.2)
[2018-02-03 06:15] LABS: BUN/Creatinine Ratio 12; Blood Urea Nitrogen 6 mg/dL (9-20); Calcium 8.7 mg/dL (8.4-10.2); Hemolysis Index 1
[2018-02-03] MEDS: PEPCID PO SCH (09:23)
[2018-02-03] MEDS: LASIX IV SCH (09:23)
[2018-02-03] MEDS: CORDARONE PO SCH (09:23)
--- NOTE | 2018-02-03 10:07 | Discharge Summary ---
Providers - Providers Date of Admission: 01/25/18 10:24 Date of discharge: 02/03/18 Attending physician: TANIA RUSSELL 01/25/18 07:54 Consult to Dietitian/Nutrition [CONS] Routine Physician Instructions: Reason For Exam: Reason for Consult: Evaluate nutritional intake 01/25/18 09:08 Speech Therapy Evaluation and Treat [CONS] Routine Reason For Exam: FAILED SWALLOW SCREEN 01/25/18 11:22 Consult to Physician [CONS] Routine Comment: Consulting Provider: RENÉ RIVERA Physician Instructions: Reason For Exam: history of CHF, hypotension 01/26/18 08:58 Consult to Physician [CONS] Routine Comment: Consulting Provider: DELLA OLEA Physician Instructions: Reason For Exam: Acute Respiratory Failure 01/27/18 14:52 Consult to Dietitian/Nutrition [CONS] Routine Physician Instructions: Reason For Exam: Reason for Consult: Write/Manage Tube Feeding 01/29/18 12:15 Consult to Physician [CONS] Routine Comment: Consulting Provider: RENEE SANTANA Physician Instructions: Reason For Exam: acute P.E. 01/29/18 18:37 Occupational Therapy Evaluate and Treat [CONS] Routine Comment: Reason For Exam: Debility Physical Therapy Evaluation and Treat [CONS] Routine Comment: Reason For Exam: Debility Speech Therapy Evaluation and Treat [CONS] Routine Reason For Exam: altered mental status Primary care physician: OFFSHORE DIVER Hospitalization Reason for admission: resp failure Condition: Critical Hospital course: 62-year-old -[place] woman with past medical history significant for CAD , diabetes mellitus, CHF with ejection fraction of 25%, hypertension brought to the emergency department after he was found lying at home by EMS. Patient was altered, hypotensive and hypothermic. He was intubated and placed on pressors, IV antibiotics and admitted to ICU. The pt was dx with Acute respiratory failure secondary to septic shock and PE. Studies revealed Non occlusive right lower lobe PE. Pt also had toxic met encephalopathy. Other complications during the stay included AE COPD and A fib with RVR. PT initially received heparin then later changed to Pradaxa at d/c. Pt was seen by Cardiology, Pulmonology and Heme. Pt evaluated pt and recommended HH PT. D/C time 32 min Disposition: - TO HOME OR SELFCARE Time spent for discharge: 32 - Discharge Diagnoses (1) Altered mental status, unspecified Status: Acute Qualifiers: Altered mental status type: unspecified Qualified Code(s): R41.82 - Altered mental status, unspecified (2) Hypoxia Status: Acute (3) Pulmonary embolism Status: Acute Qualifiers: Pulmonary embolism type: other Chronicity: acute Acute cor pulmonale presence: without acute cor pulmonale Qualified Code(s): I26.99 - Other pulmonary embolism without acute cor pulmonale (4) Atrial fibrillation Status: Chronic Qualifiers: Atrial fibrillation type: chronic Qualified Code(s): I48.2 - Chronic atrial fibrillation (5) Acute encephalopathy Status: Acute (6) Atrial fibrillation with rapid ventricular response Status: Acute Comment: Rate controlled and anticoagulated. (7) Diabetes mellitus type 2 in obese Status: Acute Core Measure Documentation - Palliative Care Palliative Care/ Comfort Measures: Not Applicable - Core Measures Any of the following diagnoses?: none Exam - Constitutional Vitals: Temp Pulse Resp BP Pulse Ox 99.1 F 67 19 151/67 96 02/03/18 08:00 02/03/18 08:00 02/03/18 08:00 02/03/18 08:00 02/03/18 08:21 General appearance: Present: no acute distress, well-nourished - EENT Eyes: Present: PERRL ENT: hearing intact, clear oral mucosa - Neck Neck: Present: supple, normal ROM - Respiratory Respiratory effort: normal Respiratory: bilateral: CTA - Cardiovascular Heart Sounds: Present: S1 & S2. Absent: rub, click - Extremities Extremities: pulses symmetrical, No edema Peripheral Pulses: within normal limits - Abdominal General gastrointestinal: Present: soft, non-tender, non-distended, normal bowel sounds Male genitourinary: Present: normal - Integumentary Integumentary: Present: clear, warm, dry - Musculoskeletal Musculoskeletal: gait normal, strength equal bilaterally - Psychiatric Psychiatric: appropriate mood/affect, intact judgment & insight - Neurologic Neurologic: CNII-XII intact, moves all extremities Plan Activity: no restrictions Weight Bearing Status: Full Weight Bearing Diet: low fat, low cholesterol, low salt, diabetic Special Instructions: restrict fluid intake to (1 L), physical therapy, home health RN Follow up with: RENEE SANTANA MD [Staff Physician] - 7 Days PRIMARY CARE, [Primary Care Provider] - 7 Days LETITIA WINCHESTER MD [Staff Physician] - 7 Days JAMAAL BELTRAN MD [Staff Physician] - 7 Days Prescriptions: Acetaminophen/Codeine [Tylenol /Codeine # 3 tab] 1 tab PO Q6H PRN #12 tab PRN Reason: for severe pain ALPRAZolam [Xanax TAB] 0.25 mg PO Q8H PRN #30 tablet PRN Reason: Anxiety Amiodarone [Cordarone 200 MG TAB] 200 mg PO BID #60 tablet Arformoterol Nebu [Brovana Nebu] 15 mcg IH Q12HRT #60 ml AtorvaSTATin [Lipitor] 40 mg PO QHS #30 tablet Budesonide [Pulmicort Respules] 0.5 mg IH Q12HRT #60 nebu Dabigatran [Pradaxa] 150 mg PO BID #60 capsule Digoxin [Lanoxin] 0.125 mg PO DAILY@1700 #30 tablet Famotidine [Pepcid] 20 mg PO BID #60 tablet Furosemide [Lasix TAB] 60 mg PO QDAY 30 Days tablet ISOSORBIDE MONOnitrate [Imdur ER] 60 mg PO QDAY #30 tablet Metoprolol [Lopressor TAB] 50 mg PO Q8HR #90 tablet Potassium Chloride [K-Dur] 30 meq PO QDAY #30 tablet QUEtiapine [SEROquel] 200 mg PO BID #60 tablet Ranolazine ER [Ranexa ER] 500 mg PO BID #60 tablet
[2018-02-03] MEDS: PRADAXA PO SCH (10:38)
[2018-02-03 12:38] VITALS: BP 135/63
--- NOTE | 2018-02-03 13:55 | Progress Note ---
Assessment and Plan Acute on chronic hypoxemic respiratory failure SIRS, with SHOCK and lactic acidosis Acute Encephalopathy Non occlusive right lower lobe PE AE-COPD CHF (EF 20-25% in august 2017) Sleep apnea with OHS Obesity Atrial fibrillation with RVR h/o CABG with ischemic cardiomyopathy Type 2 Diabetes mellitus Epistaxis - resume seroquel at home dose of 200mg bid - prn xanax - begin SBT now and get ABG in 2 hours - extubate if meets criteria otherwise - get CBC, BMP and Mg re: PVC's / arrhythmia - continue lasix - continue enteral nutrition - stop versed and use propofol; as needed - stop Zosyn (All cultures NGTD) - VAP bundle addressed - continue bronchodilators with pulmonary hygiene per RT - PT/OT/ROM as tolerated - cardiology evaluation ongoing - continue mobility protocol for pressure ulcer prophylaxis - continue GI prophylaxis - continue IV heparin per protocol - hematology consult placed - flu & pneumovax addressed per protocol ..... 35' Subjective Date of service: 02/03/18 Principal diagnosis: Acute Hypoxemic Resp Failure on MVS; Sepsis with Shock; A- fib with RVR; P.E Interval history: Patient is seen today for: Acute Hypoxemic Resp Failure on MVS; Sepsis with Shock; Acute P.E.; AE COPD; Acute Encephalopathy; CHF; PATTI; Obesity Seen and examined at bedside; 24hour events reviewed; nursing and respiratory care staff consulted; no adverse overnight events reported to me; remains on MVS ; Objective Vital Signs - 12hr 02/03/18 02/03/18 02/03/18 04:00 05:47 05:52 Temperature 99 F Pulse Rate 73 Pulse Rate [ None] Pulse Rate [ 75 Radial] Respiratory 29 H Rate Blood Pressure 151/58 131/75 O2 Sat by Pulse 100 Oximetry 02/03/18 02/03/18 02/03/18 08:00 08:21 12:00 Temperature 99.1 F 98.9 F Pulse Rate Pulse Rate [ 67 75 None] Pulse Rate [ Radial] Respiratory 19 24 Rate Blood Pressure 151/67 135/63 O2 Sat by Pulse 95 96 100 Oximetry Constitutional: no acute distress, alert, other ( CM; normocephalic and atraumatic without increased respiratory effort) Eyes: non-icteric ENT: oropharynx moist, other (on NC at 3L/min) Neck: supple, no JVD, other (No thyromegaly) Effort: normal Ascultation: Bilateral: clear, diminished breath sounds, rhonchi (scant in bases ) Percussion: Bilateral: not dull Cardiovascular: regular rate and rhythm, PVC's noted, other (No R/M) Gastrointestinal: normoactive bowel sounds, soft, non-tender, non-distended, other (No palpable HSM) Integumentary: other (multiple Tattoos) Extremities: no cyanosis, no edema, pulses normal, no ischemia or petechiae Neurologic: non-focal exam, pupils equal and round, motor strength normal and Psychiatric: mood appropriate, affect normal CBC and BMP: 02/03/18 05:37 02/03/18 05:37 ABG, PT/INR, D-dimer: ABG POC ABG pH 7.424 (7.35-7.45) 01/29/18 14:25 POC ABG pCO2 37.7 (35-45) 01/29/18 14:25 POC ABG pO2 106 (80-105) H 01/29/18 14:25 POC ABG HCO3 24.7 01/29/18 14:25 POC ABG Total CO2 26 01/29/18 14:25 POC ABG O2 Sat 98 01/29/18 14:25 PT/INR, D-dimer PT 14.2 Sec. (12.2-14.9) 01/25/18 19:27 INR 1.05 (0.87-1.13) 01/25/18 19:27 Abnormal lab findings: Abnormal Labs 01/25/18 01/25/18 01/25/18 06:15 06:15 06:15 RBC 3.54 L Hgb 10.2 L Hct 31.4 L RDW 18.2 H Lymph % (Auto) Hughes % (Auto) 8.1 H Baso % (Auto) 2.3 H Lymph # Seg Neutrophils % PT 15.0 H APTT Heparin Anti-Xa Level POC ABG pH POC ABG pCO2 POC ABG pO2 VBG pH Potassium Chloride BUN Creatinine Glucose 148 H POC Glucose Lactic Acid Calcium 8.3 L Magnesium Iron TIBC Transferrin NT-Pro-B Natriuret Pep Total Protein Albumin 3.2 L Vitamin B12 01/25/18 01/25/18 01/25/18 06:33 07:35 07:35 RBC Hgb Hct RDW Lymph % (Auto) Hughes % (Auto) Baso % (Auto) Lymph # Seg Neutrophils % PT APTT Heparin Anti-Xa Level POC ABG pH POC ABG pCO2 POC ABG pO2 VBG pH 7.275 L Potassium Chloride BUN Creatinine Glucose POC Glucose Lactic Acid 2.50 H* Calcium Magnesium Iron TIBC Transferrin NT-Pro-B Natriuret Pep 1979 H Total Protein Albumin Vitamin B12 01/25/18 01/25/18 01/25/18 08:43 13:12 19:27 RBC Hgb 9.7 L Hct 30.0 L RDW Lymph % (Auto) Hughes % (Auto) Baso % (Auto) Lymph # Seg Neutrophils % PT APTT 37.7 H Heparin Anti-Xa Level POC ABG pH POC ABG pCO2 49.8 H POC ABG pO2 594 H VBG pH Potassium Chloride BUN Creatinine Glucose POC Glucose Lactic Acid Calcium Magnesium Iron TIBC Transferrin NT-Pro-B Natriuret Pep Total Protein Albumin Vitamin B12 01/25/18 01/25/18 01/25/18 19:27 22:00 23:18 RBC Hgb Hct RDW Lymph % (Auto) Hughes % (Auto) Baso % (Auto) Lymph # Seg Neutrophils % PT APTT Heparin Anti-Xa Level 0.10 L 0.10 L POC ABG pH POC ABG pCO2 POC ABG pO2 VBG pH Potassium Chloride BUN Creatinine Glucose POC Glucose 118 H Lactic Acid Calcium Magnesium Iron TIBC Transferrin NT-Pro-B Natriuret Pep Total Protein Albumin Vitamin B12 01/26/18 01/26/18 01/26/18 04:43 05:30 08:23 RBC 3.31 L Hgb 9.7 L Hct 29.3 L RDW 18.2 H Lymph % (Auto) Hughes % (Auto) 10.4 H Baso % (Auto) Lymph # Seg Neutrophils % PT APTT Heparin Anti-Xa Level 0.12 L POC ABG pH POC ABG pCO2 47.9 H POC ABG pO2 74 L VBG pH Potassium Chloride BUN Creatinine Glucose POC Glucose Lactic Acid Calcium Magnesium Iron TIBC Transferrin NT-Pro-B Natriuret Pep Total Protein Albumin Vitamin B12 01/26/18 01/26/18 01/26/18 08:23 13:19 16:33 RBC Hgb Hct RDW Lymph % (Auto) Hughes % (Auto) Baso % (Auto) Lymph # Seg Neutrophils % PT APTT Heparin Anti-Xa Level 0.72 H POC ABG pH POC ABG pCO2 POC ABG pO2 VBG pH Potassium Chloride 107.2 H BUN 6 L Creatinine 0.7 L Glucose 113 H POC Glucose 142 H Lactic Acid Calcium 7.7 L Magnesium Iron TIBC Transferrin NT-Pro-B Natriuret Pep Total Protein 5.7 L Albumin 2.9 L Vitamin B12 01/26/18 01/26/18 01/26/18 17:15 17:28 23:34 RBC Hgb Hct RDW Lymph % (Auto) Hughes % (Auto) Baso % (Auto) Lymph # Seg Neutrophils % PT APTT Heparin Anti-Xa Level 0.73 H POC ABG pH POC ABG pCO2 POC ABG pO2 VBG pH Potassium Chloride BUN Creatinine Glucose POC Glucose 118 H 108 H Lactic Acid Calcium Magnesium Iron TIBC Transferrin NT-Pro-B Natriuret Pep Total Protein Albumin Vitamin B12 01/27/18 01/27/18 01/27/18 06:00 06:00 06:00 RBC Hgb 9.6 L Hct 28.7 L RDW Lymph % (Auto) Hughes % (Auto) Baso % (Auto) Lymph # Seg Neutrophils % PT APTT Heparin Anti-Xa Level POC ABG pH POC ABG pCO2 POC ABG pO2 VBG pH Potassium 3.1 L Chloride BUN 5 L Creatinine 0.7 L Glucose 108 H POC Glucose Lactic Acid Calcium 7.7 L Magnesium 1.40 L Iron TIBC Transferrin NT-Pro-B Natriuret Pep Total Protein Albumin Vitamin B12 01/27/18 01/28/18 01/28/18 06:02 04:24 04:40 RBC Hgb Hct RDW Lymph % (Auto) Hughes % (Auto) Baso % (Auto) Lymph # Seg Neutrophils % PT APTT Heparin Anti-Xa Level POC ABG pH 7.328 L 7.315 L POC ABG pCO2 51.8 H 49.9 H POC ABG pO2 57 L 79 L VBG pH Potassium Chloride BUN Creatinine Glucose POC Glucose 125 H Lactic Acid Calcium Magnesium Iron TIBC Transferrin NT-Pro-B Natriuret Pep Total Protein Albumin Vitamin B12 01/28/18 01/28/18 01/29/18 16:30 18:18 00:14 RBC Hgb 9.6 L Hct 30.1 L RDW Lymph % (Auto) Hughes % (Auto) Baso % (Auto) Lymph # Seg Neutrophils % PT APTT Heparin Anti-Xa Level POC ABG pH POC ABG pCO2 POC ABG pO2 VBG pH Potassium Chloride BUN Creatinine Glucose POC Glucose 107 H 109 H Lactic Acid Calcium Magnesium Iron TIBC Transferrin NT-Pro-B Natriuret Pep Total Protein Albumin Vitamin B12 01/29/18 01/29/18 01/29/18 04:25 04:45 12:15 RBC 3.48 L Hgb 9.0 L 10.0 L Hct 27.6 L 30.9 L RDW 18.5 H Lymph % (Auto) 8.7 L Hughes % (Auto) Baso % (Auto) Lymph # 0.7 L Seg Neutrophils % 82.4 H PT APTT Heparin Anti-Xa Level POC ABG pH POC ABG pCO2 POC ABG pO2 76 L VBG pH Potassium Chloride BUN Creatinine Glucose POC Glucose Lactic Acid Calcium Magnesium Iron TIBC Transferrin NT-Pro-B Natriuret Pep Total Protein Albumin Vitamin B12 01/29/18 01/29/18 01/29/18 12:15 12:35 14:25 RBC Hgb Hct RDW Lymph % (Auto) Hughes % (Auto) Baso % (Auto) Lymph # Seg Neutrophils % PT APTT Heparin Anti-Xa Level POC ABG pH POC ABG pCO2 POC ABG pO2 106 H VBG pH Potassium 3.5 L Chloride BUN 7 L Creatinine 0.5 L Glucose 135 H POC Glucose 136 H Lactic Acid Calcium 8.3 L Magnesium Iron TIBC Transferrin NT-Pro-B Natriuret Pep Total Protein Albumin Vitamin B12 01/29/18 01/30/18 01/30/18 18:32 07:59 09:14 RBC Hgb Hct RDW Lymph % (Auto) Hughes % (Auto) Baso % (Auto) Lymph # Seg Neutrophils % PT APTT Heparin Anti-Xa Level POC ABG pH POC ABG pCO2 POC ABG pO2 VBG pH Potassium Chloride BUN Creatinine Glucose POC Glucose 106 H 119 H Lactic Acid Calcium Magnesium Iron 26 L TIBC 192 L Transferrin 163 L NT-Pro-B Natriuret Pep Total Protein Albumin Vitamin B12 01/30/18 01/30/18 01/30/18 09:14 12:21 17:32 RBC Hgb Hct RDW Lymph % (Auto) Hughes % (Auto) Baso % (Auto) Lymph # Seg Neutrophils % PT APTT Heparin Anti-Xa Level POC ABG pH POC ABG pCO2 POC ABG pO2 VBG pH Potassium Chloride BUN Creatinine Glucose POC Glucose 113 H 110 H Lactic Acid Calcium Magnesium Iron TIBC Transferrin NT-Pro-B Natriuret Pep Total Protein Albumin Vitamin B12 1738 H 01/31/18 01/31/18 02/01/18 05:55 11:35 06:48 RBC Hgb 9.4 L Hct 27.8 L RDW Lymph % (Auto) Hughes % (Auto) Baso % (Auto) Lymph # Seg Neutrophils % PT APTT Heparin Anti-Xa Level POC ABG pH POC ABG pCO2 POC ABG pO2 VBG pH Potassium Chloride BUN Creatinine Glucose POC Glucose 119 H 124 H Lactic Acid Calcium Magnesium Iron TIBC Transferrin NT-Pro-B Natriuret Pep Total Protein Albumin Vitamin B12 02/01/18 02/01/18 02/01/18 08:13 12:17 16:52 RBC Hgb Hct RDW Lymph % (Auto) Hughes % (Auto) Baso % (Auto) Lymph # Seg Neutrophils % PT APTT Heparin Anti-Xa Level POC ABG pH POC ABG pCO2 POC ABG pO2 VBG pH Potassium Chloride BUN Creatinine Glucose POC Glucose 126 H 133 H 114 H Lactic Acid Calcium Magnesium Iron TIBC Transferrin NT-Pro-B Natriuret Pep Total Protein Albumin Vitamin B12 02/01/18 02/02/18 02/02/18 23:14 04:59 05:38 RBC Hgb 9.3 L Hct 27.7 L RDW Lymph % (Auto) Hughes % (Auto) Baso % (Auto) Lymph # Seg Neutrophils % PT APTT Heparin Anti-Xa Level POC ABG pH POC ABG pCO2 POC ABG pO2 VBG pH Potassium Chloride BUN Creatinine Glucose POC Glucose 136 H 139 H Lactic Acid Calcium Magnesium Iron TIBC Transferrin NT-Pro-B Natriuret Pep Total Protein Albumin Vitamin B12 02/02/18 02/02/18 02/02/18 11:56 15:54 18:08 RBC Hgb Hct RDW Lymph % (Auto) Hughes % (Auto) Baso % (Auto) Lymph # Seg Neutrophils % PT APTT Heparin Anti-Xa Level POC ABG pH POC ABG pCO2 POC ABG pO2 VBG pH Potassium Chloride BUN Creatinine Glucose POC Glucose 145 H 116 H 181 H Lactic Acid Calcium Magnesium Iron TIBC Transferrin NT-Pro-B Natriuret Pep Total Protein Albumin Vitamin B12 02/03/18 02/03/18 02/03/18 00:34 05:37 05:37 RBC 3.38 L Hgb 9.8 L Hct 29.7 L RDW 18.8 H Lymph % (Auto) Hughes % (Auto) 10.3 H Baso % (Auto) Lymph # 0.8 L Seg Neutrophils % PT APTT Heparin Anti-Xa Level POC ABG pH POC ABG pCO2 POC ABG pO2 VBG pH Potassium 3.0 L Chloride BUN 6 L Creatinine 0.5 L Glucose 144 H POC Glucose 137 H Lactic Acid Calcium Magnesium Iron TIBC Transferrin NT-Pro-B Natriuret Pep Total Protein Albumin Vitamin B12 02/03/18 02/03/18 05:37 12:00 RBC Hgb Hct RDW Lymph % (Auto) Hughes % (Auto) Baso % (Auto) Lymph # Seg Neutrophils % PT APTT Heparin Anti-Xa Level POC ABG pH POC ABG pCO2 POC ABG pO2 VBG pH Potassium Chloride BUN Creatinine Glucose POC Glucose 134 H 127 H Lactic Acid Calcium Magnesium Iron TIBC Transferrin NT-Pro-B Natriuret Pep Total Protein Albumin Vitamin B12 Allied health notes reviewed: nursing
== END 2018-02-03 14:30 | disposition home or self-care (01) | DRG 870 ==
LOC: ED 05:53 → CC1 10:24 → IMCU 01-30 18:00
PROVIDERS: ADMIT Internal Medicine; ATTEND Hospitalist
PROC: 5A1955Z Respiratory Ventilation, Greater than 96 Consecutive Hours (ICD-10-PCS; principal; 2018-01-25)
PROC: 0BH17EZ Insertion of Endotracheal Airway into Trachea, Via Natural or Artificial Opening (ICD-10-PCS; 2018-01-25)
PROC: 4A033R1 Measurement of Arterial Saturation, Peripheral, Percutaneous Approach (ICD-10-PCS; 2018-01-25)
PROC: 02H633Z Insertion of Infusion Device into Right Atrium, Percutaneous Approach (ICD-10-PCS; 2018-01-25)
PROC: 5A09357 Assistance with Respiratory Ventilation, Less than 24 Consecutive Hours, Continuous Positive Airway Pressure (ICD-10-PCS; 2018-01-30)
PROC: 5A09357 Assistance with Respiratory Ventilation, Less than 24 Consecutive Hours, Continuous Positive Airway Pressure (ICD-10-PCS; 2018-02-02)
DX: A41.9 Sepsis, unspecified organism (principal); I26.99 Other pulmonary embolism without acute cor pulmonale; I50.23 Acute on chronic systolic (congestive) heart failure; J96.21 Acute and chronic respiratory failure with hypoxia; R65.21 Severe sepsis with septic shock; G92 Toxic encephalopathy; I42.8 Other cardiomyopathies; J44.1 Chronic obstructive pulmonary disease with (acute) exacerbation; E66.2 Morbid (severe) obesity with alveolar hypoventilation; I48.0 Paroxysmal atrial fibrillation; E11.9 Type 2 diabetes mellitus without complications; E78.5 Hyperlipidemia, unspecified; I25.10 Atherosclerotic heart disease of native coronary artery without angina pectoris; Z95.1 Presence of aortocoronary bypass graft; Z95.810 Presence of automatic (implantable) cardiac defibrillator; Z90.49 Acquired absence of other specified parts of digestive tract; Z88.6 Allergy status to analgesic agent; Z79.01 Long term (current) use of anticoagulants; Z79.899 Other long term (current) drug therapy; Z79.2 Long term (current) use of antibiotics; I25.2 Old myocardial infarction; Z95.5 Presence of coronary angioplasty implant and graft; Z89.422 Acquired absence of other left toe(s); Z68.34 Body mass index [BMI] 34.0-34.9, adult; R04.0 Epistaxis
CPT/HCPCS: 36415; 36600; 70450; 71045; 71275; 74018; 80048; 80053; 81001; 82140; 82550; 82553; 82607; 82728; 82747; 82803; 82805; 82962; 83550; 83735; 83880; 84484; 85014; 85018; 85025; 85049; 85520; 85610; 85730; 87040; 87070; 87086; 87205; 93005; 93010; 93970; 94002; 94003; 94760; 96361; 96374; 96375; G8978-GP; G8979-GP; G8996-GN; G8997-GN; J0282; J0330; J1160; J1644; J1940; J2060; J2250; J2270; J2310; J2543; J3010; J7030; J7040; J7060; Q9967

== ENCOUNTER 2018-08-17 23:11 | Inpatient (IN) | payer MEDICARE ==
[2018-08-17] MEDS ORDERED: HALDOL IM ONE (23:41)
[2018-08-17] MEDS ORDERED: ATIVAN IM ONE (23:42)
[2018-08-18] MEDS ORDERED: GEODON IM ONE
[2018-08-18] MEDS ORDERED: ATIVAN IM PRN
[2018-08-18] MEDS ORDERED: HALDOL IM PRN
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
[2018-08-18] MEDS ORDERED: DIPRIVAN 10 MG/ML 1,000 MG/100 ML BOTTLE IV ONE (02:11)
[2018-08-18 02:13] LABS: Bilirubin,Urine NEG (Negative); Blood,Urine NEG (Negative); Color,Urine Amber (Yellow); WBC,Urine < 1.0 /HPF (0.0-6.0)
[2018-08-18 02:15] LABS: Amphetamine Screen,Urine PRESUMPTIVE NEGATIVE; Cannabinoid Screen,Urine PRESUMPTIVE NEGATIVE; Cocaine Screen,Urine PRESUMPTIVE NEGATIVE; Methadone Screen,Urine PRESUMPTIVE NEGATIVE
[2018-08-18] MEDS ORDERED: ARTIFICIAL TEARS OPHTH OINT OU PRN (02:22)
[2018-08-18] MEDS ORDERED: VASELINE LIP THERAPY TP PRN (02:22)
[2018-08-18] MEDS: DIPRIVAN 10 MG/ML 1,000 MG/100 ML BOTTLE IV SCH ×2 (02:25→11:45)
[2018-08-18 02:41] LABS: Benzodiazepines Screen,Urine PRESUMPTIVE POSITIVE; Opiate Screen,Urine PRESUMPTIVE POSITIVE
--- NOTE | 2018-08-18 03:31 | XRay Report ---
PROCEDURE: XR CHEST 1V AP TECHNIQUE: Chest radiograph single view. HISTORY: ETT placement COMPARISONS: 02/01/2018 . FINDINGS: Heart: The heart is enlarged. There has been open heart surgery.. Mediastinum/Vessels: Normal. Lungs/Pleural space: Lungs are expanded. There are no infiltrates, effusions or pneumothoraces.. Bony thorax: No acute osseous abnormality. Life support devices: The endotracheal tube is in the mid trachea approximately 3 cm above the topher . The NG tube is in the stomach. Pacemaker leads are in proper position.. IMPRESSION: The heart is enlarged. There has been open heart surgery.. Lungs are expanded. There are no infiltrates, effusions or pneumothoraces.. The endotracheal tube is in the mid trachea approximately 3 cm above the topher. The NG tube is in th e stomach. Pacemaker leads are in proper position... This document is electronically signed by Morro Sandra MD., August 18 2018 03:29:31 AM ET
--- NOTE | 2018-08-18 05:33 | Cat Scan Report ---
PROCEDURE: CT CERVICAL SPINE WO CON TECHNIQUE: Computerized tomography of the cervical spine was performed from the skull base to T1 wit hout contrast material. CT DOSE LENGTH PRODUCT: mGycm HISTORY: ams fall COMPARISONS: None . FINDINGS: There are no fractures or malalignments. The disc spaces are within normal limits. The facet joints are intact. The skull base and foramen magnum are intact. The soft tissues are unremarkable. IMPRESSION: No significant abnormality . This document is electronically signed by Morro Sandra MD., August 18 2018 05:30:47 AM ET
[2018-08-18 05:36] LABS: Hematocrit 29.9 % (35.5-45.6); Hemoglobin 9.9 gm/dl (11.8-15.2); Mean Corpuscular HGB Conc 33 % (32-34); Mean Corpuscular Volume 80 fl (84-94); Platelet Count 179 K/mm3 (140-440); Red Blood Count 3.74 M/mm3 (3.65-5.03); Red Cell Distribution Width 17.5 % (13.2-15.2)
--- NOTE | 2018-08-18 05:42 | Cat Scan Report ---
PROCEDURE: CT HEAD/BRAIN WO CON TECHNIQUE: Computerized tomography of the head was performed without contrast material. CT DOSE LENGTH PRODUCT: mGycm HISTORY: ams fall COMPARISONS: None . FINDINGS: Skull and scalp: Normal . Paranasal sinuses: Normal . Ventricles and subarachnoid spaces: There is central and cortical atrophy appropriate for the patien t's age. . Cerebrum: No evidence of hemorrhage, acute infarction or mass . There are scattered areas of chronic deep white matter ischemic gliosis. Cerebellum and brainstem: No evidence of hemorrhage, acute infarction or mass . Vasculature: Normal . IMPRESSION: There is no skull fracture or intracranial hemorrhage. There are chronic involutional ch anges. . This document is electronically signed by Morro Sandra MD., August 18 2018 05:40:14 AM ET
[2018-08-18 05:53] LABS: Alanine Aminotransferase 19 units/L (7-56); Albumin 3.7 g/dL (3.9-5); BUN/Creatinine Ratio 13; Blood Urea Nitrogen 16 mg/dL (9-20); Calcium 8.5 mg/dL (8.4-10.2); Hemolysis Index 6
[2018-08-18] MEDS ORDERED: MAGNESIUM SULFATE 2GM/50ML 2 GM/50 ML BAG IV ONE ×2 (05:55→07:32)
[2018-08-18] MEDS ORDERED: TYLENOL PR PRN (06:12)
[2018-08-18] MEDS ORDERED: D50W (25GM) Syringe IV PRN (06:16)
[2018-08-18] MEDS ORDERED: HumuLIN R ONE (07:51)
[2018-08-18] MEDS ORDERED: POTASSIUM CHLORIDE FEEDTUBE NR (07:52)
[2018-08-18] MEDS: HumuLIN R SUB-Q SCH ×5 (07:52→22:00)
[2018-08-18] MEDS ORDERED: KCL 10MEQ/100ML 30 MEQ/300 ML BAG IV ONE (09:13)
[2018-08-18] MEDS: KCL 10MEQ/100ML 10 MEQ/100 ML BAG IV SCH ×3 (09:25→13:10)
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
--- NOTE | 2018-08-18 10:20 | XRay Report ---
EXAM: XR CHEST 1V AP HISTORY: right internal jugular vein placement TECHNIQUE: Portable CXR dated 08/19/2019 1990 9:00 AM. COMPARISON: CXR dated 08/18/2018 at 2:39 AM. FINDINGS: An endotracheal tube is noted in situ with the distal tip approximately 2.8 cm above the topher (adeq uate position). There is a new right internal jugular central venous catheter with distal tip in SVC (adequate positi on). Recommend careful clinical correlation to ensure venous blood return. A nasogastric tube is note d with the distal tip out of field of view below the hemidiaphragms, presumably within the stomach. There is a left anterior chest wall subclavian cardiac pacer with intact pacer wires to the right atr ium and right ventricle. There is evidence for cardiomegaly. The pulmonary vascularity and interstiti al markings are diffusely prominent, consistent with mild CHF or volume overload in the appropriate c linical setting. There is no gross focal lung consolidation, pleural effusion, or pneumothorax seen. The visualized zahida ny structures are within normal limits. IMPRESSION: 1. Findings consistent with mild CHF or volume overload in the appropriate clinical setting (stable) ; DDX includes bronchitis R bronchopneumonia in the appropriate clinical setting. Recommend clinical correlation and appropriate followup evaluation as clinically warranted. 2. Right internal jugular central venous catheter with distal tip in SVC (adequate position). Recomm end careful clinical correlation to ensure venous blood return. 3. No pneumothorax seen. This document is electronically signed by Angelique Cunningham MD., August 18 2018 10:18:42 AM LIYA
--- NOTE | 2018-08-18 14:11 | Progress Note ---
Assessment and Plan Assessment and plan: --Acute hypoxic respiratory failure; requiring intubation Continue ventilatory support --Metabolic and coagulopathy; Wolfgang level of consciousness Secondary to drug overdose, underlying pathology --Possible suicide attempt; with drug overdose Patient is orally intubated and sedated, 1013 status Psych evaluation when patient is medically stable --Severe hypokalemia; replenished per protocol with IV and oral KCl Follow levels --Hypomagnesemia; replenished per protocol and monitor levels --Chronic systolic congestive heart failure; ejection fraction 20% Continue anti-failure medications --Ischemic cardiomyopathy; continue anti-failure medications --Status post ICD, supportive care --History of coronary artery disease status post CABG --History of A. fib; rate controlled continue current beta blockers --Chronic anticoagulation; with pradaxa --DVT prophylaxis; SCDs --Full code status Closely monitor the patient and adjust management as needed Critical care time 32 minutes History Interval history: 62-year-old male patient with history of congestive heart failure coronary artery disease status post CABG ischemic cardiomyopathy ejection fraction 20-25% paroxysmal atrial fibrillation on chronic anticoagulation with Pradaxa, was brought to the emergency room by EMS with altered level of consciousness and possible drug overdose Patient was confused and unable to give history., Patient was noted to be in acute respiratory failure requiring intubation placed on ventilatory support and is admitted to ICU. When I evaluated the patient this morning patient is orally intubated sedated and on ventilator support 1013 status due to possible suicidal attempt with drug overdose Patient is restrained for safety comfortable Vital signs reviewed Hospitalist Physical - Constitutional Vitals: Temp Pulse Resp BP Pulse Ox 80 16 109/65 95 08/18/18 09:23 08/18/18 09:23 08/18/18 09:23 08/18/18 09:23 General appearance: Present: no acute distress, well-nourished - EENT Eyes: Present: PERRL, EOM intact - Neck Neck: Present: supple, normal ROM - Respiratory Respiratory effort: normal Respiratory: bilateral: diminished, rhonchi, negative: rales, wheezing - Cardiovascular Rhythm: regular Heart Sounds: Present: S1 & S2 - Extremities Extremities: no ischemia, No edema - Abdominal General gastrointestinal: soft, non-tender, non-distended, normal bowel sounds - Integumentary Integumentary: Present: clear, warm - Psychiatric Psychiatric: other (intubated and sedated) - Neurologic Neurologic: other (intubated and sedated) Results - Labs CBC & Chem 7: 08/18/18 02:40 08/18/18 13:22 Labs: Laboratory Last Values WBC 5.5 K/mm3 (4.5-11.0) 08/18/18 02:40 RBC 3.74 M/mm3 (3.65-5.03) 08/18/18 02:40 Hgb 9.9 gm/dl (11.8-15.2) L 08/18/18 02:40 Hct 29.9 % (35.5-45.6) L 08/18/18 02:40 MCV 80 fl (84-94) L 08/18/18 02:40 MCH 26 pg (28-32) L 08/18/18 02:40 MCHC 33 % (32-34) 08/18/18 02:40 RDW 17.5 % (13.2-15.2) H 08/18/18 02:40 Plt Count 179 K/mm3 (140-440) 08/18/18 02:40 POC ABG pH 7.446 (7.35-7.45) 08/18/18 03:11 POC ABG pCO2 38.0 (35-45) 08/18/18 03:11 POC ABG pO2 116 (80-105) H 08/18/18 03:11 POC ABG HCO3 26.2 08/18/18 03:11 POC ABG Total CO2 27 08/18/18 03:11 POC ABG O2 Sat 99 08/18/18 03:11 POC ABG Base Excess 2 08/18/18 03:11 FiO2 35 % 08/18/18 03:11 Sodium 139 mmol/L (137-145) 08/18/18 02:40 Potassium 2.7 mmol/L (3.6-5.0) L* 08/18/18 02:40 Chloride 95.3 mmol/L (98-107) L 08/18/18 02:40 Carbon Dioxide 25 mmol/L (22-30) 08/18/18 02:40 Anion Gap 21 mmol/L 08/18/18 02:40 BUN 16 mg/dL (9-20) 08/18/18 02:40 Creatinine 1.2 mg/dL (0.8-1.5) 08/18/18 02:40 Estimated GFR > 60 ml/min 08/18/18 02:40 BUN/Creatinine Ratio 13 % 08/18/18 02:40 Glucose 137 mg/dL (75-100) H 08/18/18 02:40 POC Glucose 164 (70-105) H 08/18/18 07:50 Lactic Acid 1.60 mmol/L (0.7-2.0) 08/18/18 02:40 Calcium 8.5 mg/dL (8.4-10.2) 08/18/18 02:40 Magnesium 1.50 mg/dL (1.7-2.3) L 08/18/18 02:40 Total Bilirubin 1.80 mg/dL (0.1-1.2) H 08/18/18 02:40 AST 50 units/L (5-40) H 08/18/18 02:40 ALT 19 units/L (7-56) 08/18/18 02:40 Alkaline Phosphatase 89 units/L (35-129) 08/18/18 02:40 Ammonia 44.0 umol/L (25-60) 08/18/18 02:40 Total Creatine Kinase 2180 units/L (55-170) H 08/18/18 02:40 CK-MB (CK-2) 34.0 ng/mL (0.0-4.0) H 08/18/18 13:22 Troponin T 0.023 ng/mL (0.00-0.029) 08/18/18 13:22 Total Protein 6.5 g/dL (6.3-8.2) 08/18/18 02:40 Albumin 3.7 g/dL (3.9-5) L 08/18/18 02:40 Albumin/Globulin Ratio 1.3 % 08/18/18 02:40 Urine Color Radha (Yellow) 08/18/18 Unknown Urine Turbidity Clear (Clear) 08/18/18 Unknown Urine pH 5.0 (5.0-7.0) 08/18/18 Unknown Ur Specific [place] 1.013 (1.003-1.030) 08/18/18 Unknown Urine Protein 30 mg/dl mg/dL (Negative) 08/18/18 Unknown Urine Glucose (UA) Neg mg/dL (Negative) 08/18/18 Unknown Urine Ketones Neg mg/dL (Negative) 08/18/18 Unknown Urine Blood Neg (Negative) 08/18/18 Unknown Urine Nitrite Neg (Negative) 08/18/18 Unknown Urine Bilirubin Neg (Negative) 08/18/18 Unknown Urine Urobilinogen 2.0 mg/dL (<2.0) 08/18/18 Unknown Ur Leukocyte Esterase Neg (Negative) 08/18/18 Unknown Urine WBC (Auto) < 1.0 /HPF (0.0-6.0) 08/18/18 Unknown Urine RBC (Auto) 1.0 /HPF (0.0-6.0) 08/18/18 Unknown U Epithel Cells (Auto) < 1.0 /HPF (0-13.0) 08/18/18 Unknown Salicylates < 0.3 mg/dL (2.8-20.0) L 08/18/18 00:24 Urine Opiates Screen Presumptive positive 08/18/18 Unknown Urine Methadone Screen Presumptive negative 08/18/18 Unknown Acetaminophen < 5.0 ug/mL (10.0-30.0) L 08/18/18 00:24 Ur Barbiturates Screen Presumptive negative 08/18/18 Unknown Ur Phencyclidine Scrn Presumptive negative 08/18/18 Unknown Ur Amphetamines Screen Presumptive negative 08/18/18 Unknown U Benzodiazepines Scrn Presumptive positive 08/18/18 Unknown Urine Cocaine Screen Presumptive negative 08/18/18 Unknown U Marijuana (THC) Screen Presumptive negative 08/18/18 Unknown Drugs of Abuse Note Disclamer 08/18/18 Unknown Plasma/Serum Alcohol < 0.01 % (0-0.07) 08/18/18 00:24
--- NOTE | 2018-08-18 15:15 | Consultation ---
History of Present Illness Consult date: 08/18/18 Requesting physician: MARIAM MENESES Reason for consult: other (Acute Hypoxemic Resp Failure on MVS; Acute (Toxic- Metabolic) Encephalopathy) History of present illness: PULMONARY/CCM CONSULT NOTE (Full dictation # [id number]) Please see dictated notes for full details Medications and Allergies Allergies Allergy/AdvReac Type Severity Reaction Status Date / Time gabapentin [From Neurontin] Allergy Rash Verified 01/25/18 06:12 Home Medications Medication Instructions Recorded Confirmed Last Taken Type Lisinopril [Zestril TAB] 20 mg PO QDAY #30 tablet 12/27/17 02/09/18 Unknown Rx Metoprolol Xl [Metoprolol 50 mg PO BID #60 tablet 12/27/17 02/09/18 Unknown Rx SUCCINATE ER TAB] AtorvaSTATin [Lipitor] 40 mg PO QHS #30 tablet 02/03/18 02/09/18 Unknown Rx ISOSORBIDE MONOnitrate [Imdur ER] 60 mg PO QDAY #30 tablet 02/03/18 02/09/18 Unknown Rx QUEtiapine [SEROquel] 200 mg PO BID #60 tablet 02/03/18 02/09/18 Unknown Rx Ranolazine ER [Ranexa ER] 500 mg PO BID #60 tablet 02/03/18 02/09/18 Unknown Rx ALPRAZolam [Xanax] 1 mg PO BID 02/09/18 08/18/18 08/17/18 History Cyclobenzaprine [Flexeril] 10 mg PO BID 02/09/18 02/09/18 Unknown History Dabigatran [Pradaxa] 75 mg PO BID 02/09/18 02/09/18 Unknown History Furosemide [Lasix TAB] 40 mg PO BID 02/09/18 08/18/18 08/17/18 History Insulin Lispro [Humalog 100 15 units SUB-Q TIDAC 02/09/18 02/09/18 Unknown History UNITS/ML Kwikpen] Oxycodone HCl/Acetaminophen 1 each PO TID 02/09/18 02/09/18 Unknown History [Percocet 7.5/325 mg] Sertraline [Zoloft] 50 mg PO QDAY 02/09/18 02/09/18 Unknown History clonazePAM [Clonazepam] 2 mg PO HS 02/09/18 02/09/18 Unknown History Amitriptyline HCl 75 mg PO DAILY 08/18/18 08/18/18 08/17/18 History Active Meds: Active Medications Acetaminophen (Tylenol) 650 mg KS Q4H PRN PRN Reason: Pain, Mild (1-3) Dextrose (D50w (25gm) Syringe) 50 ml IV PRN PRN PRN Reason: Hypoglycemia Haloperidol Lactate (Haldol) 5 mg IM Q6HR PRN PRN Reason: Agitation Hydrophilic Ointment (Vaseline Lip Therapy) 1 applic TP Q2HR PRN PRN Reason: Dry Lips Propofol (Diprivan 10 Mg/Ml) 1,000 mg in 100 mls @ 3.266 mls/hr IV TITR MARY; Protocol Last Admin: 08/18/18 11:45 Dose: 10 mcg/kg/min, 6.532 mls/hr Documented by: Insulin Human Regular (Humulin R) 0 units SUB-Q Q4H MARY; Protocol Last Admin: 08/18/18 14:29 Dose: Not Given Documented by: Lorazepam (Ativan) 2 mg IM Q4HR PRN PRN Reason: Agitation Multi-Ingred Cream/Lotion/Oil/Oint (Artificial Tears Ophth Oint) 1 applic OU Q4HR PRN PRN Reason: Dry Eye(s) Ondansetron HCl (Zofran) 4 mg IV Q8H PRN PRN Reason: Nausea And Vomiting Physical Examination Vital signs: Vital Signs Pulse Ox 98 08/17/18 23:24 Results - Laboratory Findings CBC and BMP: 08/18/18 02:40 08/18/18 13:22 ABG POC ABG pH 7.446 (7.35-7.45) 08/18/18 03:11 POC ABG pCO2 38.0 (35-45) 08/18/18 03:11 POC ABG pO2 116 (80-105) H 08/18/18 03:11 POC ABG HCO3 26.2 08/18/18 03:11 POC ABG Total CO2 27 08/18/18 03:11 POC ABG O2 Sat 99 08/18/18 03:11 Abnormal lab findings: Abnormal Labs 08/18/18 08/18/18 08/18/18 00:24 00:24 02:40 Hgb 9.9 L Hct 29.9 L MCV 80 L MCH 26 L RDW 17.5 H POC ABG pO2 Potassium Chloride Glucose POC Glucose Magnesium Total Bilirubin AST Total Creatine Kinase CK-MB (CK-2) Albumin Salicylates < 0.3 L Acetaminophen < 5.0 L 08/18/18 08/18/18 08/18/18 02:40 03:11 07:50 Hgb Hct MCV MCH RDW POC ABG pO2 116 H Potassium 2.7 L* Chloride 95.3 L Glucose 137 H POC Glucose 164 H Magnesium 1.50 L Total Bilirubin 1.80 H AST 50 H Total Creatine Kinase 2180 H CK-MB (CK-2) Albumin 3.7 L Salicylates Acetaminophen 08/18/18 08/18/18 08/18/18 13:22 13:22 14:12 Hgb Hct MCV MCH RDW POC ABG pO2 Potassium 3.2 L Chloride Glucose POC Glucose 110 H Magnesium Total Bilirubin AST Total Creatine Kinase 2661 H CK-MB (CK-2) 34.0 H Albumin Salicylates Acetaminophen
[2018-08-18] MEDS ORDERED: POTASSIUM CHLORIDE FEEDTUBE ONE (16:13)
[2018-08-18] MEDS ORDERED: ZEMURON IV ONE (16:19)
[2018-08-18] MEDS ORDERED: KETALAR ONE (16:19)
[2018-08-18 19:03] LABS: Creatine Kinase MB 26.5 ng/mL (0.0-4.0)
[2018-08-18] MEDS: DUONEB *Not for PRN Use IH SCH (19:51)
[2018-08-18] MEDS ORDERED: LOVENOX SUB-Q SCH (22:00)
[2018-08-18] MEDS: LASIX PO SCH (22:49)
[2018-08-18] MEDS: PRADAXA PO SCH (22:50)
--- NOTE | 2018-08-19 00:37 | Consultation ---
PULMONARY CRITICAL CARE CONSULTATION NOTE CONSULTING PHYSICIAN: Dr. Adler. REASON FOR CONSULTATION: Acute encephalopathy; acute respiratory failure, on mechanical ventilatory support. CHIEF COMPLAINT AND HISTORY OF PRESENT ILLNESS: The patient is a 62-year-old male with past medical history as far as we can tell significant amongst other things for a history of deep vein thrombosis in the past and chronic obstructive lung disease as well as some psychiatric disorder. He was brought into the Emergency Room for altered mental status and presumed overdose. EMS reported that the patient was found down on the floor of either residential or personal fpc. He was not breathing well, in the field, he was given Narcan. This was able to arouse the patient in the ER, he remained altered. He was moving all 4 extremities. He does have a reported cardiomyopathy with an ejection fraction of 20-25% and a history of atrial fibrillation, and in the past had been noted to be on systemic anticoagulation. It was not clear if this was really an overdose or an acute cerebral event. He became significantly agitated in the Emergency Room. Chemical de-escalation, verbal de-escalation with Haldol, Ativan and Geodon was unsuccessful. Ultimately, the patient required intubation for airway protection and to allow acquisition of emergent medical therapy. He was transferred to the Intensive Care Unit where I stopped by to see him. When I stopped by to see him, he was on about 10 mcg per kilogram per minute of propofol, but was completely out of it. Did not respond appropriately to my prompts, even a sternal rub did not produce a significant localization of my arm. This was after holding the propofol for a few minutes. This really is as much of the history of presentation as I have. With regards to tobacco use/abuse, history is unknown. PAST MEDICAL HISTORY: According to review of the records, history of hypertension, history of coronary artery disease, history of ischemic cardiomyopathy and ejection fraction of 20-25%, diabetes, deep vein thrombosis, migraines, history of nephrolithiasis, history of depression, history of chronic obstructive lung disease, history of atrial fibrillation. PAST SURGICAL HISTORY: He is status post AICD/pacemaker implantation. He has a history of 11 coronary stents. He has had a cholecystectomy, had an amputation of the left fifth finger. MEDICATIONS: He was on at the time I stopped by to see him were reviewed. Pertinent medications include the following: He was on Tylenol 650 mg p.o. q.4 hours p.r.n. mild pain or fevers, Pradaxa 75 mg p.o. b.i.d. All p.o. meds via the feeding tube. Lasix 40 mg p.o. b.i.d., Haldol 5 mg IM q.6 hours p.r.n. agitation, insulin via sliding scale, Imdur 60 mg p.o. daily, lisinopril 20 mg p.o. daily, Zofran 4 mg IV q.8 hours p.r.n. nausea and vomiting, Protonix 40 mg IV daily and propofol as described above. ALLERGIES: NEURONTIN, nature of this allergy is unknown. DIET: Obese gentleman, acute weight loss or gain history is unknown. FAMILY AND SOCIAL HISTORY: Reportedly been in a personal fpc or a halfway. Alcohol, tobacco, illicit drug use or abuse history unknown. FAMILY HISTORY: Also unknown. REVIEW OF SYSTEMS: Unobtainable secondary to patient's medical and mental condition. Since he has been here, no reported seizure activity. No gross hematochezia or melena. No gross hematuria, no bloody ET tube secretions and no hematemesis. REVIEW OF SYSTEMS: Otherwise unobtainable. PHYSICAL EXAMINATION: VITAL SIGNS: At presentation in the Emergency Room, vital signs, the first temperature I have 97.2 degrees Fahrenheit. Pulse of 84, respiratory rate 24, blood pressure 115/74, oxygen sats were 98%, inspired oxygen concentration was not recorded. At the time I stopped by to see him, O2 sats were 99% that was on the assist PRVC AC mode of ventilation, tidal volumes 450, rate of 20 and PEEP of 6, and I believe 40% FIO2. GENERAL: He is obese, elderly looking male, normocephalic, atraumatic, riding the set rate on the mechanical ventilator without any significant patient ventilator dyssynchrony. HEAD, EYES, EARS, NOSE AND THROAT: He was anicteric. No conjunctival erythema. Oropharynx is moist. Endotracheal tube is taped at the lips around 23-24 cm. No gross jugular venous distention, no thyromegaly. Grossly, no palpable lymph nodes in the supraclavicular or submandibular lymph node chains. LUNGS: Auscultation of both lung avalos really unremarkable. Lungs were clear bilaterally. No wheezing. HEART: Heart sounds 1 and 2 are heard. They were regular in rate and rhythm at the time of my evaluation, without rubs or murmurs. ABDOMEN: Soft, full, bowel sounds are positive, nontender. No palpable hepatosplenomegaly. EXTREMITIES: Without overt digital clubbing or cyanosis. No pedal edema. Dorsalis pedis pulses are palpable bilaterally. NEUROLOGIC: Pupils are equal, round about 3 mm, sluggishly reactive to light. Extraocular muscle movements could not be assessed. He had spontaneous movements to all extremities, but not to command. No obvious fasciculations or spasticity. SKIN: The skin was of normal turgor. He had multiple tattoos over his body, some bandages/dressings to both upper extremities, I believe around the area of IV access. LABORATORY DATA: From my review are as follows: White cell count 5500, hemoglobin 9.9, hematocrit 29.9, platelet count 179. Arterial blood gas showed a pH of 7.45, pCO2 of 38, pO2 of 116 that was on 35% FiO2, I believe on the above-mentioned ventilator settings. Serum sodium was 139, potassium was 2.7, chloride 95, bicarbonate 25, BUN was 16 with a creatinine of 1.2, anion gap of 21, glucose was 137. Lactic acid level was within normal limits. Magnesium was low at 1.5 that has been corrected, is now 2.0. Potassium is up to 3.2, total bilirubin was up at 1.8 yesterday. AST 50. Otherwise, liver function tests within normal limits. CPK was 2180, it is up to 2661; albumin 3.7. Urinalysis was unremarkable. Aspirin, Tylenol, alcohol levels undetectable. Opiates presumptive positive, urine benzos presumptive positive. No microbiology studies to date. A CT scan was done of the cervical spine as well as of his head, CT of the spine showed no significant abnormality. The CT of the head showed no fracture, no acute intracranial process. He had a chest x-ray. Most recent chest x-ray shows endotracheal tube tip in place, tip at the lower level of the clavicular heads, implanted cardiac device in the upper left anterior chest wall. He has a right IJ central line in place, tip in the cavoatrial junction. There is gross cardiomegaly, median sternotomy wires are in place, mild increase in interstitial and alveolar type markings consistent with mild pulmonary edema, no pleural effusions, no gross bony fractures, no pneumothorax. ASSESSMENT: 1. Acute hypoxemic respiratory failure, on mechanical ventilatory support. 2. Acute encephalopathy appears to be toxic metabolic. 3. Congestive heart failure with mild exacerbation. 4. History of diabetes. 5. History of deep venous thrombosis. 6. Paroxysmal atrial fibrillation. 7. History of migraines. 8. History of nephrolithiasis. 9. History of depression. 10. Chronic obstructive lung disease. 11. Anemia that is microcytic. 12. Hypokalemia. 13. Hypomagnesemia. 14. Possible alcohol abuse. 15. Hyperbilirubinemia. 16. Elevated CPK with normal troponin, possibly rhabdomyolysis. PLAN. Drug screen is positive only for opiates and benzos at this time that could well be all he has taken. First thing order of business is to renew the soft restraints and hold them as well, and do a sedation assessment trial. He was described as being belligerent in the ER. We will keep him on full mechanical ventilatory support for now; however, I will reduce the sed rate to 12 with plans to begin weaning tomorrow. In light of his history of psychiatric disturbance, I will empirically begin some Seroquel and hopefully this will help reduce reliance on IV sedation. This will be after evaluating his response to the sedation assessment trial, ventilator-associated pneumonia bundle has been introduced. Bronchodilators, DuoNeb treatments will be scheduled in the short time. We will continue diuresis for the mild pulmonary edema. Tracheal aspirate will be sent for Gram stain, cultures and sensitivities. I will hold on empiric antibiotic therapy at this time. Cardiology evaluation will be at the behest of the attending physician. He is appropriately on GI prophylaxis. He is fully anticoagulated. I will hold on a venous thromboembolic disorder workup. Electrolytes will continue to become corrected. Flu and pneumonia vaccination will be addressed per protocol. Thank you very much for the consult. We will follow along. We will make further recommendations as picture progresses/becomes clearer. He is critically ill on life-sustaining interventions including mechanical ventilatory support at high risk including the risk of from cardiopulmonary system deterioration. At this time, I spent about 35 minutes of critical care time without overlap and excluding any procedural time that may be necessary. JOB# [id number] ANITA/PRECIOUS CALDERON
[2018-08-19] MEDS: HumuLIN R SUB-Q SCH ×6 (04:15→22:24)
[2018-08-19 04:25] LABS: Basophils % (Auto) 0.2 % (0.0-1.8); Eosinophils % (Auto) 0.8 % (0.0-4.3); Hematocrit 33.9 % (35.5-45.6); Hemoglobin 10.9 gm/dl (11.8-15.2); Lymphocytes # (Auto) 0.6 K/mm3 (1.2-5.4); Lymphocytes % (Auto) 10.2 % (13.4-35.0); Mean Corpuscular HGB Conc 32 % (32-34); Mean Corpuscular Volume 81 fl (84-94); Monocytes # (Auto) 0.4 K/mm3 (0.0-0.8); Monocytes % (Auto) 7.3 % (0.0-7.3); Platelet Count 177 K/mm3 (140-440); Red Blood Count 4.19 M/mm3 (3.65-5.03); Red Cell Distribution Width 17.4 % (13.2-15.2)
[2018-08-19 04:50] LABS: Alanine Aminotransferase 20 units/L (7-56); Albumin 3.5 g/dL (3.9-5); BUN/Creatinine Ratio 14; Blood Urea Nitrogen 11 mg/dL (9-20); Calcium 8.3 mg/dL (8.4-10.2); Hemolysis Index 4
--- NOTE | 2018-08-19 05:42 | XRay Report ---
PROCEDURE: XR ABDOMEN 1V AP HISTORY: NGT placement FINDINGS: Single view of the abdomen was acquired. There is a nasogastric tube with its tip in the gastric body . There is cardiomegaly and a pacing device. IMPRESSION: The nasogastric tube terminates in the gastric body This document is electronically signed by Nemesio Lowery MD., August 19 2018 05:40:20 AM ET
[2018-08-19] MEDS ORDERED: SODIUM BICARBONATE FEEDTUBE PRN ×2 (08:01→10:51)
[2018-08-19] MEDS ORDERED: SIMPLE SYRUP FEEDTUBE PRN ×4 (08:01→10:51)
[2018-08-19] MEDS ORDERED: PANCREAZE DR 10,500 UNIT FEEDTUBE PRN ×2 (08:01→10:51)
--- NOTE | 2018-08-19 08:29 | Progress Note ---
Assessment and Plan Assessment and plan: --Acute hypoxic respiratory failure; requiring intubation Continue ventilatory support --Possible suicide attempt; with drug overdose Patient is orally intubated and sedated, 1013 status Psych evaluation when patient is medically stable --Acute on chronic systolic congestive heart failure; ejection fraction 20% --Ischemic cardiomyopathy; continue anti-failure medications --Status post ICD, supportive care --History of coronary artery disease status post CABG --History of A. fib; rate controlled continue current beta blockers --Chronic anticoagulation; with pradaxa --Metabolic and coagulopathy; Wolfgang level of consciousness Secondary to drug overdose, underlying pathology --Severe hypokalemia; replenished per protocol with IV and oral KCl Follow levels --Hypomagnesemia; replenished per protocol and monitor levels --DVT prophylaxis; SCDs --Full code status Closely monitor the patient and adjust management as needed Follow psych evaluation and recommendations Critical care time 32 minutes History Interval history: Patient seen and examined in ICU this morning medical records reviewed Patient remains intubated on ventilatory support No new events reported by the nursing Vital signs reviewed Hospitalist Physical - Constitutional Vitals: Temp Pulse Resp BP Pulse Ox 97.9 F 80 18 124/68 100 08/19/18 00:00 08/19/18 06:00 08/19/18 06:00 08/19/18 06:00 08/19/18 06:00 General appearance: Present: no acute distress, well-nourished - EENT Eyes: Present: PERRL, EOM intact - Neck Neck: Present: supple, normal ROM - Respiratory Respiratory: bilateral: diminished, negative: rales, rhonchi, wheezing - Cardiovascular Rhythm: regular Heart Sounds: Present: S1 & S2 - Extremities Extremities: no ischemia, No edema - Abdominal General gastrointestinal: soft, non-tender, non-distended, normal bowel sounds - Integumentary Integumentary: Present: clear, warm - Psychiatric Psychiatric: other (on vent) - Neurologic Neurologic: other ( on vent) Results - Labs CBC & Chem 7: 08/19/18 04:15 08/19/18 04:15 Labs: Laboratory Last Values WBC 6.0 K/mm3 (4.5-11.0) 08/19/18 04:15 RBC 4.19 M/mm3 (3.65-5.03) 08/19/18 04:15 Hgb 10.9 gm/dl (11.8-15.2) L 08/19/18 04:15 Hct 33.9 % (35.5-45.6) L 08/19/18 04:15 MCV 81 fl (84-94) L 08/19/18 04:15 MCH 26 pg (28-32) L 08/19/18 04:15 MCHC 32 % (32-34) 08/19/18 04:15 RDW 17.4 % (13.2-15.2) H 08/19/18 04:15 Plt Count 177 K/mm3 (140-440) 08/19/18 04:15 Lymph % (Auto) 10.2 % (13.4-35.0) L 08/19/18 04:15 [place] % (Auto) 7.3 % (0.0-7.3) 08/19/18 04:15 Eos % (Auto) 0.8 % (0.0-4.3) 08/19/18 04:15 Baso % (Auto) 0.2 % (0.0-1.8) 08/19/18 04:15 Lymph # 0.6 K/mm3 (1.2-5.4) L 08/19/18 04:15 [place] # 0.4 K/mm3 (0.0-0.8) 08/19/18 04:15 Eos # 0.0 K/mm3 (0.0-0.4) 08/19/18 04:15 Baso # 0.0 K/mm3 (0.0-0.1) 08/19/18 04:15 Seg Neutrophils % 81.5 % (40.0-70.0) H 08/19/18 04:15 Seg Neutrophils # 4.9 K/mm3 (1.8-7.7) 08/19/18 04:15 POC ABG pH 7.398 (7.35-7.45) 08/19/18 03:56 POC ABG pCO2 42.7 (35-45) 08/19/18 03:56 POC ABG pO2 158 (80-105) H 08/19/18 03:56 POC ABG HCO3 26.4 08/19/18 03:56 POC ABG Total CO2 28 08/19/18 03:56 POC ABG O2 Sat 99 08/19/18 03:56 POC ABG Base Excess 2 08/19/18 03:56 FiO2 35 % 08/19/18 03:56 Sodium 142 mmol/L (137-145) 08/19/18 04:15 Potassium 3.4 mmol/L (3.6-5.0) L 08/19/18 04:15 Chloride 101.5 mmol/L (98-107) 08/19/18 04:15 Carbon Dioxide 26 mmol/L (22-30) 08/19/18 04:15 Anion Gap 18 mmol/L 08/19/18 04:15 BUN 11 mg/dL (9-20) 08/19/18 04:15 Creatinine 0.8 mg/dL (0.8-1.5) 08/19/18 04:15 Estimated GFR > 60 ml/min 08/19/18 04:15 BUN/Creatinine Ratio 14 % 08/19/18 04:15 Glucose 128 mg/dL (75-100) H 08/19/18 04:15 POC Glucose 109 (70-105) H 08/18/18 21:44 Lactic Acid 1.60 mmol/L (0.7-2.0) 08/18/18 02:40 Calcium 8.3 mg/dL (8.4-10.2) L 08/19/18 04:15 Phosphorus 3.10 mg/dL (2.5-4.5) 08/19/18 04:15 Magnesium 2.00 mg/dL (1.7-2.3) 08/19/18 04:15 Total Bilirubin 1.60 mg/dL (0.1-1.2) H 08/19/18 04:15 AST 57 units/L (5-40) H 08/19/18 04:15 ALT 20 units/L (7-56) 08/19/18 04:15 Alkaline Phosphatase 86 units/L (35-129) 08/19/18 04:15 Ammonia 44.0 umol/L (25-60) 08/18/18 02:40 Total Creatine Kinase 2224 units/L (55-170) H 08/18/18 18:00 CK-MB (CK-2) 26.5 ng/mL (0.0-4.0) H 08/18/18 18:00 CK-MB (CK-2) Rel Index 1.1 (0-4) 08/18/18 18:00 Troponin T 0.025 ng/mL (0.00-0.029) 08/18/18 18:00 C-Reactive Protein 3.00 mg/dL (0.00-1.30) H 08/18/18 17:39 Total Protein 6.6 g/dL (6.3-8.2) 08/19/18 04:15 Albumin 3.5 g/dL (3.9-5) L 08/19/18 04:15 Albumin/Globulin Ratio 1.1 % 08/19/18 04:15 Urine Color Radha (Yellow) 08/18/18 Unknown Urine Turbidity Clear (Clear) 08/18/18 Unknown Urine pH 5.0 (5.0-7.0) 08/18/18 Unknown Ur Specific [place] 1.013 (1.003-1.030) 08/18/18 Unknown Urine Protein 30 mg/dl mg/dL (Negative) 08/18/18 Unknown Urine Glucose (UA) Neg mg/dL (Negative) 08/18/18 Unknown Urine Ketones Neg mg/dL (Negative) 08/18/18 Unknown Urine Blood Neg (Negative) 08/18/18 Unknown Urine Nitrite Neg (Negative) 08/18/18 Unknown Urine Bilirubin Neg (Negative) 08/18/18 Unknown Urine Urobilinogen 2.0 mg/dL (<2.0) 08/18/18 Unknown Ur Leukocyte Esterase Neg (Negative) 08/18/18 Unknown Urine WBC (Auto) < 1.0 /HPF (0.0-6.0) 08/18/18 Unknown Urine RBC (Auto) 1.0 /HPF (0.0-6.0) 08/18/18 Unknown U Epithel Cells (Auto) < 1.0 /HPF (0-13.0) 08/18/18 Unknown Salicylates < 0.3 mg/dL (2.8-20.0) L 08/18/18 00:24 Urine Opiates Screen Presumptive positive 08/18/18 Unknown Urine Methadone Screen Presumptive negative 08/18/18 Unknown Acetaminophen < 5.0 ug/mL (10.0-30.0) L 08/18/18 00:24 Ur Barbiturates Screen Presumptive negative 08/18/18 Unknown Ur Phencyclidine Scrn Presumptive negative 08/18/18 Unknown Ur Amphetamines Screen Presumptive negative 08/18/18 Unknown U Benzodiazepines Scrn Presumptive positive 08/18/18 Unknown Urine Cocaine Screen Presumptive negative 08/18/18 Unknown U Marijuana (THC) Screen Presumptive negative 08/18/18 Unknown Drugs of Abuse Note Disclamer 08/18/18 Unknown Plasma/Serum Alcohol < 0.01 % (0-0.07) 08/18/18 00:24
[2018-08-19] MEDS: DUONEB *Not for PRN Use IH SCH ×3 (08:50→19:46)
--- NOTE | 2018-08-19 08:53 | XRay Report ---
EXAM: XR CHEST 1V AP HISTORY: follow up respiratory failure TECHNIQUE: Portable CXR dated 08/19/2018 at 3:24 AM. COMPARISON: CXR dated 08/18/2018. FINDINGS: An endotracheal tube is noted with the distal tip approximately 4.8 cm above the topher (adequate pos ition). A nasogastric tube is noted with the distal tip out of field of view below the hemidiaphragm, likely within the body of the stomach. There is a right internal jugular central venous catheter wit h distal tip in SVC (adequate position). Recommend careful clinical correlation to ensure venous bloo d return. There is a left anterior chest wall subclavian cardiac pacer with intact pacer wires to the right atr ium and right ventricle. The patient is status post median sternotomy, presumably for CABG. There is evidence for cardiomegaly. The pulmonary vascularity and interstitial markings are minimally prominent, consistent with minimal residual CHF or volume overload in the appropriate clinical setting, with significant interval improv ement since the previous exam. There is no gross focal lung consolidation, pleural effusion, or pneumothorax seen. The visualized [place] structures are within normal limits. IMPRESSION: 1. Findings consistent with minimal residual CHF or volume overload in the appropriate clinical sett ing (significantly improved since the previous exam). Recommend clinical correlation and appropriate followup evaluation as clinically warranted. This document is electronically signed by Angelique Cunningham MD., August 19 2018 08:51:43 AM ET
[2018-08-19] MEDS ORDERED: NACL 0.9% 1000 ML 1,000 ML ONE ×2 (09:54→19:04)
[2018-08-19] MEDS ORDERED: PROTONIX IV SCH (10:00)
[2018-08-19] MEDS: LASIX PO SCH ×3 (10:21→23:15)
[2018-08-19] MEDS: KCL 10MEQ/100ML 10 MEQ/100 ML BAG IV SCH ×5 (10:22→19:00)
[2018-08-19] MEDS: IMDUR PO SCH (10:22)
[2018-08-19] MEDS: ZESTRIL PO SCH (10:23)
[2018-08-19] MEDS: PRADAXA PO SCH ×3 (10:24→23:15)
--- NOTE | 2018-08-19 13:54 | Progress Note ---
Assessment and Plan Acute hypoxemic respiratory failure, on mechanical ventilatory support. Acute encephalopathy appears to be toxic metabolic. Congestive heart failure with mild exacerbation. History of diabetes. History of deep venous thrombosis. Paroxysmal atrial fibrillation. History of migraines. History of nephrolithiasis. History of depression. Chronic obstructive lung disease. Anemia that is microcytic. Hypokalemia. Hypomagnesemia. Possible alcohol abuse. Hyperbilirubinemia. Elevated CPK with normal troponin, possibly rhabdomyolysis - potassium replaced (30 meq) - continue bronchodilators with pulmonary hygiene per RT - VAP bundle addressed - daily SAT's and SBT's as tolerated - extubate if passes SBT today - continue full anticoagulation for VTE & PAF - continue gentle diuresis for CHF - continue seroquel and other chronic psycyh meds - continue glycemiv control with SSI for target BG 140-180 mg/dL - continue enteral nutrition as tolerated - when resumed target sedation for RASS 0 to -1 - PT/OT/ROM exercises as tolerated - mobility protocol for pressure ulcer prophylaxis - continue GI & VTE prophylaxis - continue other care per attending / other consultants ...... re-evaluate in am & prn The high probability of a clinically significant, sudden or life threatening deterioration of the [cardiac, respiratory and neurologic] system(s) required my full and direct attention, intervention and personal management. The aggregate critical care time was [32] minutes. This time is in addition to time spent performing reported procedures but includes the following: [x] Data Review and interpretation [x] Patient assessment and monitoring of vital signs [x] Documentation [x] Medication orders and management Subjective Date of service: 08/19/18 Principal diagnosis: Acute hypoxemic resp failure; Acute encephalopathy; CHF; DM II; PAF Interval history: Patient is seen today for: Acute hypoxemic respiratory failure on MVS; Acute encephalopathy (toxic metabolic); CHF with mild exacerbation; History of diabetes; History of deep venous thrombosis; Paroxysmal atrial fibrillation. Seen and examined at bedside; 24hour events reviewed; nursing and respiratory care staff consulted; no adverse overnight events reported to me; resting peacefully in bed; less agitated; denies acute uncontrolled pain; no N/V/F/C Objective Vital Signs - 12hr 08/19/18 08/19/18 08/19/18 01:00 03:00 04:00 Pulse Rate 82 82 80 Pulse Rate [ Anterior Bilateral Throughout] Pulse Rate [ From Monitor] Pulse Rate [ Right Dorsalis Pedis] Respiratory 18 16 15 Rate Respiratory Rate [Anterior Bilateral Throughout] Respiratory Rate [Chest] Blood Pressure 128/78 130/73 117/66 O2 Sat by Pulse 100 100 100 Oximetry 08/19/18 08/19/18 08/19/18 04:30 04:50 05:00 Pulse Rate 80 80 Pulse Rate [ Anterior Bilateral Throughout] Pulse Rate [ 83 From Monitor] Pulse Rate [ Right Dorsalis Pedis] Respiratory 18 16 Rate Respiratory Rate [Anterior Bilateral Throughout] Respiratory 18 Rate [Chest] Blood Pressure 117/66 127/70 O2 Sat by Pulse 100 100 100 Oximetry 08/19/18 08/19/18 08/19/18 06:00 08:30 08:45 Pulse Rate 80 Pulse Rate [ 80 Anterior Bilateral Throughout] Pulse Rate [ 86 From Monitor] Pulse Rate [ 86 Right Dorsalis Pedis] Respiratory 18 16 Rate Respiratory 27 H Rate [Anterior Bilateral Throughout] Respiratory Rate [Chest] Blood Pressure 124/68 O2 Sat by Pulse 100 100 Oximetry 08/19/18 08/19/18 08/19/18 08:50 09:02 10:22 Pulse Rate 80 80 Pulse Rate [ 80 Anterior Bilateral Throughout] Pulse Rate [ From Monitor] Pulse Rate [ Right Dorsalis Pedis] Respiratory 23 Rate Respiratory 25 H Rate [Anterior Bilateral Throughout] Respiratory Rate [Chest] Blood Pressure 131/70 125/67 O2 Sat by Pulse 100 Oximetry 08/19/18 10:23 Pulse Rate 80 Pulse Rate [ Anterior Bilateral Throughout] Pulse Rate [ From Monitor] Pulse Rate [ Right Dorsalis Pedis] Respiratory Rate Respiratory Rate [Anterior Bilateral Throughout] Respiratory Rate [Chest] Blood Pressure 125/87 O2 Sat by Pulse Oximetry Constitutional: no acute distress, alert, other (elderly looking CM, normocephalica nd atraumatic with normal respiratory effort at rest) Eyes: non-icteric ENT: oropharynx moist, other (ETT 24 cm ROXY) Neck: supple, no lymphadenopathy, no JVD, other (large neck circumference) Effort: normal Ascultation: Bilateral: diminished breath sounds, rhonchi Percussion: Bilateral: not dull Cardiovascular: regular rate and rhythm Gastrointestinal: normoactive bowel sounds, soft, non-tender, non-distended Integumentary: normal, other (multiple tatoo's) Extremities: no cyanosis, no edema, pink and warm, pulses normal, no ischemia or petechiae Neurologic: normal mental status, non-focal exam, pupils equal and round, motor strength normal and Psychiatric: mood appropriate, affect normal CBC and BMP: 08/19/18 04:15 08/19/18 04:15 ABG, PT/INR, D-dimer: ABG POC ABG pH 7.464 (7.35-7.45) H 08/19/18 11:34 POC ABG pCO2 32.0 (35-45) L 08/19/18 11:34 POC ABG pO2 101 (80-105) 08/19/18 11:34 POC ABG HCO3 23.0 08/19/18 11:34 POC ABG Total CO2 24 08/19/18 11:34 POC ABG O2 Sat 98 08/19/18 11:34 Abnormal lab findings: Abnormal Labs 08/18/18 08/18/18 08/18/18 00:24 00:24 02:40 Hgb 9.9 L Hct 29.9 L MCV 80 L MCH 26 L RDW 17.5 H Lymph % (Auto) Lymph # Seg Neutrophils % POC ABG pH POC ABG pCO2 POC ABG pO2 Potassium Chloride Glucose POC Glucose Calcium Magnesium Total Bilirubin AST Total Creatine Kinase CK-MB (CK-2) C-Reactive Protein Albumin Salicylates < 0.3 L Acetaminophen < 5.0 L 08/18/18 08/18/18 08/18/18 02:40 03:11 07:50 Hgb Hct MCV MCH RDW Lymph % (Auto) Lymph # Seg Neutrophils % POC ABG pH POC ABG pCO2 POC ABG pO2 116 H Potassium 2.7 L* Chloride 95.3 L Glucose 137 H POC Glucose 164 H Calcium Magnesium 1.50 L Total Bilirubin 1.80 H AST 50 H Total Creatine Kinase 2180 H CK-MB (CK-2) C-Reactive Protein Albumin 3.7 L Salicylates Acetaminophen 08/18/18 08/18/18 08/18/18 13:22 13:22 14:12 Hgb Hct MCV MCH RDW Lymph % (Auto) Lymph # Seg Neutrophils % POC ABG pH POC ABG pCO2 POC ABG pO2 Potassium 3.2 L Chloride Glucose POC Glucose 110 H Calcium Magnesium Total Bilirubin AST Total Creatine Kinase 2661 H CK-MB (CK-2) 34.0 H C-Reactive Protein Albumin Salicylates Acetaminophen 08/18/18 08/18/18 08/18/18 17:39 17:40 18:00 Hgb Hct MCV MCH RDW Lymph % (Auto) Lymph # Seg Neutrophils % POC ABG pH POC ABG pCO2 POC ABG pO2 Potassium Chloride Glucose POC Glucose 107 H Calcium Magnesium Total Bilirubin AST Total Creatine Kinase 2224 H CK-MB (CK-2) 26.5 H C-Reactive Protein 3.00 H Albumin Salicylates Acetaminophen 08/18/18 08/19/18 08/19/18 21:44 03:56 04:15 Hgb 10.9 L Hct 33.9 L MCV 81 L MCH 26 L RDW 17.4 H Lymph % (Auto) 10.2 L Lymph # 0.6 L Seg Neutrophils % 81.5 H POC ABG pH POC ABG pCO2 POC ABG pO2 158 H Potassium Chloride Glucose POC Glucose 109 H Calcium Magnesium Total Bilirubin AST Total Creatine Kinase CK-MB (CK-2) C-Reactive Protein Albumin Salicylates Acetaminophen 08/19/18 08/19/18 08/19/18 04:15 08:18 11:34 Hgb Hct MCV MCH RDW Lymph % (Auto) Lymph # Seg Neutrophils % POC ABG pH 7.464 H POC ABG pCO2 32.0 L POC ABG pO2 Potassium 3.4 L Chloride Glucose 128 H POC Glucose Calcium 8.3 L Magnesium Total Bilirubin 1.60 H AST 57 H Total Creatine Kinase 1271 H CK-MB (CK-2) C-Reactive Protein Albumin 3.5 L Salicylates Acetaminophen Chest x-ray: image reviewed (RIJ CVL; no focal infiltrates) Allied health notes reviewed: nursing
--- NOTE | 2018-08-19 16:09 | Event Note ---
Date: 08/19/18 Patient was successfully extubated this afternoon On nasal cannula oxygen, start mechanical soft diet Advance diet as tolerated Continue 1013 status, Psych evaluation Transfer to floor when patient is more stable
[2018-08-19] MEDS ORDERED: NACL 0.9% 1000 ML 1,000 ML IV ONE (19:04)
[2018-08-19 19:58] LABS: BUN/Creatinine Ratio 11; Blood Urea Nitrogen 9 mg/dL (9-20); Calcium 7.6 mg/dL (8.4-10.2); Hemolysis Index 1
[2018-08-19] MEDS ORDERED: LEVOPHED DRIP 4 MG/NS 250 ML 4 MG/250 ML BAG IV SCH (22:00)
[2018-08-19] MEDS: RANEXA ER PO SCH ×2 (22:05→23:14)
[2018-08-19] MEDS: TOPROL XL PO SCH ×2 (22:05→23:14)
[2018-08-20] MEDS: ZOFRAN IV PRN ×2 (00:15→13:24)
[2018-08-20] MEDS: HumuLIN R SUB-Q SCH ×4 (02:32→22:48)
[2018-08-20 05:26] LABS: Basophils % (Auto) 0.2 % (0.0-1.8); Hematocrit 30.3 % (35.5-45.6); Hemoglobin 9.8 gm/dl (11.8-15.2); Lymphocytes # (Auto) 0.5 K/mm3 (1.2-5.4); Lymphocytes % (Auto) 5.2 % (13.4-35.0); Mean Corpuscular HGB Conc 32 % (32-34); Mean Corpuscular Volume 81 fl (84-94); Monocytes # (Auto) 0.7 K/mm3 (0.0-0.8); Monocytes % (Auto) 7.2 % (0.0-7.3); Platelet Count 161 K/mm3 (140-440); Red Blood Count 3.73 M/mm3 (3.65-5.03); Red Cell Distribution Width 17.5 % (13.2-15.2)
[2018-08-20 05:49] LABS: Alanine Aminotransferase 20 units/L (7-56); Albumin 3.5 g/dL (3.9-5); BUN/Creatinine Ratio 11; Blood Urea Nitrogen 9 mg/dL (9-20); Calcium 7.9 mg/dL (8.4-10.2); Hemolysis Index 2
--- NOTE | 2018-08-20 06:29 | XRay Report ---
PROCEDURE: XR CHEST 1V AP HISTORY: follow up respiratory failure COMPARISONS: X-ray dated 08/19/2018 FINDINGS: Heart size is enlarged. Interval decrease in prominence of central pulmonary vessels and interstitial lung markings since kendell or x-ray, likely from minimal vascular congestion and/or CHF changes. No new areas of consolidation. Median sternotomy wires and support devices are in satisfactory position. Unremarkable osseous structures. IMPRESSION: 1. Overall improvement in minimal vascular congestion and/or CHF changes since prior study. This document is electronically signed by Tasneem Mathew MD., August 20 2018 06:26:58 AM ET
[2018-08-20] MEDS ORDERED: K-DUR PO ONE (09:00)
[2018-08-20] MEDS: DUONEB *Not for PRN Use IH SCH ×3 (09:11→19:38)
--- NOTE | 2018-08-20 10:02 | Progress Note ---
Assessment and Plan Acute hypoxemic respiratory failure, on mechanical ventilatory support. Acute encephalopathy appears to be toxic metabolic. Congestive heart failure with mild exacerbation. History of diabetes. History of deep venous thrombosis. Paroxysmal atrial fibrillation. History of migraines. History of nephrolithiasis. History of depression. Chronic obstructive lung disease. Anemia that is microcytic. Hypokalemia. Hypomagnesemia. Possible alcohol abuse. Hyperbilirubinemia. Elevated CPK with normal troponin, possibly rhabdomyolysis - continue supplemental oxygen to keep O2 sat's> 90% - continue BIPAP scheduled qhs - continue bronchodilators with pulmonary hygiene per RT - continue full anticoagulation for VTE & PAF - continue gentle diuresis for CHF - continue seroquel and other chronic psycyh meds - continue glycemic control with SSI for target BG 140-180 mg/dL - continue enteral nutrition as tolerated - when resumed target sedation for RASS 0 to -1 - PT/OT/ROM exercises as tolerated - mobility protocol for pressure ulcer prophylaxis - continue GI & VTE prophylaxis - continue other care per attending / other consultants ...... re-evaluate in am & prn Subjective Date of service: 08/20/18 Principal diagnosis: Acute hypoxemic resp failure; Acute encephalopathy; CHF; DM II; PAF Interval history: Patient is seen today for: Acute hypoxemic respiratory failure on MVS; Acute encephalopathy (toxic metabolic); CHF with mild exacerbation; History of diabetes; History of deep venous thrombosis; Paroxysmal atrial fibrillation. Seen and examined at bedside; 24hour events reviewed; nursing and respiratory care staff consulted; no adverse overnight events reported to me; resting peacefully in bed; tolerated BIPAP overnight; doing well post extubation so far; No N/V/F/C; no chest pains or palpitations Objective Vital Signs - 12hr 08/19/18 08/19/18 08/19/18 22:15 22:30 22:45 Temperature Pulse Rate 82 81 81 Pulse Rate [ Anterior Bilateral Throughout] Pulse Rate [ From Monitor] Respiratory 30 H 28 H 43 H Rate Respiratory Rate [Anterior Bilateral Throughout] Blood Pressure 92/41 97/58 110/60 O2 Sat by Pulse 100 100 99 Oximetry 08/19/18 08/19/18 08/19/18 23:00 23:14 23:15 Temperature Pulse Rate 85 81 81 Pulse Rate [ Anterior Bilateral Throughout] Pulse Rate [ From Monitor] Respiratory 16 43 H Rate Respiratory Rate [Anterior Bilateral Throughout] Blood Pressure 106/51 106/51 109/60 O2 Sat by Pulse 100 99 Oximetry 08/19/18 08/19/18 08/19/18 23:30 23:46 23:57 Temperature Pulse Rate 86 81 84 Pulse Rate [ Anterior Bilateral Throughout] Pulse Rate [ From Monitor] Respiratory 23 38 H 34 H Rate Respiratory Rate [Anterior Bilateral Throughout] Blood Pressure 106/51 105/57 105/57 O2 Sat by Pulse 93 99 99 Oximetry 08/20/18 08/20/18 08/20/18 00:00 00:02 00:15 Temperature 100.1 F H Pulse Rate 80 81 84 Pulse Rate [ Anterior Bilateral Throughout] Pulse Rate [ 82 From Monitor] Respiratory 18 35 H 14 Rate Respiratory Rate [Anterior Bilateral Throughout] Blood Pressure 105/57 102/63 110/58 O2 Sat by Pulse 100 100 100 Oximetry 08/20/18 08/20/18 08/20/18 00:30 00:45 01:00 Temperature Pulse Rate 88 87 97 H Pulse Rate [ Anterior Bilateral Throughout] Pulse Rate [ From Monitor] Respiratory 38 H 18 41 H Rate Respiratory Rate [Anterior Bilateral Throughout] Blood Pressure 121/63 118/68 118/69 O2 Sat by Pulse 99 98 97 Oximetry 08/20/18 08/20/18 08/20/18 01:15 01:30 01:46 Temperature Pulse Rate 86 91 H 95 H Pulse Rate [ Anterior Bilateral Throughout] Pulse Rate [ From Monitor] Respiratory 28 H 24 20 Rate Respiratory Rate [Anterior Bilateral Throughout] Blood Pressure 116/59 116/59 125/65 O2 Sat by Pulse 95 89 98 Oximetry 08/20/18 08/20/18 08/20/18 02:00 02:15 02:30 Temperature Pulse Rate 89 91 H 95 H Pulse Rate [ Anterior Bilateral Throughout] Pulse Rate [ From Monitor] Respiratory 24 12 16 Rate Respiratory Rate [Anterior Bilateral Throughout] Blood Pressure 126/66 132/70 124/68 O2 Sat by Pulse 98 97 97 Oximetry 08/20/18 08/20/18 08/20/18 02:45 03:00 03:15 Temperature Pulse Rate 94 H 82 84 Pulse Rate [ Anterior Bilateral Throughout] Pulse Rate [ From Monitor] Respiratory 31 H 27 H 35 H Rate Respiratory Rate [Anterior Bilateral Throughout] Blood Pressure 117/67 120/61 121/62 O2 Sat by Pulse 99 99 97 Oximetry 08/20/18 08/20/1808/20/19 03:30 03:46 04:00 Temperature 98.6 F Pulse Rate 90 92 H 88 Pulse Rate [ Anterior Bilateral Throughout] Pulse Rate [ 92 H From Monitor] Respiratory 15 27 H 41 H Rate Respiratory Rate [Anterior Bilateral Throughout] Blood Pressure 125/73 127/47 127/47 O2 Sat by Pulse 98 97 98 Oximetry 08/20/18 08/20/18 08/20/18 04:15 04:30 04:45 Temperature Pulse Rate 88 87 88 Pulse Rate [ Anterior Bilateral Throughout] Pulse Rate [ From Monitor] Respiratory 33 H 42 H 16 Rate Respiratory Rate [Anterior Bilateral Throughout] Blood Pressure 118/79 115/69 122/69 O2 Sat by Pulse 100 Oximetry 08/20/18 08/20/18 08/20/18 05:00 05:16 05:30 Temperature Pulse Rate 82 82 90 Pulse Rate [ Anterior Bilateral Throughout] Pulse Rate [ From Monitor] Respiratory 19 14 15 Rate Respiratory Rate [Anterior Bilateral Throughout] Blood Pressure 123/64 122/67 122/67 O2 Sat by Pulse Oximetry 08/20/18 08/20/18 08/20/18 05:45 06:00 06:16 Temperature Pulse Rate 87 92 H 88 Pulse Rate [ Anterior Bilateral Throughout] Pulse Rate [ From Monitor] Respiratory 15 25 H 13 Rate Respiratory Rate [Anterior Bilateral Throughout] Blood Pressure 120/65 119/75 116/65 O2 Sat by Pulse Oximetry 08/20/18 08/20/18 08/20/18 06:30 06:46 07:01 Temperature Pulse Rate 89 81 81 Pulse Rate [ Anterior Bilateral Throughout] Pulse Rate [ From Monitor] Respiratory 16 20 23 Rate Respiratory Rate [Anterior Bilateral Throughout] Blood Pressure 119/65 119/65 111/65 O2 Sat by Pulse 99 99 Oximetry 08/20/18 08/20/18 08/20/18 08:00 09:09 09:11 Temperature 98.1 F Pulse Rate Pulse Rate [ 81 Anterior Bilateral Throughout] Pulse Rate [ From Monitor] Respiratory Rate Respiratory 16 Rate [Anterior Bilateral Throughout] Blood Pressure O2 Sat by Pulse 99 Oximetry 08/20/18 09:21 Temperature Pulse Rate Pulse Rate [ 83 Anterior Bilateral Throughout] Pulse Rate [ From Monitor] Respiratory Rate Respiratory 18 Rate [Anterior Bilateral Throughout] Blood Pressure O2 Sat by Pulse Oximetry Constitutional: no acute distress, alert, other (elderly looking CM, normocephalica nd atraumatic with normal respiratory effort at rest) Eyes: non-icteric ENT: oropharynx moist, other (extubated) Neck: supple, no lymphadenopathy, no JVD, other (large neck circumference) Effort: normal Ascultation: Bilateral: diminished breath sounds, rhonchi Percussion: Bilateral: not dull Cardiovascular: regular rate and rhythm Gastrointestinal: normoactive bowel sounds, soft, non-tender, non-distended Integumentary: normal, other (multiple tatoo's) Extremities: no cyanosis, no edema, pink and warm, pulses normal, no ischemia or petechiae Neurologic: normal mental status, non-focal exam, pupils equal and round, motor strength normal and Psychiatric: mood appropriate, affect normal CBC and BMP: 08/21/18 04:39 08/22/18 05:11 ABG, PT/INR, D-dimer: ABG POC ABG pH 7.464 (7.35-7.45) H 08/19/18 11:34 POC ABG pCO2 32.0 (35-45) L 08/19/18 11:34 POC ABG pO2 101 (80-105) 08/19/18 11:34 POC ABG HCO3 23.0 08/19/18 11:34 POC ABG Total CO2 24 08/19/18 11:34 POC ABG O2 Sat 98 08/19/18 11:34 Abnormal lab findings: Abnormal Labs 08/18/18 08/18/18 08/18/18 00:24 00:24 02:40 Hgb 9.9 L Hct 29.9 L MCV 80 L MCH 26 L RDW 17.5 H Lymph % (Auto) Lymph # Seg Neutrophils % Seg Neutrophils # POC ABG pH POC ABG pCO2 POC ABG pO2 Potassium Chloride Glucose POC Glucose Calcium Magnesium Total Bilirubin AST Total Creatine Kinase CK-MB (CK-2) C-Reactive Protein Albumin Salicylates < 0.3 L Acetaminophen < 5.0 L 08/18/18 08/18/18 08/18/18 02:40 03:11 07:50 Hgb Hct MCV MCH RDW Lymph % (Auto) Lymph # Seg Neutrophils % Seg Neutrophils # POC ABG pH POC ABG pCO2 POC ABG pO2 116 H Potassium 2.7 L* Chloride 95.3 L Glucose 137 H POC Glucose 164 H Calcium Magnesium 1.50 L Total Bilirubin 1.80 H AST 50 H Total Creatine Kinase 2180 H CK-MB (CK-2) C-Reactive Protein Albumin 3.7 L Salicylates Acetaminophen 08/18/18 08/18/18 08/18/18 13:22 13:22 14:12 Hgb Hct MCV MCH RDW Lymph % (Auto) Lymph # Seg Neutrophils % Seg Neutrophils # POC ABG pH POC ABG pCO2 POC ABG pO2 Potassium 3.2 L Chloride Glucose POC Glucose 110 H Calcium Magnesium Total Bilirubin AST Total Creatine Kinase 2661 H CK-MB (CK-2) 34.0 H C-Reactive Protein Albumin Salicylates Acetaminophen 08/18/18 08/18/18 08/18/18 17:39 17:40 18:00 Hgb Hct MCV MCH RDW Lymph % (Auto) Lymph # Seg Neutrophils % Seg Neutrophils # POC ABG pH POC ABG pCO2 POC ABG pO2 Potassium Chloride Glucose POC Glucose 107 H Calcium Magnesium Total Bilirubin AST Total Creatine Kinase 2224 H CK-MB (CK-2) 26.5 H C-Reactive Protein 3.00 H Albumin Salicylates Acetaminophen 08/18/18 08/19/18 08/19/18 21:44 03:56 04:15 Hgb 10.9 L Hct 33.9 L MCV 81 L MCH 26 L RDW 17.4 H Lymph % (Auto) 10.2 L Lymph # 0.6 L Seg Neutrophils % 81.5 H Seg Neutrophils # POC ABG pH POC ABG pCO2 POC ABG pO2 158 H Potassium Chloride Glucose POC Glucose 109 H Calcium Magnesium Total Bilirubin AST Total Creatine Kinase CK-MB (CK-2) C-Reactive Protein Albumin Salicylates Acetaminophen 08/19/18 08/19/18 08/19/18 04:15 08:18 11:34 Hgb Hct MCV MCH RDW Lymph % (Auto) Lymph # Seg Neutrophils % Seg Neutrophils # POC ABG pH 7.464 H POC ABG pCO2 32.0 L POC ABG pO2 Potassium 3.4 L Chloride Glucose 128 H POC Glucose Calcium 8.3 L Magnesium Total Bilirubin 1.60 H AST 57 H Total Creatine Kinase 1271 H CK-MB (CK-2) C-Reactive Protein Albumin 3.5 L Salicylates Acetaminophen 08/19/18 08/19/18 08/19/18 14:34 18:30 22:23 Hgb Hct MCV MCH RDW Lymph % (Auto) Lymph # Seg Neutrophils % Seg Neutrophils # POC ABG pH POC ABG pCO2 POC ABG pO2 Potassium 3.4 L Chloride Glucose 216 H POC Glucose 122 H 203 H Calcium 7.6 L Magnesium Total Bilirubin AST Total Creatine Kinase CK-MB (CK-2) C-Reactive Protein Albumin Salicylates Acetaminophen 08/20/18 08/20/18 04:45 04:45 Hgb 9.8 L Hct 30.3 L MCV 81 L MCH 26 L RDW 17.5 H Lymph % (Auto) 5.2 L Lymph # 0.5 L Seg Neutrophils % 87.4 H Seg Neutrophils # 8.0 H POC ABG pH POC ABG pCO2 POC ABG pO2 Potassium 3.3 L Chloride Glucose 192 H POC Glucose Calcium 7.9 L Magnesium Total Bilirubin AST 44 H Total Creatine Kinase CK-MB (CK-2) C-Reactive Protein Albumin 3.5 L Salicylates Acetaminophen Allied health notes reviewed: nursing
[2018-08-20] MEDS: RANEXA ER PO SCH ×2 (10:24→22:50)
[2018-08-20] MEDS: IMDUR PO SCH (10:25)
[2018-08-20] MEDS: PROTONIX PO SCH (10:26)
[2018-08-20] MEDS: PRADAXA PO SCH ×2 (10:26→22:50)
[2018-08-20] MEDS: LASIX PO SCH ×2 (10:26→22:50)
--- NOTE | 2018-08-20 11:01 | Progress Note ---
Assessment and Plan Assessment and plan: 62-year-old male patient with multiple medical problems was admitted through emergency room with altered level of consciousness, possible suicidal attempt and drug overdose, intubated, admitted to [facility], extubated yesterday, on 1013 status, is saturating well on nasal cannula oxygen, off Levophed, alert awake oriented 3, patient is stable to be transferred out of ICU to telemetry --Acute hypoxic respiratory failure; requiring intubation Extubated yesterday, on nasal cannula oxygen saturating well --Possible suicide attempt; with drug overdose 1013 status, pending Psych evaluation --Status post ICD, supportive care --Acute on chronic systolic congestive heart failure; ejection fraction 20% --Ischemic cardiomyopathy; continue anti-failure medications --History of coronary artery disease status post CABG --History of A. fib; rate controlled continue current beta blockers --Chronic anticoagulation; with pradaxa --Metabolic encephalopathy; present on admission, Now resolved --Severe hypokalemia; replenished with IV and oral KCl, minitor electrolytes --Hypomagnesemia; replenished per protocol , resolved --Moderate malnutrition; supportive care with nutrition supplements --DVT prophylaxis; on Pradaxa --Full code status Closely monitor the patient and adjust management as needed Follow psych evaluation and recommendations Patient is stable enough to be transferred out of ICU to telemetry Consults and recommendations noted and appreciated Critical care time 32 minutes History Interval history: Patient seen and examined in ICU this morning medical records reviewed Patient was extubated yesterday on nasal cannula oxygen , Saturating well Alert and awake and responding appropriately On 1013 status Hospitalist Physical - Constitutional Vitals: Temp Pulse Resp BP Pulse Ox 98.1 F 88 20 115/75 99 08/20/18 08:00 08/20/18 10:25 08/20/18 10:01 08/20/18 10:25 08/20/18 10:01 General appearance: Present: no acute distress, well-nourished, obese - EENT Eyes: Present: PERRL, EOM intact - Neck Neck: Present: supple, normal ROM - Respiratory Respiratory effort: normal Respiratory: bilateral: diminished, negative: rales, rhonchi, wheezing - Cardiovascular Rhythm: regular Heart Sounds: Present: S1 & S2 - Extremities Extremities: no ischemia, No edema - Abdominal General gastrointestinal: soft, non-tender, non-distended, normal bowel sounds - Integumentary Integumentary: Present: clear, warm - Psychiatric Psychiatric: appropriate mood/affect, cooperative - Neurologic Neurologic: CNII-XII intact, moves all extremities Results - Labs CBC & Chem 7: 08/20/18 04:45 08/20/18 04:45 Labs: Laboratory Last Values WBC 9.2 K/mm3 (4.5-11.0) 08/20/18 04:45 RBC 3.73 M/mm3 (3.65-5.03) 08/20/18 04:45 Hgb 9.8 gm/dl (11.8-15.2) L 08/20/18 04:45 Hct 30.3 % (35.5-45.6) L 08/20/18 04:45 MCV 81 fl (84-94) L 08/20/18 04:45 MCH 26 pg (28-32) L 08/20/18 04:45 MCHC 32 % (32-34) 08/20/18 04:45 RDW 17.5 % (13.2-15.2) H 08/20/18 04:45 Plt Count 161 K/mm3 (140-440) 08/20/18 04:45 Lymph % (Auto) 5.2 % (13.4-35.0) L 08/20/18 04:45 [place] % (Auto) 7.2 % (0.0-7.3) 08/20/18 04:45 Eos % (Auto) 0.0 % (0.0-4.3) 08/20/18 04:45 Baso % (Auto) 0.2 % (0.0-1.8) 08/20/18 04:45 Lymph # 0.5 K/mm3 (1.2-5.4) L 08/20/18 04:45 [place] # 0.7 K/mm3 (0.0-0.8) 08/20/18 04:45 Eos # 0.0 K/mm3 (0.0-0.4) 08/20/18 04:45 Baso # 0.0 K/mm3 (0.0-0.1) 08/20/18 04:45 Seg Neutrophils % 87.4 % (40.0-70.0) H 08/20/18 04:45 Seg Neutrophils # 8.0 K/mm3 (1.8-7.7) H 08/20/18 04:45 POC ABG pH 7.464 (7.35-7.45) H 08/19/18 11:34 POC ABG pCO2 32.0 (35-45) L 08/19/18 11:34 POC ABG pO2 101 (80-105) 08/19/18 11:34 POC ABG HCO3 23.0 08/19/18 11:34 POC ABG Total CO2 24 08/19/18 11:34 POC ABG O2 Sat 98 08/19/18 11:34 POC ABG Base Excess -1 08/19/18 11:34 FiO2 25 % 08/19/18 11:34 Sodium 139 mmol/L (137-145) 08/20/18 04:45 Potassium 3.3 mmol/L (3.6-5.0) L 08/20/18 04:45 Chloride 100.8 mmol/L (98-107) 08/20/18 04:45 Carbon Dioxide 24 mmol/L (22-30) 08/20/18 04:45 Anion Gap 18 mmol/L 08/20/18 04:45 BUN 9 mg/dL (9-20) 08/20/18 04:45 Creatinine 0.8 mg/dL (0.8-1.5) 08/20/18 04:45 Estimated GFR > 60 ml/min 08/20/18 04:45 BUN/Creatinine Ratio 11 % 08/20/18 04:45 Glucose 192 mg/dL (75-100) H 08/20/18 04:45 POC Glucose 203 (70-105) H 08/19/18 22:23 Lactic Acid 1.60 mmol/L (0.7-2.0) 08/18/18 02:40 Calcium 7.9 mg/dL (8.4-10.2) L 08/20/18 04:45 Phosphorus 3.10 mg/dL (2.5-4.5) 08/19/18 04:15 Magnesium 1.70 mg/dL (1.7-2.3) 08/19/18 18:30 Total Bilirubin 1.20 mg/dL (0.1-1.2) 08/20/18 04:45 AST 44 units/L (5-40) H 08/20/18 04:45 ALT 20 units/L (7-56) 08/20/18 04:45 Alkaline Phosphatase 82 units/L (35-129) 08/20/18 04:45 Ammonia 44.0 umol/L (25-60) 08/18/18 02:40 Total Creatine Kinase 1271 units/L (55-170) H 08/19/18 08:18 CK-MB (CK-2) 26.5 ng/mL (0.0-4.0) H 08/18/18 18:00 CK-MB (CK-2) Rel Index 1.1 (0-4) 08/18/18 18:00 Troponin T 0.025 ng/mL (0.00-0.029) 08/18/18 18:00 C-Reactive Protein 3.00 mg/dL (0.00-1.30) H 08/18/18 17:39 Total Protein 6.3 g/dL (6.3-8.2) 08/20/18 04:45 Albumin 3.5 g/dL (3.9-5) L 08/20/18 04:45 Albumin/Globulin Ratio 1.3 % 08/20/18 04:45 Urine Color Radha (Yellow) 08/18/18 Unknown Urine Turbidity Clear (Clear) 08/18/18 Unknown Urine pH 5.0 (5.0-7.0) 08/18/18 Unknown Ur Specific Alexander 1.013 (1.003-1.030) 08/18/18 Unknown Urine Protein 30 mg/dl mg/dL (Negative) 08/18/18 Unknown Urine Glucose (UA) Neg mg/dL (Negative) 08/18/18 Unknown Urine Ketones Neg mg/dL (Negative) 08/18/18 Unknown Urine Blood Neg (Negative) 08/18/18 Unknown Urine Nitrite Neg (Negative) 08/18/18 Unknown Urine Bilirubin Neg (Negative) 08/18/18 Unknown Urine Urobilinogen 2.0 mg/dL (<2.0) 08/18/18 Unknown Ur Leukocyte Esterase Neg (Negative) 08/18/18 Unknown Urine WBC (Auto) < 1.0 /HPF (0.0-6.0) 08/18/18 Unknown Urine RBC (Auto) 1.0 /HPF (0.0-6.0) 08/18/18 Unknown U Epithel Cells (Auto) < 1.0 /HPF (0-13.0) 08/18/18 Unknown Salicylates < 0.3 mg/dL (2.8-20.0) L 08/18/18 00:24 Urine Opiates Screen Presumptive positive 08/18/18 Unknown Urine Methadone Screen Presumptive negative 08/18/18 Unknown Acetaminophen < 5.0 ug/mL (10.0-30.0) L 08/18/18 00:24 Ur Barbiturates Screen Presumptive negative 08/18/18 Unknown Ur Phencyclidine Scrn Presumptive negative 08/18/18 Unknown Ur Amphetamines Screen Presumptive negative 08/18/18 Unknown U Benzodiazepines Scrn Presumptive positive 08/18/18 Unknown Urine Cocaine Screen Presumptive negative 08/18/18 Unknown U Marijuana (THC) Screen Presumptive negative 08/18/18 Unknown Drugs of Abuse Note Disclamer 08/18/18 Unknown Plasma/Serum Alcohol < 0.01 % (0-0.07) 08/18/18 00:24 Nutrition/Malnutrition Assess - Dietary Evaluation Nutrition/Malnutrition Findings: Nutrition Notes Start: 08/19/18 10:43 Freq: Status: Active Protocol: Document 08/19/18 10:44 NAKIA (Rec: 08/19/18 10:51 [facility] [id number]) Nutrition Notes Need for Assessment generated from: MD Order Initial or Follow up Assessment Current Diagnosis COPD,Coronary Artery Disease, Diabetes,Hypertension,Heart Failure,Respiratory Failure Other Pertinent Diagnosis AMS, ? drug overdose Current Diet NPO Labs/Tests K 3.4 Pertinent Medications Lasix, 10mEq KCl at 100ml/hr x 3 bags Height 5 ft 9 in Weight 108.862 kg [place] Body Weight (kg) 72.72 BMI 35.4 Weight Status Obese Subjective/Other Information RD consulted for TF. Pt intubated and on vent support. Burn Absent Trauma Absent #1 Nutrition Diagnosis Inadequate oral intake [facility] As Evidenced by Signs and Symptoms pt NPO Is patient on ventilator? Yes Is Patient Ambulatory and/or Out of Bed No REE-([facility]-confined to bed) 3413.509 Calculation Used for Recommendations 65-70% energy needs Additional Notes Pro needs 2g/kg IBW: 145g/day Fluid needs per MD. Nutrition Intervention Nutrition Support: Vital High Protein at 65ml/hr with 50ml water flush q4h. Kcal 1,560 Protein (gm) 137 Carbohydrates (gm) 175 Fat (gm) 36 Fluid (mL) 1,304 Fiber (gm) 0 Goal #1 TF tolerance Goal #2 TF to meet 65-70% energy and 80-100% pro needs Anticipated Discharge Needs: Unable to identify at this time Follow-Up By: 08/21/18 Additional Comments F/U: new TF, vent status
--- NOTE | 2018-08-20 11:53 | Consultation ---
History of Present Illness Consult date: 08/20/18 Consult reason: atrial fibrillation History of present illness: Patient is a 62 year old male with a history of coronary artery disease, status post previous 4 way coronary artery bypass. A cardiac catheterization 2 years ago revealed all 4 bypass grafts to be patent, but he has diffuse small branch vessel disease and chronic stable angina on medical therapy. His last thallium stress test documents no ischemia. He has a history of ischemic cardiomyopathy and has an indwelling cardiac defibrillator for primary prevention. Left ventricular ejection fraction 20-25% by an echocardiogram a month ago. He also has paroxysmal atrial fibrillation and is on Pradaxa for oral anticoagulation. Patient was admitted to this hospital on 08/18 for altered mental status and suspected drug overdose. Head CT scan reports no acute intracranial process. C hest x-ray reports no evidence of heart failure. An ECG on presentation shows ventricular pace rhythm. On yesterday, patient complained of palpitations. An EKG shows sustained ventricular tachycardia. Nurse reports the SVT was terminated by ICD discharge. Patient was restarted on beta blockers and has not had any further arrhythmias thus far. A cardiac consultation was requested for further evaluation. Medications and Allergies Allergies Allergy/AdvReac Type Severity Reaction Status Date / Time gabapentin [From Neurontin] Allergy Rash Verified 01/25/18 06:12 Home Medications Medication Instructions Recorded Confirmed Last Taken Type Lisinopril [Zestril TAB] 20 mg PO QDAY #30 tablet 12/27/17 02/09/18 Unknown Rx Metoprolol Xl [Metoprolol 50 mg PO BID #60 tablet 12/27/17 02/09/18 Unknown Rx SUCCINATE ER TAB] AtorvaSTATin [Lipitor] 40 mg PO QHS #30 tablet 02/03/18 02/09/18 Unknown Rx ISOSORBIDE MONOnitrate [Imdur ER] 60 mg PO QDAY #30 tablet 02/03/18 02/09/18 Unknown Rx QUEtiapine [SEROquel] 200 mg PO BID #60 tablet 02/03/18 02/09/18 Unknown Rx Ranolazine ER [Ranexa ER] 500 mg PO BID #60 tablet 02/03/18 02/09/18 Unknown Rx ALPRAZolam [Xanax] 1 mg PO BID 02/09/18 08/18/18 08/17/18 History Cyclobenzaprine [Flexeril] 10 mg PO BID 02/09/18 02/09/18 Unknown History Dabigatran [Pradaxa] 75 mg PO BID 02/09/18 02/09/18 Unknown History Furosemide [Lasix TAB] 40 mg PO BID 02/09/18 08/18/18 08/17/18 History Insulin Lispro [Humalog 100 15 units SUB-Q TIDAC 02/09/18 02/09/18 Unknown History UNITS/ML Kwikpen] Oxycodone HCl/Acetaminophen 1 each PO TID 02/09/18 02/09/18 Unknown History [Percocet 7.5/325 mg] Sertraline [Zoloft] 50 mg PO QDAY 02/09/18 02/09/18 Unknown History clonazePAM [Clonazepam] 2 mg PO HS 02/09/18 02/09/18 Unknown History Amitriptyline HCl 75 mg PO DAILY 08/18/18 08/18/18 08/17/18 History Active Meds: Active Medications Acetaminophen (Tylenol) 650 mg NM Q4H PRN PRN Reason: Pain, Mild (1-3) Albuterol/Ipratropium (Duoneb *Not For Prn Use*) 1 ampul IH TIDRT [facility] Last Admin: 08/20/18 09:11 Dose: 1 ampul Documented by: Dabigatran (Pradaxa) 75 mg PO BID [facility]; Protocol Last Admin: 08/20/18 10:26 Dose: 75 mg Documented by: Dextrose (D50w (25gm) Syringe) 50 ml IV PRN PRN PRN Reason: Hypoglycemia Furosemide (Lasix) 40 mg PO BID [facility] Last Admin: 08/20/18 10:26 Dose: 40 mg Documented by: Haloperidol Lactate (Haldol) 5 mg IM Q6HR PRN PRN Reason: Agitation Hydrophilic Ointment (Vaseline Lip Therapy) 1 applic TP Q2HR PRN PRN Reason: Dry Lips Norepinephrine (Levophed Drip 4 Mg/Ns 250 Ml) 4 mg in 250 mls @ 7.5 mls/hr IV TITR [facility]; Protocol Last Titration: 08/20/18 02:35 Dose: 2 mcg/min, 7.5 mls/hr Documented by: Insulin Glargine (Lantus) 5 units SUB-Q QHS [facility] Insulin Human Regular (Humulin R) 0 units SUB-Q ACHS [facility]; Protocol Isosorbide Mononitrate (Imdur) 60 mg PO QDAY [facility] Last Admin: 08/20/18 10:25 Dose: 60 mg Documented by: Lisinopril (Zestril) 20 mg PO QDAY [facility] Last Admin: 08/19/18 10:23 Dose: 20 mg Documented by: Lorazepam (Ativan) 2 mg IM Q4HR PRN PRN Reason: Agitation Last Admin: 08/19/18 19:42 Dose: 2 mg Documented by: Metoprolol Succinate (Toprol Xl) 50 mg PO BID [facility] Last Admin: 08/19/18 23:14 Dose: 50 mg Documented by: Multi-Ingred Cream/Lotion/Oil/Oint (Artificial Tears Ophth Oint) 1 applic OU Q4HR PRN PRN Reason: Dry Eye(s) Ondansetron HCl (Zofran) 4 mg IV Q8H PRN PRN Reason: Nausea And Vomiting Last Admin: 08/20/18 00:15 Dose: 4 mg Documented by: Pantoprazole Sodium (Protonix) 40 mg PO DAILY [facility] Last Admin: 08/20/18 10:26 Dose: 40 mg Documented by: Quetiapine Fumarate (Seroquel) 200 mg PO BID [facility] Last Admin: 08/20/18 10:26 Dose: 200 mg Documented by: Ranolazine (Ranexa Er) 500 mg PO BID [facility] Last Admin: 08/20/18 10:24 Dose: 500 mg Documented by: Tamsulosin HCl (Flomax) 0.4 mg PO QDAY [facility] Physical Examination Vital Signs Pulse Ox 98 08/17/18 23:24 General appearance: no acute distress HEENT: Positive: PERRL Cardiac: Positive: Reg Rate and Rhythm Lungs: Positive: Decreased Breath Sounds Neuro: Positive: Grossly Intact Results 08/20/18 04:45 08/20/18 04:45 Cardiac Enzymes 08/20/18 Range/Units 04:45 AST 44 H (5-40) units/L CBC 08/20/18 Range/Units 04:45 WBC 9.2 (4.5-11.0) K/mm3 RBC 3.73 (3.65-5.03) M/mm3 Hgb 9.8 L (11.8-15.2) gm/dl Hct 30.3 L (35.5-45.6) % Plt Count 161 (140-440) K/mm3 Lymph # 0.5 L (1.2-5.4) K/mm3 [place] # 0.7 (0.0-0.8) K/mm3 Eos # 0.0 (0.0-0.4) K/mm3 Baso # 0.0 (0.0-0.1) K/mm3 Comprehensive Metabolic Panel 08/19/18 08/20/18 Range/Units 18:30 04:45 Sodium 142 139 (137-145) mmol/L Potassium 3.4 L 3.3 L (3.6-5.0) mmol/L Chloride 102.6 100.8 (98-107) mmol/L Carbon Dioxide 26 24 (22-30) mmol/L BUN 9 9 (9-20) mg/dL Creatinine 0.8 0.8 (0.8-1.5) mg/dL Glucose 216 H 192 H (75-100) mg/dL Calcium 7.6 L 7.9 L (8.4-10.2) mg/dL AST 44 H (5-40) units/L ALT 20 (7-56) units/L Alkaline Phosphatase 82 (35-129) units/L Total Protein 6.3 (6.3-8.2) g/dL Albumin 3.5 L (3.9-5) g/dL Assessment and Plan Altered mental status Suspected drug overdose Acute Respiratory failure s/p extubation Hx of PE Hx of CAD s/p CABG MPI 06/2016: No ischemia, large fixed inferior and inferolateral wall defect consistent with old CT. [facility] 07/2015: 4 patent bypass grafts. Small vessel disease recommended for medical therapy. Hx of Ischemic cardiomyopathy EF 20-25% by echo 12/2017 AICD discharge ([place]) Paroxysmal atrial fibrillation currently in sinus rhythm. anticoagulated with pradaxa as an outpatient. HTN Recommendations: Replete potassium Continue beta blockers for suppression of arrhythmias. We will get an AICD interrogation.
[2018-08-20] MEDS: TOPROL XL PO SCH ×2 (13:23→22:50)
[2018-08-20] MEDS: ZESTRIL PO SCH (13:23)
[2018-08-20] MEDS ORDERED: NACL 0.9% 250ML 250 ML IV ONE (14:00)
[2018-08-20] MEDS: FLOMAX PO SCH (16:00)
[2018-08-20] MEDS: LANTUS SUB-Q SCH ×2 (22:51→23:00)
[2018-08-21 05:59] LABS: Basophils % (Auto) 0.5 % (0.0-1.8); Eosinophils # (Auto) 0.1 K/mm3 (0.0-0.4); Eosinophils % (Auto) 1.1 % (0.0-4.3); Hematocrit 31.5 % (35.5-45.6); Hemoglobin 10.1 gm/dl (11.8-15.2); Lymphocytes # (Auto) 0.8 K/mm3 (1.2-5.4); Mean Corpuscular HGB Conc 32 % (32-34); Mean Corpuscular Volume 82 fl (84-94); Monocytes # (Auto) 0.5 K/mm3 (0.0-0.8); Monocytes % (Auto) 8.2 % (0.0-7.3); Platelet Count 159 K/mm3 (140-440); Red Blood Count 3.87 M/mm3 (3.65-5.03)
[2018-08-21 06:47] LABS: Alanine Aminotransferase 21 units/L (7-56); Albumin 3.4 g/dL (3.9-5); BUN/Creatinine Ratio 11; Blood Urea Nitrogen 9 mg/dL (9-20); Calcium 8.3 mg/dL (8.4-10.2); Hemolysis Index 44
[2018-08-21] MEDS: HumuLIN R SUB-Q SCH ×4 (07:30→21:34)
[2018-08-21] MEDS: DUONEB *Not for PRN Use IH SCH ×3 (08:27→20:21)
[2018-08-21] MEDS: PERCOCET 5/325 PO PRN ×2 (09:23→18:05)
[2018-08-21] MEDS: TOPROL XL PO SCH ×2 (11:28→21:33)
[2018-08-21] MEDS: ZESTRIL PO SCH (11:28)
[2018-08-21] MEDS: PROTONIX PO SCH (11:28)
[2018-08-21] MEDS: FLOMAX PO SCH (11:28)
[2018-08-21] MEDS: IMDUR PO SCH (11:29)
[2018-08-21] MEDS: RANEXA ER PO SCH ×2 (11:29→21:27)
[2018-08-21] MEDS: LASIX PO SCH ×2 (11:29→21:32)
[2018-08-21] MEDS: PRADAXA PO SCH ×2 (11:29→21:27)
--- NOTE | 2018-08-21 11:31 | Consultation ---
History of Present Illness - Reason for Consult Consult date: 08/21/18 Reason for consult: Mental Health Evaluation Requesting physician: MADHAVI PERALTA - Chief Complaint Chief complaint: "I didn't try to kill myself" - History of Present Psychiatric Illness 62 y.o. white male who presented to the ER for possible overdose. Psychiatry was consulted to see the patient. Today the patient is calm and cooperative during the assessment. He stated that he only remember going grocery shopping and returning home, He stated that next thing he knew, he woke up in the hospital. He denies that he tried to kill himself. He stated that he has a hx of Social Anxiety and takes Xanax PRN and sometimes everyday. He denies a mood do when asked. He denies that he takes Seroquel. He stated that he take Oxycodone for back pain. He denies taking Xanax/Oxycodone together. He stated that his PCP manage all his medications. He denies SI/HI's, AVH's, and depression, He denies recreational drug use and alcohol consumption (etoh). . Medications and Allergies Allergies Allergy/AdvReac Type Severity Reaction Status Date / Time gabapentin [From Neurontin] Allergy Rash Verified 01/25/18 06:12 Home Medications Medication Instructions Recorded Confirmed Last Taken Type Lisinopril [Zestril TAB] 20 mg PO QDAY #30 tablet 12/27/17 02/09/18 Unknown Rx Metoprolol Xl [Metoprolol 50 mg PO BID #60 tablet 12/27/17 02/09/18 Unknown Rx SUCCINATE ER TAB] AtorvaSTATin [Lipitor] 40 mg PO QHS #30 tablet 02/03/18 02/09/18 Unknown Rx ISOSORBIDE MONOnitrate [Imdur ER] 60 mg PO QDAY #30 tablet 02/03/18 02/09/18 Unknown Rx QUEtiapine [SEROquel] 200 mg PO BID #60 tablet 02/03/18 02/09/18 Unknown Rx Ranolazine ER [Ranexa ER] 500 mg PO BID #60 tablet 02/03/18 02/09/18 Unknown Rx ALPRAZolam [Xanax] 1 mg PO BID 02/09/18 08/18/18 08/17/18 History Cyclobenzaprine [Flexeril] 10 mg PO BID 02/09/18 02/09/18 Unknown History Dabigatran [Pradaxa] 75 mg PO BID 02/09/18 02/09/18 Unknown History Furosemide [Lasix TAB] 40 mg PO BID 02/09/18 08/18/18 08/17/18 History Insulin Lispro [Humalog 100 15 units SUB-Q TIDAC 02/09/18 02/09/18 Unknown History UNITS/ML Kwikpen] Oxycodone HCl/Acetaminophen 1 each PO TID 02/09/18 02/09/18 Unknown History [Percocet 7.5/325 mg] Sertraline [Zoloft] 50 mg PO QDAY 02/09/18 02/09/18 Unknown History clonazePAM [Clonazepam] 2 mg PO HS 02/09/18 02/09/18 Unknown History Amitriptyline HCl 75 mg PO DAILY 08/18/18 08/18/18 08/17/18 History Active Meds: Active Medications Acetaminophen (Tylenol) 650 mg MA Q4H PRN PRN Reason: Pain, Mild (1-3) Albuterol/Ipratropium (Duoneb *Not For Prn Use*) 1 ampul IH TIDRT [facility] Last Admin: 08/21/18 08:27 Dose: 1 ampul Documented by: Dabigatran (Pradaxa) 75 mg PO BID [facility]; Protocol Last Admin: 08/20/18 22:50 Dose: 75 mg Documented by: Dextrose (D50w (25gm) Syringe) 50 ml IV PRN PRN PRN Reason: Hypoglycemia Furosemide (Lasix) 40 mg PO BID [facility] Last Admin: 08/20/18 22:50 Dose: 40 mg Documented by: Haloperidol Lactate (Haldol) 5 mg IM Q6HR PRN PRN Reason: Agitation Hydrophilic Ointment (Vaseline Lip Therapy) 1 applic TP Q2HR PRN PRN Reason: Dry Lips Norepinephrine (Levophed Drip 4 Mg/Ns 250 Ml) 4 mg in 250 mls @ 7.5 mls/hr IV TITR [facility]; Protocol Last Titration: 08/20/18 06:05 Dose: 0 mcg/min, 0 mls/hr Documented by: Sodium Chloride (Nacl 0.9% 250ml) 250 mls @ 10 mls/hr IV ONCE ONE Stop: 08/21/18 14:59 Last Admin: 08/20/18 14:30 Dose: 10 mls/hr Documented by: Insulin Glargine (Lantus) 5 units SUB-Q QHS [facility] Last Admin: 08/20/18 23:00 Dose: Not Given Documented by: Insulin Human Regular (Humulin R) 0 units SUB-Q ACHS [facility]; Protocol Last Admin: 08/21/18 11:27 Dose: Not Given Documented by: Isosorbide Mononitrate (Imdur) 60 mg PO QDAY [facility] Last Admin: 08/20/18 10:25 Dose: 60 mg Documented by: Lisinopril (Zestril) 20 mg PO QDAY [facility] Last Admin: 08/20/18 13:23 Dose: 20 mg Documented by: Lorazepam (Ativan) 2 mg IM Q4HR PRN PRN Reason: Agitation Last Admin: 08/19/18 19:42 Dose: 2 mg Documented by: Metoprolol Succinate (Toprol Xl) 50 mg PO BID [facility] Last Admin: 08/20/18 22:50 Dose: 50 mg Documented by: Multi-Ingred Cream/Lotion/Oil/Oint (Artificial Tears Ophth Oint) 1 applic OU Q4HR PRN PRN Reason: Dry Eye(s) Ondansetron HCl (Zofran) 4 mg IV Q8H PRN PRN Reason: Nausea And Vomiting Last Admin: 08/20/18 13:24 Dose: 4 mg Documented by: Oxycodone/Acetaminophen (Percocet 5/325) 1 tab PO Q6H PRN PRN Reason: Pain, Moderate (4-6) Last Admin: 08/21/18 09:23 Dose: 1 tab Documented by: Pantoprazole Sodium (Protonix) 40 mg PO DAILY [facility] Last Admin: 08/20/18 10:26 Dose: 40 mg Documented by: Ranolazine (Ranexa Er) 500 mg PO BID [facility] Last Admin: 08/20/18 22:50 Dose: 500 mg Documented by: Tamsulosin HCl (Flomax) 0.4 mg PO QDAY [facility] Last Admin: 08/20/18 16:00 Dose: 0.4 mg Documented by: Past psychiatric history - Past Medical History Past Medical History: other (Back Injury) Past Surgical History: No surgical history - past Psychiatric treatment and history psychiatric treatment history: Hx of Anxiety that's managed by the patient's PCP. He denies a fam psy hx. - Social History Social history: Lives alone Mental Status Exam - Vital signs Last Vital Signs Temp 98.5 F 08/21/18 09:16 Pulse 81 08/21/18 09:16 Resp 18 08/21/18 09:16 BP 123/79 08/21/18 09:16 Pulse Ox 99 08/21/18 09:16 - Exam Narrative exam: MSE: Appearance: calm, cooperative Behavior: regular eye contact Speech: regular rate and loud tone Mood: "okay" Affect: congruent to mood Thought Process: linear Thought Content: denies SI/HI's and AVH's Motor Activity: sitting up in the bed Cognition: A/O x3 Insight: fair Judgment: fair Results Result Diagrams: 08/21/18 04:39 08/21/18 04:40 Abnormal lab results 08/21/18 08/21/18 Range/Units 04:39 04:40 Hgb 10.1 L (11.8-15.2) gm/dl Hct 31.5 L (35.5-45.6) % MCV 82 L (84-94) fl MCH 26 L (28-32) pg RDW 18.0 H (13.2-15.2) % [place] % (Auto) 8.2 H (0.0-7.3) % Lymph # 0.8 L (1.2-5.4) K/mm3 Seg Neutrophils % 76.2 H (40.0-70.0) % Glucose 137 H (75-100) mg/dL Calcium 8.3 L (8.4-10.2) mg/dL AST 43 H (5-40) units/L Albumin 3.4 L (3.9-5) g/dL All other labs normal. Assessment and Plan Assessment and plan: Impression: Intentional vs Unintentional overdose. Hx of Social Anxiety DO per the patient. Today the patient is calm and cooperative during the assessment. The patient was positive for benzos and opiates. Recommendation/Plan: Continue 1013 and gather collateral information. Start Xanax 0.25 mg PO Q8hrs PRN for acute anxiety. Discussed SSRIs with patient reference treatment for anxiety. He stated that he need 24 hours to decide if he want to take an SSRI for anxiety. Baseline EKG before a SSRI is initiated, patient has a ICD. Do not administer benzos and opiates concurrently. Dispo: Once collateral information is gathered, proper dispo will be determined. Staffed with Dr Keon Sloan.
--- NOTE | 2018-08-21 11:44 | Progress Note ---
Assessment and Plan Altered mental status Suspected drug overdose Acute Respiratory failure s/p extubation Hx of PE Hx of CAD s/p CABG MPI 06/2016: No ischemia, large fixed inferior and inferolateral wall defect consistent with old [place]. C 07/2015: 4 patent bypass grafts. Small vessel disease recommended for medical therapy. Hx of Ischemic cardiomyopathy EF 20-25% by echo 12/2017 AICD discharge ([employer]) Paroxysmal atrial fibrillation currently in sinus rhythm. anticoagulated with pradaxa as an outpatient. HTN Recommendations: Continue beta blockers for suppression of tachy-arrhythmias. Continue medical therapy for his paroxysmal afib, cardiomyopathy and coronary artery disease. Awaits AICD interrogation. Subjective Date of service: 08/21/18 Principal diagnosis: Acute hypoxemic resp failure; Acute encephalopathy; CHF; DM II; PAF Interval history: No cardiac events on telemetry overnight. Awaits AICD interrogation. Objective Vital Signs Temp Pulse Pulse Pulse Resp Resp Resp 08/21/18 09:16 98.5 F 81 18 08/21/18 08:49 85 19 08/21/18 08:34 08/21/18 08:00 80 20 08/21/18 05:59 98.0 F 80 08/20/18 23:19 80 08/20/18 22:30 80 08/20/18 20:37 98.0 F 08/20/18 20:35 18 08/20/18 20:31 83 08/20/18 20:01 80 12 08/20/18 19:51 81 18 08/20/18 19:41 80 26 H 08/20/18 19:38 08/20/18 19:34 25 L 20 08/20/18 19:31 83 22 08/20/18 19:21 80 13 08/20/18 19:11 84 12 08/20/18 19:01 80 42 H 08/20/18 18:51 80 36 H 08/20/18 18:41 80 35 H 08/20/18 18:00 80 32 H 08/20/18 17:01 80 15 08/20/18 16:00 98.2 F 81 82 15 08/20/18 15:00 83 27 H 08/20/18 14:50 80 20 08/20/18 14:33 78 20 08/20/18 14:00 80 15 08/20/18 13:31 81 11 L 08/20/18 13:23 84 08/20/18 13:00 80 15 08/20/18 12:31 83 16 08/20/18 12:00 98.4 F 86 84 26 H BP BP Pulse Ox 08/21/18 09:16 123/79 99 08/21/18 08:49 08/21/18 08:34 98 08/21/18 08:00 08/21/18 05:59 109/65 94 08/20/18 23:19 115/74 94 08/20/18 22:30 08/20/18 20:37 08/20/18 20:35 08/20/18 20:31 124/74 98 08/20/18 20:01 121/58 97 08/20/18 19:51 121/58 99 08/20/18 19:41 121/58 100 08/20/18 19:38 98 08/20/18 19:34 08/20/18 19:31 121/58 92 08/20/18 19:21 121/58 96 08/20/18 19:11 121/58 96 08/20/18 19:01 121/58 96 08/20/18 18:51 130/76 97 08/20/18 18:41 130/76 98 08/20/18 18:00 130/76 08/20/18 17:01 131/74 99 08/20/18 16:00 111/75 99 08/20/18 15:00 123/78 100 08/20/18 14:50 08/20/18 14:33 08/20/18 14:00 122/63 98 08/20/18 13:31 114/75 95 08/20/18 13:23 141/85 08/20/18 13:00 118/62 100 08/20/18 12:31 115/66 100 08/20/18 12:00 128/75 100 - Physical Examination General: No Apparent Distress HEENT: Positive: PERRL Neck: Positive: trachea midline Cardiac: Positive: Reg Rate and Rhythm Lungs: Positive: Decreased Breath Sounds Neuro: Positive: Grossly Intact - Labs and Meds Cardiac Enzymes 08/21/18 Range/Units 04:40 AST 43 H (5-40) units/L CBC 08/21/18 Range/Units 04:39 WBC 5.6 (4.5-11.0) K/mm3 RBC 3.87 (3.65-5.03) M/mm3 Hgb 10.1 L (11.8-15.2) gm/dl Hct 31.5 L (35.5-45.6) % Plt Count 159 (140-440) K/mm3 Lymph # 0.8 L (1.2-5.4) K/mm3 [place] # 0.5 (0.0-0.8) K/mm3 Eos # 0.1 (0.0-0.4) K/mm3 Baso # 0.0 (0.0-0.1) K/mm3 Comprehensive Metabolic Panel 08/21/18 Range/Units 04:40 Sodium 142 (137-145) mmol/L Potassium 3.7 (3.6-5.0) mmol/L Chloride 104.3 (98-107) mmol/L Carbon Dioxide 22 (22-30) mmol/L BUN 9 (9-20) mg/dL Creatinine 0.8 (0.8-1.5) mg/dL Glucose 137 H (75-100) mg/dL Calcium 8.3 L (8.4-10.2) mg/dL AST 43 H (5-40) units/L ALT 21 (7-56) units/L Alkaline Phosphatase 79 (35-129) units/L Total Protein 6.7 (6.3-8.2) g/dL Albumin 3.4 L (3.9-5) g/dL - Allied health notes Allied health notes reviewed: nursing
--- NOTE | 2018-08-21 14:45 | Progress Note ---
Assessment and Plan Assessment and plan: 62-year-old male patient with multiple medical problems was admitted through emergency room with altered level of consciousness, possible suicidal attempt and drug overdose, intubated, admitted to the [facility], extubated , on 1013 status, is saturating well on nasal cannula oxygen, off Levophed, alert awake oriented 3, p --Acute hypoxic respiratory failure; requiring intubation Extubated 08/19, on nasal cannula oxygen saturating well --Possible suicide attempt; with drug overdose 1013 status, Psych following --Status post ICD, supportive care --Acute on chronic systolic congestive heart failure; ejection fraction 20% --Ischemic cardiomyopathy; continue anti-failure medications --History of coronary artery disease status post CABG --History of A. fib; rate controlled continue current beta blockers --Chronic anticoagulation; with pradaxa --Metabolic encephalopathy; present on admission, Now resolved --Severe hypokalemia; replenished with IV and oral KCl, minitor electrolytes --Hypomagnesemia; replenished per protocol , resolved --Moderate malnutrition; supportive care with nutrition supplements --DVT prophylaxis; on Pradaxa --Full code status History Interval history: Patient was extubated, now on nasal cannula oxygen , Saturating well Alert and awake and responding appropriately On 1013 status Feels better Hospitalist Physical - Physical exam Narrative exam: GEN: Not in acute distress, lying in bed HEENT: Normocephalic, atraumatic, Neck: supple, No JVD Lungs: Clear to auscultation bilat, no crackles, no wheeze Abd:soft, non tender, non distended, normal bowel sounds Ext: No edema, no clubbing, no cyanosis Neuro:Awake,alert,oriented X 3, no focal signs Skin:No rash Psych: Suicidal - Constitutional Vitals: Temp Pulse Resp BP Pulse Ox 98.5 F 82 18 123/79 99 08/21/18 09:16 08/21/18 13:22 08/21/18 13:22 08/21/18 09:16 08/21/18 09:16 General appearance: Present: no acute distress, obese Results - Labs CBC & Chem 7: 08/21/18 04:39 08/21/18 04:40 Labs: Laboratory Last Values WBC 5.6 K/mm3 (4.5-11.0) 08/21/18 04:39 RBC 3.87 M/mm3 (3.65-5.03) 08/21/18 04:39 Hgb 10.1 gm/dl (11.8-15.2) L 08/21/18 04:39 Hct 31.5 % (35.5-45.6) L 08/21/18 04:39 MCV 82 fl (84-94) L 08/21/18 04:39 MCH 26 pg (28-32) L 08/21/18 04:39 MCHC 32 % (32-34) 08/21/18 04:39 RDW 18.0 % (13.2-15.2) H 08/21/18 04:39 Plt Count 159 K/mm3 (140-440) 08/21/18 04:39 Lymph % (Auto) 14.0 % (13.4-35.0) 08/21/18 04:39 [place] % (Auto) 8.2 % (0.0-7.3) H 08/21/18 04:39 Eos % (Auto) 1.1 % (0.0-4.3) 08/21/18 04:39 Baso % (Auto) 0.5 % (0.0-1.8) 08/21/18 04:39 Lymph # 0.8 K/mm3 (1.2-5.4) L 08/21/18 04:39 [place] # 0.5 K/mm3 (0.0-0.8) 08/21/18 04:39 Eos # 0.1 K/mm3 (0.0-0.4) 08/21/18 04:39 Baso # 0.0 K/mm3 (0.0-0.1) 08/21/18 04:39 Seg Neutrophils % 76.2 % (40.0-70.0) H 08/21/18 04:39 Seg Neutrophils # 4.3 K/mm3 (1.8-7.7) 08/21/18 04:39 POC ABG pH 7.464 (7.35-7.45) H 08/19/18 11:34 POC ABG pCO2 32.0 (35-45) L 08/19/18 11:34 POC ABG pO2 101 (80-105) 08/19/18 11:34 POC ABG HCO3 23.0 08/19/18 11:34 POC ABG Total CO2 24 08/19/18 11:34 POC ABG O2 Sat 98 08/19/18 11:34 POC ABG Base Excess -1 08/19/18 11:34 FiO2 25 % 08/19/18 11:34 Sodium 142 mmol/L (137-145) 08/21/18 04:40 Potassium 3.7 mmol/L (3.6-5.0) 08/21/18 04:40 Chloride 104.3 mmol/L (98-107) 08/21/18 04:40 Carbon Dioxide 22 mmol/L (22-30) 08/21/18 04:40 Anion Gap 19 mmol/L 08/21/18 04:40 BUN 9 mg/dL (9-20) 08/21/18 04:40 Creatinine 0.8 mg/dL (0.8-1.5) 08/21/18 04:40 Estimated GFR > 60 ml/min 08/21/18 04:40 BUN/Creatinine Ratio 11 % 08/21/18 04:40 Glucose 137 mg/dL (75-100) H 08/21/18 04:40 POC Glucose 203 (70-105) H 08/19/18 22:23 Lactic Acid 1.60 mmol/L (0.7-2.0) 08/18/18 02:40 Calcium 8.3 mg/dL (8.4-10.2) L 08/21/18 04:40 Phosphorus 3.10 mg/dL (2.5-4.5) 08/19/18 04:15 Magnesium 1.90 mg/dL (1.7-2.3) 08/21/18 04:40 Total Bilirubin 1.10 mg/dL (0.1-1.2) 08/21/18 04:40 AST 43 units/L (5-40) H 08/21/18 04:40 ALT 21 units/L (7-56) 08/21/18 04:40 Alkaline Phosphatase 79 units/L (35-129) 08/21/18 04:40 Ammonia 44.0 umol/L (25-60) 08/18/18 02:40 Total Creatine Kinase 1271 units/L (55-170) H 08/19/18 08:18 CK-MB (CK-2) 26.5 ng/mL (0.0-4.0) H 08/18/18 18:00 CK-MB (CK-2) Rel Index 1.1 (0-4) 08/18/18 18:00 Troponin T 0.025 ng/mL (0.00-0.029) 08/18/18 18:00 C-Reactive Protein 3.00 mg/dL (0.00-1.30) H 08/18/18 17:39 Total Protein 6.7 g/dL (6.3-8.2) 08/21/18 04:40 Albumin 3.4 g/dL (3.9-5) L 08/21/18 04:40 Albumin/Globulin Ratio 1.0 % 08/21/18 04:40 Urine Color Radha (Yellow) 08/18/18 Unknown Urine Turbidity Clear (Clear) 08/18/18 Unknown Urine pH 5.0 (5.0-7.0) 08/18/18 Unknown Ur Specific [place] 1.013 (1.003-1.030) 08/18/18 Unknown Urine Protein 30 mg/dl mg/dL (Negative) 08/18/18 Unknown Urine Glucose (UA) Neg mg/dL (Negative) 08/18/18 Unknown Urine Ketones Neg mg/dL (Negative) 08/18/18 Unknown Urine Blood Neg (Negative) 08/18/18 Unknown Urine Nitrite Neg (Negative) 08/18/18 Unknown Urine Bilirubin Neg (Negative) 08/18/18 Unknown Urine Urobilinogen 2.0 mg/dL (<2.0) 08/18/18 Unknown Ur Leukocyte Esterase Neg (Negative) 08/18/18 Unknown Urine WBC (Auto) < 1.0 /HPF (0.0-6.0) 08/18/18 Unknown Urine RBC (Auto) 1.0 /HPF (0.0-6.0) 08/18/18 Unknown U Epithel Cells (Auto) < 1.0 /HPF (0-13.0) 08/18/18 Unknown Salicylates < 0.3 mg/dL (2.8-20.0) L 08/18/18 00:24 Urine Opiates Screen Presumptive positive 08/18/18 Unknown Urine Methadone Screen Presumptive negative 08/18/18 Unknown Acetaminophen < 5.0 ug/mL (10.0-30.0) L 08/18/18 00:24 Ur Barbiturates Screen Presumptive negative 08/18/18 Unknown Ur Phencyclidine Scrn Presumptive negative 08/18/18 Unknown Ur Amphetamines Screen Presumptive negative 08/18/18 Unknown U Benzodiazepines Scrn Presumptive positive 08/18/18 Unknown Urine Cocaine Screen Presumptive negative 08/18/18 Unknown U Marijuana (THC) Screen Presumptive negative 08/18/18 Unknown Drugs of Abuse Note Disclamer 08/18/18 Unknown Plasma/Serum Alcohol < 0.01 % (0-0.07) 08/18/18 00:24 Nutrition/Malnutrition Assess - Dietary Evaluation Nutrition/Malnutrition Findings: Nutrition Notes Start: 08/19/18 10:43 Freq: Status: Active Protocol: Document 08/21/18 13:36 RM (Rec: 08/21/18 13:46 RM [id number]) Nutrition Notes Initial or Follow up Reassessment Current Diagnosis COPD,Coronary Artery Disease, Diabetes,Hypertension,Heart Failure,Respiratory Failure Other Pertinent Diagnosis AMS, ? drug overdose Current Diet Mech Soft, Consistent CHO Labs/Tests Reviewed Pertinent Medications Lasix Height 5 ft 9 in Weight 108.86 kg [place] Body Weight (kg) 72.72 BMI 35.4 Subjective/Other Information Pt asleep and had sitter at time of visit. Sitter stated that pt eats bites of his meals. Percent of energy/protein needs met: 0%/0% Burn Absent Trauma Absent #1 Nutrition Diagnosis Inadequate oral intake Diagnosis Progress(for reassessment Continues documentation) Is patient on ventilator? Yes Is Patient Ambulatory and/or Out of Bed No REE-([facility]-confined to bed) 2265.324 Kcal/Kg value to use for calculation 16 Approximate Energy Requirements Using 1742 kcal/Kg Calculation Used for Recommendations Kcal/kg Additional Notes Protein Needs:109-137g (1.2-1 .5g/kg 91kg adjBW) Fluid Needs: 1 ml/kcal Nutrition Intervention Change Diet Order: Mech Soft,Consistent CHO, Cardiac Add Supplement/Snack (indicate name/kcal Glucerna 1 daily /protein ) Provides kCal: 220 Provides Protein (gm) 10 Goal #1 Meet at least 75% of calorie and protein needs via PO and ONS intakes Anticipated Discharge Needs: Mech soft, Consistent CHO, Cardiac Follow-Up By: 08/23/18 Additional Comments Follow for PO and ONS intakes
--- NOTE | 2018-08-21 17:41 | Progress Note ---
Assessment and Plan Patient resting on 2 litres O2. O2 saturation 97%.No complaint of chest pain, shortness of breath or cough. - Patient Problems (1) Acute on chronic systolic heart failure Onset Date: 07/03/16 Current Visit: No Status: Acute Plan to address problem: Management as per cardiology. (2) Acute respiratory failure Current Visit: No Status: Acute Qualifiers: Respiratory failure complication: hypoxia Qualified Code(s): J96.01 - Acute respiratory failure with hypoxia Plan to address problem: Patient extubated. Patient presently on 2 litres O2.O2 saturation 97%. (3) Altered mental status, unspecified Current Visit: Yes Status: Acute Plan to address problem: Management as per primary care. (4) Overdose Current Visit: Yes Status: Acute Plan to address problem: Management as per primary care. Consult psychiatry. (5) Atrial fibrillation with rapid ventricular response Onset Date: 07/03/16 Current Visit: No Status: Acute Plan to address problem: Patient is on Pradaxa. Management as per cardiology. (6) Diabetes mellitus type 2 in obese Current Visit: No Status: Acute Plan to address problem: Management as per primary care. Subjective Date of service: 08/21/18 Principal diagnosis: Acute hypoxemic resp failure; Acute encephalopathy; CHF; DM II; PAF Interval history: Patient resting on 2 litres O2. O2 saturation 97%.No complaint of chest pain, shortness of breath or cough. Objective Vital Signs - 12hr 08/21/18 08/21/18 08/21/18 05:59 08:00 08:34 Temperature 98.0 F Pulse Rate 80 Pulse Rate [ 80 Anterior Bilateral Throughout] Respiratory Rate Respiratory 20 Rate [Anterior Bilateral Throughout] Blood Pressure Blood Pressure 109/65 [Right] O2 Sat by Pulse 94 98 Oximetry 08/21/18 08/21/18 08/21/18 08:49 09:16 10:00 Temperature 98.5 F Pulse Rate 81 80 Pulse Rate [ 85 Anterior Bilateral Throughout] Respiratory 18 Rate Respiratory 19 Rate [Anterior Bilateral Throughout] Blood Pressure 123/79 Blood Pressure [Right] O2 Sat by Pulse 99 Oximetry 08/21/18 08/21/18 08/21/18 13:13 13:22 16:50 Temperature 98.8 F Pulse Rate 83 Pulse Rate [ 85 82 Anterior Bilateral Throughout] Respiratory 18 Rate Respiratory 18 18 Rate [Anterior Bilateral Throughout] Blood Pressure 107/54 Blood Pressure [Right] O2 Sat by Pulse 97 Oximetry Constitutional: no acute distress, alert, other (elderly looking CM, normocephalica nd atraumatic with normal respiratory effort at rest) Eyes: non-icteric ENT: oropharynx moist, other (ETT 24 cm ROXY) Neck: supple, no lymphadenopathy, no JVD, other (large neck circumference) Effort: normal Ascultation: Bilateral: diminished breath sounds, rhonchi Percussion: Bilateral: not dull Cardiovascular: regular rate and rhythm Gastrointestinal: normoactive bowel sounds, soft, non-tender, non-distended Integumentary: normal, other (multiple tatoo's) Extremities: no cyanosis, no edema, pink and warm, pulses normal, no ischemia or petechiae Neurologic: normal mental status, non-focal exam, pupils equal and round, motor strength normal and Psychiatric: mood appropriate, affect normal CBC and BMP: 08/21/18 04:39 08/21/18 04:40 ABG, PT/INR, D-dimer: ABG POC ABG pH 7.464 (7.35-7.45) H 08/19/18 11:34 POC ABG pCO2 32.0 (35-45) L 08/19/18 11:34 POC ABG pO2 101 (80-105) 08/19/18 11:34 POC ABG HCO3 23.0 08/19/18 11:34 POC ABG Total CO2 24 08/19/18 11:34 POC ABG O2 Sat 98 08/19/18 11:34 Abnormal lab findings: Abnormal Labs 08/18/18 08/18/18 08/18/18 00:24 00:24 02:40 Hgb 9.9 L Hct 29.9 L MCV 80 L MCH 26 L RDW 17.5 H Lymph % (Auto) [place] % (Auto) Lymph # Seg Neutrophils % Seg Neutrophils # POC ABG pH POC ABG pCO2 POC ABG pO2 Potassium Chloride Glucose POC Glucose Calcium Magnesium Total Bilirubin AST Total Creatine Kinase CK-MB (CK-2) C-Reactive Protein Albumin Salicylates < 0.3 L Acetaminophen < 5.0 L 08/18/18 08/18/18 08/18/18 02:40 03:11 07:50 Hgb Hct MCV MCH RDW Lymph % (Auto) [place] % (Auto) Lymph # Seg Neutrophils % Seg Neutrophils # POC ABG pH POC ABG pCO2 POC ABG pO2 116 H Potassium 2.7 L* Chloride 95.3 L Glucose 137 H POC Glucose 164 H Calcium Magnesium 1.50 L Total Bilirubin 1.80 H AST 50 H Total Creatine Kinase 2180 H CK-MB (CK-2) C-Reactive Protein Albumin 3.7 L Salicylates Acetaminophen 08/18/18 08/18/18 08/18/18 13:22 13:22 14:12 Hgb Hct MCV MCH RDW Lymph % (Auto) [place] % (Auto) Lymph # Seg Neutrophils % Seg Neutrophils # POC ABG pH POC ABG pCO2 POC ABG pO2 Potassium 3.2 L Chloride Glucose POC Glucose 110 H Calcium Magnesium Total Bilirubin AST Total Creatine Kinase 2661 H CK-MB (CK-2) 34.0 H C-Reactive Protein Albumin Salicylates Acetaminophen 08/18/18 08/18/18 08/18/18 17:39 17:40 18:00 Hgb Hct MCV MCH RDW Lymph % (Auto) [place] % (Auto) Lymph # Seg Neutrophils % Seg Neutrophils # POC ABG pH POC ABG pCO2 POC ABG pO2 Potassium Chloride Glucose POC Glucose 107 H Calcium Magnesium Total Bilirubin AST Total Creatine Kinase 2224 H CK-MB (CK-2) 26.5 H C-Reactive Protein 3.00 H Albumin Salicylates Acetaminophen 08/18/18 08/19/18 08/19/18 21:44 03:56 04:15 Hgb 10.9 L Hct 33.9 L MCV 81 L MCH 26 L RDW 17.4 H Lymph % (Auto) 10.2 L [place] % (Auto) Lymph # 0.6 L Seg Neutrophils % 81.5 H Seg Neutrophils # POC ABG pH POC ABG pCO2 POC ABG pO2 158 H Potassium Chloride Glucose POC Glucose 109 H Calcium Magnesium Total Bilirubin AST Total Creatine Kinase CK-MB (CK-2) C-Reactive Protein Albumin Salicylates Acetaminophen 08/19/18 08/19/18 08/19/18 04:15 08:18 11:34 Hgb Hct MCV MCH RDW Lymph % (Auto) [place] % (Auto) Lymph # Seg Neutrophils % Seg Neutrophils # POC ABG pH 7.464 H POC ABG pCO2 32.0 L POC ABG pO2 Potassium 3.4 L Chloride Glucose 128 H POC Glucose Calcium 8.3 L Magnesium Total Bilirubin 1.60 H AST 57 H Total Creatine Kinase 1271 H CK-MB (CK-2) C-Reactive Protein Albumin 3.5 L Salicylates Acetaminophen 08/19/18 08/19/18 08/19/18 14:34 18:30 22:23 Hgb Hct MCV MCH RDW Lymph % (Auto) [place] % (Auto) Lymph # Seg Neutrophils % Seg Neutrophils # POC ABG pH POC ABG pCO2 POC ABG pO2 Potassium 3.4 L Chloride Glucose 216 H POC Glucose 122 H 203 H Calcium 7.6 L Magnesium Total Bilirubin AST Total Creatine Kinase CK-MB (CK-2) C-Reactive Protein Albumin Salicylates Acetaminophen 08/20/18 08/20/18 08/21/18 04:45 04:45 04:39 Hgb 9.8 L 10.1 L Hct 30.3 L 31.5 L MCV 81 L 82 L MCH 26 L 26 L RDW 17.5 H 18.0 H Lymph % (Auto) 5.2 L [place] % (Auto) 8.2 H Lymph # 0.5 L 0.8 L Seg Neutrophils % 87.4 H 76.2 H Seg Neutrophils # 8.0 H POC ABG pH POC ABG pCO2 POC ABG pO2 Potassium 3.3 L Chloride Glucose 192 H POC Glucose Calcium 7.9 L Magnesium Total Bilirubin AST 44 H Total Creatine Kinase CK-MB (CK-2) C-Reactive Protein Albumin 3.5 L Salicylates Acetaminophen 08/21/18 04:40 Hgb Hct MCV MCH RDW Lymph % (Auto) [place] % (Auto) Lymph # Seg Neutrophils % Seg Neutrophils # POC ABG pH POC ABG pCO2 POC ABG pO2 Potassium Chloride Glucose 137 H POC Glucose Calcium 8.3 L Magnesium Total Bilirubin AST 43 H Total Creatine Kinase CK-MB (CK-2) C-Reactive Protein Albumin 3.4 L Salicylates Acetaminophen Chest x-ray: report reviewed (Overall improvement in venous congestion or CHF.), image reviewed Allied health notes reviewed: nursing
[2018-08-21] MEDS ORDERED: PHENERGAN PR PRN (20:13)
[2018-08-21] MEDS: XANAX PO PRN (21:27)
[2018-08-21] MEDS: LANTUS SUB-Q SCH (21:27)
[2018-08-22] MEDS: PERCOCET 5/325 PO PRN ×3 (03:03→22:40)
[2018-08-22 06:05] LABS: BUN/Creatinine Ratio 14; Blood Urea Nitrogen 13 mg/dL (9-20); Hemolysis Index 33
[2018-08-22] MEDS: DUONEB *Not for PRN Use IH SCH ×3 (08:08→21:17)
[2018-08-22] MEDS: HumuLIN R SUB-Q SCH ×4 (08:32→21:44)
[2018-08-22] MEDS: RANEXA ER PO SCH ×2 (10:23→21:43)
[2018-08-22] MEDS: PRADAXA PO SCH ×2 (10:23→21:43)
[2018-08-22] MEDS: FLOMAX PO SCH (10:24)
[2018-08-22] MEDS: PROTONIX PO SCH (10:24)
[2018-08-22] MEDS: LASIX PO SCH ×2 (10:24→21:43)
[2018-08-22] MEDS: IMDUR PO SCH (10:26)
--- NOTE | 2018-08-22 10:27 | Progress Note ---
Assessment and Plan Altered mental status -resolved Suspected drug overdose Acute Respiratory failure s/p extubation Hx of PE Hx of CAD s/p CABG MPI 06/2016: No ischemia, large fixed inferior and inferolateral wall defect consistent with old [place]. C 07/2015: 4 patent bypass grafts. Small vessel disease recommended for medical therapy. Hx of Ischemic cardiomyopathy EF 20-25% by echo 12/2017 AICD discharge ([employer]) interrogation revealed multiple shocks on 08/19. Beta blockers were resumed and he has not had any further ICD discharges. Paroxysmal atrial fibrillation currently in sinus rhythm. anticoagulated with pradaxa as an outpatient. HTN Recommendations: Continue beta blockers for suppression of tachy-arrhythmias. Continue medical therapy for his paroxysmal afib, cardiomyopathy and coronary artery disease. Subjective Date of service: 08/22/18 Principal diagnosis: Acute hypoxemic resp failure; Acute encephalopathy; CHF; DM II; PAF Interval history: ICD interrogation revealed the patient was shocked multiple times on 08/19/18. No events on telemetry monitoring. Patient denies chest pain and shortness of breath. Objective Vital Signs Temp Pulse Pulse Pulse Pulse Resp Resp 08/22/18 09:41 08/22/18 08:18 86 18 08/22/18 08:08 84 18 08/22/18 04:03 16 08/22/18 03:19 98.0 F 80 18 08/22/18 03:03 16 08/21/18 23:16 98.0 F 82 18 08/21/18 22:50 80 80 16 08/21/18 21:33 80 08/21/18 20:31 79 18 08/21/18 20:23 08/21/18 20:21 81 18 08/21/18 19:29 98.0 F 80 20 08/21/18 19:28 80 08/21/18 16:50 98.8 F 83 18 08/21/18 13:22 82 18 08/21/18 13:13 85 18 BP Pulse Ox 08/22/18 09:41 96 08/22/18 08:18 08/22/18 08:08 08/22/18 04:03 08/22/18 03:19 98/56 89 08/22/18 03:03 08/21/18 23:16 100/51 97 08/21/18 22:50 98 08/21/18 21:33 100/58 08/21/18 20:31 08/21/18 20:23 99 08/21/18 20:21 08/21/18 19:29 100/58 98 08/21/18 19:28 08/21/18 16:50 107/54 97 08/21/18 13:22 08/21/18 13:13 - Physical Examination General: No Apparent Distress HEENT: Positive: PERRL Neck: Positive: trachea midline Cardiac: Positive: Other (paced) Lungs: Positive: Decreased Breath Sounds Neuro: Positive: Grossly Intact Extremities: Absent: edema - Labs and Meds Comprehensive Metabolic Panel 08/22/18 Range/Units 05:11 Sodium 141 (137-145) mmol/L Potassium 3.7 (3.6-5.0) mmol/L Chloride 105.1 (98-107) mmol/L Carbon Dioxide 26 (22-30) mmol/L BUN 13 (9-20) mg/dL Creatinine 0.9 (0.8-1.5) mg/dL Glucose 110 H (75-100) mg/dL Calcium 8.0 L (8.4-10.2) mg/dL - Allied health notes Allied health notes reviewed: nursing
[2018-08-22] MEDS: TOPROL XL PO SCH ×2 (10:28→21:42)
[2018-08-22] MEDS: ZESTRIL PO SCH (10:29)
--- NOTE | 2018-08-22 10:35 | Progress Note ---
Assessment and Plan Patient resting on room air. No complaint of chest pain, shortness of breath or cough. - Patient Problems (1) Acute on chronic systolic heart failure Onset Date: 07/03/16 Current Visit: No Status: Acute Plan to address problem: Management as per cardiology. (2) Acute respiratory failure Current Visit: No Status: Acute Qualifiers: Respiratory failure complication: hypoxia Qualified Code(s): J96.01 - Acute respiratory failure with hypoxia Plan to address problem: Patient extubated. Patient presently on room air. No respiratory distress. (3) Altered mental status, unspecified Current Visit: Yes Status: Acute Plan to address problem: Management as per primary care. (4) Overdose Current Visit: Yes Status: Acute Plan to address problem: Management as per primary care. Consult psychiatry. (5) Atrial fibrillation with rapid ventricular response Onset Date: 07/03/16 Current Visit: No Status: Acute Plan to address problem: Patient is on Pradaxa. Management as per cardiology. (6) Diabetes mellitus type 2 in obese Current Visit: No Status: Acute Plan to address problem: Management as per primary care. Subjective Date of service: 08/22/18 Principal diagnosis: Acute hypoxemic resp failure; Acute encephalopathy; CHF; DM II; PAF Interval history: Patient resting on room air. No complaint of chest pain, shortness of breath or cough. Objective Vital Signs - 12hr 08/21/18 08/21/18 08/22/18 22:50 23:16 03:03 Temperature 98.0 F Pulse Rate 82 Pulse Rate [ Anterior Bilateral Throughout] Pulse Rate [ 80 Apical] Pulse Rate [ 80 From Monitor] Respiratory 16 18 16 Rate Respiratory Rate [Anterior Bilateral Throughout] Blood Pressure 100/51 O2 Sat by Pulse 98 97 Oximetry 08/22/18 08/22/18 08/22/18 03:19 04:03 08:08 Temperature 98.0 F Pulse Rate 80 Pulse Rate [ 84 Anterior Bilateral Throughout] Pulse Rate [ Apical] Pulse Rate [ From Monitor] Respiratory 18 16 Rate Respiratory 18 Rate [Anterior Bilateral Throughout] Blood Pressure 98/56 O2 Sat by Pulse 89 Oximetry 08/22/18 08/22/18 08/22/18 08:18 09:41 10:26 Temperature Pulse Rate 79 Pulse Rate [ 86 Anterior Bilateral Throughout] Pulse Rate [ Apical] Pulse Rate [ From Monitor] Respiratory Rate Respiratory 18 Rate [Anterior Bilateral Throughout] Blood Pressure 100/54 O2 Sat by Pulse 96 Oximetry 08/22/18 08/22/18 10:28 10:29 Temperature Pulse Rate 79 79 Pulse Rate [ Anterior Bilateral Throughout] Pulse Rate [ Apical] Pulse Rate [ From Monitor] Respiratory Rate Respiratory Rate [Anterior Bilateral Throughout] Blood Pressure 100/54 100/64 O2 Sat by Pulse Oximetry Constitutional: no acute distress, alert, other (elderly looking CM, normocephalica nd atraumatic with normal respiratory effort at rest) Eyes: non-icteric ENT: oropharynx moist, other (ETT 24 cm ROXY) Neck: supple, no lymphadenopathy, no JVD, other (large neck circumference) Effort: normal Ascultation: Bilateral: diminished breath sounds, rhonchi Percussion: Bilateral: not dull Cardiovascular: regular rate and rhythm Gastrointestinal: normoactive bowel sounds, soft, non-tender, non-distended Integumentary: normal, other (multiple tatoo's) Extremities: no cyanosis, no edema, pink and warm, pulses normal, no ischemia or petechiae Neurologic: normal mental status, non-focal exam, pupils equal and round, motor strength normal and Psychiatric: mood appropriate, affect normal CBC and BMP: 08/21/18 04:39 08/22/18 05:11 ABG, PT/INR, D-dimer: ABG POC ABG pH 7.464 (7.35-7.45) H 08/19/18 11:34 POC ABG pCO2 32.0 (35-45) L 08/19/18 11:34 POC ABG pO2 101 (80-105) 08/19/18 11:34 POC ABG HCO3 23.0 08/19/18 11:34 POC ABG Total CO2 24 08/19/18 11:34 POC ABG O2 Sat 98 08/19/18 11:34 Abnormal lab findings: Abnormal Labs 08/18/18 08/18/18 08/18/18 00:24 00:24 02:40 Hgb 9.9 L Hct 29.9 L MCV 80 L MCH 26 L RDW 17.5 H Lymph % (Auto) [place] % (Auto) Lymph # Seg Neutrophils % Seg Neutrophils # POC ABG pH POC ABG pCO2 POC ABG pO2 Potassium Chloride Glucose POC Glucose Calcium Magnesium Total Bilirubin AST Total Creatine Kinase CK-MB (CK-2) C-Reactive Protein Albumin Salicylates < 0.3 L Acetaminophen < 5.0 L 08/18/18 08/18/18 08/18/18 02:40 03:11 07:50 Hgb Hct MCV MCH RDW Lymph % (Auto) [place] % (Auto) Lymph # Seg Neutrophils % Seg Neutrophils # POC ABG pH POC ABG pCO2 POC ABG pO2 116 H Potassium 2.7 L* Chloride 95.3 L Glucose 137 H POC Glucose 164 H Calcium Magnesium 1.50 L Total Bilirubin 1.80 H AST 50 H Total Creatine Kinase 2180 H CK-MB (CK-2) C-Reactive Protein Albumin 3.7 L Salicylates Acetaminophen 08/18/18 08/18/18 08/18/18 13:22 13:22 14:12 Hgb Hct MCV MCH RDW Lymph % (Auto) [place] % (Auto) Lymph # Seg Neutrophils % Seg Neutrophils # POC ABG pH POC ABG pCO2 POC ABG pO2 Potassium 3.2 L Chloride Glucose POC Glucose 110 H Calcium Magnesium Total Bilirubin AST Total Creatine Kinase 2661 H CK-MB (CK-2) 34.0 H C-Reactive Protein Albumin Salicylates Acetaminophen 08/18/18 08/18/18 08/18/18 17:39 17:40 18:00 Hgb Hct MCV MCH RDW Lymph % (Auto) [place] % (Auto) Lymph # Seg Neutrophils % Seg Neutrophils # POC ABG pH POC ABG pCO2 POC ABG pO2 Potassium Chloride Glucose POC Glucose 107 H Calcium Magnesium Total Bilirubin AST Total Creatine Kinase 2224 H CK-MB (CK-2) 26.5 H C-Reactive Protein 3.00 H Albumin Salicylates Acetaminophen 08/18/18 08/19/18 08/19/18 21:44 03:56 04:15 Hgb 10.9 L Hct 33.9 L MCV 81 L MCH 26 L RDW 17.4 H Lymph % (Auto) 10.2 L [place] % (Auto) Lymph # 0.6 L Seg Neutrophils % 81.5 H Seg Neutrophils # POC ABG pH POC ABG pCO2 POC ABG pO2 158 H Potassium Chloride Glucose POC Glucose 109 H Calcium Magnesium Total Bilirubin AST Total Creatine Kinase CK-MB (CK-2) C-Reactive Protein Albumin Salicylates Acetaminophen 08/19/18 08/19/18 08/19/18 04:15 08:18 11:34 Hgb Hct MCV MCH RDW Lymph % (Auto) [place] % (Auto) Lymph # Seg Neutrophils % Seg Neutrophils # POC ABG pH 7.464 H POC ABG pCO2 32.0 L POC ABG pO2 Potassium 3.4 L Chloride Glucose 128 H POC Glucose Calcium 8.3 L Magnesium Total Bilirubin 1.60 H AST 57 H Total Creatine Kinase 1271 H CK-MB (CK-2) C-Reactive Protein Albumin 3.5 L Salicylates Acetaminophen 08/19/18 08/19/18 08/19/18 14:34 18:30 22:23 Hgb Hct MCV MCH RDW Lymph % (Auto) [place] % (Auto) Lymph # Seg Neutrophils % Seg Neutrophils # POC ABG pH POC ABG pCO2 POC ABG pO2 Potassium 3.4 L Chloride Glucose 216 H POC Glucose 122 H 203 H Calcium 7.6 L Magnesium Total Bilirubin AST Total Creatine Kinase CK-MB (CK-2) C-Reactive Protein Albumin Salicylates Acetaminophen 08/20/18 08/20/18 08/21/18 04:45 04:45 04:39 Hgb 9.8 L 10.1 L Hct 30.3 L 31.5 L MCV 81 L 82 L MCH 26 L 26 L RDW 17.5 H 18.0 H Lymph % (Auto) 5.2 L [place] % (Auto) 8.2 H Lymph # 0.5 L 0.8 L Seg Neutrophils % 87.4 H 76.2 H Seg Neutrophils # 8.0 H POC ABG pH POC ABG pCO2 POC ABG pO2 Potassium 3.3 L Chloride Glucose 192 H POC Glucose Calcium 7.9 L Magnesium Total Bilirubin AST 44 H Total Creatine Kinase CK-MB (CK-2) C-Reactive Protein Albumin 3.5 L Salicylates Acetaminophen 08/21/18 08/22/18 04:40 05:11 Hgb Hct MCV MCH RDW Lymph % (Auto) [place] % (Auto) Lymph # Seg Neutrophils % Seg Neutrophils # POC ABG pH POC ABG pCO2 POC ABG pO2 Potassium Chloride Glucose 137 H 110 H POC Glucose Calcium 8.3 L 8.0 L Magnesium Total Bilirubin AST 43 H Total Creatine Kinase CK-MB (CK-2) C-Reactive Protein Albumin 3.4 L Salicylates Acetaminophen Allied health notes reviewed: nursing
--- NOTE | 2018-08-22 11:39 | Progress Note ---
Assessment and Plan Assessment and plan: 62-year-old male patient with multiple medical problems was admitted through emergency room with altered level of consciousness, possible suicidal attempt and drug overdose, intubated, admitted to the [facility], extubated , on 1013 status, is saturating well on nasal cannula oxygen, off Levophed, alert awake oriented 3, --Acute hypoxic respiratory failure; requiring intubation Extubated 08/19, on nasal cannula oxygen saturating well --Possible suicide attempt; with drug overdose 1013 status, Psych following - Vtach AICD interrogation revealed 13 [email or web address] on 08/19 and 08/20 --Status post ICD, supportive care --Acute on chronic systolic congestive heart failure; ejection fraction 20% --Ischemic cardiomyopathy; continue anti-failure medications --History of coronary artery disease status post CABG --History of A. fib; rate controlled continue current beta blockers --Chronic anticoagulation; with pradaxa --Metabolic encephalopathy; present on admission, Now resolved --Severe hypokalemia; replenished with IV and oral KCl, minitor electrolytes --Hypomagnesemia; replenished per protocol , resolved --Moderate malnutrition; supportive care with nutrition supplements --DVT prophylaxis; on Pradaxa --Full code status History Interval history: Patient was extubated, now on nasal cannula oxygen , Saturating well Alert and awake and responding appropriately On 1013 status Feels better Hospitalist Physical - Physical exam Narrative exam: GEN: Not in acute distress, lying in bed HEENT: Normocephalic, atraumatic, Neck: supple, No JVD Lungs: Clear to auscultation bilat, no crackles, no wheeze Abd:soft, non tender, non distended, normal bowel sounds Ext: No edema, no clubbing, no cyanosis Neuro:Awake,alert,oriented X 3, no focal signs Skin:No rash Psych: Suicidal - Constitutional Vitals: Temp Pulse Resp BP Pulse Ox 98.0 F 79 18 100/64 96 08/22/18 03:19 08/22/18 10:29 08/22/18 08:18 08/22/18 10:29 08/22/18 09:41 General appearance: Present: no acute distress, obese Results - Labs CBC & Chem 7: 08/21/18 04:39 08/22/18 05:11 Labs: Laboratory Last Values WBC 5.6 K/mm3 (4.5-11.0) 08/21/18 04:39 RBC 3.87 M/mm3 (3.65-5.03) 08/21/18 04:39 Hgb 10.1 gm/dl (11.8-15.2) L 08/21/18 04:39 Hct 31.5 % (35.5-45.6) L 08/21/18 04:39 MCV 82 fl (84-94) L 08/21/18 04:39 MCH 26 pg (28-32) L 08/21/18 04:39 MCHC 32 % (32-34) 08/21/18 04:39 RDW 18.0 % (13.2-15.2) H 08/21/18 04:39 Plt Count 159 K/mm3 (140-440) 08/21/18 04:39 Lymph % (Auto) 14.0 % (13.4-35.0) 08/21/18 04:39 [place] % (Auto) 8.2 % (0.0-7.3) H 08/21/18 04:39 Eos % (Auto) 1.1 % (0.0-4.3) 08/21/18 04:39 Baso % (Auto) 0.5 % (0.0-1.8) 08/21/18 04:39 Lymph # 0.8 K/mm3 (1.2-5.4) L 08/21/18 04:39 [place] # 0.5 K/mm3 (0.0-0.8) 08/21/18 04:39 Eos # 0.1 K/mm3 (0.0-0.4) 08/21/18 04:39 Baso # 0.0 K/mm3 (0.0-0.1) 08/21/18 04:39 Seg Neutrophils % 76.2 % (40.0-70.0) H 08/21/18 04:39 Seg Neutrophils # 4.3 K/mm3 (1.8-7.7) 08/21/18 04:39 POC ABG pH 7.464 (7.35-7.45) H 08/19/18 11:34 POC ABG pCO2 32.0 (35-45) L 08/19/18 11:34 POC ABG pO2 101 (80-105) 08/19/18 11:34 POC ABG HCO3 23.0 08/19/18 11:34 POC ABG Total CO2 24 08/19/18 11:34 POC ABG O2 Sat 98 08/19/18 11:34 POC ABG Base Excess -1 08/19/18 11:34 FiO2 25 % 08/19/18 11:34 Sodium 141 mmol/L (137-145) 08/22/18 05:11 Potassium 3.7 mmol/L (3.6-5.0) 08/22/18 05:11 Chloride 105.1 mmol/L (98-107) 08/22/18 05:11 Carbon Dioxide 26 mmol/L (22-30) 08/22/18 05:11 Anion Gap 14 mmol/L 08/22/18 05:11 BUN 13 mg/dL (9-20) 08/22/18 05:11 Creatinine 0.9 mg/dL (0.8-1.5) 08/22/18 05:11 Estimated GFR > 60 ml/min 08/22/18 05:11 BUN/Creatinine Ratio 14 % 08/22/18 05:11 Glucose 110 mg/dL (75-100) H 08/22/18 05:11 POC Glucose 203 (70-105) H 08/19/18 22:23 Lactic Acid 1.60 mmol/L (0.7-2.0) 08/18/18 02:40 Calcium 8.0 mg/dL (8.4-10.2) L 08/22/18 05:11 Phosphorus 3.10 mg/dL (2.5-4.5) 08/19/18 04:15 Magnesium 1.90 mg/dL (1.7-2.3) 08/21/18 04:40 Total Bilirubin 1.10 mg/dL (0.1-1.2) 08/21/18 04:40 AST 43 units/L (5-40) H 08/21/18 04:40 ALT 21 units/L (7-56) 08/21/18 04:40 Alkaline Phosphatase 79 units/L (35-129) 08/21/18 04:40 Ammonia 44.0 umol/L (25-60) 08/18/18 02:40 Total Creatine Kinase 1271 units/L (55-170) H 08/19/18 08:18 CK-MB (CK-2) 26.5 ng/mL (0.0-4.0) H 08/18/18 18:00 CK-MB (CK-2) Rel Index 1.1 (0-4) 08/18/18 18:00 Troponin T 0.025 ng/mL (0.00-0.029) 08/18/18 18:00 C-Reactive Protein 3.00 mg/dL (0.00-1.30) H 08/18/18 17:39 Total Protein 6.7 g/dL (6.3-8.2) 08/21/18 04:40 Albumin 3.4 g/dL (3.9-5) L 08/21/18 04:40 Albumin/Globulin Ratio 1.0 % 08/21/18 04:40 Urine Color [place]ha (Yellow) 08/18/18 Unknown Urine Turbidity Clear (Clear) 08/18/18 Unknown Urine pH 5.0 (5.0-7.0) 08/18/18 Unknown Ur Specific [place] 1.013 (1.003-1.030) 08/18/18 Unknown Urine Protein 30 mg/dl mg/dL (Negative) 08/18/18 Unknown Urine Glucose (UA) Neg mg/dL (Negative) 08/18/18 Unknown Urine Ketones Neg mg/dL (Negative) 08/18/18 Unknown Urine Blood Neg (Negative) 08/18/18 Unknown Urine Nitrite Neg (Negative) 08/18/18 Unknown Urine Bilirubin Neg (Negative) 08/18/18 Unknown Urine Urobilinogen 2.0 mg/dL (<2.0) 08/18/18 Unknown Ur Leukocyte Esterase Neg (Negative) 08/18/18 Unknown Urine WBC (Auto) < 1.0 /HPF (0.0-6.0) 08/18/18 Unknown Urine RBC (Auto) 1.0 /HPF (0.0-6.0) 08/18/18 Unknown U Epithel Cells (Auto) < 1.0 /HPF (0-13.0) 08/18/18 Unknown Salicylates < 0.3 mg/dL (2.8-20.0) L 08/18/18 00:24 Urine Opiates Screen Presumptive positive 08/18/18 Unknown Urine Methadone Screen Presumptive negative 08/18/18 Unknown Acetaminophen < 5.0 ug/mL (10.0-30.0) L 08/18/18 00:24 Ur Barbiturates Screen Presumptive negative 08/18/18 Unknown Ur Phencyclidine Scrn Presumptive negative 08/18/18 Unknown Ur Amphetamines Screen Presumptive negative 08/18/18 Unknown U Benzodiazepines Scrn Presumptive positive 08/18/18 Unknown Urine Cocaine Screen Presumptive negative 08/18/18 Unknown U Marijuana (THC) Screen Presumptive negative 08/18/18 Unknown Drugs of Abuse Note Disclamer 08/18/18 Unknown Plasma/Serum Alcohol < 0.01 % (0-0.07) 08/18/18 00:24 Nutrition/Malnutrition Assess - Dietary Evaluation Nutrition/Malnutrition Findings: Nutrition Notes Start: 08/19/18 10:43 Freq: Status: Active Protocol: Document 08/21/18 13:36 RM (Rec: 08/21/18 13:46 RM [id number]) Nutrition Notes Initial or Follow up Reassessment Current Diagnosis COPD,Coronary Artery Disease, Diabetes,Hypertension,Heart Failure,Respiratory Failure Other Pertinent Diagnosis AMS, ? drug overdose Current Diet Mech Soft, Consistent CHO Labs/Tests Reviewed Pertinent Medications Lasix Height 5 ft 9 in Weight 108.86 kg [place] Body Weight (kg) 72.72 BMI 35.4 Subjective/Other Information Pt asleep and had sitter at time of visit. Sitter stated that pt eats bites of his meals. Percent of energy/protein needs met: 0%/0% Burn Absent Trauma Absent #1 Nutrition Diagnosis Inadequate oral intake Diagnosis Progress(for reassessment Continues documentation) Is patient on ventilator? Yes Is Patient Ambulatory and/or Out of Bed No REE-([facility]-confined to bed) 2265.324 Kcal/Kg value to use for calculation 16 Approximate Energy Requirements Using 1742 kcal/Kg Calculation Used for Recommendations Kcal/kg Additional Notes Protein Needs:109-137g (1.2-1 .5g/kg 91kg adjBW) Fluid Needs: 1 ml/kcal Nutrition Intervention Change Diet Order: Mech Soft,Consistent CHO, Cardiac Add Supplement/Snack (indicate name/kcal Glucerna 1 daily /protein ) Provides kCal: 220 Provides Protein (gm) 10 Goal #1 Meet at least 75% of calorie and protein needs via PO and ONS intakes Anticipated Discharge Needs: Mech soft, Consistent CHO, Cardiac Follow-Up By: 08/23/18 Additional Comments Follow for PO and ONS intakes
--- NOTE | 2018-08-22 13:49 | Progress Note ---
Subjective - Reason for Consult Consult date: 08/22/18 Reason for consult: Psychiatric Follow-up Evaluation - Chief Complaint Chief complaint: "I'm alright" Patient is a 62 y.o. white male who presented to the ER for possible overdose. Psychiatry was consulted to see the patient. Today the patient is calm and cooperative during the assessment. He stated that he only remember going grocery shopping and returning home, He stated that next thing he knew, he woke up in the hospital. He reports poor sleep and fair appetite. Patient request medication for sleep. Patient endorses intermittent auditory/visual hallucinations. Patient unable to tell provider what the hallucinations and delusions may be. Some answers to questions are inappropriate/incorrect. Intermittent confusion noted. Mental Status Exam - Vital signs Last Vital Signs Temp 98.0 F 08/22/18 03:19 Pulse 79 08/22/18 10:29 Resp 18 08/22/18 08:18 BP 100/64 08/22/18 10:29 Pulse Ox 96 08/22/18 09:41 - Exam Narrative exam: Mental Status Exam Appearance: calm, cooperative Behavior: regular eye contact Speech: regular rate and loud tone Mood: "I feel okay" Affect: congruent to mood Thought Process: linear; intermittent confusion Thought Content: denies SI/HI's ; + intermittent AH's -unable to tell provider details Motor Activity: sitting up in the bed Cognition: A/O x3 Insight: fair Judgment: fair Assessment and Plan Impression: Intentional vs Unintentional overdose. Hx of Social Anxiety DO per the patient. Today the patient is calm and cooperative during the assessment. The patient was positive for benzos and opiates. Recommendation/Plan: 1. Continue 1013 and gather collateral information. 2. Continue Xanax 0.25 mg PO Q8hrs PRN for acute anxiety. 3. Start Abilify 5mg po QHS psychosis/mood and Benadryl 50mgpo QHS PRN insomnia . Discussed metabolic side effects of Abilify and anticholinergic side effects of Benadryl. Disposition: Once collateral information is gathered, proper disposition will be determined. Will staff with Dr. Ifeoma Sloan.
[2018-08-22] MEDS: MAG-OX PO SCH (14:12)
[2018-08-22] MEDS: K-DUR PO SCH (14:12)
[2018-08-22] MEDS ORDERED: BENADRYL PO PRN (18:35)
[2018-08-22] MEDS: XANAX PO PRN (21:43)
[2018-08-22] MEDS: LANTUS SUB-Q SCH (21:43)
[2018-08-23] MEDS: PERCOCET 5/325 PO PRN ×2 (04:51→11:20)
[2018-08-23] MEDS: DUONEB *Not for PRN Use IH SCH ×3 (08:28→13:56)
--- NOTE | 2018-08-23 09:45 | Progress Note ---
Assessment and Plan Acute on chronic hypoxemic respiratory failure,s/p ventilatory support. Acute encephalopathy-toxic metabolic, improving h/o COPD Congestive heart failure with mild exacerbation. History of diabetes. History of deep venous thrombosis. Paroxysmal atrial fibrillation. -supplemental oxygen to keep O2 sats 88-90% -bronchodilators per protocol - continue full anticoagulation for VTE & PAF - continue gentle diuresis for CHF - continue seroquel and other chronic psycyh meds - continue glycemic control with SSI for target BG 140-180 mg/dL - PT/OT/ROM exercises as tolerated - mobility protocol for pressure ulcer prophylaxis - continue GI & VTE prophylaxis - continue other care per attending / other consultants -discharge planning Subjective Date of service: 08/23/18 Principal diagnosis: Acute hypoxemic resp failure; Acute encephalopathy; CHF; DM II; PAF Interval history: Seen and examined. Vitals, labs, medications, chart reviewed. Ambulating with a walker with PT. No fevers, no chills. No nausea or vomiting. No cough, baseline shortness of breath. Objective Vital Signs - 12hr 08/22/18 08/22/18 08/22/18 22:40 22:49 23:38 Pulse Rate 83 Pulse Rate [ Anterior Bilateral Throughout] Pulse Rate [ 80 Apical] Pulse Rate [ 80 From Monitor] Respiratory 16 16 20 Rate Respiratory Rate [Anterior Bilateral Throughout] Respiratory 16 Rate [Back] Blood Pressure 121/70 O2 Sat by Pulse 100 97 Oximetry 08/22/18 08/23/18 08/23/18 23:40 04:51 05:01 Pulse Rate 81 Pulse Rate [ Anterior Bilateral Throughout] Pulse Rate [ Apical] Pulse Rate [ From Monitor] Respiratory 16 18 20 Rate Respiratory Rate [Anterior Bilateral Throughout] Respiratory Rate [Back] Blood Pressure 119/81 O2 Sat by Pulse 98 Oximetry 08/23/18 08/23/18 08/23/18 05:51 07:49 08:25 Pulse Rate 83 Pulse Rate [ 80 Anterior Bilateral Throughout] Pulse Rate [ Apical] Pulse Rate [ From Monitor] Respiratory 16 Rate Respiratory 18 Rate [Anterior Bilateral Throughout] Respiratory Rate [Back] Blood Pressure 104/71 O2 Sat by Pulse 98 Oximetry 08/23/18 08/23/18 08:34 08:38 Pulse Rate Pulse Rate [ 81 Anterior Bilateral Throughout] Pulse Rate [ Apical] Pulse Rate [ From Monitor] Respiratory Rate Respiratory 19 Rate [Anterior Bilateral Throughout] Respiratory Rate [Back] Blood Pressure O2 Sat by Pulse 97 Oximetry Constitutional: no acute distress, alert, other (elderly looking CM, normocephalic, atraumatic) Eyes: non-icteric ENT: oropharynx moist Neck: supple, no lymphadenopathy, no JVD, other (large neck circumference) Effort: normal Ascultation: Bilateral: diminished breath sounds, rhonchi Percussion: Bilateral: not dull Cardiovascular: regular rate and rhythm Gastrointestinal: normoactive bowel sounds, soft, non-tender, non-distended Integumentary: normal, other (multiple tatoo's) Extremities: no cyanosis, no edema, pink and warm, pulses normal, no ischemia or petechiae Neurologic: normal mental status, non-focal exam, pupils equal and round, motor strength normal and Psychiatric: mood appropriate, affect normal CBC and BMP: 08/21/18 04:39 08/22/18 05:11 ABG, PT/INR, D-dimer: ABG POC ABG pH 7.420 (7.35-7.45) 08/20/18 11:52 POC ABG pCO2 36.8 (35-45) 08/20/18 11:52 POC ABG pO2 86 (80-105) 08/20/18 11:52 POC ABG HCO3 23.9 (22-26 mml/L) 08/20/18 11:52 POC ABG Total CO2 25 (23-27mmol/L) 08/20/18 11:52 POC ABG O2 Sat 97 08/20/18 11:52 Abnormal lab findings: Abnormal Labs 08/18/18 08/18/18 08/18/18 00:24 00:24 02:40 Hgb 9.9 L Hct 29.9 L MCV 80 L MCH 26 L RDW 17.5 H Lymph % (Auto) [place] % (Auto) Lymph # Seg Neutrophils % Seg Neutrophils # POC ABG pH POC ABG pCO2 POC ABG pO2 Potassium Chloride Glucose POC Glucose Calcium Magnesium Total Bilirubin AST Total Creatine Kinase CK-MB (CK-2) C-Reactive Protein Albumin Salicylates < 0.3 L Acetaminophen < 5.0 L 08/18/18 08/18/18 08/18/18 02:40 03:11 07:50 Hgb Hct MCV MCH RDW Lymph % (Auto) [place] % (Auto) Lymph # Seg Neutrophils % Seg Neutrophils # POC ABG pH POC ABG pCO2 POC ABG pO2 116 H Potassium 2.7 L* Chloride 95.3 L Glucose 137 H POC Glucose 164 H Calcium Magnesium 1.50 L Total Bilirubin 1.80 H AST 50 H Total Creatine Kinase 2180 H CK-MB (CK-2) C-Reactive Protein Albumin 3.7 L Salicylates Acetaminophen 08/18/18 08/18/18 08/18/18 13:22 13:22 14:12 Hgb Hct MCV MCH RDW Lymph % (Auto) [place] % (Auto) Lymph # Seg Neutrophils % Seg Neutrophils # POC ABG pH POC ABG pCO2 POC ABG pO2 Potassium 3.2 L Chloride Glucose POC Glucose 110 H Calcium Magnesium Total Bilirubin AST Total Creatine Kinase 2661 H CK-MB (CK-2) 34.0 H C-Reactive Protein Albumin Salicylates Acetaminophen 08/18/18 08/18/18 08/18/18 17:39 17:40 18:00 Hgb Hct MCV MCH RDW Lymph % (Auto) [place] % (Auto) Lymph # Seg Neutrophils % Seg Neutrophils # POC ABG pH POC ABG pCO2 POC ABG pO2 Potassium Chloride Glucose POC Glucose 107 H Calcium Magnesium Total Bilirubin AST Total Creatine Kinase 2224 H CK-MB (CK-2) 26.5 H C-Reactive Protein 3.00 H Albumin Salicylates Acetaminophen 08/18/18 08/19/18 08/19/18 21:44 03:56 04:15 Hgb 10.9 L Hct 33.9 L MCV 81 L MCH 26 L RDW 17.4 H Lymph % (Auto) 10.2 L [place] % (Auto) Lymph # 0.6 L Seg Neutrophils % 81.5 H Seg Neutrophils # POC ABG pH POC ABG pCO2 POC ABG pO2 158 H Potassium Chloride Glucose POC Glucose 109 H Calcium Magnesium Total Bilirubin AST Total Creatine Kinase CK-MB (CK-2) C-Reactive Protein Albumin Salicylates Acetaminophen 08/19/18 08/19/18 08/19/18 04:15 08:18 11:34 Hgb Hct MCV MCH RDW Lymph % (Auto) [place] % (Auto) Lymph # Seg Neutrophils % Seg Neutrophils # POC ABG pH 7.464 H POC ABG pCO2 32.0 L POC ABG pO2 Potassium 3.4 L Chloride Glucose 128 H POC Glucose Calcium 8.3 L Magnesium Total Bilirubin 1.60 H AST 57 H Total Creatine Kinase 1271 H CK-MB (CK-2) C-Reactive Protein Albumin 3.5 L Salicylates Acetaminophen 08/19/18 08/19/18 08/19/18 14:34 18:30 22:23 Hgb Hct MCV MCH RDW Lymph % (Auto) [place] % (Auto) Lymph # Seg Neutrophils % Seg Neutrophils # POC ABG pH POC ABG pCO2 POC ABG pO2 Potassium 3.4 L Chloride Glucose 216 H POC Glucose 122 H 203 H Calcium 7.6 L Magnesium Total Bilirubin AST Total Creatine Kinase CK-MB (CK-2) C-Reactive Protein Albumin Salicylates Acetaminophen 08/20/18 08/20/18 08/20/18 02:26 04:45 04:45 Hgb 9.8 L Hct 30.3 L MCV 81 L MCH 26 L RDW 17.5 H Lymph % (Auto) 5.2 L [place] % (Auto) Lymph # 0.5 L Seg Neutrophils % 87.4 H Seg Neutrophils # 8.0 H POC ABG pH POC ABG pCO2 POC ABG pO2 Potassium 3.3 L Chloride Glucose 192 H POC Glucose 226 H Calcium 7.9 L Magnesium Total Bilirubin AST 44 H Total Creatine Kinase CK-MB (CK-2) C-Reactive Protein Albumin 3.5 L Salicylates Acetaminophen 08/20/18 08/20/18 08/20/18 06:32 11:22 13:19 Hgb Hct MCV MCH RDW Lymph % (Auto) [place] % (Auto) Lymph # Seg Neutrophils % Seg Neutrophils # POC ABG pH POC ABG pCO2 POC ABG pO2 Potassium Chloride Glucose POC Glucose 187 H 137 H 140 H Calcium Magnesium Total Bilirubin AST Total Creatine Kinase CK-MB (CK-2) C-Reactive Protein Albumin Salicylates Acetaminophen 08/20/18 08/20/18 08/21/18 17:10 22:32 04:39 Hgb 10.1 L Hct 31.5 L MCV 82 L MCH 26 L RDW 18.0 H Lymph % (Auto) [place] % (Auto) 8.2 H Lymph # 0.8 L Seg Neutrophils % 76.2 H Seg Neutrophils # POC ABG pH POC ABG pCO2 POC ABG pO2 Potassium Chloride Glucose POC Glucose 168 H 141 H Calcium Magnesium Total Bilirubin AST Total Creatine Kinase CK-MB (CK-2) C-Reactive Protein Albumin Salicylates Acetaminophen 08/21/18 08/21/18 08/21/18 04:40 10:57 16:56 Hgb Hct MCV MCH RDW Lymph % (Auto) [place] % (Auto) Lymph # Seg Neutrophils % Seg Neutrophils # POC ABG pH POC ABG pCO2 POC ABG pO2 Potassium Chloride Glucose 137 H POC Glucose 162 H 112 H Calcium 8.3 L Magnesium Total Bilirubin AST 43 H Total Creatine Kinase CK-MB (CK-2) C-Reactive Protein Albumin 3.4 L Salicylates Acetaminophen 08/21/18 08/22/18 08/22/18 21:15 05:11 11:55 Hgb Hct MCV MCH RDW Lymph % (Auto) [place] % (Auto) Lymph # Seg Neutrophils % Seg Neutrophils # POC ABG pH POC ABG pCO2 POC ABG pO2 Potassium Chloride Glucose 110 H POC Glucose 136 H 115 H Calcium 8.0 L Magnesium Total Bilirubin AST Total Creatine Kinase CK-MB (CK-2) C-Reactive Protein Albumin Salicylates Acetaminophen 08/22/18 17:12 Hgb Hct MCV MCH RDW Lymph % (Auto) [place] % (Auto) Lymph # Seg Neutrophils % Seg Neutrophils # POC ABG pH POC ABG pCO2 POC ABG pO2 Potassium Chloride Glucose POC Glucose 116 H Calcium Magnesium Total Bilirubin AST Total Creatine Kinase CK-MB (CK-2) C-Reactive Protein Albumin Salicylates Acetaminophen Allied health notes reviewed: nursing
[2018-08-23] MEDS ORDERED: ABILIFY PO SCH ×2 (10:00)
--- NOTE | 2018-08-23 10:53 | Progress Note ---
Assessment and Plan Altered mental status -resolved Suspected drug overdose Acute Respiratory failure s/p extubation Hx of PE Hx of CAD s/p CABG MPI 06/2016: No ischemia, large fixed inferior and inferolateral wall defect consistent with old RI. C 07/2015: 4 patent bypass grafts. Small vessel disease recommended for medical therapy. Hx of Ischemic cardiomyopathy EF 20-25% by echo 12/2017 AICD discharge ([employer]) interrogation revealed multiple shocks on 08/19 and 08/20 for sustained VT. Beta blockers were resumed and he has not had any further ICD discharges. Paroxysmal atrial fibrillation currently in sinus rhythm. anticoagulated with pradaxa as an outpatient. HTN Recommendations: Continue beta blockers for suppression of tachy-arrhythmias. Continue medical therapy for his paroxysmal afib, cardiomyopathy and coronary artery disease. Otherwise, conservative cardiac management. Subjective Date of service: 08/23/18 Principal diagnosis: Acute hypoxemic resp failure; Acute encephalopathy; CHF; DM II; PAF Interval history: Patient has no complaints. Objective Vital Signs Temp Pulse Pulse Pulse Pulse Resp Resp 08/23/18 08:38 81 19 08/23/18 08:34 08/23/18 08:25 80 18 08/23/18 07:49 83 08/23/18 05:51 16 08/23/18 05:01 81 20 08/23/18 04:51 18 08/22/18 23:40 16 08/22/18 23:38 83 20 08/22/18 22:49 80 80 16 08/22/18 22:40 16 08/22/18 21:42 80 08/22/18 21:27 85 18 08/22/18 21:20 08/22/18 21:17 80 18 08/22/18 20:54 87 08/22/18 20:51 99.0 F 80 20 08/22/18 17:10 98.1 F 80 20 08/22/18 13:41 59 L 18 08/22/18 13:31 56 L 18 08/22/18 12:22 98.4 F 80 20 Resp BP Pulse Ox 08/23/18 08:38 08/23/18 08:34 97 08/23/18 08:25 08/23/18 07:49 104/71 98 08/23/18 05:51 08/23/18 05:01 119/81 98 08/23/18 04:51 08/22/18 23:40 08/22/18 23:38 121/70 97 08/22/18 22:49 16 100 08/22/18 22:40 08/22/18 21:42 113/68 08/22/18 21:27 08/22/18 21:20 99 08/22/18 21:17 08/22/18 20:54 08/22/18 20:51 113/68 100 08/22/18 17:10 105/71 96 08/22/18 13:41 08/22/18 13:31 08/22/18 12:22 105/60 97 - Physical Examination General: No Apparent Distress HEENT: Positive: PERRL Neck: Positive: trachea midline Cardiac: Positive: Other (paced) Lungs: Positive: Decreased Breath Sounds Neuro: Positive: Grossly Intact Extremities: Absent: edema - Allied health notes Allied health notes reviewed: nursing
[2018-08-23] MEDS: HumuLIN R SUB-Q SCH (11:17)
[2018-08-23] MEDS: TOPROL XL PO SCH (11:18)
[2018-08-23] MEDS: LASIX PO SCH (11:19)
[2018-08-23] MEDS: K-DUR PO SCH (11:19)
[2018-08-23] MEDS: PRADAXA PO SCH (11:19)
[2018-08-23] MEDS: MAG-OX PO SCH (11:19)
[2018-08-23] MEDS: FLOMAX PO SCH (11:20)
[2018-08-23] MEDS: PROTONIX PO SCH (11:20)
[2018-08-23] MEDS: IMDUR PO SCH (11:20)
[2018-08-23 11:21] VITALS: BP 128/82
--- NOTE | 2018-08-23 12:50 | Progress Note ---
Assessment and Plan Assessment and plan: 62-year-old male patient with multiple medical problems was admitted through emergency room with altered level of consciousness, possible suicidal attempt and drug overdose, intubated, admitted to the [facility], extubated , on 1012 status, is saturating well on nasal cannula oxygen, off Levophed, alert awake oriented 3, --Acute hypoxic respiratory failure; requiring intubation Extubated 08/19, on nasal cannula oxygen saturating well --Possible suicide attempt; with drug overdose 1012 status, Psych following - Vtach AICD interrogation revealed 13 [email or web address] on 08/19 and 08/20 --Status post ICD, supportive care --Acute on chronic systolic congestive heart failure; ejection fraction 20% --Ischemic cardiomyopathy; continue anti-failure medications --History of coronary artery disease status post CABG --History of A. fib; rate controlled continue current beta blockers --Chronic anticoagulation; with pradaxa --Metabolic encephalopathy; present on admission, Now resolved --Severe hypokalemia; replenished with IV and oral KCl, minitor electrolytes --Hypomagnesemia; replenished per protocol , resolved --Moderate malnutrition; supportive care with nutrition supplements --DVT prophylaxis; on Pradaxa --Full code status -patient medically stable for discharge. On 1012 status History Interval history: Patient was extubated, now on nasal cannula oxygen , Saturating well Alert and awake and responding appropriately On 1012 status Feels better Hospitalist Physical - Physical exam Narrative exam: GEN: Not in acute distress, lying in bed HEENT: Normocephalic, atraumatic, Neck: supple, No JVD Lungs: Clear to auscultation bilat, no crackles, no wheeze Abd:soft, non tender, non distended, normal bowel sounds Ext: No edema, no clubbing, no cyanosis Neuro:Awake,alert,oriented X 3, no focal signs Skin:No rash - Constitutional Vitals: Temp Pulse Resp BP Pulse Ox 99.0 F 81 19 128/82 97 08/22/18 20:51 08/23/18 11:20 08/23/18 08:38 08/23/18 11:20 08/23/18 08:34 General appearance: Present: no acute distress, obese Results - Labs CBC & Chem 7: 08/21/18 04:39 08/22/18 05:11 Labs: Laboratory Last Values WBC 5.6 K/mm3 (4.5-11.0) 08/21/18 04:39 RBC 3.87 M/mm3 (3.65-5.03) 08/21/18 04:39 Hgb 10.1 gm/dl (11.8-15.2) L 08/21/18 04:39 Hct 31.5 % (35.5-45.6) L 08/21/18 04:39 MCV 82 fl (84-94) L 08/21/18 04:39 MCH 26 pg (28-32) L 08/21/18 04:39 MCHC 32 % (32-34) 08/21/18 04:39 RDW 18.0 % (13.2-15.2) H 08/21/18 04:39 Plt Count 159 K/mm3 (140-440) 08/21/18 04:39 Lymph % (Auto) 14.0 % (13.4-35.0) 08/21/18 04:39 [place] % (Auto) 8.2 % (0.0-7.3) H 08/21/18 04:39 Eos % (Auto) 1.1 % (0.0-4.3) 08/21/18 04:39 Baso % (Auto) 0.5 % (0.0-1.8) 08/21/18 04:39 Lymph # 0.8 K/mm3 (1.2-5.4) L 08/21/18 04:39 [place] # 0.5 K/mm3 (0.0-0.8) 08/21/18 04:39 Eos # 0.1 K/mm3 (0.0-0.4) 08/21/18 04:39 Baso # 0.0 K/mm3 (0.0-0.1) 08/21/18 04:39 Seg Neutrophils % 76.2 % (40.0-70.0) H 08/21/18 04:39 Seg Neutrophils # 4.3 K/mm3 (1.8-7.7) 08/21/18 04:39 POC ABG pH 7.420 (7.35-7.45) 08/20/18 11:52 POC ABG pCO2 36.8 (35-45) 08/20/18 11:52 POC ABG pO2 86 (80-105) 08/20/18 11:52 POC ABG HCO3 23.9 (22-26 mml/L) 08/20/18 11:52 POC ABG Total CO2 25 (23-27mmol/L) 08/20/18 11:52 POC ABG O2 Sat 97 08/20/18 11:52 POC ABG Base Excess -1 ((-2) - (+3)mmol/L) 08/20/18 11:52 FiO2 28 % 08/20/18 11:52 Sodium 141 mmol/L (137-145) 08/22/18 05:11 Potassium 3.7 mmol/L (3.6-5.0) 08/22/18 05:11 Chloride 105.1 mmol/L (98-107) 08/22/18 05:11 Carbon Dioxide 26 mmol/L (22-30) 08/22/18 05:11 Anion Gap 14 mmol/L 08/22/18 05:11 BUN 13 mg/dL (9-20) 08/22/18 05:11 Creatinine 0.9 mg/dL (0.8-1.5) 08/22/18 05:11 Estimated GFR > 60 ml/min 08/22/18 05:11 BUN/Creatinine Ratio 14 % 08/22/18 05:11 Glucose 110 mg/dL (75-100) H 08/22/18 05:11 POC Glucose 116 (70-105) H 08/22/18 17:12 Lactic Acid 1.60 mmol/L (0.7-2.0) 08/18/18 02:40 Calcium 8.0 mg/dL (8.4-10.2) L 08/22/18 05:11 Phosphorus 3.10 mg/dL (2.5-4.5) 08/19/18 04:15 Magnesium 1.90 mg/dL (1.7-2.3) 08/21/18 04:40 Total Bilirubin 1.10 mg/dL (0.1-1.2) 08/21/18 04:40 AST 43 units/L (5-40) H 08/21/18 04:40 ALT 21 units/L (7-56) 08/21/18 04:40 Alkaline Phosphatase 79 units/L (35-129) 08/21/18 04:40 Ammonia 44.0 umol/L (25-60) 08/18/18 02:40 Total Creatine Kinase 288 units/L (55-170) H 08/23/18 08:53 CK-MB (CK-2) 26.5 ng/mL (0.0-4.0) H 08/18/18 18:00 CK-MB (CK-2) Rel Index 1.1 (0-4) 08/18/18 18:00 Troponin T 0.025 ng/mL (0.00-0.029) 08/18/18 18:00 C-Reactive Protein 3.00 mg/dL (0.00-1.30) H 08/18/18 17:39 Total Protein 6.7 g/dL (6.3-8.2) 08/21/18 04:40 Albumin 3.4 g/dL (3.9-5) L 08/21/18 04:40 Albumin/Globulin Ratio 1.0 % 08/21/18 04:40 Urine Color Radha (Yellow) 08/18/18 Unknown Urine Turbidity Clear (Clear) 08/18/18 Unknown Urine pH 5.0 (5.0-7.0) 08/18/18 Unknown Ur Specific [place] 1.013 (1.003-1.030) 08/18/18 Unknown Urine Protein 30 mg/dl mg/dL (Negative) 08/18/18 Unknown Urine Glucose (UA) Neg mg/dL (Negative) 08/18/18 Unknown Urine Ketones Neg mg/dL (Negative) 08/18/18 Unknown Urine Blood Neg (Negative) 08/18/18 Unknown Urine Nitrite Neg (Negative) 08/18/18 Unknown Urine Bilirubin Neg (Negative) 08/18/18 Unknown Urine Urobilinogen 2.0 mg/dL (<2.0) 08/18/18 Unknown Ur Leukocyte Esterase Neg (Negative) 08/18/18 Unknown Urine WBC (Auto) < 1.0 /HPF (0.0-6.0) 08/18/18 Unknown Urine RBC (Auto) 1.0 /HPF (0.0-6.0) 08/18/18 Unknown U Epithel Cells (Auto) < 1.0 /HPF (0-13.0) 08/18/18 Unknown Salicylates < 0.3 mg/dL (2.8-20.0) L 08/18/18 00:24 Urine Opiates Screen Presumptive positive 08/18/18 Unknown Urine Methadone Screen Presumptive negative 08/18/18 Unknown Acetaminophen < 5.0 ug/mL (10.0-30.0) L 08/18/18 00:24 Ur Barbiturates Screen Presumptive negative 08/18/18 Unknown Ur Phencyclidine Scrn Presumptive negative 08/18/18 Unknown Ur Amphetamines Screen Presumptive negative 08/18/18 Unknown U Benzodiazepines Scrn Presumptive positive 08/18/18 Unknown Urine Cocaine Screen Presumptive negative 08/18/18 Unknown U Marijuana (THC) Screen Presumptive negative 08/18/18 Unknown Drugs of Abuse Note Disclamer 08/18/18 Unknown Plasma/Serum Alcohol < 0.01 % (0-0.07) 08/18/18 00:24 Nutrition/Malnutrition Assess - Dietary Evaluation Nutrition/Malnutrition Findings: Nutrition Notes Start: 08/19/18 10:43 Freq: Status: Active Protocol: Document 08/23/18 11:19 TW (Rec: 08/23/18 12:46 TW [email or web address]) Co-Sign 08/23/18 11:19 OL Nutrition Notes Initial or Follow up Reassessment Current Diagnosis COPD,Coronary Artery Disease, Diabetes,Hypertension,Heart Failure,Respiratory Failure Other Pertinent Diagnosis AMS, ? drug overdose Current Diet Mech Soft, Consistent CHO Labs/Tests Reviewed Pertinent Medications Lasix Height 5 ft 9 in Weight 108.86 kg [place] Body Weight (kg) 72.72 BMI 35.4 Subjective/Other Information Pt was asleep at time of visit . Pt RN stated he is not eating any of his meals. Observed tray not eaten. Percent of energy/protein needs met: 0%/0% Burn Absent Trauma Absent #1 Nutrition Diagnosis Inadequate oral intake Diagnosis Progress(for reassessment Continues documentation) Is patient on ventilator? Yes Is Patient Ambulatory and/or Out of Bed No REE-([facility]-confined to bed) 2265.324 Kcal/Kg value to use for calculation 16 Approximate Energy Requirements Using 1742 kcal/Kg Calculation Used for Recommendations Kcal/kg Additional Notes Protein Needs:109-137g (1.2-1 .5g/kg 91kg adjBW) Fluid Needs: 1 ml/kcal Nutrition Intervention Change Diet Order: Mech Soft,Consistent CHO, Cardiac Add Supplement/Snack (indicate name/kcal Glucerna 1 daily /protein ) Provides kCal: 220 Provides Protein (gm) 10 Goal #1 Meet at least 75% of calorie and protein needs via PO and ONS intakes Anticipated Discharge Needs: Mech soft, Consistent CHO, Cardiac Follow-Up By: 08/24/18 Additional Comments Follow for PO and ONS intakes
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
--- NOTE | 2018-08-23 14:49 | Discharge Summary ---
Providers - Providers Date of Admission: 08/18/18 05:54 Date of discharge: 08/23/18 Attending physician: MAIRAM REY 08/18/18 02:21 Consult to Physician [CONS] Urgent Comment: Dr. Mason notified @ 0240 Consulting Provider: LETITIA HUNTLEY Physician Instructions: Reason For Exam: resp failure 08/19/18 08:03 Consult to Dietitian/Nutrition [CONS] Routine Physician Instructions: Assess nutrtn needs, initiate, modify, manage TF Reason For Exam: Reason for Consult: Write/Manage Tube Feeding Reason for Consult: Write/Manage Tube Feeding 08/19/18 16:04 psychiatry consult [Consult to Mental Health] [CONS] Routine Reason For Exam: possible suicide attempt/drug OD/1013 Place consult to:: communications attendant Notified:: Malik Was contact made?: Yes If yes, spoke with:: Malik Time called:: 10:30 08/20/18 10:59 Consult to Physician [CONS] Routine Comment: Consulting Provider: LETITIA WINCHESTER Physician Instructions: Reason For Exam: Arrythmia s/p AICD shock 08/20/18 17:15 Physical Therapy Evaluation and Treat [CONS] Routine Comment: Reason For Exam: Debility/ICU pt/extubated [facility] Hospitalization Condition: Fair Hospital course: Patient is 63 yo with CAD s/p CABG, atrial fibrillation, substace abuse, hypertension, diabetes, CHF, cardiomyopthy s/p AICD. He was found down with altered mental status brought to ED. he was thought to have overdosed on some substance. Urine drug screen was positive for opiates and Benzodiazepine. He was evaluated in ED, intubated, placed on ventilator and admitted to ICU. He was evaluated by Physical Trainer. Patient improved, was extubated, transferred to Telemetry. He had AICD discharges and interrogation revealed vtach that was shocked. Patient was followed by Psych during stay and was on 1013 status. This was rescinded and he was discharged home with home hospice on 08/23/18. Total time spent on discharge, 33 mins Disposition: DC-50 TO HOSPICE (HOME) - Discharge Diagnoses (1) Acute on chronic respiratory failure with hypoxia and hypercapnia Status: Acute (2) Acute on chronic systolic heart failure Status: Acute (3) Diabetes mellitus type 2 in obese Status: Acute (4) Obesity hypoventilation syndrome Status: Acute (5) Overdose Status: Acute (6) Schizophrenia Status: Acute (7) Sleep apnea Status: Acute (8) Ventricular tachycardia Status: Acute (9) Atrial fibrillation Status: Chronic (10) CAD (coronary artery disease) Status: Chronic Qualifiers: Coronary Disease-Associated Artery/Lesion type: bypass graft [place] vs. transplanted heart: [place] heart (11) Coronary artery disease Status: Chronic (12) Dyslipidemia Status: Chronic (13) HTN (hypertension) Status: Chronic Qualifiers: Hypertension type: essential hypertension Qualified Code(s): I10 - Essential (primary) hypertension Comment: This is stable. (14) Paroxysmal atrial fibrillation Status: Chronic (15) Presence of automatic cardioverter/defibrillator (AICD) Status: Chronic Core Measure Documentation - Palliative Care Palliative Care/ Comfort Measures: Hospice Care - Core Measures Any of the following diagnoses?: heart failure - Heart Failure Discharge Requirements WYATT/ARB for LVSD if EF <40%: Yes Beta thomas at discharge: Yes Exam - Constitutional Vitals: Temp Pulse Resp BP Pulse Ox 99.0 F 81 19 128/82 97 08/22/18 20:51 08/23/18 11:20 08/23/18 08:38 08/23/18 11:20 08/23/18 08:34 Plan Activity: advance as tolerated Diet: low fat, low cholesterol, low salt, other (Mechanical soft diet) Additional Instructions: 1.Follow up with PCP in 1 week. 2.[facility] for [facility] follow up. 3.Follow up with Dr. winchester, cardiology in 1 week Follow up with: PRIMARY CAREMD [Referring] - 3-5 Days Prescriptions: ARIPiprazole [Abilify TAB] 5 mg PO QDAY #30 tablet Tamsulosin [Flomax] 0.4 mg PO QDAY #30 capsule Pantoprazole [Protonix TAB] 40 mg PO DAILY #30 tablet
== END 2018-08-23 19:30 | disposition hospice, home (50) | DRG 917 ==
LOC: ED 23:11 → CC1 08-18 05:54 → 4A 08-20 20:27
PROVIDERS: ADMIT Internal Medicine; ATTEND Internal Medicine
PROC: 5A1945Z Respiratory Ventilation, 24-96 Consecutive Hours (ICD-10-PCS; principal; 2018-08-18)
PROC: 0BH17EZ Insertion of Endotracheal Airway into Trachea, Via Natural or Artificial Opening (ICD-10-PCS; 2018-08-18)
PROC: 4A033R1 Measurement of Arterial Saturation, Peripheral, Percutaneous Approach (ICD-10-PCS; 2018-08-18)
PROC: 02HV33Z Insertion of Infusion Device into Superior Vena Cava, Percutaneous Approach (ICD-10-PCS; 2018-08-18)
PROC: B548ZZA Ultrasonography of Superior Vena Cava, Guidance (ICD-10-PCS; 2018-08-18)
PROC: 4B02XTZ Measurement of Cardiac Defibrillator, External Approach (ICD-10-PCS; 2018-08-20)
DX: T42.4X2A Poisoning by benzodiazepines, intentional self-harm, initial encounter (principal); I50.23 Acute on chronic systolic (congestive) heart failure; G92 Toxic encephalopathy; J96.21 Acute and chronic respiratory failure with hypoxia; E44.0 Moderate protein-calorie malnutrition; I47.2 Ventricular tachycardia; T40.602A Poisoning by unspecified narcotics, intentional self-harm, initial encounter; I25.5 Ischemic cardiomyopathy; I48.0 Paroxysmal atrial fibrillation; I25.2 Old myocardial infarction; G43.909 Migraine, unspecified, not intractable, without status migrainosus; J44.9 Chronic obstructive pulmonary disease, unspecified; E83.42 Hypomagnesemia; E87.6 Hypokalemia; D50.9 Iron deficiency anemia, unspecified; E11.9 Type 2 diabetes mellitus without complications; I25.119 Atherosclerotic heart disease of native coronary artery with unspecified angina pectoris; Y92.89 Other specified places as the place of occurrence of the external cause; Z95.810 Presence of automatic (implantable) cardiac defibrillator; Z79.01 Long term (current) use of anticoagulants; Z68.35 Body mass index [BMI] 35.0-35.9, adult; Z95.1 Presence of aortocoronary bypass graft; Z95.5 Presence of coronary angioplasty implant and graft; Z90.49 Acquired absence of other specified parts of digestive tract
CPT/HCPCS: 36415; 36600; 70450; 71045; 72125; 74018; 80048; 80053; 80307; 80320; 81001; 82140; 82550; 82553; 82803; 82962; 83735; 84100; 84132; 84484; 85025; 85027; 86140; 87086; 93005; 93010; 94002; 94003; 94640; 94760; G0378; C9113; G0480; J0153; J1630; J1815; J2060; J2405; J2704; J3475; J3480; J3486; J7030; J7050

== ENCOUNTER 2018-09-05 18:00 | Observation (INO) | payer MEDICARE ==
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
--- NOTE | 2018-09-05 19:59 | Cat Scan Report ---
PROCEDURE: CT HEAD/BRAIN WO CON TECHNIQUE: Computerized tomography of the head was performed without contrast material. Imaging was obtained in axial increments. CT DOSE LENGTH PRODUCT: 954.7 mGycm HISTORY: altered mental status COMPARISONS: CT head 08/18/2018 . FINDINGS: The ventricular system is normal in size and configuration. There is low density in the periventricul ar white matter around the right ventricular atrium consistent with small vessel ischemic changes, st able. There is no evidence for mass lesion, mass effect, midline shift, acute intracranial hemorrhage, or a cute ischemia/ infarction. No evidence for acute skull fracture is seen. No abnormality in the overlying scalp soft tissues is s een. Visualized paranasal sinuses are clear. IMPRESSION: No acute intracranial process noted. [No change.] This document is electronically signed by Nancy Moffett MD., September 05 2018 07:57:19 PM ET
[2018-09-05 20:11] LABS: Basophils # (Auto) 0.1 K/mm3 (0.0-0.1); Basophils % (Auto) 1.4 % (0.0-1.8); Eosinophils # (Auto) 0.2 K/mm3 (0.0-0.4); Eosinophils % (Auto) 2.6 % (0.0-4.3); Hematocrit 33.3 % (35.5-45.6); Hemoglobin 10.9 gm/dl (11.8-15.2); Lymphocytes # (Auto) 1.9 K/mm3 (1.2-5.4); Lymphocytes % (Auto) 25.6 % (13.4-35.0); Mean Corpuscular HGB Conc 33 % (32-34); Mean Corpuscular Volume 80 fl (84-94); Monocytes # (Auto) 0.9 K/mm3 (0.0-0.8); Monocytes % (Auto) 11.7 % (0.0-7.3); Red Blood Count 4.16 M/mm3 (3.65-5.03)
[2018-09-05 20:35] LABS: Creatine Kinase MB 9.3 ng/mL (0.0-4.0); INR TNR (0.87-1.13)
[2018-09-05 20:37] LABS: Partial Thromboplastin Time TNR Sec. (24.2-36.6)
[2018-09-05 20:38] LABS: BUN/Creatinine Ratio 12; Blood Urea Nitrogen 14 mg/dL (9-20); Calcium 8.9 mg/dL (8.4-10.2)
[2018-09-05 20:39] LABS: Alanine Aminotransferase 21 units/L (7-56); Albumin 3.9 g/dL (3.9-5); Hemolysis Index 20
[2018-09-05 20:44] LABS: Free T4 (Free Thyroxine) 0.79 ng/dL (0.76-1.46)
[2018-09-05 21:21] LABS: Platelet Count 138 K/mm3 (140-440)
[2018-09-05] MEDS ORDERED: NARCAN 0.4 MG/1 ML IV ONE (21:24)
[2018-09-05 21:31] LABS: INR 1.34 (0.87-1.13)
[2018-09-05 21:43] LABS: Bilirubin,Urine NEG (Negative); Blood,Urine NEG (Negative); Color,Urine Yellow (Yellow); Mucus,Urine FEW /HPF; Protein,Urine <15 mg/dL mg/dL (Negative); RBC,Urine < 1.0 /HPF (0.0-6.0); Urobilinogen,Urine < 2.0 mg/dL (<2.0)
[2018-09-05 21:46] LABS: WBC,Urine < 1.0 /HPF (0.0-6.0)
[2018-09-05 21:50] LABS: Amphetamine Screen,Urine PRESUMPTIVE NEGATIVE; Cannabinoid Screen,Urine PRESUMPTIVE NEGATIVE; Cocaine Screen,Urine PRESUMPTIVE NEGATIVE; Methadone Screen,Urine PRESUMPTIVE NEGATIVE
[2018-09-05 22:17] LABS: Benzodiazepines Screen,Urine PRESUMPTIVE POSITIVE; Opiate Screen,Urine PRESUMPTIVE POSITIVE
--- NOTE | 2018-09-05 22:24 | XRay Report ---
PROCEDURE: XR CHEST 1V AP TECHNIQUE: Chest radiograph single view. HISTORY: altered mental status, hypotension COMPARISONS: 08/20/2018 . FINDINGS: Moderate cardiomegaly is noted. Evaluation of the lungs is limited due to suboptimal inspiration. Sub segmental atelectatic changes are noted in the left lung base. Mild prominence of interstitial markin gs is noted. A left-sided cardiac device is noted. Sternal sutures and surgical clips are identified consistent with previous CABG. IMPRESSION: Cardiomegaly Prominent interstitial markings may represent interstitial fibrosis versus interstitial edema. Two-view chest study is recommended whenever the patient's condition permits. This document is electronically signed by Jono Briscoe MD., September 05 2018 10:22:30 PM ET
--- NOTE | 2018-09-05 23:54 | History and Physical Report ---
History of Present Illness Date of examination: 09/05/18 History of present illness: 63-year-old man with a history of CHF, on hospice, hypertension, diabetes, DVT, A. fib, seems emergency room because he was altered. The patient was given Narcan in the emergency room with good results Review of systems Constitutional: no weight loss, chills, fever Ears, eyes, nose, mouth and throat: no nasal congestion, no nasal discharge, no sinus pressure, no vision change, no red eye. Neck: No neck pain or rigidity. Cardiovascular: no palpitations, chest pain Respiratory: no cough, shortness of breath Gastrointestinal: no hematochezia, abdominal pain Genitourinary : no frequency , no hematuria Musculoskeletal: no joint swelling or muscle ache Integumentary: no rash, no pruritis Neurological: no parathesias, no focal weakness Endocrine: no cold or heat intolerance, no polyuria or polydipsia Hematologic/Lymphatic: no easy bruising, no easy bleeding, no gland swelling Allergic/Immunologic: no urticaria, no angioedema. PAST MEDICAL HISTORY:CHF, on hospice, hypertension, diabetes, DVT, A. fib PAST SURGICAL HISTORY: CABG, pacemaker, cholecystectomy, AICD, amputation of fifth finger SOCIAL HISTORY: Denies alcohol, drugs, tobacco FAMILY HISTORY: Hypertension Medications and Allergies Allergies Allergy/AdvReac Type Severity Reaction Status Date / Time gabapentin [From Neurontin] Allergy Rash Verified 01/25/18 06:12 Home Medications Medication Instructions Recorded Confirmed Last Taken Type Lisinopril [Zestril TAB] 20 mg PO QDAY #30 tablet 12/27/17 09/06/18 Unknown Rx Metoprolol Xl [Metoprolol 50 mg PO BID #60 tablet 12/27/17 09/06/18 Unknown Rx SUCCINATE ER TAB] AtorvaSTATin [Lipitor] 40 mg PO QHS #30 tablet 02/03/18 09/06/18 Unknown Rx ISOSORBIDE MONOnitrate [Imdur ER] 60 mg PO QDAY #30 tablet 02/03/18 09/06/18 Unknown Rx QUEtiapine [SEROquel] 200 mg PO BID #60 tablet 02/03/18 09/06/18 Unknown Rx Ranolazine ER [Ranexa ER] 500 mg PO BID #60 tablet 02/03/18 09/06/18 Unknown Rx ALPRAZolam [Xanax] 1 mg PO BID 02/09/18 09/06/18 08/17/18 History Cyclobenzaprine [Flexeril 10 MG 10 mg PO BID 02/09/18 09/06/18 Unknown History TAB] Dabigatran [Pradaxa] 75 mg PO BID 02/09/18 09/06/18 Unknown History Furosemide [Lasix TAB] 40 mg PO BID 02/09/18 09/06/18 08/17/18 History Insulin Lispro [Humalog 100 15 units SUB-Q TIDAC 02/09/18 09/06/18 Unknown History UNITS/ML Kwikpen] Oxycodone HCl/Acetaminophen 1 each PO TID 02/09/18 09/06/18 Unknown History [Percocet 7.5/325 mg] Sertraline [Zoloft] 50 mg PO QDAY 02/09/18 09/06/18 Unknown History Amitriptyline HCl 75 mg PO DAILY 08/18/18 09/06/18 08/17/18 History ARIPiprazole [Abilify TAB] 5 mg PO QDAY #30 tablet 08/23/18 09/06/18 Unknown Rx Pantoprazole [Protonix TAB] 40 mg PO DAILY #30 tablet 08/23/18 09/06/18 Unknown Rx Tamsulosin [Flomax] 0.4 mg PO QDAY #30 capsule 08/23/18 09/06/18 Unknown Rx Exam - Physical Exam Narrative exam: General Apperance: The patient lying in bed, breathing comfortable HEENT: Normocephalic, atraumatic. Pupils equally round and reactive to light, EOMI, no sclericterus or JVD or thyromegaly or nodule. , no carotid bruit, mucous membranes moist, no exudate or erythema Heart: S1-S2, regular is rhythm Lungs: Clear to auscultation bilaterally, breathing comfortable Abdomen: Positive bowel sounds, soft, nontender, nondistended, no organomegaly Extremities: No edema cyanosis clubbing Skin: no rash, nodule, warm and dry Neuro: cranial nerves 2-12 intact, speech is fluent, motor/sensory intact - Constitutional Vitals: Temp Pulse Resp BP Pulse Ox 97.3 F L 80 14 101/71 98 09/05/18 18:29 09/05/18 20:11 09/05/18 20:11 09/05/18 20:11 09/05/18 20:11 Results - Labs CBC & Chem 7: 09/06/18 05:32 09/06/18 05:32 Labs: Abnormal lab results 09/05/18 09/05/18 09/05/18 Range/Units 19:48 19:48 19:48 Hgb 10.9 L (11.8-15.2) gm/dl Hct 33.3 L (35.5-45.6) % MCV 80 L (84-94) fl MCH 26 L (28-32) pg RDW 18.0 H (13.2-15.2) % Plt Count 138 L (140-440) K/mm3 [place] % (Auto) 11.7 H (0.0-7.3) % [place] # 0.9 H (0.0-0.8) K/mm3 PT (12.2-14.9) Sec. INR (0.87-1.13) APTT (24.2-36.6) Sec. Potassium 3.5 L (3.6-5.0) mmol/L Chloride 97.3 L (98-107) mmol/L Ammonia 16.0 L (25-60) umol/L Total Creatine Kinase 478 H (55-170) units/L CK-MB (CK-2) 9.3 H (0.0-4.0) ng/mL NT-Pro-B Natriuret Pep (0-900) pg/mL TSH (0.270-4.200) mlU/mL 09/05/18 09/05/18 09/05/18 Range/Units 19:48 19:48 20:46 Hgb (11.8-15.2) gm/dl Hct (35.5-45.6) % MCV (84-94) fl MCH (28-32) pg RDW (13.2-15.2) % Plt Count (140-440) K/mm3 [place] % (Auto) (0.0-7.3) % [place] # (0.0-0.8) K/mm3 PT 17.4 H (12.2-14.9) Sec. INR 1.34 H (0.87-1.13) APTT 53.0 H (24.2-36.6) Sec. Potassium (3.6-5.0) mmol/L Chloride (98-107) mmol/L Ammonia (25-60) umol/L Total Creatine Kinase (55-170) units/L CK-MB (CK-2) (0.0-4.0) ng/mL NT-Pro-B Natriuret Pep 8207 H (0-900) pg/mL TSH 13.670 H (0.270-4.200) mlU/mL - Imaging and Cardiology Chest x-ray: report reviewed CT Scan - head: report reviewed Assessment and Plan Assessment Narcotic overdose CHF, stable hypertension diabetes h/o DVT A. fib Thrombocytopenia Plan Observe overnight, hold further narcotics DVT prophylaxis
[2018-09-06] MEDS ORDERED: SODIUM CHLORIDE FLUSH SYRINGE 10 ML IV PRN (03:16)
[2018-09-06] MEDS ORDERED: TYLENOL PO PRN (03:16)
[2018-09-06] MEDS ORDERED: ZOFRAN IV PRN (03:16)
[2018-09-06 06:09] LABS: Basophils % (Auto) 0.6 % (0.0-1.8); Eosinophils # (Auto) 0.1 K/mm3 (0.0-0.4); Eosinophils % (Auto) 2.4 % (0.0-4.3); Hematocrit 29.5 % (35.5-45.6); Hemoglobin 9.7 gm/dl (11.8-15.2); Lymphocytes # (Auto) 0.8 K/mm3 (1.2-5.4); Lymphocytes % (Auto) 16.5 % (13.4-35.0); Mean Corpuscular HGB Conc 33 % (32-34); Mean Corpuscular Volume 81 fl (84-94); Monocytes # (Auto) 0.3 K/mm3 (0.0-0.8); Platelet Count 159 K/mm3 (140-440); Red Blood Count 3.65 M/mm3 (3.65-5.03); Red Cell Distribution Width 17.7 % (13.2-15.2)
[2018-09-06 06:35] LABS: BUN/Creatinine Ratio 13; Blood Urea Nitrogen 13 mg/dL (9-20); Calcium 8.6 mg/dL (8.4-10.2); Hemolysis Index 1
[2018-09-06] MEDS ORDERED: LOVENOX SUB-Q SCH (10:00)
[2018-09-06] MEDS ORDERED: ZESTRIL PO SCH (10:00)
[2018-09-06] MEDS: TOPROL XL PO SCH ×2 (10:38→22:11)
[2018-09-06] MEDS: XANAX PO SCH ×2 (10:38→22:11)
[2018-09-06] MEDS: LASIX PO SCH ×2 (10:43→22:11)
[2018-09-06] MEDS: PROTONIX PO SCH (10:44)
[2018-09-06] MEDS: IMDUR PO SCH (10:45)
[2018-09-06] MEDS: ABILIFY PO SCH (10:46)
[2018-09-06] MEDS: ZOLOFT PO SCH (10:46)
[2018-09-06] MEDS: FLOMAX PO SCH (10:46)
[2018-09-06] MEDS: SODIUM CHLORIDE FLUSH SYRINGE 10 ML IV SCH ×2 (10:48→22:12)
[2018-09-06] MEDS: RANEXA ER PO SCH ×2 (11:04→22:11)
[2018-09-06] MEDS: PRADAXA PO SCH ×2 (12:00→22:10)
--- NOTE | 2018-09-06 16:08 | Progress Note ---
Assessment and Plan Assessment and plan: Patient was admitted to the emergency department from the alf was a complaints of altered mental status, shortness of breath. Patient is a hospice patient. Patient was stable after admission. I have called hospice company and they will make him inpatient hospice. Patient lives in alf. Patient is stable and will go back to inpatient hospice tomorrow morning. History Interval history: Patient was seen and evaluated this morning, patient was alert and oriented. Hospitalist Physical - Physical exam Narrative exam: Not in cardiopulmonary distress. The patient appeared well nourished and normally developed. Vital signs as documented. Head exam is unremarkable. No scleral icterus . Neck is without jugular venous distension, thyromegaly, or carotid bruits. Lungs are clear to auscultation. Cardiac exam reveals regular rate and Rhythm. Abdominal exam reveals normal bowel sounds, no masses, no organomegaly and no aortic enlargement. Extremities are nonedematous and both femoral and pedal pulses are normal. SHUTTLE HAND: Alert and oriented 3. No focal weakness. - Constitutional Vitals: Temp Pulse Resp BP Pulse Ox 98.4 F 81 18 95/50 100 09/06/18 11:53 09/06/18 11:53 09/06/18 11:53 09/06/18 11:53 09/06/18 15:54 Results - Labs CBC & Chem 7: 09/06/18 05:32 09/06/18 05:32 Labs: Laboratory Last Values WBC 4.7 K/mm3 (4.5-11.0) 09/06/18 05:32 RBC 3.65 M/mm3 (3.65-5.03) 09/06/18 05:32 Hgb 9.7 gm/dl (11.8-15.2) L 09/06/18 05:32 Hct 29.5 % (35.5-45.6) L 09/06/18 05:32 MCV 81 fl (84-94) L 09/06/18 05:32 MCH 27 pg (28-32) L 09/06/18 05:32 MCHC 33 % (32-34) 09/06/18 05:32 RDW 17.7 % (13.2-15.2) H 09/06/18 05:32 Plt Count 159 K/mm3 (140-440) 09/06/18 05:32 Lymph % (Auto) 16.5 % (13.4-35.0) 09/06/18 05:32 Graves % (Auto) 7.0 % (0.0-7.3) 09/06/18 05:32 Eos % (Auto) 2.4 % (0.0-4.3) 09/06/18 05:32 Baso % (Auto) 0.6 % (0.0-1.8) 09/06/18 05:32 Lymph # 0.8 K/mm3 (1.2-5.4) L 09/06/18 05:32 Graves # 0.3 K/mm3 (0.0-0.8) 09/06/18 05:32 Eos # 0.1 K/mm3 (0.0-0.4) 09/06/18 05:32 Baso # 0.0 K/mm3 (0.0-0.1) 09/06/18 05:32 Seg Neutrophils % 73.5 % (40.0-70.0) H 09/06/18 05:32 Seg Neutrophils # 3.4 K/mm3 (1.8-7.7) 09/06/18 05:32 PT 17.4 Sec. (12.2-14.9) H 09/05/18 20:46 INR 1.34 (0.87-1.13) H 09/05/18 20:46 APTT 53.0 Sec. (24.2-36.6) H 09/05/18 20:46 Sodium 141 mmol/L (137-145) 09/06/18 05:32 Potassium 3.3 mmol/L (3.6-5.0) L 09/06/18 05:32 Chloride 100.7 mmol/L (98-107) 09/06/18 05:32 Carbon Dioxide 27 mmol/L (22-30) 09/06/18 05:32 Anion Gap 17 mmol/L 09/06/18 05:32 BUN 13 mg/dL (9-20) 09/06/18 05:32 Creatinine 1.0 mg/dL (0.8-1.5) 09/06/18 05:32 Estimated GFR > 60 ml/min 09/06/18 05:32 BUN/Creatinine Ratio 13 % 09/06/18 05:32 Glucose 90 mg/dL (75-100) 09/06/18 05:32 Calcium 8.6 mg/dL (8.4-10.2) 09/06/18 05:32 Total Bilirubin 1.10 mg/dL (0.1-1.2) 09/05/18 19:48 AST 38 units/L (5-40) 09/05/18 19:48 ALT 21 units/L (7-56) 09/05/18 19:48 Alkaline Phosphatase 108 units/L (35-129) 09/05/18 19:48 Ammonia 16.0 umol/L (25-60) L 09/05/18 19:48 Total Creatine Kinase 478 units/L (55-170) H 09/05/18 19:48 CK-MB (CK-2) 9.3 ng/mL (0.0-4.0) H 09/05/18 19:48 CK-MB (CK-2) Rel Index 1.9 (0-4) 09/05/18 19:48 Troponin T < 0.010 ng/mL (0.00-0.029) 09/05/18 19:48 NT-Pro-B Natriuret Pep 8207 pg/mL (0-900) H 09/05/18 19:48 Total Protein 7.4 g/dL (6.3-8.2) 09/05/18 19:48 Albumin 3.9 g/dL (3.9-5) 09/05/18 19:48 Albumin/Globulin Ratio 1.1 % 09/05/18 19:48 TSH 13.670 mlU/mL (0.270-4.200) H 09/05/18 19:48 Free T4 0.79 ng/dL (0.76-1.46) 09/05/18 19:48 Urine Color Yellow (Yellow) 09/05/18 18:44 Urine Turbidity Clear (Clear) 09/05/18 18:44 Urine pH 5.0 (5.0-7.0) 09/05/18 18:44 Ur Specific [place] 1.006 (1.003-1.030) 09/05/18 18:44 Urine Protein <15 mg/dl mg/dL (Negative) 09/05/18 18:44 Urine Glucose (UA) Neg mg/dL (Negative) 09/05/18 18:44 Urine Ketones Neg mg/dL (Negative) 09/05/18 18:44 Urine Blood Neg (Negative) 09/05/18 18:44 Urine Nitrite Neg (Negative) 09/05/18 18:44 Urine Bilirubin Neg (Negative) 09/05/18 18:44 Urine Urobilinogen < 2.0 mg/dL (<2.0) 09/05/18 18:44 Ur Leukocyte Esterase Neg (Negative) 09/05/18 18:44 Urine WBC (Auto) < 1.0 /HPF (0.0-6.0) 09/05/18 18:44 Urine RBC (Auto) < 1.0 /HPF (0.0-6.0) 09/05/18 18:44 U Epithel Cells (Auto) < 1.0 /HPF (0-13.0) 09/05/18 18:44 Urine Mucus Few /HPF 09/05/18 18:44 Urine Opiates Screen Presumptive positive 09/05/18 18:44 Urine Methadone Screen Presumptive negative 09/05/18 18:44 Ur Barbiturates Screen Presumptive negative 09/05/18 18:44 Ur Phencyclidine Scrn Presumptive negative 09/05/18 18:44 Ur Amphetamines Screen Presumptive negative 09/05/18 18:44 U Benzodiazepines Scrn Presumptive positive 09/05/18 18:44 Urine Cocaine Screen Presumptive negative 09/05/18 18:44 U Marijuana (THC) Screen Presumptive negative 09/05/18 18:44 Drugs of Abuse Note Disclamer 09/05/18 18:44 Plasma/Serum Alcohol < 0.01 % (0-0.07) 09/05/18 19:48 Active Medications - Current Medications Current Medications: Generic Name Dose Route Start Last Admin Trade Name Freq PRN Reason Stop Dose Admin Acetaminophen 650 mg 09/06/18 03:16 Tylenol PO Q4H PRN Pain MILD(1-3)/Fever >100.5/ARNETT Alprazolam 1 mg 09/06/18 10:00 09/06/18 10:38 Xanax PO 1 mg BID MARY Administration Amitriptyline HCl 75 mg 09/06/18 22:00 Elavil PO QHS MARY Aripiprazole 5 mg 09/06/18 10:00 09/06/18 10:46 Abilify PO 5 mg QDAY MARY Administration Atorvastatin Calcium 40 mg 09/06/18 22:00 Lipitor PO QHS MARY Dabigatran 75 mg 09/06/18 10:00 Pradaxa PO BID [facility] Protocol Furosemide 40 mg 09/06/18 10:00 09/06/18 10:43 Lasix PO 40 mg BID MARY Administration Isosorbide Mononitrate 60 mg 09/06/18 10:00 09/06/18 10:45 Imdur PO 60 mg QDAY [facility] Administration Lisinopril 20 mg 09/06/18 10:00 09/06/18 10:44 Zestril PO 20 mg QDAY [facility] Administration Metoprolol Succinate 50 mg 09/06/18 10:00 09/06/18 10:38 Toprol Xl PO 50 mg BID [facility] Administration Ondansetron HCl 4 mg 09/06/18 03:16 Zofran IV Q8H PRN Nausea And Vomiting Pantoprazole Sodium 40 mg 09/06/18 10:00 09/06/18 10:44 Protonix PO 40 mg DAILY [facility] Administration Quetiapine Fumarate 200 mg 09/06/18 10:00 Seroquel PO BID [facility] Ranolazine 500 mg 09/06/18 10:00 09/06/18 11:04 Ranexa Er PO 500 mg BID [facility] Administration Sertraline HCl 50 mg 09/06/18 10:00 09/06/18 10:46 Zoloft PO 50 mg QDAY [facility] Administration Sodium Chloride 10 ml 09/06/18 10:00 09/06/18 10:48 Sodium Chloride Flush Syringe 10 Ml IV 10 ml BID MARY Administration Sodium Chloride 10 ml 09/06/18 03:16 Sodium Chloride Flush Syringe 10 Ml IV PRN PRN LINE FLUSH Tamsulosin HCl 0.4 mg 09/06/18 10:00 09/06/18 10:46 Flomax PO 0.4 mg QDAY MARY Administration
[2018-09-06] MEDS ORDERED: ELAVIL PO SCH (22:00)
--- NOTE | 2018-09-07 10:12 | Discharge Summary ---
Providers - Providers Date of Admission: 09/05/18 23:54 Attending physician: OCTAVIA HOFF MD Primary care physician: NEEL GIBSON MD Hospitalization Reason for admission: SOB Condition: Fair Hospital course: 61-year-old man with a history of CHF, on hospice, hypertension, diabetes, DVT, A. fib, seems emergency room because he was altered. The patient was given Narcan in the emergency room with good results. Patient was admitted to the floor and contacted the hospice company. The company recommends to transfer him to inpatient hospice care and keep till the next day until bed is ready. patient was hemodynamically stable and didn't have any complaints. Disposition: [id number] ([facility]) Time spent for discharge: 32 minutes - Discharge Diagnoses (1) Altered mental status, unspecified Status: Acute (2) Opiate overdose Status: Acute Core Measure Documentation - Palliative Care Palliative Care/ Comfort Measures: Hospice Care - Core Measures Any of the following diagnoses?: none Exam - Physical Exam Narrative exam: Not in cardiopulmonary distress. The patient appeared well nourished and normally developed. Vital signs as documented. Head exam is unremarkable. No scleral icterus . Neck is without jugular venous distension, thyromegaly, or carotid bruits. Lungs are clear to auscultation. Cardiac exam reveals regular rate and Rhythm. Abdominal exam reveals normal bowel sounds, no masses, no organomegaly and no aortic enlargement. Extremities are nonedematous and both femoral and pedal pulses are normal. [employer]: Alert and oriented 3. No focal weakness. - Constitutional Vitals: Temp Pulse Resp BP Pulse Ox 98.3 F 81 20 121/66 98 09/07/18 08:18 09/07/18 08:18 09/07/18 08:18 09/07/18 08:18 09/07/18 09:08 Plan Activity: advance as tolerated Weight Bearing Status: Weight Bear as Tolerated Diet: regular Follow up with: NEEL DE LA PAZ MD [Primary Care Provider] - 3-5 Days
[2018-09-07] MEDS: IMDUR PO SCH (10:24)
[2018-09-07] MEDS: ABILIFY PO SCH (10:24)
[2018-09-07] MEDS: FLOMAX PO SCH (10:24)
[2018-09-07] MEDS: RANEXA ER PO SCH (10:25)
[2018-09-07] MEDS: LASIX PO SCH (10:25)
[2018-09-07] MEDS: ZOLOFT PO SCH (10:25)
[2018-09-07] MEDS: PROTONIX PO SCH (10:25)
[2018-09-07] MEDS: PRADAXA PO SCH (10:25)
[2018-09-07] MEDS: XANAX PO SCH (10:25)
[2018-09-07] MEDS: TOPROL XL PO SCH (10:25)
[2018-09-07] MEDS: SODIUM CHLORIDE FLUSH SYRINGE 10 ML IV SCH (10:27)
[2018-09-07 17:49] VITALS: BP 93/50
== END 2018-09-07 18:28 | disposition hospice, inpatient (51) ==
LOC: ED 18:00 → 4A 23:54
PROVIDERS: ADMIT Internal Medicine; ATTEND Internal Medicine
DX: T40.601A Poisoning by unspecified narcotics, accidental (unintentional), initial encounter (principal); I11.0 Hypertensive heart disease with heart failure; I50.9 Heart failure, unspecified; E11.9 Type 2 diabetes mellitus without complications; I48.91 Unspecified atrial fibrillation; R41.82 Altered mental status, unspecified; D69.6 Thrombocytopenia, unspecified; J44.9 Chronic obstructive pulmonary disease, unspecified; Z86.718 Personal history of other venous thrombosis and embolism; Z95.1 Presence of aortocoronary bypass graft; Z95.0 Presence of cardiac pacemaker; Z90.49 Acquired absence of other specified parts of digestive tract; Z89.029 Acquired absence of unspecified finger(s); Z87.442 Personal history of urinary calculi; Z82.49 Family history of ischemic heart disease and other diseases of the circulatory system
CPT/HCPCS: 36415; 70450; 71045; 80048; 80053; 80307; 81001; 82140; 82550; 82553; 83880; 84439; 84443; 84484; 85025; 85610; 85730; 87040; 87116; 93005; 93010; 94760; 96374; 96375; 99284; A9270; G0378; G0480; J2310; J2405; 80320